=== PATIENT | male | born 1935 | race Caucasian/White ===

== ENCOUNTER 2017-05-28 15:01 | Emergency (ER) | payer MEDICARE, OTHER, SELFPAY | END 2017-05-28 18:15 | disposition home or self-care (01) | PROVIDERS: Emergency Provider Emergency Medicine; Family Provider Family Medicine; PCP Family Medicine; Visit Provider Emergency Medicine | DX: I48.0 Paroxysmal atrial fibrillation (principal) | CPT/HCPCS: 84484; 85025; 85610; 85730; 93005; 93010; 96361; 96374; 99058; 99284 ==

== ENCOUNTER → 2017-07-06 13:40 | Outpatient (CLI) | payer MEDICARE, OTHER, SELFPAY ==
[2017-07-06 14:04] LABS: INR 2.4 (0.9-1.3); Prothrombin Time 25.9 SECONDS (10.1-12.7)
== END ==
PROVIDERS: PCP Family Medicine; Visit Provider Family Medicine
DX: I48.91 Unspecified atrial fibrillation (principal)
CPT/HCPCS: 36415; 85610

== ENCOUNTER → 2017-07-15 15:39 | Outpatient (CLI) | payer MEDICARE, OTHER, SELFPAY ==
--- NOTE | 2017-07-15 | DI.RAD.S_ITS ---
PROCEDURE: XR CERVICAL SPINE 4V OR 5V INDICATIONS: LEFT SIDED NECK PAIN TECHNIQUE: 5 views of the cervical spine were acquired. COMPARISON: [facility], , CERVICAL SPINE 2 OR 3 VIEWS, 10/25/2014, 13:49. FINDINGS: Bones: No fractures or dislocations to the C7 level. No suspicious bony lesions. There is limited range of motion between flexion and extension. On neutral imaging, there is grade one anterolisthesis at C3-4 and C4-5. On flexion, there is increased slippage at both levels as well as at C2-3. On extension, there is correction of the anterolisthesis at C2-3, unchanged at C3-4 and improved at C4-5. Degenerative disc disease at multiple levels, most marked at C5-6 and C6-7 again noted. Soft tissues: Prevertebral soft tissues are normal in thickness. IMPRESSION: Anterolisthesis deformities at C2-3, C3-4 and C4-5, probably related to degenerative facet disease and ligamentous laxity. Multilevel degenerative disc disease again noted. Dictated by: Tank Cr M.D. on 07/15/2017 at 16:13 Approved by: Tank Cr M.D. on 07/15/2017 at 16:18
== END ==
PROVIDERS: Family Provider Internal Medicine Cardiovascular Disease; PCP Family Medicine; Visit Provider Family Medicine
DX: M43.12 Spondylolisthesis, cervical region (principal); M47.812 Spondylosis without myelopathy or radiculopathy, cervical region; M50.30 Other cervical disc degeneration, unspecified cervical region
CPT/HCPCS: 72050; 99214

== ENCOUNTER → 2017-08-03 17:05 | Outpatient (CLI) | payer MEDICARE, OTHER, SELFPAY ==
[2017-08-03 17:39] LABS: INR 4.4 (0.9-1.3); Prothrombin Time 46.9 SECONDS (10.1-12.7)
== END ==
PROVIDERS: Family Provider Internal Medicine Cardiovascular Disease; PCP Family Medicine; Visit Provider Family Medicine
DX: I48.91 Unspecified atrial fibrillation (principal)
CPT/HCPCS: 36415; 85610

== ENCOUNTER → 2017-08-31 12:26 | Outpatient (CLI) | payer MEDICARE, OTHER, SELFPAY ==
[2017-08-31 13:20] LABS: INR 2.9 (0.9-1.3); Prothrombin Time 31.6 SECONDS (10.1-12.7)
== END ==
PROVIDERS: Family Provider Internal Medicine Cardiovascular Disease; PCP Family Medicine; Visit Provider Family Medicine
DX: I48.91 Unspecified atrial fibrillation (principal)
CPT/HCPCS: 36415; 85610

== ENCOUNTER → 2017-09-29 15:38 | Outpatient (CLI) | payer MEDICARE, OTHER, SELFPAY ==
[2017-09-29 16:26] LABS: INR 2.5 (0.9-1.3); Prothrombin Time 27.4 SECONDS (10.1-12.7)
== END ==
PROVIDERS: Family Provider Internal Medicine Cardiovascular Disease; PCP Family Medicine; Visit Provider Family Medicine
DX: I48.91 Unspecified atrial fibrillation (principal)
CPT/HCPCS: 36415; 85610

== ENCOUNTER → 2017-10-01 17:22 | Outpatient (CLI) | payer MEDICARE, OTHER, SELFPAY ==
[2017-10-01 18:06] LABS: Hemoglobin A1C% w Est Avg Glu 7.5 % (4.0-6.0)
== END ==
PROVIDERS: Family Provider Internal Medicine Cardiovascular Disease; PCP Family Medicine; Visit Provider Family Medicine
DX: E11.9 Type 2 diabetes mellitus without complications (principal)
CPT/HCPCS: 36415; 83036

== ENCOUNTER → 2017-10-03 11:40 | Outpatient (CLI) | payer MEDICARE, OTHER, SELFPAY ==
[2017-10-03 12:22] LABS: Add Manual Diff / Slide Review NO; Basophils Percent Auto 0.8 % (0-2); Eosinophils Percent Auto 2.8 % (2-4); Hematocrit 39.8 % (41-53); Hemoglobin 13.7 g/dL (13.5-17.5); Lymphocytes Percent Auto 10.3 % (25-40); Mean Corpuscular HGB Conc 34.4 % (30-36); Monocytes Percent Auto 7.5 % (3-14); Neutrophils Absolute Auto 5100 /uL (3000-5900); Neutrophils Percent Auto 78.6 % (50-75); Platelet Count 164 X10^3/uL (150-400); Red Blood Cell Count 4.15 X10^6/uL (4.5-5.9); Red Cell Distribution Width 13.5 % (11.6-14.8); White Blood Cell Count 6.5 X10^3/uL (4.5-11.0)
[2017-10-03 12:57] LABS: Alanine Aminotransferase 20 IU/L (21-72); Albumin 3.9 g/dL (3.5-5.0); Albumin Globulin Ratio 1.4 (1.0-2.8); Alkaline Phosphatase 79 U/L (38-126); Aspartate Aminotransferase 19 IU/L (17-59); BUN Creatinine Ratio 13.8 (6-22); Bilirubin Total 0.5 mg/dL (0.2-1.3); Blood Urea Nitrogen 22 mg/dL (9-20); Calcium 8.9 mg/dL (8.4-10.2); Carbon Dioxide 23 mmol/L (22-32); Chloride 104 mmol/L (98-107); Estimated Glomerular Filt Rate 41.6 mL/min (>60); Globulin 2.7 g/dL (1.7-4.1); Glucose 141 mg/dL (80-110); HEMOLYSIS < 15 (0-50); Potassium 4.4 mmol/L (3.4-5.1); Sodium 139 mmol/L (137-145); Total Protein 6.6 g/dL (6.3-8.2)
== END ==
PROVIDERS: Family Provider Internal Medicine Cardiovascular Disease; PCP Family Medicine; Referring Provider Urology; Visit Provider Family Medicine
DX: E11.9 Type 2 diabetes mellitus without complications (principal); R06.00 Dyspnea, unspecified; I48.91 Unspecified atrial fibrillation; I50.32 Chronic diastolic (congestive) heart failure
CPT/HCPCS: 36415; 80053; 83880; 85025

== ENCOUNTER 2017-10-15 16:00 | Outpatient (RCR) | payer MEDICARE, OTHER, SELFPAY ==
--- NOTE | 2017-09-03 16:45 | PT.OIE ---
Current Diagnoses Cervicalgia (09/03/17) Low back pain (09/03/17) Muscle weakness (generalized) (09/03/17) Other abnormalities of gait and mobility (09/03/17) Provider Visit Care Team Role Provider Type Vanessa Gonzalez MD Family Provider Physician Specialty: Cardiology Address: [address] [place] [address], [id number] Email: Rufino Pierre MD Attending Provider Physician Primary Care Provider Specialty: Family Practice Address: [address] [place] [address], [id number] Email: [email or web address] Physical Therapy Initial Evaluation PT-OP-A Visit Information Start: 09/03/17 17:50 Freq: Status: Active Protocol: Document 09/03/17 16:45 RCC (Rec: 09/03/17 17:55 RCC [email or web address]) Out-Patient Physical Therapy Visit Information Visit Information Visit Type Initial Evaluation Visit Start Time 16:00 Visit Stop Time 16:55 Total Visit Minutes 55 Visit Number 1 G-codes @ 10 Number of EMERGENCY TELECOMMUNICATIONS DISPATCHER Visits 0 Evaluation Information Evaluation Date 09/03/17 PT-OP-B Current Condition Start: 09/03/17 17:50 Freq: Status: Active Protocol: Document 09/03/17 16:45 RCC (Rec: 09/06/17 14:49 RCC [email or web address]) Current Condition History of Current Condition Onset Date 3 yrs ago Current Complaints neck, back pain, fatigue History of Current Condition Pt is an 82 y/o male presenting to physical therapy with a c/o neck and back pain and general fatigue with standing and gait. Pt notes that about 3 yrs ago, he suffered a fall after getting up from a commode, in which his RLE became weak and gave out on him. Since then neck pain has been a problem for him. Pt has a h/o 3 back surgeries: 2009, 2010, and 2012. He notes that it hurts his neck the most when he looks to the L (pain on the L side of neck to L shoulder blade). He states he can only tolerate 15 min @ most of standing normal daily activities until fatigue hits and then is followed by increased neck and back pain. Prior Treatments and Tests cervical spine radiograph on : anteriolisthesis deformities at C2-3, C3-4, and C4-5, probably related to degenerative facet disease and ligamentous laxity. Multilevel degenerative disc disease again noted. Treatment Goals Patient/Caregiver Goals improve ROM and decrease fatigue and neck pain Prior Functional Status Baseline Function- ADL's Modified Independent Baseline Function- Mobility Modified Independent Baseline Function- Gait community gait with SPC Baseline Function- Recreation/Hobbies walking 5 days per week Current Functional Impairments (Reported) Functional Limitations- ADL's mod I Functional Limitations- Mobility/Gait mod I short distances with SPC Functional Limitations- Recreation/ unable to participate in a Hobbies walking program PT-OP-C Subjective Start: 09/03/17 17:50 Freq: Status: Active Protocol: Document 09/03/17 16:45 RCC (Rec: 09/06/17 14:49 RCC [email or web address]) OP-PT Subjective Patient Comments Patient Comments Pt notes that he just doesn't have the endurance, and now when he gets fatigued his neck pain is worse. Patient Reported Progress Worse Patient Questionnaires Neck Disability Index NDI Score 52% Neck Disability Index Impairment 40 to 59% Impaired (Score 20- 29) OP-PT Pain Assessment Location Left Neck Intensity 7 Scale Used Numeric (1 - 10) Description Aching Sharp PT-OP-E Functional Tests Start: 09/03/17 17:50 Freq: Status: Active Protocol: Document 09/03/17 16:45 RCC (Rec: 09/06/17 14:49 RCC [email or web address]) Functional Tests 6 Minute Walk Test Distance 927 ft Device Used SPC Comments increased back/neck pain @ 3 min and SOB @ 4 min; O2 96% and MN 90 bpm /p PT-OP-F Manual Assessment Start: 09/03/17 17:50 Freq: Status: Active Protocol: Document 09/03/17 16:45 RCC (Rec: 09/06/17 14:49 RCC [email or web address]) Manual Assessments Soft Tissue Assessment Soft Tissue Mobility Assessment TTP: general cervical spine musculature including L levator and UT, B scalenes and suboccipitals PT-OP-G Mobility & Gait Start: 09/03/17 17:50 Freq: Status: Active Protocol: Document 09/03/17 16:45 RCC (Rec: 09/06/17 14:49 RCC [email or web address]) OP Gait Assessment Gait Deviations General Gait Pattern Decreased Stride Length Decreased Feet Clearance Flexed Trunk Factors Limiting Gait Function Factors Limiting Gait Function Decreased Activity Tolerance Pain Comments Gait Comments Increased L lateral shift with gait and exacerbated with fatigue. PT-OP-J Posture/Palpation/Skin Start: 09/03/17 17:50 Freq: Status: Active Protocol: Document 09/03/17 16:45 RCC (Rec: 09/06/17 14:49 RCC [email or web address]) Posture Evaluation Position Sitting Evaluation View Anterior Head/C-Spine Posture Side Bent Left Forward Head PT-OP-K Range of Motion Start: 09/03/17 17:50 Freq: Status: Active Protocol: Document 09/03/17 16:45 RCC (Rec: 09/06/17 14:49 RCC [email or web address]) Cervical Spine Range of Motion Cervical Spine Active Degrees Testing Position Sitting Flexion 25 Extension 31 Rotation Left 42 Rotation Right 65 Lateral Flexion Left 20 Lateral Flexion Right 32 Comments pain highest in extension, L SB, and L rotation; stretch with R SB PT-OP-L Special Tests Start: 09/03/17 17:50 Freq: Status: Active Protocol: Document 09/03/17 16:45 RCC (Rec: 09/06/17 14:49 RCC [email or web address]) Special Tests Cervical Spine Special Tests Spurling's Test Test Results positive- Left PT-OP-M Strength Start: 09/03/17 17:50 Freq: Status: Active Protocol: Document 09/03/17 16:45 RCC (Rec: 09/06/17 14:49 RCC [email or web address]) Shoulder Strength Shoulder Manual Muscle Testing Right Flexion 4 Good Abduction (C5) 4 Good External Rotation 4 Good Internal Rotation 4+ Good+ Left Flexion 4 Good Abduction (C5) 4 Good External Rotation 4 Good Internal Rotation 4+ Good+ Elbow/Forearm Strength Elbow and Forearm Manual Muscle Testing Right Flexion (C6) 4+ Good+ Extension (C7) 4 Good Left Flexion (C6) 4+ Good+ Extension (C7) 4 Good Hip Strength Hip Manual Muscle Testing Right Flexion (L2) 4 Good Adduction 4+ Good+ External Rotation 4 Good Internal Rotation 4 Good Left Flexion (L2) 4- Good- Adduction 4+ Good+ External Rotation 4- Good- Internal Rotation 4- Good- Knee Strength Knee Manual Muscle Testing Right Flexion (S2) 4+ Good+ Extension (L3) 5 Normal Left Flexion (S2) 4- Good- Extension (L3) 5 Normal Ankle/Foot Strength Ankle and Foot Manual Muscle Testing Right Dorsiflexion (L4) 4+ Good+ Left Dorsiflexion (L4) 4+ Good+ PT-OP-Q Treatments Start: 09/03/17 17:50 Freq: Status: Active Protocol: Document 09/03/17 16:45 RCC (Rec: 09/06/17 14:49 RCC [email or web address]) Manual Therapy Treatment Soft Tissue Mobilization 3 Body Location L upper trapezius Mobilization Type Strumming Intensity/Depth Superficial Body Position Sitting 2 Body Location L scalenes Mobilization Type Strumming Intensity/Depth Superficial Body Position Sitting 1 Body Location L levator Mobilization Type Strumming Intensity/Depth Superficial Body Position Sitting PT-OP-R Modalities Start: 09/03/17 17:50 Freq: Status: Active Protocol: Document 09/03/17 16:45 RCC (Rec: 09/06/17 14:49 RCC [email or web address]) Hot Pack/Cold Pack Treatment Hot Pack Location neck Patient Position Sitting Treatment Duration (minutes) 10 Patient Tolerance Good PT-OP-T Assessment and Plan Start: 09/03/17 17:50 Freq: Status: Active Protocol: Document 09/03/17 16:45 RCC (Rec: 09/06/17 14:49 RCC [email or web address]) Physical Therapy Assessment Rehab Potential Rehabilitation Potential Good Evaluation Complexity Number of Personal Factors/Comorbidities 3 or More Number of Body Systems Impaired 4 or More Clinical Presentation at Evaluation Unstable Impairments Impairments Activity Tolerance Functional Activities Gait Pain Posture ROM Soft Tissue Mobility Strength Goals Five Impairment LE weakness Chief Librarian Work With Blind Goal (LTG) L hip flexion, IR and ER 4/5 and L knee flexion 4+/5 with manual muscle testing to increase functional activity tolerance (standing, gait). LTG Duration 12 weeks Four Impairment cervical spine ROM Chief Librarian Work With Blind Goal (LTG) flexion: 35 deg extension: 40 deg side-bend: 35 deg bilaterally rotation: 65 deg. bilaterally LTG Duration 12 weeks Three Impairment impaired gait tolerance Short Term Goal (STG) pt will participate in a walking program at home 3 days per week for 15 minutes. STG Duration 6 weeks Intermediate Goal (LTG) pt will participate in a walking program at home 5 days per week for 20+ minutes. LTG Duration 12 weeks Two Impairment 6 Minute Walk Test Short Term Goal (STG) 1000 ft with SPC. STG Duration 6 weeks Intermediate Goal (LTG) 1200 ft with SPC. LTG Duration 12 weeks One Impairment Pain in neck rated 7/10 Chief Librarian Work With Blind Goal (LTG) 4/10 neck pain LTG Duration 12 weeks Assessment Summary Assessment Pt presents with impaired cervical spine ROM due to soft tissue restriction, pain, and impaired joint mobility, impaired posture, strength, and generalized weakness and fatigue. Pt with increased back and neck pain with ambulation, and increased L lateral shift of the trunk with gait. Pt would greatly benefit from skilled physical therapy to improve his ROM, strength, activity tolerance, and to progress toward a home exercise program for improved ambulation. Pt's pain in the neck appears to be related to degeneration of the cervical spine. Physical Therapy Plan Frequency and Duration Frequency of Treatment 2x/Week Duration of Treatment 12 weeks Plan of Care Start Date 09/03/17 Plan of Care End Date 11/26/17 Therapeutic Interventions Therapeutic Interventions Aquatic Therapy Balance Training Gait Training Home Exercise Program Joint Mobilizations Manual Therapy Neuromuscular Re-education Patient/Caregiver Education Self-Care/Home Management Soft Tissue Mobilization Therapeutic Activities Therapeutic Exercises Modalities Cold Pack/Ice Massage Electric Stimulation Hot Packs Traction- Mechanical Ultrasound Next Visit Focus/Plan Next Note Type Treatment Note Next Visit Plan STR to cervical spine, manual traction, levator and UT stretch, wall posture training . MHP at end of session ( cervical and low back)
--- NOTE | 2017-09-03 16:45 | PT.OPPOC ---
Current Diagnoses Cervicalgia (09/03/17) Low back pain (09/03/17) Muscle weakness (generalized) (09/03/17) Other abnormalities of gait and mobility (09/03/17) Provider Visit Care Team Role Provider Type Vanessa Gonzalez MD Family Provider Physician Specialty: Cardiology Address: [address] [place] [address], [id number] Email: Rufino Pierre MD Attending Provider Physician Primary Care Provider Specialty: Family Practice Address: [address] [place] [address], [id number] Email: [email or web address] Plan Of Care PT-OP-T Assessment and Plan Start: 09/03/17 17:50 Freq: Status: Active Protocol: Document 09/03/17 16:45 RCC (Rec: 09/06/17 14:49 RCC [email or web address]) Physical Therapy Assessment Rehab Potential Rehabilitation Potential Good Evaluation Complexity Number of Personal Factors/Comorbidities 3 or More Number of Body Systems Impaired 4 or More Clinical Presentation at Evaluation Unstable Impairments Impairments Activity Tolerance Functional Activities Gait Pain Posture ROM Soft Tissue Mobility Strength Goals Five Impairment LE weakness Slip Dumper Goal (LTG) L hip flexion, IR and ER 4/5 and L knee flexion 4+/5 with manual muscle testing to increase functional activity tolerance (standing, gait). LTG Duration 12 weeks Four Impairment cervical spine ROM Usp Goal (LTG) flexion: 35 deg extension: 40 deg side-bend: 35 deg bilaterally rotation: 65 deg. bilaterally LTG Duration 12 weeks Three Impairment impaired gait tolerance Short Term Goal (STG) pt will participate in a walking program at home 3 days per week for 15 minutes. STG Duration 6 weeks Usp Goal (LTG) pt will participate in a walking program at home 5 days per week for 20+ minutes. LTG Duration 12 weeks Two Impairment 6 Minute Walk Test Short Term Goal (STG) 1000 ft with SPC. STG Duration 6 weeks Usp Goal (LTG) 1200 ft with SPC. LTG Duration 12 weeks One Impairment Pain in neck rated 7/10 Usp Goal (LTG) 4/10 neck pain LTG Duration 12 weeks Assessment Summary Assessment Pt presents with impaired cervical spine ROM due to soft tissue restriction, pain, and impaired joint mobility, impaired posture, strength, and generalized weakness and fatigue. Pt with increased back and neck pain with ambulation, and increased L lateral shift of the trunk with gait. Pt would greatly benefit from skilled physical therapy to improve his ROM, strength, activity tolerance, and to progress toward a home exercise program for improved ambulation. Pt's pain in the neck appears to be related to degeneration of the cervical spine. Physical Therapy Plan Frequency and Duration Frequency of Treatment 2x/Week Duration of Treatment 12 weeks Plan of Care Start Date 09/03/17 Plan of Care End Date 11/26/17 Therapeutic Interventions Therapeutic Interventions Aquatic Therapy Balance Training Gait Training Home Exercise Program Joint Mobilizations Manual Therapy Neuromuscular Re-education Patient/Caregiver Education Self-Care/Home Management Soft Tissue Mobilization Therapeutic Activities Therapeutic Exercises Modalities Cold Pack/Ice Massage Electric Stimulation Hot Packs Traction- Mechanical Ultrasound Next Visit Focus/Plan Next Note Type Treatment Note Next Visit Plan STR to cervical spine, manual traction, levator and UT stretch, wall posture training . MHP at end of session ( cervical and low back) Plan of Care Dates Plan of Care Start Date 09/03/17 Plan of Care End Date 11/26/17 Please Sign and Return: I have reviewed this Plan of Care and certify that the skilled therapy services above are required to meet the patient?s needs. Physician Signature Date Printed Name and Credentials Clinical Instructor Signature Printed Name and Credentials
--- NOTE | 2017-09-10 16:45 | PT.OTN ---
Current Diagnoses Cervicalgia (09/10/17) Low back pain (09/10/17) Physical Therapy Treatment Note PT-OP-A Visit Information Start: 09/03/17 17:50 Freq: Status: Active Protocol: Document 09/10/17 16:45 RCC (Rec: 09/10/17 17:38 RCC [email or web address]) Out-Patient Physical Therapy Visit Information Visit Information Visit Type Treatment Note Visit Start Time 16:00 Visit Stop Time 16:50 Total Visit Minutes 50 Visit Number 2 G-codes @ 10 Number of INVESTMENT ASSOCIATE Visits 0 Evaluation Information Evaluation Date 09/03/17 PT-OP-B Current Condition Start: 09/03/17 17:50 Freq: Status: Active Protocol: Document 09/03/17 16:45 RCC (Rec: 09/06/17 14:49 RCC [email or web address]) Current Condition History of Current Condition Onset Date 3 yrs ago Current Complaints neck, back pain, fatigue History of Current Condition Pt is an 82 y/o male presenting to physical therapy with a c/o neck and back pain and general fatigue with standing and gait. Pt notes that about 3 yrs ago, he suffered a fall after getting up from a commode, in which his RLE became weak and gave out on him. Since then neck pain has been a problem for him. Pt has a h/o 3 back surgeries: 2009, 2010, and 2012. He notes that it hurts his neck the most when he looks to the L (pain on the L side of neck to L shoulder blade). He states he can only tolerate 15 min @ most of standing normal daily activities until fatigue hits and then is followed by increased neck and back pain. Prior Treatments and Tests cervical spine radiograph on : anteriolisthesis deformities at C2-3, C3-4, and C4-5, probably related to degenerative facet disease and ligamentous laxity. Multilevel degenerative disc disease again noted. Treatment Goals Patient/Caregiver Goals improve ROM and decrease fatigue and neck pain Prior Functional Status Baseline Function- ADL's Modified Independent Baseline Function- Mobility Modified Independent Baseline Function- Gait community gait with SPC Baseline Function- Recreation/Hobbies walking 5 days per week Current Functional Impairments (Reported) Functional Limitations- ADL's mod I Functional Limitations- Mobility/Gait mod I short distances with SPC Functional Limitations- Recreation/ unable to participate in a Hobbies walking program PT-OP-C Subjective Start: 09/03/17 17:50 Freq: Status: Active Protocol: Document 09/10/17 16:45 RCC (Rec: 09/10/17 17:38 RCC [email or web address]) OP-PT Subjective Patient Comments Patient Comments Pt notes that he was sick earlier this week, and just feels run down. PT-OP-E Functional Tests Start: 09/03/17 17:50 Freq: Status: Active Protocol: Document 09/03/17 16:45 RCC (Rec: 09/06/17 14:49 RCC [email or web address]) Functional Tests 6 Minute Walk Test Distance 927 ft Device Used SPC Comments increased back/neck pain @ 3 min and SOB @ 4 min; O2 96% and [place] 90 bpm /p PT-OP-F Manual Assessment Start: 09/03/17 17:50 Freq: Status: Active Protocol: Document 09/03/17 16:45 RCC (Rec: 09/06/17 14:49 RCC [email or web address]) Manual Assessments Soft Tissue Assessment Soft Tissue Mobility Assessment TTP: general cervical spine musculature including L levator and UT, B scalenes and suboccipitals PT-OP-G Mobility & Gait Start: 09/03/17 17:50 Freq: Status: Active Protocol: Document 09/03/17 16:45 RCC (Rec: 09/06/17 14:49 RCC [email or web address]) OP Gait Assessment Gait Deviations General Gait Pattern Decreased Stride Length Decreased Feet Clearance Flexed Trunk Factors Limiting Gait Function Factors Limiting Gait Function Decreased Activity Tolerance Pain Comments Gait Comments Increased L lateral shift with gait and exacerbated with fatigue. PT-OP-J Posture/Palpation/Skin Start: 09/03/17 17:50 Freq: Status: Active Protocol: Document 09/03/17 16:45 RCC (Rec: 09/06/17 14:49 RCC [email or web address]) Posture Evaluation Position Sitting Evaluation View Anterior Head/C-Spine Posture Side Bent Left Forward Head PT-OP-K Range of Motion Start: 09/03/17 17:50 Freq: Status: Active Protocol: Document 09/03/17 16:45 RCC (Rec: 09/06/17 14:49 RCC [email or web address]) Cervical Spine Range of Motion Cervical Spine Active Degrees Testing Position Sitting Flexion 25 Extension 31 Rotation Left 42 Rotation Right 65 Lateral Flexion Left 20 Lateral Flexion Right 32 Comments pain highest in extension, L SB, and L rotation; stretch with R SB PT-OP-L Special Tests Start: 09/03/17 17:50 Freq: Status: Active Protocol: Document 09/03/17 16:45 RCC (Rec: 09/06/17 14:49 RCC [email or web address]) Special Tests Cervical Spine Special Tests Spurling's Test Test Results positive- Left PT-OP-M Strength Start: 09/03/17 17:50 Freq: Status: Active Protocol: Document 09/03/17 16:45 RCC (Rec: 09/06/17 14:49 RCC [email or web address]) Shoulder Strength Shoulder Manual Muscle Testing Right Flexion 4 Good Abduction (C5) 4 Good External Rotation 4 Good Internal Rotation 4+ Good+ Left Flexion 4 Good Abduction (C5) 4 Good External Rotation 4 Good Internal Rotation 4+ Good+ Elbow/Forearm Strength Elbow and Forearm Manual Muscle Testing Right Flexion (C6) 4+ Good+ Extension (C7) 4 Good Left Flexion (C6) 4+ Good+ Extension (C7) 4 Good Hip Strength Hip Manual Muscle Testing Right Flexion (L2) 4 Good Adduction 4+ Good+ External Rotation 4 Good Internal Rotation 4 Good Left Flexion (L2) 4- Good- Adduction 4+ Good+ External Rotation 4- Good- Internal Rotation 4- Good- Knee Strength Knee Manual Muscle Testing Right Flexion (S2) 4+ Good+ Extension (L3) 5 Normal Left Flexion (S2) 4- Good- Extension (L3) 5 Normal Ankle/Foot Strength Ankle and Foot Manual Muscle Testing Right Dorsiflexion (L4) 4+ Good+ Left Dorsiflexion (L4) 4+ Good+ PT-OP-Q Treatments Start: 09/03/17 17:50 Freq: Status: Active Protocol: Document 09/10/17 16:45 RCC (Rec: 09/10/17 17:38 RCC [email or web address]) Therapeutic Exercises Supine Exercises 1 Supine Exercise Name chin tuck Comments supine- gentle Sitting Exercises 2 Sitting Exercise Name upper trapezius stretch Side bilateral 1 Sitting Exercise Name levator stretch Side bilateral Manual Therapy Treatment Soft Tissue Mobilization 3 Body Location B upper trapezius Mobilization Type Strumming Intensity/Depth Superficial Body Position Sitting 2 Body Location B scalenes Mobilization Type Strumming Intensity/Depth Superficial Body Position Sitting 1 Body Location B levator Mobilization Type Strumming Intensity/Depth Superficial Body Position Sitting Manual Traction Cervical Body Position Hooklying Reps/Duration 10 min Manual Techniques 1 Type side glides to the R Body Location C3-6 Body Position Hooklying Reps/Duration 5 min PT-OP-R Modalities Start: 09/03/17 17:50 Freq: Status: Active Protocol: Document 09/10/17 16:45 RCC (Rec: 09/10/17 17:38 RCC [email or web address]) Hot Pack/Cold Pack Treatment Hot Pack Location neck Patient Position Hooklying Treatment Duration (minutes) 10 Patient Tolerance Good Comments bolster PT-OP-T Assessment and Plan Start: 09/03/17 17:50 Freq: Status: Active Protocol: Document 09/10/17 16:45 RCC (Rec: 09/10/17 17:38 [facility] [email or web address]) Physical Therapy Assessment Assessment Summary Assessment Pt with stiffness of the L cervical spine at C3 to C6 with sidegliding to the L. Pt initially with difficulty performing levator stretch due to joint hypomobility, but improved tolerance at end of session of manual therapy. Chin tucks required verbal cuing and were performed very gently due to pain. Physical Therapy Plan Frequency and Duration Frequency of Treatment 2x/Week Duration of Treatment 12 weeks Plan of Care Start Date 09/03/17 Plan of Care End Date 11/26/17 Next Visit Focus/Plan Next Note Type Treatment Note Next Visit Plan STR to cervical spine, manual traction, levator and UT stretch, wall posture training . MHP at end of session ( cervical and low back)
--- NOTE | 2017-09-17 17:11 | PT.OTN ---
Current Diagnoses Cervicalgia (09/17/17) Low back pain (09/17/17) Physical Therapy Treatment Note PT-OP-A Visit Information Start: 09/03/17 17:50 Freq: Status: Active Protocol: Document 09/17/17 17:01 [facility] (Rec: 09/17/17 17:11 AMH [email or web address]) Out-Patient Physical Therapy Visit Information Visit Information Visit Type Treatment Note Visit Start Time 16:00 Visit Stop Time 16:55 Total Visit Minutes 50 Visit Number 3 do G-codes at 10 Number of VP BUSINESS DEVELOPMENT Visits 0 PT-OP-B Current Condition Start: 09/03/17 17:50 Freq: Status: Active Protocol: Document 09/03/17 16:45 RCC (Rec: 09/06/17 14:49 RCC [email or web address]) Current Condition History of Current Condition Onset Date 3 yrs ago Current Complaints neck, back pain, fatigue History of Current Condition Pt is an 82 y/o male presenting to physical therapy with a c/o neck and back pain and general fatigue with standing and gait. Pt notes that about 3 yrs ago, he suffered a fall after getting up from a commode, in which his RLE became weak and gave out on him. Since then neck pain has been a problem for him. Pt has a h/o 3 back surgeries: 2009, 2010, and 2012. He notes that it hurts his neck the most when he looks to the L (pain on the L side of neck to L shoulder blade). He states he can only tolerate 15 min @ most of standing normal daily activities until fatigue hits and then is followed by increased neck and back pain. Prior Treatments and Tests cervical spine radiograph on : anteriolisthesis deformities at C2-3, C3-4, and C4-5, probably related to degenerative facet disease and ligamentous laxity. Multilevel degenerative disc disease again noted. Treatment Goals Patient/Caregiver Goals improve ROM and decrease fatigue and neck pain Prior Functional Status Baseline Function- ADL's Modified Independent Baseline Function- Mobility Modified Independent Baseline Function- Gait community gait with SPC Baseline Function- Recreation/Hobbies walking 5 days per week Current Functional Impairments (Reported) Functional Limitations- ADL's mod I Functional Limitations- Mobility/Gait mod I short distances with SPC Functional Limitations- Recreation/ unable to participate in a Hobbies walking program PT-OP-C Subjective Start: 09/03/17 17:50 Freq: Status: Active Protocol: Document 09/17/17 17:01 AM[facility] (Rec: 09/17/17 17:11 AMH [email or web address]) OP-PT Subjective Patient Comments Patient Comments The patient reports he is still feeling tired but his goal is to progress to the silver sneaker program PT-OP-E Functional Tests Start: 09/03/17 17:50 Freq: Status: Active Protocol: Document 09/03/17 16:45 RCC (Rec: 09/06/17 14:49 RCC [email or web address]) Functional Tests 6 Minute Walk Test Distance 927 ft Device Used SPC Comments increased back/neck pain @ 3 min and SOB @ 4 min; O2 96% and TX 90 bpm /p PT-OP-F Manual Assessment Start: 09/03/17 17:50 Freq: Status: Active Protocol: Document 09/03/17 16:45 RCC (Rec: 09/06/17 14:49 RCC [email or web address]) Manual Assessments Soft Tissue Assessment Soft Tissue Mobility Assessment TTP: general cervical spine musculature including L levator and UT, B scalenes and suboccipitals PT-OP-G Mobility & Gait Start: 09/03/17 17:50 Freq: Status: Active Protocol: Document 09/03/17 16:45 RCC (Rec: 09/06/17 14:49 RCC [email or web address]) OP Gait Assessment Gait Deviations General Gait Pattern Decreased Stride Length Decreased Feet Clearance Flexed Trunk Factors Limiting Gait Function Factors Limiting Gait Function Decreased Activity Tolerance Pain Comments Gait Comments Increased L lateral shift with gait and exacerbated with fatigue. PT-OP-J Posture/Palpation/Skin Start: 09/03/17 17:50 Freq: Status: Active Protocol: Document 09/03/17 16:45 RCC (Rec: 09/06/17 14:49 RCC [email or web address]) Posture Evaluation Position Sitting Evaluation View Anterior Head/C-Spine Posture Side Bent Left Forward Head PT-OP-K Range of Motion Start: 09/03/17 17:50 Freq: Status: Active Protocol: Document 09/03/17 16:45 RCC (Rec: 09/06/17 14:49 RCC [email or web address]) Cervical Spine Range of Motion Cervical Spine Active Degrees Testing Position Sitting Flexion 25 Extension 31 Rotation Left 42 Rotation Right 65 Lateral Flexion Left 20 Lateral Flexion Right 32 Comments pain highest in extension, L SB, and L rotation; stretch with R SB PT-OP-L Special Tests Start: 09/03/17 17:50 Freq: Status: Active Protocol: Document 09/03/17 16:45 RCC (Rec: 09/06/17 14:49 RCC [email or web address]) Special Tests Cervical Spine Special Tests Spurling's Test Test Results positive- Left PT-OP-M Strength Start: 09/03/17 17:50 Freq: Status: Active Protocol: Document 09/03/17 16:45 RCC (Rec: 09/06/17 14:49 RCC [email or web address]) Shoulder Strength Shoulder Manual Muscle Testing Right Flexion 4 Good Abduction (C5) 4 Good External Rotation 4 Good Internal Rotation 4+ Good+ Left Flexion 4 Good Abduction (C5) 4 Good External Rotation 4 Good Internal Rotation 4+ Good+ Elbow/Forearm Strength Elbow and Forearm Manual Muscle Testing Right Flexion (C6) 4+ Good+ Extension (C7) 4 Good Left Flexion (C6) 4+ Good+ Extension (C7) 4 Good Hip Strength Hip Manual Muscle Testing Right Flexion (L2) 4 Good Adduction 4+ Good+ External Rotation 4 Good Internal Rotation 4 Good Left Flexion (L2) 4- Good- Adduction 4+ Good+ External Rotation 4- Good- Internal Rotation 4- Good- Knee Strength Knee Manual Muscle Testing Right Flexion (S2) 4+ Good+ Extension (L3) 5 Normal Left Flexion (S2) 4- Good- Extension (L3) 5 Normal Ankle/Foot Strength Ankle and Foot Manual Muscle Testing Right Dorsiflexion (L4) 4+ Good+ Left Dorsiflexion (L4) 4+ Good+ PT-OP-Q Treatments Start: 09/03/17 17:50 Freq: Status: Active Protocol: Document 09/17/17 17:01 AMH (Rec: 09/17/17 17:11 AMH [email or web address]) Cardio Equipment Recumbent Elliptical (Biodex) Duration (Minutes) 5 Therapeutic Exercises Supine Exercises 1 Supine Exercise Name chin tuck Comments supine- gentle Sitting Exercises 4 Sitting Exercise Name seated shoulder lily Reps/Minutes 4-5 minutes 3 Sitting Exercise Name seated rows Equipment Used level 1 theraband 2 Sitting Exercise Name upper trapezius stretch Side bilateral 1 Sitting Exercise Name levator stretch Side bilateral Manual Therapy Treatment Soft Tissue Mobilization 3 Body Location B upper trapezius Mobilization Type Strumming Intensity/Depth Superficial Body Position Sitting 2 Body Location B scalenes Mobilization Type Strumming Intensity/Depth Superficial Body Position Sitting 1 Body Location B levator Mobilization Type Strumming Intensity/Depth Superficial Body Position Sitting PT-OP-R Modalities Start: 09/03/17 17:50 Freq: Status: Active Protocol: Document 09/17/17 17:01 [facility] (Rec: 09/17/17 17:11 AMH [email or web address]) Hot Pack/Cold Pack Treatment Hot Pack Location neck Patient Position Hooklying Treatment Duration (minutes) 10 Patient Tolerance Good Comments awaisster PT-OP-T Assessment and Plan Start: 09/03/17 17:50 Freq: Status: Active Protocol: Document 09/17/17 17:01 [facility] (Rec: 09/17/17 17:11 [facility] [email or web address]) Physical Therapy Assessment Assessment Summary Assessment worked on chin tucks and postural modifications and began the [employer] today which Alan tolerated well. Physical Therapy Plan Frequency and Duration Frequency of Treatment 2x/Week Duration of Treatment 12 weeks Plan of Care Start Date 09/03/17 Plan of Care End Date 11/26/17 Therapeutic Interventions Therapeutic Interventions Aquatic Therapy Balance Training Gait Training Home Exercise Program Joint Mobilizations Manual Therapy Neuromuscular Re-education Patient/Caregiver Education Self-Care/Home Management Soft Tissue Mobilization Therapeutic Activities Therapeutic Exercises Modalities Cold Pack/Ice Massage Electric Stimulation Hot Packs Traction- Mechanical Ultrasound Next Visit Focus/Plan Next Note Type Treatment Note Next Visit Plan STR to cervical spine, manual traction, levator and UT stretch, wall posture training . MHP at end of session ( cervical and low back)
--- NOTE | 2017-09-22 17:52 | PT.OTN ---
Current Diagnoses Cervicalgia (09/22/17) Low back pain (09/22/17) Physical Therapy Treatment Note PT-OP-A Visit Information Start: 09/03/17 17:50 Freq: Status: Active Protocol: Document 09/22/17 17:40 GGD (Rec: 09/22/17 17:52 GGD [email or web address]) Out-Patient Physical Therapy Visit Information Visit Information Visit Type Treatment Note Visit Start Time 16:00 Visit Stop Time 16:50 Total Visit Minutes 50 Visit Number 4 do G-codes at 10 Number of SEARCH ENGINE [employer]IMIZER Visits 1 Evaluation Information Evaluation Date 09/03/17 PT-OP-B Current Condition Start: 09/03/17 17:50 Freq: Status: Active Protocol: Document 09/03/17 16:45 RCC (Rec: 09/06/17 14:49 RCC [email or web address]) Current Condition History of Current Condition Onset Date 3 yrs ago Current Complaints neck, back pain, fatigue History of Current Condition Pt is an 82 y/o male presenting to physical therapy with a c/o neck and back pain and general fatigue with standing and gait. Pt notes that about 3 yrs ago, he suffered a fall after getting up from a commode, in which his RLE became weak and gave out on him. Since then neck pain has been a problem for him. Pt has a h/o 3 back surgeries: 2009, 2010, and 2012. He notes that it hurts his neck the most when he looks to the L (pain on the L side of neck to L shoulder blade). He states he can only tolerate 15 min @ most of standing normal daily activities until fatigue hits and then is followed by increased neck and back pain. Prior Treatments and Tests cervical spine radiograph on : anteriolisthesis deformities at C2-3, C3-4, and C4-5, probably related to degenerative facet disease and ligamentous laxity. Multilevel degenerative disc disease again noted. Treatment Goals Patient/Caregiver Goals improve ROM and decrease fatigue and neck pain Prior Functional Status Baseline Function- ADL's Modified Independent Baseline Function- Mobility Modified Independent Baseline Function- Gait community gait with SPC Baseline Function- Recreation/Hobbies walking 5 days per week Current Functional Impairments (Reported) Functional Limitations- ADL's mod I Functional Limitations- Mobility/Gait mod I short distances with SPC Functional Limitations- Recreation/ unable to participate in a Hobbies walking program PT-OP-C Subjective Start: 09/03/17 17:50 Freq: Status: Active Protocol: Document 09/22/17 17:40 GGD (Rec: 09/22/17 17:52 GGD [email or web address]) OP-PT Subjective Patient Comments Patient Comments Pt state that he can fatigued after walk about a block to and from post office. PT-OP-E Functional Tests Start: 09/03/17 17:50 Freq: Status: Active Protocol: Document 09/03/17 16:45 RCC (Rec: 09/06/17 14:49 RCC [email or web address]) Functional Tests 6 Minute Walk Test Distance 927 ft Device Used SPC Comments increased back/neck pain @ 3 min and SOB @ 4 min; O2 96% and LA 90 bpm /p PT-OP-F Manual Assessment Start: 09/03/17 17:50 Freq: Status: Active Protocol: Document 09/03/17 16:45 RCC (Rec: 09/06/17 14:49 RCC [email or web address]) Manual Assessments Soft Tissue Assessment Soft Tissue Mobility Assessment TTP: general cervical spine musculature including L levator and UT, B scalenes and suboccipitals PT-OP-G Mobility & Gait Start: 09/03/17 17:50 Freq: Status: Active Protocol: Document 09/03/17 16:45 RCC (Rec: 09/06/17 14:49 RCC [email or web address]) OP Gait Assessment Gait Deviations General Gait Pattern Decreased Stride Length Decreased Feet Clearance Flexed Trunk Factors Limiting Gait Function Factors Limiting Gait Function Decreased Activity Tolerance Pain Comments Gait Comments Increased L lateral shift with gait and exacerbated with fatigue. PT-OP-J Posture/Palpation/Skin Start: 09/03/17 17:50 Freq: Status: Active Protocol: Document 09/03/17 16:45 RCC (Rec: 09/06/17 14:49 RCC [email or web address]) Posture Evaluation Position Sitting Evaluation View Anterior Head/C-Spine Posture Side Bent Left Forward Head PT-OP-K Range of Motion Start: 09/03/17 17:50 Freq: Status: Active Protocol: Document 09/03/17 16:45 RCC (Rec: 09/06/17 14:49 RCC [email or web address]) Cervical Spine Range of Motion Cervical Spine Active Degrees Testing Position Sitting Flexion 25 Extension 31 Rotation Left 42 Rotation Right 65 Lateral Flexion Left 20 Lateral Flexion Right 32 Comments pain highest in extension, L SB, and L rotation; stretch with R SB PT-OP-L Special Tests Start: 09/03/17 17:50 Freq: Status: Active Protocol: Document 09/03/17 16:45 RCC (Rec: 09/06/17 14:49 RCC [email or web address]) Special Tests Cervical Spine Special Tests Spurling's Test Test Results positive- Left PT-OP-M Strength Start: 09/03/17 17:50 Freq: Status: Active Protocol: Document 09/03/17 16:45 RCC (Rec: 09/06/17 14:49 RCC [email or web address]) Shoulder Strength Shoulder Manual Muscle Testing Right Flexion 4 Good Abduction (C5) 4 Good External Rotation 4 Good Internal Rotation 4+ Good+ Left Flexion 4 Good Abduction (C5) 4 Good External Rotation 4 Good Internal Rotation 4+ Good+ Elbow/Forearm Strength Elbow and Forearm Manual Muscle Testing Right Flexion (C6) 4+ Good+ Extension (C7) 4 Good Left Flexion (C6) 4+ Good+ Extension (C7) 4 Good Hip Strength Hip Manual Muscle Testing Right Flexion (L2) 4 Good Adduction 4+ Good+ External Rotation 4 Good Internal Rotation 4 Good Left Flexion (L2) 4- Good- Adduction 4+ Good+ External Rotation 4- Good- Internal Rotation 4- Good- Knee Strength Knee Manual Muscle Testing Right Flexion (S2) 4+ Good+ Extension (L3) 5 Normal Left Flexion (S2) 4- Good- Extension (L3) 5 Normal Ankle/Foot Strength Ankle and Foot Manual Muscle Testing Right Dorsiflexion (L4) 4+ Good+ Left Dorsiflexion (L4) 4+ Good+ PT-OP-Q Treatments Start: 09/03/17 17:50 Freq: Status: Active Protocol: Document 09/22/17 17:40 GGD (Rec: 09/22/17 17:52 GGD [email or web address]) Cardio Equipment Recumbent Elliptical (Biodex) Duration (Minutes) 7 Resistance 4 Therapeutic Exercises Supine Exercises 1 Supine Exercise Name chin tuck Comments supine- gentle Sitting Exercises 4 Sitting Exercise Name seated shoulder lily Reps/Minutes 4-5 minutes 3 Sitting Exercise Name seated rows Equipment Used level 1 theraband 2 Sitting Exercise Name upper trapezius stretch Side bilateral 1 Sitting Exercise Name levator stretch Side bilateral Manual Therapy Treatment Soft Tissue Mobilization 3 Body Location B upper trapezius Mobilization Type Strumming Intensity/Depth Superficial Body Position Sitting 2 Body Location B scalenes Mobilization Type Strumming Intensity/Depth Superficial Body Position Sitting 1 Body Location B levator Mobilization Type Strumming Intensity/Depth Superficial Body Position Sitting PT-OP-R Modalities Start: 09/03/17 17:50 Freq: Status: Active Protocol: Document 09/22/17 17:40 GGD (Rec: 09/22/17 17:52 GGD [email or web address]) Hot Pack/Cold Pack Treatment Hot Pack Location neck Patient Position Hooklying Treatment Duration (minutes) 10 Patient Tolerance Good Comments carlota PT-OP-T Assessment and Plan Start: 09/03/17 17:50 Freq: Status: Active Protocol: Document 09/22/17 17:40 GGD (Rec: 09/22/17 17:52 GGD [email or web address]) Physical Therapy Assessment Rehab Potential Rehabilitation Potential Good Evaluation Complexity Number of Personal Factors/Comorbidities 3 or More Number of Body Systems Impaired 4 or More Clinical Presentation at Evaluation Unstable Impairments Impairments Activity Tolerance Functional Activities Gait Pain Posture ROM Soft Tissue Mobility Strength Goals Five Impairment LE weakness House Admin Goal (LTG) L hip flexion, IR and ER 4/5 and L knee flexion 4+/5 with manual muscle testing to increase functional activity tolerance (standing, gait). LTG Duration 12 weeks Four Impairment cervical spine ROM Half-Way Goal (LTG) flexion: 35 deg extension: 40 deg side-bend: 35 deg bilaterally rotation: 65 deg. bilaterally LTG Duration 12 weeks Three Impairment impaired gait tolerance Short Term Goal (STG) pt will participate in a walking program at home 3 days per week for 15 minutes. STG Duration 6 weeks Half-Way Goal (LTG) pt will participate in a walking program at home 5 days per week for 20+ minutes. LTG Duration 12 weeks Two Impairment 6 Minute Walk Test Short Term Goal (STG) 1000 ft with SPC. STG Duration 6 weeks House Admin Goal (LTG) 1200 ft with SPC. LTG Duration 12 weeks One Impairment Pain in neck rated 7/10 Half-Way Goal (LTG) 4/10 neck pain LTG Duration 12 weeks Assessment Summary Assessment Pt need cues for posture and exercise techinque. He fatigued with biodex. Physical Therapy Plan Frequency and Duration Frequency of Treatment 2x/Week Duration of Treatment 12 weeks Plan of Care Start Date 09/03/17 Plan of Care End Date 11/26/17 Therapeutic Interventions Therapeutic Interventions Aquatic Therapy Balance Training Gait Training Home Exercise Program Joint Mobilizations Manual Therapy Neuromuscular Re-education Patient/Caregiver Education Self-Care/Home Management Soft Tissue Mobilization Therapeutic Activities Therapeutic Exercises Modalities Cold Pack/Ice Massage Electric Stimulation Hot Packs Traction- Mechanical Ultrasound Next Visit Focus/Plan Next Note Type Treatment Note Next Visit Plan progress posture and review exercises.
--- NOTE | 2017-09-29 16:55 | PT.OTN ---
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 Pt notes that about 3 yrs ago, he suffered a fall after getting up from a commode, in which his RLE became weak and gave out on him. Since then neck pain has been a problem for him. Pt has a h/o 3 back surgeries: 2009, 2010, and 2012. He notes that it hurts his neck the most when he looks to the L (pain on the L side of neck to L shoulder blade). He states he can only tolerate 15 min @ most of standing normal daily activities until fatigue hits and then is followed by increased neck and back pain. Prior Treatments and Tests cervical spine radiograph on : anteriolisthesis deformities at C2-3, C3-4, and C4-5, probably related to degenerative facet disease and ligamentous laxity. Multilevel degenerative disc disease again noted. Treatment Goals Patient/Caregiver Goals improve ROM and decrease fatigue and neck pain Prior Functional Status Baseline Function- ADL's Modified Independent Baseline Function- Mobility Modified Independent Baseline Function- Gait community gait with SPC Baseline Function- Recreation/Hobbies walking 5 days per week Current Functional Impairments (Reported) Functional Limitations- ADL's mod I Functional Limitations- Mobility/Gait mod I short distances with SPC Functional Limitations- Recreation/ unable to participate in a Hobbies walking program PT-OP-C Subjective Start: 09/03/17 17:50 Freq: Status: Active Protocol: Document 09/29/17 16:49 GGD (Rec: 09/29/17 16:55 GGD [email or web address]) OP-PT Subjective Patient Comments Patient Comments Pt states he was sore after falling a sleep in the chair. PT-OP-E Functional Tests Start: 09/03/17 17:50 Freq: Status: Active Protocol: Document 09/03/17 16:45 RCC (Rec: 09/06/17 14:49 RCC [email or web address]) Functional Tests 6 Minute Walk Test Distance 927 ft Device Used SPC Comments increased back/neck pain @ 3 min and SOB @ 4 min; O2 96% and NV 90 bpm /p PT-OP-F Manual Assessment Start: 09/03/17 17:50 Freq: Status: Active Protocol: Document 09/03/17 16:45 RCC (Rec: 09/06/17 14:49 RCC [email or web address]) Manual Assessments Soft Tissue Assessment Soft Tissue Mobility Assessment TTP: general cervical spine musculature including L levator and UT, B scalenes and suboccipitals PT-OP-G Mobility & Gait Start: 09/03/17 17:50 Freq: Status: Active Protocol: Document 09/03/17 16:45 RCC (Rec: 09/06/17 14:49 RCC [email or web address]) OP Gait Assessment Gait Deviations General Gait Pattern Decreased Stride Length Decreased Feet Clearance Flexed Trunk Factors Limiting Gait Function Factors Limiting Gait Function Decreased Activity Tolerance Pain Comments Gait Comments Increased L lateral shift with gait and exacerbated with fatigue. PT-OP-J Posture/Palpation/Skin Start: 09/03/17 17:50 Freq: Status: Active Protocol: Document 09/03/17 16:45 RCC (Rec: 09/06/17 14:49 RCC [email or web address]) Posture Evaluation Position Sitting Evaluation View Anterior Head/C-Spine Posture Side Bent Left Forward Head PT-OP-K Range of Motion Start: 09/03/17 17:50 Freq: Status: Active Protocol: Document 09/03/17 16:45 RCC (Rec: 09/06/17 14:49 RCC [email or web address]) Cervical Spine Range of Motion Cervical Spine Active Degrees Testing Position Sitting Flexion 25 Extension 31 Rotation Left 42 Rotation Right 65 Lateral Flexion Left 20 Lateral Flexion Right 32 Comments pain highest in extension, L SB, and L rotation; stretch with R SB PT-OP-L Special Tests Start: 09/03/17 17:50 Freq: Status: Active Protocol: Document 09/03/17 16:45 RCC (Rec: 09/06/17 14:49 RCC [email or web address]) Special Tests Cervical Spine Special Tests Spurling's Test Test Results positive- Left PT-OP-M Strength Start: 09/03/17 17:50 Freq: Status: Active Protocol: Document 09/03/17 16:45 RCC (Rec: 09/06/17 14:49 RCC [email or web address]) Shoulder Strength Shoulder Manual Muscle Testing Right Flexion 4 Good Abduction (C5) 4 Good External Rotation 4 Good Internal Rotation 4+ Good+ Left Flexion 4 Good Abduction (C5) 4 Good External Rotation 4 Good Internal Rotation 4+ Good+ Elbow/Forearm Strength Elbow and Forearm Manual Muscle Testing Right Flexion (C6) 4+ Good+ Extension (C7) 4 Good Left Flexion (C6) 4+ Good+ Extension (C7) 4 Good Hip Strength Hip Manual Muscle Testing Right Flexion (L2) 4 Good Adduction 4+ Good+ External Rotation 4 Good Internal Rotation 4 Good Left Flexion (L2) 4- Good- Adduction 4+ Good+ External Rotation 4- Good- Internal Rotation 4- Good- Knee Strength Knee Manual Muscle Testing Right Flexion (S2) 4+ Good+ Extension (L3) 5 Normal Left Flexion (S2) 4- Good- Extension (L3) 5 Normal Ankle/Foot Strength Ankle and Foot Manual Muscle Testing Right Dorsiflexion (L4) 4+ Good+ Left Dorsiflexion (L4) 4+ Good+ PT-OP-Q Treatments Start: 09/03/17 17:50 Freq: Status: Active Protocol: Document 09/29/17 16:49 GGD (Rec: 09/29/17 16:55 GGD [email or web address]) Cardio Equipment Recumbent Elliptical (Biodex) Duration (Minutes) 8 Resistance 4 Therapeutic Exercises Supine Exercises 1 Supine Exercise Name chin tuck Comments supine- gentle Sitting Exercises 4 Sitting Exercise Name seated shoulder lily Reps/Minutes 4-5 minutes 3 Sitting Exercise Name seated rows Equipment Used level 1 theraband 2 Sitting Exercise Name upper trapezius stretch Side bilateral 1 Sitting Exercise Name levator stretch Side bilateral Standing Exercises 1 Standing Exercise Name shoulder extension Side bilateral Resistance level 1 Reps/Minutes 2 Manual Therapy Treatment Soft Tissue Mobilization 3 Body Location B upper trapezius Mobilization Type Strumming Intensity/Depth Superficial Body Position Sitting 2 Body Location B scalenes Mobilization Type Strumming Intensity/Depth Superficial Body Position Sitting 1 Body Location B levator Mobilization Type Strumming Intensity/Depth Superficial Body Position Sitting Manual Traction Cervical Body Position Hooklying Reps/Duration 5 min PT-OP-R Modalities Start: 09/03/17 17:50 Freq: Status: Active Protocol: Document 09/29/17 16:49 GGD (Rec: 09/29/17 16:55 GGD [email or web address]) Hot Pack/Cold Pack Treatment Hot Pack Location neck Patient Position Hooklying Treatment Duration (minutes) 10 Patient Tolerance Good Comments awaisster PT-OP-T Assessment and Plan Start: 09/03/17 17:50 Freq: Status: Active Protocol: Document 09/29/17 16:49 GGD (Rec: 09/29/17 16:55 GGD [email or web address]) Physical Therapy Assessment Assessment Summary Assessment Pt need less cuing for exercise. HE improved tolerance to biodex. Physical Therapy Plan Frequency and Duration Frequency of Treatment 2x/Week Duration of Treatment 12 weeks Plan of Care Start Date 09/03/17 Plan of Care End Date 11/26/17 Therapeutic Interventions Therapeutic Interventions Aquatic Therapy Balance Training Gait Training Home Exercise Program Joint Mobilizations Manual Therapy Neuromuscular Re-education Patient/Caregiver Education Self-Care/Home Management Soft Tissue Mobilization Therapeutic Activities Therapeutic Exercises Modalities Cold Pack/Ice Massage Electric Stimulation Hot Packs Traction- Mechanical Ultrasound Next Visit Focus/Plan Next Note Type Treatment Note Next Visit Plan progress posture and review exercises.
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
--- NOTE | 2017-10-06 16:47 | PT.OTN ---
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 Pt notes that about 3 yrs ago, he suffered a fall after getting up from a commode, in which his RLE became weak and gave out on him. Since then neck pain has been a problem for him. Pt has a h/o 3 back surgeries: 2009, 2010, and 2012. He notes that it hurts his neck the most when he looks to the L (pain on the L side of neck to L shoulder blade). He states he can only tolerate 15 min @ most of standing normal daily activities until fatigue hits and then is followed by increased neck and back pain. Prior Treatments and Tests cervical spine radiograph on : anteriolisthesis deformities at C2-3, C3-4, and C4-5, probably related to degenerative facet disease and ligamentous laxity. Multilevel degenerative disc disease again noted. Treatment Goals Patient/Caregiver Goals improve ROM and decrease fatigue and neck pain Prior Functional Status Baseline Function- ADL's Modified Independent Baseline Function- Mobility Modified Independent Baseline Function- Gait community gait with SPC Baseline Function- Recreation/Hobbies walking 5 days per week Current Functional Impairments (Reported) Functional Limitations- ADL's mod I Functional Limitations- Mobility/Gait mod I short distances with SPC Functional Limitations- Recreation/ unable to participate in a Hobbies walking program PT-OP-C Subjective Start: 09/03/17 17:50 Freq: Status: Active Protocol: Document 10/06/17 16:41 GGD (Rec: 10/06/17 16:47 GGD [email or web address]) OP-PT Subjective Patient Comments Patient Comments Pt states he still having increase in neck soreness. PT-OP-E Functional Tests Start: 09/03/17 17:50 Freq: Status: Active Protocol: Document 09/03/17 16:45 RCC (Rec: 09/06/17 14:49 RCC [email or web address]) Functional Tests 6 Minute Walk Test Distance 927 ft Device Used SPC Comments increased back/neck pain @ 3 min and SOB @ 4 min; O2 96% and MA 90 bpm /p PT-OP-F Manual Assessment Start: 09/03/17 17:50 Freq: Status: Active Protocol: Document 09/03/17 16:45 RCC (Rec: 09/06/17 14:49 RCC [email or web address]) Manual Assessments Soft Tissue Assessment Soft Tissue Mobility Assessment TTP: general cervical spine musculature including L levator and UT, B scalenes and suboccipitals PT-OP-G Mobility & Gait Start: 09/03/17 17:50 Freq: Status: Active Protocol: Document 09/03/17 16:45 RCC (Rec: 09/06/17 14:49 RCC [email or web address]) OP Gait Assessment Gait Deviations General Gait Pattern Decreased Stride Length Decreased Feet Clearance Flexed Trunk Factors Limiting Gait Function Factors Limiting Gait Function Decreased Activity Tolerance Pain Comments Gait Comments Increased L lateral shift with gait and exacerbated with fatigue. PT-OP-J Posture/Palpation/Skin Start: 09/03/17 17:50 Freq: Status: Active Protocol: Document 09/03/17 16:45 RCC (Rec: 09/06/17 14:49 RCC [email or web address]) Posture Evaluation Position Sitting Evaluation View Anterior Head/C-Spine Posture Side Bent Left Forward Head PT-OP-K Range of Motion Start: 09/03/17 17:50 Freq: Status: Active Protocol: Document 09/03/17 16:45 RCC (Rec: 09/06/17 14:49 RCC [email or web address]) Cervical Spine Range of Motion Cervical Spine Active Degrees Testing Position Sitting Flexion 25 Extension 31 Rotation Left 42 Rotation Right 65 Lateral Flexion Left 20 Lateral Flexion Right 32 Comments pain highest in extension, L SB, and L rotation; stretch with R SB PT-OP-L Special Tests Start: 09/03/17 17:50 Freq: Status: Active Protocol: Document 09/03/17 16:45 RCC (Rec: 09/06/17 14:49 RCC [email or web address]) Special Tests Cervical Spine Special Tests Spurling's Test Test Results positive- Left PT-OP-M Strength Start: 09/03/17 17:50 Freq: Status: Active Protocol: Document 09/03/17 16:45 RCC (Rec: 09/06/17 14:49 RCC [email or web address]) Shoulder Strength Shoulder Manual Muscle Testing Right Flexion 4 Good Abduction (C5) 4 Good External Rotation 4 Good Internal Rotation 4+ Good+ Left Flexion 4 Good Abduction (C5) 4 Good External Rotation 4 Good Internal Rotation 4+ Good+ Elbow/Forearm Strength Elbow and Forearm Manual Muscle Testing Right Flexion (C6) 4+ Good+ Extension (C7) 4 Good Left Flexion (C6) 4+ Good+ Extension (C7) 4 Good Hip Strength Hip Manual Muscle Testing Right Flexion (L2) 4 Good Adduction 4+ Good+ External Rotation 4 Good Internal Rotation 4 Good Left Flexion (L2) 4- Good- Adduction 4+ Good+ External Rotation 4- Good- Internal Rotation 4- Good- Knee Strength Knee Manual Muscle Testing Right Flexion (S2) 4+ Good+ Extension (L3) 5 Normal Left Flexion (S2) 4- Good- Extension (L3) 5 Normal Ankle/Foot Strength Ankle and Foot Manual Muscle Testing Right Dorsiflexion (L4) 4+ Good+ Left Dorsiflexion (L4) 4+ Good+ PT-OP-Q Treatments Start: 09/03/17 17:50 Freq: Status: Active Protocol: Document 10/06/17 16:41 GGD (Rec: 10/06/17 16:47 GGD [email or web address]) Cardio Equipment Recumbent Elliptical (Biodex) Duration (Minutes) 8 Resistance 4 Therapeutic Exercises Standing Exercises 2 Standing Exercise Name rows Side bilateral Resistance Level 1 Reps/Minutes 20 1 Standing Exercise Name shoulder extension Side bilateral Resistance level 1 Reps/Minutes 1x20 Manual Therapy Treatment Soft Tissue Mobilization 4 Body Location B rhomboid Mobilization Type Strumming Intensity/Depth Moderate Body Position Sitting 3 Body Location B upper trapezius Mobilization Type Strumming Intensity/Depth Superficial Body Position Sitting 2 Body Location B scalenes Mobilization Type Strumming Intensity/Depth Superficial Body Position Sitting 1 Body Location B levator Mobilization Type Strumming Intensity/Depth Superficial Body Position Sitting PT-OP-R Modalities Start: 09/03/17 17:50 Freq: Status: Active Protocol: Document 10/06/17 16:41 GGD (Rec: 10/06/17 16:47 GGD [email or web address]) Hot Pack/Cold Pack Treatment Hot Pack Location neck Patient Position Hooklying Treatment Duration (minutes) 15 Patient Tolerance Good Comments awaisster PT-OP-T Assessment and Plan Start: 09/03/17 17:50 Freq: Status: Active Protocol: Document 10/06/17 16:41 GGD (Rec: 10/06/17 16:47 GGD [email or web address]) Physical Therapy Assessment Assessment Summary Assessment Pt needed cues for standing posture execise. He had decrease in mucle tension. Physical Therapy Plan Frequency and Duration Frequency of Treatment 2x/Week Duration of Treatment 12 weeks Plan of Care Start Date 09/03/17 Plan of Care End Date 11/26/17 Next Visit Focus/Plan Next Note Type Treatment Note Next Visit Plan posture training, progress HEP .
--- NOTE | 2017-10-08 16:45 | PT.OTN ---
Current Diagnoses Cervicalgia (10/08/17) Low back pain (10/08/17) Physical Therapy Treatment Note PT-OP-A Visit Information Start: 09/03/17 17:50 Freq: Status: Active Protocol: Document 10/08/17 16:45 RCC (Rec: 10/08/17 17:51 RCC [email or web address]) Out-Patient Physical Therapy Visit Information Visit Information Visit Type Treatment Note Visit Start Time 16:00 Visit Stop Time 16:55 Total Visit Minutes 55 Visit Number 7/10 g-codes Number of [place]TAIN Visits 0 Evaluation Information Evaluation Date 09/03/17 PT-OP-B Current Condition Start: 09/03/17 17:50 Freq: Status: Active Protocol: Document 09/03/17 16:45 RCC (Rec: 09/06/17 14:49 RCC [email or web address]) Current Condition History of Current Condition Onset Date 3 yrs ago Current Complaints neck, back pain, fatigue History of Current Condition Pt is an 82 y/o male presenting to physical therapy with a c/o neck and back pain and general fatigue with standing and gait. Pt notes that about 3 yrs ago, he suffered a fall after getting up from a commode, in which his RLE became weak and gave out on him. Since then neck pain has been a problem for him. Pt has a h/o 3 back surgeries: 2009, 2010, and 2012. He notes that it hurts his neck the most when he looks to the L (pain on the L side of neck to L shoulder blade). He states he can only tolerate 15 min @ most of standing normal daily activities until fatigue hits and then is followed by increased neck and back pain. Prior Treatments and Tests cervical spine radiograph on : anteriolisthesis deformities at C2-3, C3-4, and C4-5, probably related to degenerative facet disease and ligamentous laxity. Multilevel degenerative disc disease again noted. Treatment Goals Patient/Caregiver Goals improve ROM and decrease fatigue and neck pain Prior Functional Status Baseline Function- ADL's Modified Independent Baseline Function- Mobility Modified Independent Baseline Function- Gait community gait with SPC Baseline Function- Recreation/Hobbies walking 5 days per week Current Functional Impairments (Reported) Functional Limitations- ADL's mod I Functional Limitations- Mobility/Gait mod I short distances with SPC Functional Limitations- Recreation/ unable to participate in a Hobbies walking program PT-OP-C Subjective Start: 09/03/17 17:50 Freq: Status: Active Protocol: Document 10/08/17 16:45 RCC (Rec: 10/08/17 17:51 RCC [email or web address]) OP-PT Subjective Patient Comments Patient Comments Pt is having an MRI soon of his neck. He continues to have pain, L>R, and difficulty with prolonged positioning. PT-OP-E Functional Tests Start: 09/03/17 17:50 Freq: Status: Active Protocol: Document 09/03/17 16:45 RCC (Rec: 09/06/17 14:49 RCC [email or web address]) Functional Tests 6 Minute Walk Test Distance 927 ft Device Used SPC Comments increased back/neck pain @ 3 min and SOB @ 4 min; O2 96% and DC 90 bpm /p PT-OP-F Manual Assessment Start: 09/03/17 17:50 Freq: Status: Active Protocol: Document 09/03/17 16:45 RCC (Rec: 09/06/17 14:49 RCC [email or web address]) Manual Assessments Soft Tissue Assessment Soft Tissue Mobility Assessment TTP: general cervical spine musculature including L levator and UT, B scalenes and suboccipitals PT-OP-G Mobility & Gait Start: 09/03/17 17:50 Freq: Status: Active Protocol: Document 09/03/17 16:45 RCC (Rec: 09/06/17 14:49 RCC [email or web address]) OP Gait Assessment Gait Deviations General Gait Pattern Decreased Stride Length Decreased Feet Clearance Flexed Trunk Factors Limiting Gait Function Factors Limiting Gait Function Decreased Activity Tolerance Pain Comments Gait Comments Increased L lateral shift with gait and exacerbated with fatigue. PT-OP-J Posture/Palpation/Skin Start: 09/03/17 17:50 Freq: Status: Active Protocol: Document 09/03/17 16:45 RCC (Rec: 09/06/17 14:49 RCC [email or web address]) Posture Evaluation Position Sitting Evaluation View Anterior Head/C-Spine Posture Side Bent Left Forward Head PT-OP-K Range of Motion Start: 09/03/17 17:50 Freq: Status: Active Protocol: Document 09/03/17 16:45 RCC (Rec: 09/06/17 14:49 RCC [email or web address]) Cervical Spine Range of Motion Cervical Spine Active Degrees Testing Position Sitting Flexion 25 Extension 31 Rotation Left 42 Rotation Right 65 Lateral Flexion Left 20 Lateral Flexion Right 32 Comments pain highest in extension, L SB, and L rotation; stretch with R SB PT-OP-L Special Tests Start: 09/03/17 17:50 Freq: Status: Active Protocol: Document 09/03/17 16:45 RCC (Rec: 09/06/17 14:49 [facility] [email or web address]) Special Tests Cervical Spine Special Tests Spurling's Test Test Results positive- Left PT-OP-M Strength Start: 09/03/17 17:50 Freq: Status: Active Protocol: Document 09/03/17 16:45 RCC (Rec: 09/06/17 14:49 [facility] [email or web address]) Shoulder Strength Shoulder Manual Muscle Testing Right Flexion 4 Good Abduction (C5) 4 Good External Rotation 4 Good Internal Rotation 4+ Good+ Left Flexion 4 Good Abduction (C5) 4 Good External Rotation 4 Good Internal Rotation 4+ Good+ Elbow/Forearm Strength Elbow and Forearm Manual Muscle Testing Right Flexion (C6) 4+ Good+ Extension (C7) 4 Good Left Flexion (C6) 4+ Good+ Extension (C7) 4 Good Hip Strength Hip Manual Muscle Testing Right Flexion (L2) 4 Good Adduction 4+ Good+ External Rotation 4 Good Internal Rotation 4 Good Left Flexion (L2) 4- Good- Adduction 4+ Good+ External Rotation 4- Good- Internal Rotation 4- Good- Knee Strength Knee Manual Muscle Testing Right Flexion (S2) 4+ Good+ Extension (L3) 5 Normal Left Flexion (S2) 4- Good- Extension (L3) 5 Normal Ankle/Foot Strength Ankle and Foot Manual Muscle Testing Right Dorsiflexion (L4) 4+ Good+ Left Dorsiflexion (L4) 4+ Good+ PT-OP-Q Treatments Start: 09/03/17 17:50 Freq: Status: Active Protocol: Document 10/08/17 16:45 RCC (Rec: 10/08/17 17:51 [facility] [email or web address]) Therapeutic Exercises Sitting Exercises 5 Sitting Exercise Name chin tuck Side bilateral 2 Sitting Exercise Name upper trapezius stretch Side bilateral 1 Sitting Exercise Name levator stretch Side bilateral Standing Exercises 2 Standing Exercise Name rows Side bilateral Resistance Level 2 Reps/Minutes 20 1 Standing Exercise Name shoulder extension Side bilateral Resistance level 2 Reps/Minutes 1x20 Manual Therapy Treatment Soft Tissue Mobilization 3 Body Location L upper trapezius Mobilization Type Strumming Intensity/Depth Superficial Body Position Sitting 2 Body Location B scalenes Mobilization Type Strumming Intensity/Depth Superficial Body Position Sitting 1 Body Location B levator Mobilization Type Strumming Intensity/Depth Superficial Body Position Sitting Manual Traction Cervical Body Position Hooklying Reps/Duration 6 min PT-OP-R Modalities Start: 09/03/17 17:50 Freq: Status: Active Protocol: Document 10/08/17 16:45 RCC (Rec: 10/08/17 17:51 RCC [email or web address]) Hot Pack/Cold Pack Treatment Hot Pack Location neck, lumbar Patient Position Hooklying Treatment Duration (minutes) 15 Patient Tolerance Good Comments bolster; 3 extra layers on lumbar PT-OP-T Assessment and Plan Start: 09/03/17 17:50 Freq: Status: Active Protocol: Document 10/08/17 16:45 RCC (Rec: 10/08/17 17:51 RCC [email or web address]) Physical Therapy Assessment Assessment Summary Assessment Pt with excessive UT activation with shoulder exercises. He demonstrated improved tolerance to chin tuck activity in sitting vs. supine. Extra layers were added to lumbar spine due to c /o being too hot, skin warm to touch in lumbar spine but pt wanted to continue heat with added layers. Physical Therapy Plan Frequency and Duration Frequency of Treatment 2x/Week Duration of Treatment 12 weeks Plan of Care Start Date 09/03/17 Plan of Care End Date 11/26/17 Next Visit Focus/Plan Next Note Type Treatment Note Next Visit Plan postural activities, soft tissue mobility improvements.
--- NOTE | 2017-10-15 16:55 | PT.OTN ---
Current Diagnoses Cervicalgia (10/15/17) Low back pain (10/15/17) Physical Therapy Treatment Note PT-OP-A Visit Information Start: 09/03/17 17:50 Freq: Status: Active Protocol: Document 10/15/17 16:55 RCC (Rec: 10/16/17 09:47 RCC [email or web address]) Out-Patient Physical Therapy Visit Information Visit Information Visit Type Treatment Note Visit Start Time 16:10 Visit Stop Time 16:55 Total Visit Minutes 45 Visit Number 10/26 g-codes Number of SHOCK ABSORPTION FLOOR LAYER Visits 0 Evaluation Information Evaluation Date 09/03/17 PT-OP-B Current Condition Start: 09/03/17 17:50 Freq: Status: Active Protocol: Document 09/03/17 16:45 RCC (Rec: 09/06/17 14:49 RCC [email or web address]) Current Condition History of Current Condition Onset Date 3 yrs ago Current Complaints neck, back pain, fatigue History of Current Condition Pt is an 82 y/o male presenting to physical therapy with a c/o neck and back pain and general fatigue with standing and gait. Pt notes that about 3 yrs ago, he suffered a fall after getting up from a commode, in which his RLE became weak and gave out on him. Since then neck pain has been a problem for him. Pt has a h/o 3 back surgeries: 2009, 2010, and 2012. He notes that it hurts his neck the most when he looks to the L (pain on the L side of neck to L shoulder blade). He states he can only tolerate 15 min @ most of standing normal daily activities until fatigue hits and then is followed by increased neck and back pain. Prior Treatments and Tests cervical spine radiograph on : anteriolisthesis deformities at C2-3, C3-4, and C4-5, probably related to degenerative facet disease and ligamentous laxity. Multilevel degenerative disc disease again noted. Treatment Goals Patient/Caregiver Goals improve ROM and decrease fatigue and neck pain Prior Functional Status Baseline Function- ADL's Modified Independent Baseline Function- Mobility Modified Independent Baseline Function- Gait community gait with SPC Baseline Function- Recreation/Hobbies walking 5 days per week Current Functional Impairments (Reported) Functional Limitations- ADL's mod I Functional Limitations- Mobility/Gait mod I short distances with SPC Functional Limitations- Recreation/ unable to participate in a Hobbies walking program PT-OP-C Subjective Start: 09/03/17 17:50 Freq: Status: Active Protocol: Document 10/15/17 16:55 RCC (Rec: 10/16/17 09:47 RCC [email or web address]) OP-PT Subjective Patient Comments Patient Comments Pt states his neck is about the same, he does feel like his anterior neck is a little less painful. PT-OP-E Functional Tests Start: 09/03/17 17:50 Freq: Status: Active Protocol: Document 09/03/17 16:45 RCC (Rec: 09/06/17 14:49 RCC [email or web address]) Functional Tests 6 Minute Walk Test Distance 927 ft Device Used SPC Comments increased back/neck pain @ 3 min and SOB @ 4 min; O2 96% and LA 90 bpm /p PT-OP-F Manual Assessment Start: 09/03/17 17:50 Freq: Status: Active Protocol: Document 09/03/17 16:45 RCC (Rec: 09/06/17 14:49 RCC [email or web address]) Manual Assessments Soft Tissue Assessment Soft Tissue Mobility Assessment TTP: general cervical spine musculature including L levator and UT, B scalenes and suboccipitals PT-OP-G Mobility & Gait Start: 09/03/17 17:50 Freq: Status: Active Protocol: Document 09/03/17 16:45 RCC (Rec: 09/06/17 14:49 RCC [email or web address]) OP Gait Assessment Gait Deviations General Gait Pattern Decreased Stride Length Decreased Feet Clearance Flexed Trunk Factors Limiting Gait Function Factors Limiting Gait Function Decreased Activity Tolerance Pain Comments Gait Comments Increased L lateral shift with gait and exacerbated with fatigue. PT-OP-J Posture/Palpation/Skin Start: 09/03/17 17:50 Freq: Status: Active Protocol: Document 09/03/17 16:45 RCC (Rec: 09/06/17 14:49 RCC [email or web address]) Posture Evaluation Position Sitting Evaluation View Anterior Head/C-Spine Posture Side Bent Left Forward Head PT-OP-K Range of Motion Start: 09/03/17 17:50 Freq: Status: Active Protocol: Document 09/03/17 16:45 RCC (Rec: 09/06/17 14:49 RCC [email or web address]) Cervical Spine Range of Motion Cervical Spine Active Degrees Testing Position Sitting Flexion 25 Extension 31 Rotation Left 42 Rotation Right 65 Lateral Flexion Left 20 Lateral Flexion Right 32 Comments pain highest in extension, L SB, and L rotation; stretch with R SB PT-OP-L Special Tests Start: 09/03/17 17:50 Freq: Status: Active Protocol: Document 09/03/17 16:45 RCC (Rec: 09/06/17 14:49 RCC [email or web address]) Special Tests Cervical Spine Special Tests Spurling's Test Test Results positive- Left PT-OP-M Strength Start: 09/03/17 17:50 Freq: Status: Active Protocol: Document 09/03/17 16:45 RCC (Rec: 09/06/17 14:49 RCC [email or web address]) Shoulder Strength Shoulder Manual Muscle Testing Right Flexion 4 Good Abduction (C5) 4 Good External Rotation 4 Good Internal Rotation 4+ Good+ Left Flexion 4 Good Abduction (C5) 4 Good External Rotation 4 Good Internal Rotation 4+ Good+ Elbow/Forearm Strength Elbow and Forearm Manual Muscle Testing Right Flexion (C6) 4+ Good+ Extension (C7) 4 Good Left Flexion (C6) 4+ Good+ Extension (C7) 4 Good Hip Strength Hip Manual Muscle Testing Right Flexion (L2) 4 Good Adduction 4+ Good+ External Rotation 4 Good Internal Rotation 4 Good Left Flexion (L2) 4- Good- Adduction 4+ Good+ External Rotation 4- Good- Internal Rotation 4- Good- Knee Strength Knee Manual Muscle Testing Right Flexion (S2) 4+ Good+ Extension (L3) 5 Normal Left Flexion (S2) 4- Good- Extension (L3) 5 Normal Ankle/Foot Strength Ankle and Foot Manual Muscle Testing Right Dorsiflexion (L4) 4+ Good+ Left Dorsiflexion (L4) 4+ Good+ PT-OP-Q Treatments Start: 09/03/17 17:50 Freq: Status: Active Protocol: Document 10/15/17 16:55 RCC (Rec: 10/16/17 09:47 RCC [email or web address]) Cardio Equipment Recumbent Elliptical (INXPO) Duration (Minutes) 8 Resistance 4 Therapeutic Exercises Supine Exercises 3 Supine Exercise Name horiz. abd/adduction Side bilateral Reps/Minutes 15 2 Supine Exercise Name Pectoral stretch Side bilateral 1 Supine Exercise Name chin tuck Comments supine- gentle Manual Therapy Treatment Soft Tissue Mobilization 5 Body Location L SCM Mobilization Type Strumming Intensity/Depth Moderate Body Position Supine 3 Body Location L upper trapezius Mobilization Type Strumming Intensity/Depth Superficial Body Position Supine 2 Body Location B scalenes Mobilization Type Strumming Intensity/Depth Superficial Body Position Supine 1 Body Location B levator Mobilization Type Strumming Intensity/Depth Superficial Body Position Supine Manual Traction Cervical Body Position Hooklying Reps/Duration 8 min PT-OP-R Modalities Start: 09/03/17 17:50 Freq: Status: Active Protocol: Document 10/08/17 16:45 RCC (Rec: 10/08/17 17:51 RCC [email or web address]) Hot Pack/Cold Pack Treatment Hot Pack Location neck, lumbar Patient Position Hooklying Treatment Duration (minutes) 15 Patient Tolerance Good Comments bolster; 3 extra layers on lumbar PT-OP-T Assessment and Plan Start: 09/03/17 17:50 Freq: Status: Active Protocol: Document 10/15/17 16:55 RCC (Rec: 10/16/17 09:47 RCC [email or web address]) Physical Therapy Assessment Assessment Summary Assessment Pt with tension in bilateral pectorals, as well as limited mobility of L SCM with head movement. Physical Therapy Plan Frequency and Duration Frequency of Treatment 2x/Week Duration of Treatment 12 weeks Plan of Care Start Date 09/03/17 Plan of Care End Date 11/26/17 Next Visit Focus/Plan Next Note Type Treatment Note Next Visit Plan wall posture, STR, neck ROM
--- NOTE | 2017-10-27 16:01 | PT.OTN ---
Current Diagnoses Cervicalgia (10/15/17) Low back pain (10/15/17) Physical Therapy Treatment Note PT-OP-A Visit Information Start: 09/03/17 17:50 Freq: Status: Active Protocol: Document 10/27/17 15:20 DCW (Rec: 10/27/17 16:01 DCW [id number]) Out-Patient Physical Therapy Visit Information Visit Information Visit Type Progress Note Visit Start Time 15:20 Visit Stop Time 16:10 Total Visit Minutes 50 Visit Number 0/10 G-codes Number of TRAFFIC CONTROL TECHNICIAN Visits 0 Evaluation Information Evaluation Date 09/03/17 PT-OP-B Current Condition Start: 09/03/17 17:50 Freq: Status: Active Protocol: Document 09/03/17 16:45 RCC (Rec: 09/06/17 14:49 RCC [email or web address]) Current Condition History of Current Condition Onset Date 3 yrs ago Current Complaints neck, back pain, fatigue History of Current Condition Pt is an 82 y/o male presenting to physical therapy with a c/o neck and back pain and general fatigue with standing and gait. Pt notes that about 3 yrs ago, he suffered a fall after getting up from a commode, in which his RLE became weak and gave out on him. Since then neck pain has been a problem for him. Pt has a h/o 3 back surgeries: 2009, 2010, and 2012. He notes that it hurts his neck the most when he looks to the L (pain on the L side of neck to L shoulder blade). He states he can only tolerate 15 min @ most of standing normal daily activities until fatigue hits and then is followed by increased neck and back pain. Prior Treatments and Tests cervical spine radiograph on : anteriolisthesis deformities at C2-3, C3-4, and C4-5, probably related to degenerative facet disease and ligamentous laxity. Multilevel degenerative disc disease again noted. Treatment Goals Patient/Caregiver Goals improve ROM and decrease fatigue and neck pain Prior Functional Status Baseline Function- ADL's Modified Independent Baseline Function- Mobility Modified Independent Baseline Function- Gait community gait with SPC Baseline Function- Recreation/Hobbies walking 5 days per week Current Functional Impairments (Reported) Functional Limitations- ADL's mod I Functional Limitations- Mobility/Gait mod I short distances with SPC Functional Limitations- Recreation/ unable to participate in a Hobbies walking program PT-OP-C Subjective Start: 09/03/17 17:50 Freq: Status: Active Protocol: Document 10/27/17 15:20 DCW (Rec: 10/27/17 16:01 DCW [id number]) OP-PT Subjective Patient Comments Patient Comments Pt reports he is better today than yesterday after spending the day up in [place] for a cervical MRI. PT-OP-E Functional Tests Start: 09/03/17 17:50 Freq: Status: Active Protocol: Document 09/03/17 16:45 RCC (Rec: 09/06/17 14:49 RCC [email or web address]) Functional Tests 6 Minute Walk Test Distance 927 ft Device Used SPC Comments increased back/neck pain @ 3 min and SOB @ 4 min; O2 96% and RI 90 bpm /p PT-OP-F Manual Assessment Start: 09/03/17 17:50 Freq: Status: Active Protocol: Document 09/03/17 16:45 RCC (Rec: 09/06/17 14:49 RCC [email or web address]) Manual Assessments Soft Tissue Assessment Soft Tissue Mobility Assessment TTP: general cervical spine musculature including L levator and UT, B scalenes and suboccipitals PT-OP-G Mobility & Gait Start: 09/03/17 17:50 Freq: Status: Active Protocol: Document 09/03/17 16:45 RCC (Rec: 09/06/17 14:49 RCC [email or web address]) OP Gait Assessment Gait Deviations General Gait Pattern Decreased Stride Length Decreased Feet Clearance Flexed Trunk Factors Limiting Gait Function Factors Limiting Gait Function Decreased Activity Tolerance Pain Comments Gait Comments Increased L lateral shift with gait and exacerbated with fatigue. PT-OP-J Posture/Palpation/Skin Start: 09/03/17 17:50 Freq: Status: Active Protocol: Document 09/03/17 16:45 RCC (Rec: 09/06/17 14:49 RCC [email or web address]) Posture Evaluation Position Sitting Evaluation View Anterior Head/C-Spine Posture Side Bent Left Forward Head PT-OP-K Range of Motion Start: 09/03/17 17:50 Freq: Status: Active Protocol: Document 09/03/17 16:45 RCC (Rec: 09/06/17 14:49 RCC [email or web address]) Cervical Spine Range of Motion Cervical Spine Active Degrees Testing Position Sitting Flexion 25 Extension 31 Rotation Left 42 Rotation Right 65 Lateral Flexion Left 20 Lateral Flexion Right 32 Comments pain highest in extension, L SB, and L rotation; stretch with R SB PT-OP-L Special Tests Start: 09/03/17 17:50 Freq: Status: Active Protocol: Document 09/03/17 16:45 RCC (Rec: 09/06/17 14:49 RCC [email or web address]) Special Tests Cervical Spine Special Tests Spurling's Test Test Results positive- Left PT-OP-M Strength Start: 09/03/17 17:50 Freq: Status: Active Protocol: Document 09/03/17 16:45 RCC (Rec: 09/06/17 14:49 RCC [email or web address]) Shoulder Strength Shoulder Manual Muscle Testing Right Flexion 4 Good Abduction (C5) 4 Good External Rotation 4 Good Internal Rotation 4+ Good+ Left Flexion 4 Good Abduction (C5) 4 Good External Rotation 4 Good Internal Rotation 4+ Good+ Elbow/Forearm Strength Elbow and Forearm Manual Muscle Testing Right Flexion (C6) 4+ Good+ Extension (C7) 4 Good Left Flexion (C6) 4+ Good+ Extension (C7) 4 Good Hip Strength Hip Manual Muscle Testing Right Flexion (L2) 4 Good Adduction 4+ Good+ External Rotation 4 Good Internal Rotation 4 Good Left Flexion (L2) 4- Good- Adduction 4+ Good+ External Rotation 4- Good- Internal Rotation 4- Good- Knee Strength Knee Manual Muscle Testing Right Flexion (S2) 4+ Good+ Extension (L3) 5 Normal Left Flexion (S2) 4- Good- Extension (L3) 5 Normal Ankle/Foot Strength Ankle and Foot Manual Muscle Testing Right Dorsiflexion (L4) 4+ Good+ Left Dorsiflexion (L4) 4+ Good+ PT-OP-Q Treatments Start: 09/03/17 17:50 Freq: Status: Active Protocol: Document 10/27/17 15:20 DCW (Rec: 10/27/17 16:01 DCW [id number]) Cardio Equipment Recumbent Bicycle Duration (Minutes) 6 Resistance 3 Seat Position 6 Therapeutic Exercises Supine Exercises 4 Supine Exercise Name Serratus punch Side bilateral 3 Supine Exercise Name horiz. abd/adduction Side bilateral Reps/Minutes 15 2 Supine Exercise Name Pectoral stretch Side bilateral 1 Supine Exercise Name chin tuck Comments supine- gentle Manual Therapy Treatment Soft Tissue Mobilization 5 Body Location L SCM Mobilization Type Strumming Intensity/Depth Moderate Body Position Supine 3 Body Location L upper trapezius Mobilization Type Strumming Intensity/Depth Superficial Body Position Supine 2 Body Location B scalenes Mobilization Type Strumming Intensity/Depth Superficial Body Position Supine 1 Body Location B levator Mobilization Type Strumming Intensity/Depth Superficial Body Position Supine Manual Traction Cervical Body Position Hooklying Reps/Duration 8 min PT-OP-R Modalities Start: 09/03/17 17:50 Freq: Status: Active Protocol: Document 10/27/17 15:20 DCW (Rec: 10/27/17 16:01 DCW [id number]) Hot Pack/Cold Pack Treatment Hot Pack Location neck, lumbar Patient Position Hooklying Treatment Duration (minutes) 10 Patient Tolerance Good Comments bolster; 3 extra layers on lumbar PT-OP-T Assessment and Plan Start: 09/03/17 17:50 Freq: Status: Active Protocol: Document 10/27/17 15:20 DCW (Rec: 10/27/17 16:01 DCW [id number]) Physical Therapy Assessment Goals Five Impairment LE weakness Assisted Goal (LTG) L hip flexion, IR and ER 4/5 and L knee flexion 4+/5 with manual muscle testing to increase functional activity tolerance (standing, gait). LTG Duration 12 weeks Four Impairment cervical spine ROM Appeals Assistant Goal (LTG) flexion: 35 deg extension: 40 deg side-bend: 35 deg bilaterally rotation: 65 deg. bilaterally LTG Duration 12 weeks Three Impairment impaired gait tolerance Short Term Goal (STG) pt will participate in a walking program at home 3 days per week for 15 minutes. STG Duration 6 weeks Appeals Assistant Goal (LTG) pt will participate in a walking program at home 5 days per week for 20+ minutes. LTG Duration 12 weeks Two Impairment 6 Minute Walk Test Short Term Goal (STG) 1000 ft with SPC. STG Duration 6 weeks Assisted Goal (LTG) 1200 ft with SPC. LTG Duration 12 weeks One Impairment Pain in neck rated 7/10 Assisted Goal (LTG) 4/10 neck pain LTG Duration 12 weeks Assessment Summary Assessment Pt tolerated manual treatment well today, reportred feeling quite a bit better afterward. Physical Therapy Plan Frequency and Duration Frequency of Treatment 2x/Week Duration of Treatment 12 weeks Plan of Care Start Date 09/03/17 Plan of Care End Date 11/26/17 Next Visit Focus/Plan Next Note Type Treatment Note Next Visit Plan wall posture, STR, neck ROM
--- NOTE | 2018-01-27 11:02 | PT.OPDS ---
Current Diagnoses Cervicalgia (10/15/17) Low back pain (10/15/17) Provider Visit Care Team Role Provider Type Vanessa Gonzalez MD Family Provider Physician Specialty: Cardiology Address: [address] [place] [address], [place], [address] Email: Rufino Pierre MD Attending Provider Physician Primary Care Provider Specialty: Family Practice Address: [facility] [place], [address] Email: [email or web address] Visit Number Visit Number 10 Discharge Summary PT-OP-B Current Condition Start: 09/03/17 17:50 Freq: Status: Active Protocol: Document 09/03/17 16:45 RCC (Rec: 09/06/17 14:49 RCC [email or web address]) Current Condition History of Current Condition Onset Date 3 yrs ago Current Complaints neck, back pain, fatigue History of Current Condition Pt is an 82 y/o male presenting to physical therapy with a c/o neck and back pain and general fatigue with standing and gait. Pt notes that about 3 yrs ago, he suffered a fall after getting up from a commode, in which his RLE became weak and gave out on him. Since then neck pain has been a problem for him. Pt has a h/o 3 back surgeries: 2009, 2010, and 2012. He notes that it hurts his neck the most when he looks to the L (pain on the L side of neck to L shoulder blade). He states he can only tolerate 15 min @ most of standing normal daily activities until fatigue hits and then is followed by increased neck and back pain. Prior Treatments and Tests cervical spine radiograph on : anteriolisthesis deformities at C2-3, C3-4, and C4-5, probably related to degenerative facet disease and ligamentous laxity. Multilevel degenerative disc disease again noted. Treatment Goals Patient/Caregiver Goals improve ROM and decrease fatigue and neck pain Prior Functional Status Baseline Function- ADL's Modified Independent Baseline Function- Mobility Modified Independent Baseline Function- Gait community gait with SPC Baseline Function- Recreation/Hobbies walking 5 days per week Current Functional Impairments (Reported) Functional Limitations- ADL's mod I Functional Limitations- Mobility/Gait mod I short distances with SPC Functional Limitations- Recreation/ unable to participate in a Hobbies walking program PT-OP-C Subjective Start: 09/03/17 17:50 Freq: Status: Active Protocol: Document 10/27/17 15:20 DCW (Rec: 10/27/17 16:01 DCW [id number]) OP-PT Subjective Patient Comments Patient Comments Pt reports he is better today than yesterday after spending the day up in [place] for a cervical MRI. PT-OP-E Functional Tests Start: 09/03/17 17:50 Freq: Status: Active Protocol: Document 09/03/17 16:45 RCC (Rec: 09/06/17 14:49 RCC [email or web address]) Functional Tests 6 Minute Walk Test Distance 927 ft Device Used SPC Comments increased back/neck pain @ 3 min and SOB @ 4 min; O2 96% and MA 90 bpm /p PT-OP-F Manual Assessment Start: 09/03/17 17:50 Freq: Status: Active Protocol: Document 09/03/17 16:45 RCC (Rec: 09/06/17 14:49 RCC [email or web address]) Manual Assessments Soft Tissue Assessment Soft Tissue Mobility Assessment TTP: general cervical spine musculature including L levator and UT, B scalenes and suboccipitals PT-OP-G Mobility & Gait Start: 09/03/17 17:50 Freq: Status: Active Protocol: Document 09/03/17 16:45 RCC (Rec: 09/06/17 14:49 RCC [email or web address]) OP Gait Assessment Gait Deviations General Gait Pattern Decreased Stride Length Decreased Feet Clearance Flexed Trunk Factors Limiting Gait Function Factors Limiting Gait Function Decreased Activity Tolerance Pain Comments Gait Comments Increased L lateral shift with gait and exacerbated with fatigue. PT-OP-J Posture/Palpation/Skin Start: 09/03/17 17:50 Freq: Status: Active Protocol: Document 09/03/17 16:45 RCC (Rec: 09/06/17 14:49 RCC [email or web address]) Posture Evaluation Position Sitting Evaluation View Anterior Head/C-Spine Posture Side Bent Left Forward Head PT-OP-K Range of Motion Start: 09/03/17 17:50 Freq: Status: Active Protocol: Document 09/03/17 16:45 RCC (Rec: 09/06/17 14:49 RCC [email or web address]) Cervical Spine Range of Motion Cervical Spine Active Degrees Testing Position Sitting Flexion 25 Extension 31 Rotation Left 42 Rotation Right 65 Lateral Flexion Left 20 Lateral Flexion Right 32 Comments pain highest in extension, L SB, and L rotation; stretch with R SB PT-OP-L Special Tests Start: 09/03/17 17:50 Freq: Status: Active Protocol: Document 09/03/17 16:45 RCC (Rec: 09/06/17 14:49 RCC [email or web address]) Special Tests Cervical Spine Special Tests Spurling's Test Test Results positive- Left PT-OP-M Strength Start: 09/03/17 17:50 Freq: Status: Active Protocol: Document 09/03/17 16:45 RCC (Rec: 09/06/17 14:49 RCC [email or web address]) Shoulder Strength Shoulder Manual Muscle Testing Right Flexion 4 Good Abduction (C5) 4 Good External Rotation 4 Good Internal Rotation 4+ Good+ Left Flexion 4 Good Abduction (C5) 4 Good External Rotation 4 Good Internal Rotation 4+ Good+ Elbow/Forearm Strength Elbow and Forearm Manual Muscle Testing Right Flexion (C6) 4+ Good+ Extension (C7) 4 Good Left Flexion (C6) 4+ Good+ Extension (C7) 4 Good Hip Strength Hip Manual Muscle Testing Right Flexion (L2) 4 Good Adduction 4+ Good+ External Rotation 4 Good Internal Rotation 4 Good Left Flexion (L2) 4- Good- Adduction 4+ Good+ External Rotation 4- Good- Internal Rotation 4- Good- Knee Strength Knee Manual Muscle Testing Right Flexion (S2) 4+ Good+ Extension (L3) 5 Normal Left Flexion (S2) 4- Good- Extension (L3) 5 Normal Ankle/Foot Strength Ankle and Foot Manual Muscle Testing Right Dorsiflexion (L4) 4+ Good+ Left Dorsiflexion (L4) 4+ Good+ PT-OP-T Assessment and Plan Start: 09/03/17 17:50 Freq: Status: Active Protocol: Document 01/27/18 10:57 RCC (Rec: 01/27/18 11:02 RCC [email or web address]) Physical Therapy Assessment Progress Towards Goals Progress Comments unable to determine due to pt not attending further PT appointments beyond 10/27/17 Assessment Summary Assessment Pt has not attended physical therapy since 10/27/17, and did not schedule further PT since that session. The most recent plan of care is now , and since it has been since October 2017 that the pt has attended physical therapy, it is recommended that if pain worsens or continues, and his PCP determines it is medically necessary for physical therapy, then he will require a new referral. Physical Therapy Plan Discharge Physical Therapy Discharge Comments failure to complete the most recent plan of care.
== END 2018-02-01 08:51 ==
LOC: PHYS 16:00
PROVIDERS: Family Provider Internal Medicine Cardiovascular Disease; PCP Family Medicine; Visit Provider Family Medicine
DX: M54.2 Cervicalgia (principal); M54.5 Low back pain
CPT/HCPCS: 97010; 97110; 97140; 97163

== ENCOUNTER → 2017-11-10 17:07 | Outpatient (CLI) | payer MEDICARE, OTHER, SELFPAY ==
[2017-11-10 17:44] LABS: INR 2.6 (0.9-1.3); Prothrombin Time 29.1 SECONDS (10.1-12.7)
== END ==
PROVIDERS: Family Provider Internal Medicine Cardiovascular Disease; PCP Family Medicine; Visit Provider Family Medicine
DX: I48.91 Unspecified atrial fibrillation (principal)
CPT/HCPCS: 36415; 85610

== ENCOUNTER → 2017-12-24 13:54 | Outpatient (CLI) | payer MEDICARE, OTHER, SELFPAY ==
--- NOTE | 2017-12-24 | DI.RAD.S_ITS ---
PROCEDURE: XR CHEST 2V INDICATIONS: COUGH TECHNIQUE: 2 views of the chest were acquired. COMPARISON: [facility], CHEST 2 VIEW, 03/15/2016, 18:43. [facility], CHEST 1 VIEW, 05/12/2017, 18:33. FINDINGS: Surgical changes and devices: None. Lungs and pleura: Radiodensity in the medial aspect of the left lower lobe may be infiltrate or atelectasis. There is right diaphragmatic eventration. Pulmonary vascularity is increased. No pleural effusions or pneumothorax. Mediastinum: Mediastinal contours are normal. Heart size is mildly increased. Bones and chest wall: No suspicious bony abnormalities. Soft tissues appear unremarkable. IMPRESSION: 1. Mild cardiomegaly and mildly increased pulmonary artery suggesting mild CHF. Recommend clinical correlation. 2. Left lower lobe infiltrate or atelectasis. Dictated by: Franny Santos M.D. on 12/24/2017 at 15:57 Approved by: Franny Santos M.D. on 12/24/2017 at 16:01
[2017-12-24 14:36] LABS: Add Manual Diff / Slide Review NO; Basophils Percent Auto 1.3 % (0-2); Hematocrit 41.1 % (41-53); Lymphocytes Percent Auto 10.7 % (25-40); Mean Corpuscular Volume 97.1 fL (80-100); Neutrophils Absolute Auto 5400 /uL (3000-5900); Platelet Count 164 X10^3/uL (150-400); Red Blood Cell Count 4.23 X10^6/uL (4.5-5.9); Red Cell Distribution Width 13.5 % (11.6-14.8)
[2017-12-24 14:58] LABS: Hemoglobin A1C% w Est Avg Glu 7.2 % (4.0-6.0)
[2017-12-24 15:04] LABS: INR 2.1 (0.9-1.3); Prothrombin Time 23.4 SECONDS (10.1-12.7)
[2017-12-24 15:27] LABS: Creatinine Urine Random 80.3 mg/dL
[2017-12-24 15:46] LABS: Microalbumi Creatinin Ratio Ur 7.4 ug/mg CR (<30); Microalbumin Urine Random < 0.6 mg/dL (0-1.6)
== END ==
PROVIDERS: Family Provider Internal Medicine Cardiovascular Disease; PCP Family Medicine; Visit Provider Family Medicine
DX: E11.9 Type 2 diabetes mellitus without complications (principal); R05 Cough; I48.91 Unspecified atrial fibrillation
CPT/HCPCS: 36415; 71046; 82043; 82570; 83036; 85025; 85610

== ENCOUNTER → 2018-02-24 16:45 | Outpatient (CLI) | payer MEDICARE, OTHER, SELFPAY ==
[2018-02-24 17:23] LABS: INR 3.1 (0.9-1.3); Prothrombin Time 36.5 SECONDS (10.1-12.7)
== END ==
PROVIDERS: Family Provider Internal Medicine Cardiovascular Disease; PCP Family Medicine; Visit Provider Family Medicine
DX: I48.91 Unspecified atrial fibrillation (principal)
CPT/HCPCS: 36415; 85610

== ENCOUNTER → 2018-03-05 17:11 | Outpatient (CLI) | payer MEDICARE, OTHER, SELFPAY ==
[2018-03-05 18:29] LABS: INR 2.6 (0.9-1.3); Prothrombin Time 30.2 SECONDS (10.1-12.7)
[2018-03-05 19:12] LABS: BUN Creatinine Ratio 14.4 (6-22); Blood Urea Nitrogen 23 mg/dL (9-20); Calcium 9.2 mg/dL (8.4-10.2); Carbon Dioxide 23 mmol/L (22-32); Chloride 105 mmol/L (98-107); Estimated Glomerular Filt Rate 41.6 mL/min (>60); Glucose 98 mg/dL (80-110); HEMOLYSIS < 15 (0-50); Potassium 4.9 mmol/L (3.4-5.1); Sodium 139 mmol/L (137-145)
== END ==
PROVIDERS: Family Provider Urology; PCP Family Medicine; Visit Provider Internal Medicine Cardiovascular Disease
DX: I48.0 Paroxysmal atrial fibrillation (principal)
CPT/HCPCS: 36415; 80048; 85610

== ENCOUNTER → 2018-03-05 17:20 | Outpatient (CLI) | payer MEDICARE, OTHER, SELFPAY | PROVIDERS: Family Provider Urology; PCP Family Medicine; Referring Provider Internal Medicine Cardiovascular Disease; Visit Provider Family Medicine ==

== ENCOUNTER → 2018-03-10 14:48 | Outpatient (CLI) | payer MEDICARE, OTHER, SELFPAY ==
--- NOTE | 2018-03-10 | DI.ECHO.S_ITS ---
[facility]---------+ [facility] +---------+ : : [address] : : : : [id number] : : : : Phone: [phone]+ Echocardiogram Report + + :Name: ANGEL NESS Study Date: 03/10/2018 Height: 71 in : :[facility] Weight: 222 lb : : Gender: Male BSA: 2.2 m2 : :: 1935 Age: 82 yrs BP: 104/70 mmHg: :Reason For Study: THORACIC AORTIC ECTASIA : :Ordering Physician: Vanessa : :[place] Performed By: Bessy Rao : + + Interpretation Summary The study quality was technically difficult. The left ventricular cavity is small. The ejection fraction is estimated to be 60-65%. There has been no significant change in LVEF since the previous study. The right ventricle is grossly normal size. The right ventricular systolic function is normal. No significant valvular pathology seen. The ascending aorta is mild-moderately enlarged. 4.0 cm in diameter unchanged from the previous study. Procedure: A two-dimensional transthoracic echocardiogram with color flow and Doppler was performed. The study quality was technically difficult. Comparison is made with the echocardiogram of 06/29/2015. The heart rate ranged between 79-94 bpm during the study. The patient was in atrial flutter during the exam. Left Ventricle: Left ventricular wall thickness is moderately increased. The left ventricular cavity is small. There is no thrombus. The ejection fraction is estimated to be 60-65%. There has been no significant change since the previous study. There are no obvious focal wall motion abnormalities noted but poor endocardial definition reduces the sensitivity for the detection of such. MV E/A: 1.9 Med Peak E' Tre: 6.8 cm/sec E/E' med: 18.1. Right Ventricle: The right ventricle is grossly normal size. The right ventricular systolic function is normal. Atria: The left atrium is not well visualized. Right atrium not well visualized. There is no Doppler evidence for an interatrial shunt. Mitral Valve: There is mild to moderate mitral annular calcification. The mitral valve leaflets appear mildly thickened, but open well. There is trace mitral regurgitation. Aortic Valve: The aortic valve is trileaflet. The aortic valve opens well. The aortic valve is mildly calcified. There is no aortic valve stenosis. There is trace aortic regurgitation. Compared to the prior echo study, there has been a decrease in the severity of aortic regurgitation. Tricuspid Valve: The tricuspid valve is not well visualized, but is grossly normal. Pulmonary artery pressures cannot be estimated because of the lack of a measurable TR jet velocity. Pulmonic Valve: The pulmonic valve is not well visualized. Great Vessels: The aortic root is mildly dilated. The ascending aorta is mild-moderately enlarged. The aortic arch is mild-moderately enlarged. The IVC is of normal diameter and collapses greater than 50% with a sniff. This suggests a low right atrial pressure of 3 mm Hg. Pericardium/ Pleura There is no pericardial effusion. MMode/2D Measurements & Calculations LVIDd: 3.5 cm LVOT diam: 2.3 cm LVIDs: 2.4 cm Ao root diam: 4.1 cm FS: 30.9 % Aortic Jxn: 3.3 cm EPSS: 0.74 cm asc Aorta Diam: 4.0 cm IVSd: 1.5 cm Ao Arch Diam (Prox Trans): 3.8 cm LVPWd: 1.5 cm LV doe. diameter/BSA (cm/m^2): 1.6 LV sys. diameter/BSA (cm/m^2): 1.1 LA A4 area: 24.5 cm2 IVC diam: 2.2 cm LA length (vol): 6.2 cm RVD1 (basal): 3.3 cm Doppler Measurements & Calculations Ao V2 max: 130.9 cm/sec LVOT Max Tre: 70.8 cm/sec Ao V2 mean: 90.9 cm/sec LV V1 max P.0 mmHg Ao max P.9 mmHg LV V1 VTI: 14.5 cm Ao mean P.7 mmHg TISH(I,D): 2.5 cm2 Ao V2 VTI: 24.1 cm TISH(V,D): 2.2 cm2 sev ratio: 0.60 TISH indexed to BSA (cm^2/m^2): 1.1 MV E max tre: 123.5 cm/sec PA V2 max: 61.1 cm/sec MV A max tre: 65.6 cm/sec PA V2 mean: 48.0 cm/sec MV E/A: 1.9 PA mean P.99 mmHg Med Peak E' Tre: 6.8 cm/sec PA Accel Time: 0.06 sec E/E' med: 18.1 Lat Peak E' Tre: 6.5 cm/sec E/E' lat: 18.9 E/e' average: 18.5 MV dec time: 0.17 sec MV P1/2t: 48.6 msec MVA(VTI): 2.4 cm2 MV V2 mean: 65.1 cm/sec MV P1/2t max tre: 123.7 cm/sec MV mean P.3 mmHg MVA(P1/2t): 4.5 cm2 MV V2 VTI: 24.6 cm SV(LVOT): 59.8 ml Reading Physician:PM
== END ==
PROVIDERS: Family Provider Urology; PCP Family Medicine; Visit Provider Internal Medicine Cardiovascular Disease
DX: I77.810 Thoracic aortic ectasia (principal)
CPT/HCPCS: 93306

== ENCOUNTER → 2018-04-01 15:06 | Outpatient (CLI) | payer MEDICARE, OTHER, SELFPAY ==
[2018-04-01 17:15] LABS: INR 3.1 (0.9-1.3)
[2018-04-01 17:29] LABS: Creatinine Urine Random 71.1 mg/dL
[2018-04-01 17:30] LABS: Hemoglobin A1C% w Est Avg Glu 7.7 % (4.0-6.0)
[2018-04-01 17:40] LABS: Microalbumi Creatinin Ratio Ur 8.4 ug/mg CR (<30); Microalbumin Urine Random < 0.6 mg/dL (0-1.6)
[2018-04-01 18:27] LABS: Prostate Specific Antigen Scrn 1.45 ng/mL (0.1-4.0)
== END ==
PROVIDERS: Family Provider Urology; PCP Family Medicine; Visit Provider Family Medicine
DX: E11.9 Type 2 diabetes mellitus without complications (principal); N40.1 Benign prostatic hyperplasia with lower urinary tract symptoms; I48.91 Unspecified atrial fibrillation; I63.9 Cerebral infarction, unspecified; Z12.5 Encounter for screening for malignant neoplasm of prostate
CPT/HCPCS: 36415; 82043; 82570; 83036; 85610; G0103

== ENCOUNTER → 2018-04-28 15:48 | Outpatient (CLI) | payer MEDICARE, OTHER, SELFPAY ==
[2018-04-28 16:30] LABS: INR 1.3 (0.9-1.3); Prothrombin Time 15.4 SECONDS (10.1-12.7)
== END ==
PROVIDERS: PCP Family Medicine; Visit Provider Family Medicine
DX: I48.91 Unspecified atrial fibrillation (principal)
CPT/HCPCS: 36415; 85610

== ENCOUNTER → 2018-05-06 12:35 | Outpatient (CLI) | payer MEDICARE, BC, SELFPAY ==
[2018-05-06 14:03] LABS: Alanine Aminotransferase 24 IU/L (21-72); Albumin 4.1 g/dL (3.5-5.0); Albumin Globulin Ratio 1.8 (1.0-2.8); Alkaline Phosphatase 80 U/L (38-126); Aspartate Aminotransferase 19 IU/L (17-59); Bilirubin Total 0.6 mg/dL (0.2-1.3); Bilirubin Unconjugated 0.3 mg/dL (0.0-1.1); Cholesterol 173 mg/dL (140-199); Globulin 2.3 g/dL (1.7-4.1); HDL Cholesterol 55 mg/dL (40-60); HEMOLYSIS 28 (0-50); LDL Cholesterol Calculated 89 mg/dL (<100); Total Protein 6.4 g/dL (6.3-8.2); Triglycerides 143 mg/dL (35-150)
== END ==
PROVIDERS: PCP Family Medicine; Visit Provider Family Medicine
DX: E78.5 Hyperlipidemia, unspecified (principal)
CPT/HCPCS: 36415; 80061; 80076

== ENCOUNTER → 2018-05-26 17:24 | Outpatient (CLI) | payer MEDICARE, BC, SELFPAY ==
[2018-05-26 18:53] LABS: INR 1.7 (0.9-1.3)
== END ==
PROVIDERS: PCP Family Medicine; Visit Provider Family Medicine
DX: I48.1 Persistent atrial fibrillation (principal); E11.9 Type 2 diabetes mellitus without complications
CPT/HCPCS: 36415; 85610

== ENCOUNTER → 2018-05-28 13:38 | Outpatient (CLI) | payer MEDICARE, BC, SELFPAY ==
--- NOTE | 2018-05-28 | DI.RAD.S_ITS ---
PROCEDURE: XR CHEST 2V INDICATIONS: DYSPNEA TECHNIQUE: 2 views of the chest were acquired. COMPARISON: [facility], CR, XR CHEST 2V, 12/24/2017, 14:41. FINDINGS: Surgical changes and devices: None. Lungs and pleura: No acute consolidation. Scattered subsegmental atelectasis and/or scarring. No pleural effusions or pneumothorax. Mediastinum: Mediastinal contours are normal. Heart size is normal. Bones and chest wall: No suspicious bony abnormalities. Soft tissues appear unremarkable. IMPRESSION: No acute consolidation. Scattered subsegmental atelectasis and/or scarring Dictated by: Miller Gibson M.D. on 05/28/2018 at 16:02 Approved by: Miller Gibson M.D. on 05/28/2018 at 16:03
[2018-05-28 14:56] LABS: Add Manual Diff / Slide Review NO; Basophils Absolute Auto 0 /uL (0-100); Basophils Percent Auto 0.7 % (0-2); Eosinophils Absolute Auto 300 /uL (0-450); Eosinophils Percent Auto 4.1 % (2-4); Hematocrit 41.8 % (41-53); Hemoglobin 14.2 g/dL (13.5-17.5); Lymphocytes Absolute Auto 900 /uL (1100-4500); Lymphocytes Percent Auto 13.2 % (25-40); Mean Corpuscular HGB Conc 34.1 % (30-36); Mean Corpuscular Hemoglobin 32.6 PG (26-34); Mean Corpuscular Volume 95.7 fL (80-100); Monocytes Absolute Auto 500 /uL (0-900); Monocytes Percent Auto 6.8 % (3-14); Neutrophils Absolute Auto 5100 /uL (1500-7000); Neutrophils Percent Auto 75.2 % (50-75); Platelet Count 160 X10^3/uL (150-400); Red Blood Cell Count 4.37 X10^6/uL (4.5-5.9); Red Cell Distribution Width 13.8 % (11.6-14.8); White Blood Cell Count 6.7 X10^3/uL (4.5-11.0)
[2018-05-28 15:10] LABS: BUN Creatinine Ratio 16.2 (6-22); Blood Urea Nitrogen 21 mg/dL (9-20); Calcium 9.6 mg/dL (8.4-10.2); Carbon Dioxide 22 mmol/L (22-32); Chloride 103 mmol/L (98-107); Estimated Glomerular Filt Rate 52.7 mL/min (>60); Glucose 141 mg/dL (80-110); HEMOLYSIS < 15 (0-50); Potassium 4.8 mmol/L (3.4-5.1); Sodium 136 mmol/L (137-145)
[2018-05-28 15:21] LABS: B Type Natriuretic Peptide < 100 (<100)
== END ==
PROVIDERS: PCP Family Medicine; Visit Provider Family Medicine
DX: R06.00 Dyspnea, unspecified (principal); I48.91 Unspecified atrial fibrillation
CPT/HCPCS: 36415; 71046; 80048; 83880; 85025

== ENCOUNTER → 2018-06-17 15:08 | Outpatient (CLI) | payer MEDICARE, BC, SELFPAY ==
[2018-06-17 15:37] LABS: INR 1.7 (0.9-1.3); Prothrombin Time 19.7 SECONDS (10.1-12.7)
== END ==
PROVIDERS: PCP Family Medicine; Visit Provider Family Medicine
DX: I48.91 Unspecified atrial fibrillation (principal)
CPT/HCPCS: 36415; 85610

== ENCOUNTER → 2018-07-13 13:43 | Outpatient (CLI) | payer MEDICARE, BC, SELFPAY ==
[2018-07-13 14:22] LABS: INR 1.7 (0.9-1.3); Prothrombin Time 19.2 SECONDS (10.1-12.7)
== END ==
PROVIDERS: PCP Family Medicine; Visit Provider Family Medicine
DX: I48.91 Unspecified atrial fibrillation (principal); R51 Headache; I63.9 Cerebral infarction, unspecified
CPT/HCPCS: 36415; 85610

== ENCOUNTER → 2018-07-26 16:22 | Outpatient (CLI) | payer MEDICARE, BC, SELFPAY ==
[2018-07-26 17:22] LABS: INR 2.3 (0.9-1.3)
[2018-07-26 17:48] LABS: Hemoglobin A1C% w Est Avg Glu 6.9 % (4.0-6.0)
== END ==
PROVIDERS: Family Provider Internal Medicine Cardiovascular Disease; PCP Family Medicine; Referring Provider Urology; Visit Provider Family Medicine
DX: E11.9 Type 2 diabetes mellitus without complications (principal); I48.91 Unspecified atrial fibrillation
CPT/HCPCS: 36415; 83036; 85610

== ENCOUNTER → 2018-08-09 14:09 | Outpatient (CLI) | payer MEDICARE, BC, SELFPAY ==
[2018-08-09 14:36] LABS: INR 2.3 (0.9-1.3)
== END ==
PROVIDERS: PCP Family Medicine; Visit Provider Family Medicine
DX: I48.91 Unspecified atrial fibrillation (principal)
CPT/HCPCS: 36415; 85610

== ENCOUNTER → 2018-08-16 14:11 | Outpatient (CLI) | payer MEDICARE, BC, SELFPAY ==
[2018-08-16 14:52] LABS: INR 2.2 (0.9-1.3); Prothrombin Time 26.1 SECONDS (10.1-12.7)
== END ==
PROVIDERS: PCP Family Medicine; Visit Provider Family Medicine
DX: I48.91 Unspecified atrial fibrillation (principal)
CPT/HCPCS: 36415; 85610

== ENCOUNTER → 2018-08-23 15:15 | Outpatient (CLI) | payer MEDICARE, BC, SELFPAY ==
[2018-08-23 15:43] LABS: INR 2.5 (0.9-1.3)
== END ==
PROVIDERS: Family Provider Urology; PCP Family Medicine; Visit Provider Family Medicine
DX: I48.91 Unspecified atrial fibrillation (principal)
CPT/HCPCS: 36415; 85610

== ENCOUNTER → 2018-08-31 14:25 | Outpatient (CLI) | payer MEDICARE, BC, SELFPAY ==
[2018-08-31 14:53] LABS: INR 2.1 (0.9-1.3); Prothrombin Time 23.9 SECONDS (10.1-12.7)
== END ==
PROVIDERS: PCP Family Medicine; Visit Provider Family Medicine
DX: I48.91 Unspecified atrial fibrillation (principal)
CPT/HCPCS: 36415; 85610

== ENCOUNTER → 2018-09-14 15:21 | Outpatient (CLI) | payer MEDICARE, BC, SELFPAY ==
[2018-09-14 16:11] LABS: Prothrombin Time 35.8 SECONDS (10.1-12.7)
== END ==
PROVIDERS: PCP Family Medicine; Visit Provider Family Medicine
DX: I48.91 Unspecified atrial fibrillation (principal); R79.1 Abnormal coagulation profile
CPT/HCPCS: 36415; 85610

== ENCOUNTER → 2018-09-24 16:40 | Outpatient (CLI) | payer MEDICARE, BC, SELFPAY ==
[2018-09-24 17:29] LABS: INR 2.2 (0.9-1.3); Prothrombin Time 25.1 SECONDS (10.1-12.7)
== END ==
PROVIDERS: Family Provider Urology; PCP Family Medicine; Visit Provider Family Medicine
DX: I48.91 Unspecified atrial fibrillation (principal)
CPT/HCPCS: 36415; 85610

== ENCOUNTER → 2018-11-09 17:06 | Outpatient (CLI) | payer MEDICARE, BC, SELFPAY ==
[2018-11-09 18:00] LABS: INR 2.3 (0.9-1.3); Prothrombin Time 27.5 SECONDS (10.1-12.7)
[2018-11-09 18:10] LABS: Hemoglobin A1C% w Est Avg Glu 6.9 % (4.0-6.0)
== END ==
PROVIDERS: Family Provider Urology; PCP Family Medicine; Visit Provider Family Medicine
DX: E11.9 Type 2 diabetes mellitus without complications (principal); I48.91 Unspecified atrial fibrillation
CPT/HCPCS: 36415; 83036; 85610

== ENCOUNTER → 2018-12-08 15:03 | Outpatient (CLI) | payer MEDICARE, BC, SELFPAY ==
[2018-12-08 16:00] LABS: INR 2.5 (0.9-1.3); Prothrombin Time 28.9 SECONDS (10.1-12.7)
== END ==
PROVIDERS: PCP Family Medicine; Visit Provider Family Medicine
DX: I48.91 Unspecified atrial fibrillation (principal)
CPT/HCPCS: 36415; 85610

== ENCOUNTER 2019-01-26 05:03 | Emergency (ER) | payer MEDICARE, BC, SELFPAY ==
--- NOTE | 2019-01-26 05:06 | DI.RAD.S_ITS ---
PROCEDURE: XR CHEST 1V INDICATIONS: eval for pneumonia TECHNIQUE: One view of the chest was acquired. COMPARISON: [facility], CR, XR CHEST 2V, 05/28/2018, 13:52. FINDINGS: Surgical changes and devices: None. Lungs and pleura: Lungs are clear. No pleural effusions or pneumothorax. Mediastinum: Mediastinal contours appear normal. Heart size is normal. Bones and chest wall: No suspicious bony lesions. Overlying soft tissues appear unremarkable. IMPRESSION: No acute cardiopulmonary disease process. Dictated by: Rula Dick MD, PhD on 01/26/2019 at 9:23 Approved by: Rula Dick MD, PhD on 01/26/2019 at 9:23
[2019-01-26 05:10] VITALS: PULSE 87; RESP 24; TEMP 37.9; O2SAT 96; BMI 29.9
[2019-01-26 05:19] VITALS: BP 112/86; PULSE 87; RESP 24; TEMP 37.9; O2SAT 96
--- NOTE | 2019-01-26 05:46 | ED.GENADULT ---
HPI - General Adult General Chief complaint: Shortness of Breath/Dyspnea Stated complaint: thinks he has pneumonia Time Seen by Provider: 01/26/19 05:05 Source: patient and family Mode of arrival: Wheelchair Limitations: no limitations History of Present Illness HPI narrative: 83-year-old gentleman here for evaluation of a couple days of a productive cough and fevers. He states he feels like that he has pneumonia. He does state that he is coughing so much that he becomes short of breath. He also is having problems controlling his urine because of the coughing. His urinary issues are not new it just made worse by the coughing. States he does take daily Benadryl. He states he has done this for years. Unsure exactly why he takes it on a daily basis. Related Data Home Medications Medication Instructions Recorded Confirmed mirtazapine [Remeron] 15 mg PO HS #0 09/13/10 01/21/18 dutasteride [Avodart] 0.5 mg PO QDAY #0 12/21/15 01/21/18 cimetidine 800 mg PO TIDAC #0 03/15/16 01/21/18 hydrocodone-acetaminophen 1 - 2 tab PO PRN PRN #0 05/12/17 01/21/18 solifenacin [Vesicare] 5 mg PO HS #0 05/12/17 01/21/18 sulfamethoxazole-trimethoprim 1 tab PO QDAY #0 05/12/17 01/21/18 [CINDY-SELTZER HEARTBU] PRN PRN #0 05/28/17 01/21/18 ferrous gluconate 225 mg PO QDAY #0 05/28/17 01/21/18 methocarbamol 750 mg PO Q6HP PRN #0 05/28/17 01/21/18 nystatin 1 hayes TOPICAL QID #0 05/28/17 01/21/18 nystatin [Nystop] 100,000 unit TOPICAL BID #0 05/28/17 01/21/18 promethazine 25 mg PO PRN PRN #0 05/28/17 01/21/18 sucralfate 1 gm PO ACHS #0 05/28/17 01/21/18 triamcinolone acetonide 1 hayes TOPICAL #0 05/28/17 01/21/18 warfarin [Coumadin] PO QDAY #0 05/28/17 01/21/18 Previous Rx's Medication Instructions Recorded atorvastatin [Lipitor] 20 mg PO HS #30 tab 05/15/17 metoprolol tartrate 50 mg PO BID #60 tab 05/15/17 benzonatate [Tessalon Perles] 100 mg PO TID PRN #12 cap 01/26/19 guaifenesin 200 mg PO Q4H PRN #118 ml 01/26/19 Allergies Allergy/AdvReac Type Severity Reaction Status Date / Time Penicillins [PENICILLINS] Allergy Severe ANAPHYLAXIS Verified 01/21/18 15:37 shellfish derived Allergy Severe TONGUE Verified 01/21/18 15:37 [SHELLFISH DERIVED] SWELLS, THROAT CLOSES. Review of Systems Constitutional Constitutional: Reports fever(s) (Subjective) Cardiovascular Cardiovascular: Denies chest pain Respiratory Respiratory: Reports chest congestion and Reports cough Gastrointestinal Gastrointestinal: Denies abdominal pain, Denies nausea and Denies vomiting Genitourinary Comments: Incontinence with coughing Musculoskeletal Musculoskeletal: Denies myalgias and Denies arthralgias Integumentary/Breasts Skin/Breast: Denies rash Neurologic Neurologic: Denies behavioral changes Psychiatric Psychiatric: Denies behavioral changes Hematologic/Lymphatic Hematologic/Lymphatic: Denies easy bleeding and Denies easy bruising Patient History Medical History Atrial fibrillation (Inactive) DM type 2 (diabetes mellitus, type 2) (Inactive) Urological system complication of procedure (Inactive) UTI (urinary tract infection) (Inactive) Social History Smoking Status: Never smoker Smoking Status: Never smoker alcohol intake frequency: 0-2 drinks per day Substance Use Type: does not use Exam Initial Vital Signs Initial Vital Signs: Vital Signs Temperature 100.2 F H 01/26/19 05:10 Pulse Rate 87 01/26/19 05:10 Respiratory Rate 24 01/26/19 05:10 Pulse Oximetry 96 01/26/19 05:10 Const General: cooperative and comfortable Orientation: alert and awake HENMT Head: normal to inspection and normocephalic Resp Effort & Inspection: normal respiratory effort Auscultation: clear to auscultation bilaterally Cardio Rate: regular rate Rhythm: regular rhythm Skin Lesions: no lesions Rashes: no rashes Neuro General: alert and awake Cognition: normal cognition Speech: speech normal Extrem General: normal to inspection and capillary refill normal Psych Appearance: grossly normal and well kempt Course Orders Ordered: ED Orders 01/26/19 05:06 XR chest 1V Stat 01/26/19 06:27 Sputum Culture Stat Vital Signs Vital signs: Vital Signs - 8 hr 01/26/19 05:10 01/26/19 05:19 Temperature 100.2 F H 100.2 F H Pulse Rate 87 87 Respiratory Rate 24 24 Blood Pressure [Left Arm] 112/86 Pulse Oximetry 96 96 Medical Decision Making Imaging Data Chest x-ray: Radiologist's impression: Normal chest x-ray MDM Narrative Medical decision making narrative: Patient is nontoxic appearing. He is not hypoxic. Does have somewhat of a productive cough however also is describing sinus congestion. Is afebrile. Chest x-ray read shows no focal pneumonia. I do suspect that this is postnasal drip causing his symptoms and his cough. He has been on a daily Benadryl for many years now. Patient is unsure as exactly why he is taking this medication. Informed him that it is best for him to not take this medication if he does not needed. We did discuss the use of other antihistamine such as Claritin or Nita Zyrtec. We'll also attempt to try to help his symptoms with other medications to include Tessalon Perles and also guaifenesin. We discussed that he could by ago fitness and [id number]. I feel given his clear lung exam and a negative chest x-ray that we should hold on antibiotics for now. He was given return precautions and follow-up instructions. He expressed understanding and agreement with plan. Discharge Plan Departure Patient Disposition: Home Clinical Impression: Upper respiratory infection Qualifiers: URI type: unspecified URI Qualified Code(s): J06.9 - Acute upper respiratory infection, unspecified Instructions: Cough Activity Restrictions/Additional Instructions: I do recommend that you stop taking the Benadryl. You can start taking another antihistamine such as Claritin or Nita or Zyrtec. You can buy these [id number]. Start taking the prescriptions that you were given today as directed. Contact your primary provider for follow-up. Please return to the emergency department for any new or worsening symptoms. You can take Tylenol and/or ibuprofen for any fevers. Prescriptions: New benzonatate [Tessalon Perles] 100 mg capsule 100 mg PO TID PRN (Reason: cough) Qty: 12 RF: 0 guaifenesin 200 mg/5 mL liquid 200 mg PO Q4H PRN (Reason: congestion) Qty: 118 RF: 0 No Action mirtazapine [Remeron] 15 MG tablet 15 mg PO HS Qty: 0 RF: 0 dutasteride [Avodart] 0.5 MG capsule 0.5 mg PO QDAY Qty: 0 RF: 0 cimetidine 800 MG tablet 800 mg PO TIDAC Qty: 0 RF: 0 hydrocodone-acetaminophen 5 MG/325 MG tablet 1 - 2 tab PO PRN PRNQty: 0 RF: 0 sulfamethoxazole-trimethoprim 800 MG/160 MG tablet 1 tab PO QDAY Qty: 0 RF: 0 solifenacin [Vesicare] 5 MG tablet 5 mg PO HS Qty: 0 RF: 0 atorvastatin [Lipitor] 20 MG tablet 20 mg PO HS Qty: 30 RF: 0 metoprolol tartrate 50 MG tablet 50 mg PO BID Qty: 60 RF: 1 warfarin [Coumadin] 2 MG tablet PO QDAY Qty: 0 RF: 0 sucralfate 1 GM tablet 1 gm PO ACHS Qty: 0 RF: 0 methocarbamol 750 MG tablet 750 mg PO Q6HP PRNQty: 0 RF: 0 promethazine 25 MG tablet 25 mg PO PRN PRNQty: 0 RF: 0 nystatin 15 GM cream 1 hayes Topical QID Qty: 0 RF: 0 triamcinolone acetonide 0.025 % cream 1 hayes Topical Qty: 0 RF: 0 nystatin [Nystop] 60 GM powder 100,000 unit Topical BID Qty: 0 RF: 0 [CINDY-SELTZER HEARTBU] PRN PRNQty: 0 RF: 0 ferrous gluconate 236 mg (27 mg iron) Tablet 225 mg PO QDAY Qty: 0 RF: 0 Referrals: Rufino Pierre MD [Primary Care Provider] -
[2019-01-26 06:45] VITALS: BP 125/56; PULSE 72; RESP 18; O2SAT 96
== END 2019-01-26 06:45 | disposition home or self-care (01) ==
PROVIDERS: Emergency Provider Emergency Medicine; PCP Family Medicine
DX: J06.9 Acute upper respiratory infection, unspecified (principal); Z79.01 Long term (current) use of anticoagulants
CPT/HCPCS: 71045; 87070; 87077; 87205; 99283

== ENCOUNTER → 2019-02-07 16:00 | Outpatient (CLI) | payer MEDICARE, BC, SELFPAY ==
[2019-02-07 16:27] LABS: INR 2.3 (0.9-1.3); Prothrombin Time 26.3 SECONDS (10.1-12.7)
[2019-02-07 16:32] LABS: Hemoglobin A1C% w Est Avg Glu 6.9 % (4.0-6.0)
== END ==
PROVIDERS: PCP Family Medicine; Visit Provider Family Medicine
DX: I48.91 Unspecified atrial fibrillation (principal); E11.9 Type 2 diabetes mellitus without complications
CPT/HCPCS: 36415; 83036; 85610

== ENCOUNTER → 2019-03-14 14:10 | Outpatient (CLI) | payer MEDICARE, BC, SELFPAY ==
[2019-03-14 14:35] LABS: INR 2.1 (0.9-1.3); Prothrombin Time 25.1 SECONDS (10.1-12.7)
== END ==
PROVIDERS: PCP Family Medicine; Visit Provider Family Medicine
DX: I48.91 Unspecified atrial fibrillation (principal)
CPT/HCPCS: 36415; 85610

== ENCOUNTER → 2019-06-09 15:00 | Outpatient (CLI) | payer MEDICARE, BC, SELFPAY ==
[2019-06-09 16:58] LABS: Add Manual Diff / Slide Review NO; Basophils Absolute Auto 0 /uL (0-100); Basophils Percent Auto 0.5 % (0-2); Eosinophils Absolute Auto 400 /uL (0-450); Eosinophils Percent Auto 7.3 % (2-4); Hemoglobin 14.3 g/dL (13.5-17.5); Lymphocytes Absolute Auto 700 /uL (1100-4500); Lymphocytes Percent Auto 11.3 % (25-40); Mean Corpuscular Hemoglobin 32.5 PG (26-34); Mean Corpuscular Volume 95.5 fL (80-100); Monocytes Absolute Auto 500 /uL (0-900); Monocytes Percent Auto 7.5 % (3-14); Neutrophils Absolute Auto 4500 /uL (1500-7000); Neutrophils Percent Auto 73.4 % (50-75); Platelet Count 158 X10^3/uL (150-400); Red Cell Distribution Width 13.6 % (11.6-14.8); White Blood Cell Count 6.1 X10^3/uL (4.5-11.0)
[2019-06-09 17:13] LABS: Hemoglobin A1C% w Est Avg Glu 7.4 % (4.0-6.0)
[2019-06-09 17:17] LABS: Alanine Aminotransferase 13 IU/L (<50); Albumin Globulin Ratio 1.4 (1.0-2.8); Alkaline Phosphatase 91 U/L (38-126); Aspartate Aminotransferase 21 IU/L (17-59); BUN Creatinine Ratio 11.6 (6-22); Bilirubin Total 0.6 mg/dL (0.2-1.3); Blood Urea Nitrogen 16 mg/dL (9-20); Calcium 9.3 mg/dL (8.4-10.2); Carbon Dioxide 25 mmol/L (22-32); Chloride 102 mmol/L (98-107); Cholesterol 173 mg/dL (140-199); Estimated Glomerular Filt Rate 49.1 mL/min (>60); Globulin 2.9 g/dL (1.7-4.1); Glucose 137 mg/dL (80-110); HDL Cholesterol 41 mg/dL (40-60); HEMOLYSIS < 15 (0-50); LDL Cholesterol Calculated 102 mg/dL (<100); Potassium 4.4 mmol/L (3.4-5.1); Sodium 138 mmol/L (137-145); Total Protein 6.9 g/dL (6.3-8.2); Triglycerides 151 mg/dL (35-150)
[2019-06-09 17:28] LABS: INR 2.4 (0.9-1.3); Prothrombin Time 27.4 SECONDS (10.1-12.7)
[2019-06-09 18:16] LABS: Thyroid Stimulating Hormone 1.45 uIU/mL (0.47-4.68)
== END ==
PROVIDERS: PCP Family Medicine; Referring Provider Family Medicine; Visit Provider Family Medicine
DX: I48.91 Unspecified atrial fibrillation (principal); E11.9 Type 2 diabetes mellitus without complications
CPT/HCPCS: 36415; 80053; 80061; 83036; 84443; 85025; 85610

== ENCOUNTER → 2019-06-30 15:24 | Outpatient (CLI) | payer MEDICARE, BC, SELFPAY ==
--- NOTE | 2019-06-30 | DI.CT.S_ITS ---
PROCEDURE: CT KIDNEY URETER BLADDER (KUB) INDICATIONS: crossing vessel and stricture of ureter TECHNIQUE: Noncontrast 5 mm thick sections acquired from the diaphragms to the symphysis. 5 mm thick coronal and sagittal reformats were then performed. For radiation dose reduction, the following was used: automated exposure control, adjustment of mA and/or kV according to patient size. COMPARISON: [facility], CT, KIDNEY/ URETER/BLADDER, 04/15/2014, 14:13. FINDINGS: Image quality: Excellent. Lung bases: Lung bases are clear. Heart size is normal. Urinary system: Right renal atrophy may be slightly progressed compared to 2014. Small nonobstructing kidney stones bilaterally, increased. No solid appearing renal mass on this noncontrast examination. Mid left kidney simple cyst measuring 1.7 cm. No hydronephrosis or perinephric fat stranding. Minimal scarring surrounding the mid left ureter. No hydroureter. Bladder wall thickness is normal; no calcified bladder stones. Other solid organs: Liver is normal in size. Probable hepatic steatosis. Gallbladder is unremarkable. Pancreas is normal in contours. Spleen is normal in size. No adrenal nodules. Peritoneum and bowel: Unenhanced bowel loops demonstrate normal wall thickness and caliber. Diverticulosis. No free fluid or air. Nodes and vessels: No retroperitoneal or mesenteric adenopathy by size criteria. Aorta and inferior vena cava are normal in caliber. Moderate calcified atherosclerotic plaque. Abdominal wall: No ventral hernias. Clips in the left lower quadrant anteriorly. Pelvis: No free pelvic fluid. No inguinal hernias or adenopathy. Bones: No suspicious bony lesions. No vertebral body compression fractures. L3-S1 fixation hardware with intervertebral body spacers. No hardware fracture. Extensive degenerative change. IMPRESSION: 1. No hydroureteronephrosis. Mild scarring surrounding the mid left ureter. 2. Small nonobstructing kidney stones bilaterally. Dictated by: Miguel Morel M.D. on 06/30/2019 at 16:26 Approved by: Miguel Morel M.D. on 06/30/2019 at 16:37
== END ==
PROVIDERS: PCP Family Medicine; Referring Provider Urology; Visit Provider Urology
DX: N13.5 Crossing vessel and stricture of ureter without hydronephrosis (principal); K57.90 Diverticulosis of intestine, part unspecified, without perforation or abscess without bleeding; N20.0 Calculus of kidney
CPT/HCPCS: 74176

== ENCOUNTER → 2019-08-25 15:23 | Outpatient (CLI) | payer MEDICARE, BC, SELFPAY ==
[2019-08-25 16:30] LABS: INR 3.5 (0.9-1.3); Prothrombin Time 40.1 SECONDS (10.1-12.7)
[2019-08-25 16:31] LABS: Hemoglobin A1C% w Est Avg Glu 7.2 % (4.0-6.0)
[2019-08-25 17:01] LABS: BUN Creatinine Ratio 8.7 (6-22); Blood Urea Nitrogen 18 mg/dL (9-20); Calcium 9.5 mg/dL (8.4-10.2); Carbon Dioxide 24 mmol/L (22-32); Chloride 102 mmol/L (98-107); Estimated Glomerular Filt Rate 30.7 mL/min (>60); Glucose 121 mg/dL (80-110); HEMOLYSIS < 15 (0-50); Potassium 4.7 mmol/L (3.4-5.1); Sodium 136 mmol/L (137-145)
[2019-08-25 17:32] LABS: Prostate Specific Antigen 1.95 ng/mL (0.10-4.00)
== END ==
PROVIDERS: PCP Family Medicine; Referring Provider Urology; Visit Provider Urology
DX: N40.1 Benign prostatic hyperplasia with lower urinary tract symptoms (principal); N13.5 Crossing vessel and stricture of ureter without hydronephrosis; Z87.442 Personal history of urinary calculi; N26.1 Atrophy of kidney (terminal); I48.91 Unspecified atrial fibrillation; E11.9 Type 2 diabetes mellitus without complications
CPT/HCPCS: 36415; 80048; 83036; 84153; 85610

== ENCOUNTER → 2019-09-01 15:14 | Outpatient (CLI) | payer MEDICARE, BC, SELFPAY ==
[2019-09-01 16:46] LABS: Prothrombin Time 51.7 SECONDS (10.1-12.7)
[2019-09-01 16:59] LABS: INR 4.6 (0.9-1.3)
== END ==
PROVIDERS: Family Provider Family Medicine; PCP Family Medicine; Referring Provider Family Medicine; Visit Provider Family Medicine
DX: I48.91 Unspecified atrial fibrillation (principal)
CPT/HCPCS: 36415; 85610

== ENCOUNTER → 2019-09-05 13:25 | Outpatient (CLI) | payer MEDICARE, BC, SELFPAY ==
[2019-09-05 14:00] LABS: INR 1.4 (0.9-1.3); Prothrombin Time 15.9 SECONDS (10.1-12.7)
== END ==
PROVIDERS: Family Provider Family Medicine; PCP Family Medicine; Referring Provider Family Medicine; Visit Provider Family Medicine
DX: I48.91 Unspecified atrial fibrillation (principal)
CPT/HCPCS: 36415; 85610

== ENCOUNTER → 2019-09-12 13:24 | Outpatient (CLI) | payer MEDICARE, BC, SELFPAY | PROVIDERS: Family Provider Family Medicine; PCP Family Medicine; Referring Provider Family Medicine; Visit Provider Family Medicine | DX: S31.819A Unspecified open wound of right buttock, initial encounter (principal); S31.829A Unspecified open wound of left buttock, initial encounter; M62.84 Sarcopenia; L08.0 Pyoderma; E11.622 Type 2 diabetes mellitus with other skin ulcer | CPT/HCPCS: 87070; 87075; 87077; 87186; 87205; 97597; 99203; 99212 ==

== ENCOUNTER → 2019-09-22 15:02 | Outpatient (CLI) | payer MEDICARE, BC, SELFPAY | PROVIDERS: Family Provider Family Medicine; PCP Family Medicine; Referring Provider Family Medicine; Visit Provider Family Medicine | DX: S31.819A Unspecified open wound of right buttock, initial encounter (principal); S31.829A Unspecified open wound of left buttock, initial encounter; M62.84 Sarcopenia; L08.0 Pyoderma; E11.622 Type 2 diabetes mellitus with other skin ulcer | CPT/HCPCS: 11042 ==

== ENCOUNTER → 2019-09-22 15:28 | Outpatient (CLI) | payer MEDICARE, BC, SELFPAY ==
[2019-09-22 17:24] LABS: INR 2.2 (0.9-1.3); Prothrombin Time 25.3 SECONDS (10.1-12.7)
== END ==
PROVIDERS: Family Provider Family Medicine; PCP Family Medicine; Referring Provider Family Medicine; Visit Provider Family Medicine
DX: I48.91 Unspecified atrial fibrillation (principal)
CPT/HCPCS: 36415; 85610

== ENCOUNTER → 2019-10-13 15:43 | Outpatient (CLI) | payer MEDICARE, BC, SELFPAY | PROVIDERS: Family Provider Family Medicine; PCP Family Medicine; Referring Provider Family Medicine; Visit Provider Family Medicine | DX: Z48.01 Encounter for change or removal of surgical wound dressing (principal) | CPT/HCPCS: 99212 ==

== ENCOUNTER → 2019-10-18 13:18 | Outpatient (CLI) | payer MEDICARE, BC, SELFPAY ==
[2019-10-18 14:10] LABS: INR 3.2 (0.9-1.3); Prothrombin Time 36.3 SECONDS (10.1-12.7)
== END ==
PROVIDERS: Family Provider Family Medicine; PCP Family Medicine; Referring Provider Family Medicine; Visit Provider Family Medicine
DX: I48.91 Unspecified atrial fibrillation (principal)
CPT/HCPCS: 36415; 85610

== ENCOUNTER → 2019-10-28 13:41 | Outpatient (CLI) | payer MEDICARE, BC, SELFPAY ==
[2019-10-28 15:19] LABS: INR 4.4 (0.9-1.3); Prothrombin Time 49.7 SECONDS (10.1-12.7)
== END ==
PROVIDERS: Family Provider Family Medicine; PCP Family Medicine; Referring Provider Family Medicine; Visit Provider Family Medicine
DX: I48.91 Unspecified atrial fibrillation (principal)
CPT/HCPCS: 36415; 85610

== ENCOUNTER → 2019-12-13 14:27 | Outpatient (CLI) | payer MEDICARE, BC, SELFPAY ==
[2019-12-13 17:51] LABS: Hemoglobin A1C% w Est Avg Glu 7.3 % (4.0-6.0)
[2019-12-13 17:56] LABS: INR 4.1 (0.9-1.3); Prothrombin Time 46.9 SECONDS (10.1-12.7)
== END ==
PROVIDERS: Family Provider Family Medicine; PCP Family Medicine; Referring Provider Family Medicine; Visit Provider Family Medicine
DX: I48.91 Unspecified atrial fibrillation (principal); E11.9 Type 2 diabetes mellitus without complications
CPT/HCPCS: 36415; 83036; 85610

== ENCOUNTER → 2020-01-10 14:56 | Outpatient (CLI) | payer MEDICARE, BC, SELFPAY ==
[2020-01-10 16:02] LABS: Prothrombin Time 23.3 SECONDS (10.1-12.7)
== END ==
PROVIDERS: Family Provider Family Medicine; PCP Family Medicine; Referring Provider Family Medicine; Visit Provider Family Medicine
DX: I48.91 Unspecified atrial fibrillation (principal)
CPT/HCPCS: 36415; 85610

== ENCOUNTER 2020-01-12 15:45 | Emergency (ER) | payer MEDICARE, BC, SELFPAY ==
[2020-01-12 15:53] VITALS: BP 144/77; PULSE 80; RESP 16; TEMP 36.7; O2SAT 99; BMI 30.4
[2020-01-12 16:00] VITALS: BP 142/86; PULSE 77; O2SAT 100
--- NOTE | 2020-01-12 16:19 | ED.GENADULT ---
HPI - General Adult General Chief complaint: Extremity Problem,Nontraumatic Stated complaint: severe leg pain, right side, numbness Time Seen by Provider: 01/12/20 15:47 Source: patient and family Mode of arrival: Wheelchair Limitations: no limitations History of Present Illness HPI narrative: Patient is a 84-year-old male here for evaluation of right knee/right anterior thigh pain. Patient states that his symptoms have been going on for the past month. He initially stated that he has not seen anybody for these symptoms but then he mentioned that he talk with his primary doctor. He also states that he saw orthopedics. His and him told me that both those individuals thought that he needed physical therapy and more stretching and exercise. He is currently on hydrocodone at home as needed for pain and also methocarbamol. He states that the pain is now in his lower back. He stated that he saw his primary doctor and the orthopedic doctor for the pain that brought him in the emergency department today. No fevers. He is having prostate issues and causes him to get up at night several times urinate. No bowel changes. Related Data Home Medications Medication Instructions Recorded Confirmed mirtazapine [Remeron] 15 mg PO HS #0 09/13/10 01/21/18 dutasteride [Avodart] 0.5 mg PO QDAY #0 12/21/15 01/21/18 cimetidine 800 mg PO TIDAC #0 03/15/16 01/21/18 hydrocodone-acetaminophen 1 - 2 tab PO PRN PRN #0 05/12/17 01/21/18 solifenacin [Vesicare] 5 mg PO HS #0 05/12/17 01/21/18 sulfamethoxazole-trimethoprim 1 tab PO QDAY #0 05/12/17 01/21/18 [CINDY-SELTZER HEARTBU] PRN PRN #0 05/28/17 01/21/18 ferrous gluconate 225 mg PO QDAY #0 05/28/17 01/21/18 methocarbamol 750 mg PO Q6HP PRN #0 05/28/17 01/21/18 nystatin 1 hayes TOPICAL QID #0 05/28/17 01/21/18 nystatin [Nystop] 100,000 unit TOPICAL BID #0 05/28/17 01/21/18 promethazine 25 mg PO PRN PRN #0 05/28/17 01/21/18 sucralfate 1 gm PO ACHS #0 05/28/17 01/21/18 triamcinolone acetonide 1 hayes TOPICAL #0 05/28/17 01/21/18 warfarin [Coumadin] PO QDAY #0 05/28/17 01/21/18 Previous Rx's Medication Instructions Recorded atorvastatin [Lipitor] 20 mg PO HS #30 tab 05/15/17 metoprolol tartrate 50 mg PO BID #60 tab 05/15/17 benzonatate [Tessalon Perles] 100 mg PO TID PRN #12 cap 01/26/19 guaifenesin 200 mg PO Q4H PRN #118 ml 01/26/19 diclofenac sodium [Voltaren 2 g TOPICAL QID #100 g 01/12/20 Arthritis Pain] prednisone 20 mg PO DAILY 2 Days #2 tab 01/12/20 Allergies Allergy/AdvReac Type Severity Reaction Status Date / Time Penicillins [PENICILLINS] Allergy Severe ANAPHYLAXIS Verified 01/12/20 15:53 shellfish derived Allergy Severe TONGUE Verified 01/12/20 15:53 [SHELLFISH DERIVED] SWELLS, THROAT CLOSES. Review of Systems Constitutional Constitutional: Denies fever(s) and Denies headache(s) ENT Ears, Nose, Mouth, and Throat: Denies headache(s) Cardiovascular Cardiovascular: Denies chest pain, Denies lightheadedness and Denies dyspnea Respiratory Respiratory: Denies dyspnea Gastrointestinal Gastrointestinal: Denies abdominal pain, Denies nausea and Denies vomiting Musculoskeletal Comments: Right leg pain Integumentary/Breasts Skin/Breast: Denies lesions and Denies rash Neurologic Neurologic: Denies headache(s) Comments: Burning in the right leg Hematologic/Lymphatic Hematologic/Lymphatic: Denies easy bleeding and Denies easy bruising Allergic/Immunologic Allergic/Immunologic: Denies urticaria Patient History Medical History (Updated 01/12/20 @ 17:58 by Tre Vazquez DO) Atrial fibrillation DM type 2 (diabetes mellitus, type 2) Urological system complication of procedure UTI (urinary tract infection) Social History Smoking Status: Never smoker Smoking Status: Never smoker alcohol intake frequency: 0-2 drinks per day Substance Use Type: does not use Exam Initial Vital Signs Initial Vital Signs: Vital Signs Temperature 98.1 F 01/12/20 15:53 Pulse Rate 80 01/12/20 15:53 Respiratory Rate 16 01/12/20 15:53 Blood Pressure 144/77 H 01/12/20 15:53 Pulse Oximetry 99 01/12/20 15:53 Const General: cooperative and comfortable Limitations: mental status not altered HENMT Head: normal to inspection and normocephalic Resp Effort & Inspection: normal respiratory effort Cardio Rate: regular rate Pulses: dorsalis pedis present on the right Skin Lesions: no lesions Rashes: no rashes Neuro General: patient alert and patient awake Extrem Other: Patient has tenderness to palpation with just gentle touch along the anterior lateral aspect of the right thigh. Also along the lateral aspect of the right knee. He can flex his knee because am quite a bit of discomfort. He could only flex to 10-20 degrees without having to stop because of the pain. He can also flex at his hip but again only very small amount because of the pain. Course Orders Ordered: Discontinued Medications Hydromorphone HCl (Hydromorphone 1 Mg Inj) 1 mg IM NOW ONE Stop: 01/12/20 16:20 Last Admin: 01/12/20 16:31 Dose: 1 mg Documented by: RAFITA Prednisone (Prednisone 20 Mg Tablet) 20 mg PO NOW ONE Stop: 01/12/20 17:48 Last Admin: 01/12/20 17:51 Dose: 20 mg Documented by: Vital Signs Vital signs: Vital Signs - 8 hr 01/12/20 15:53 01/12/20 16:00 01/12/20 16:30 Temperature 98.1 F Pulse Rate 80 77 66 Respiratory Rate 16 Blood Pressure 144/77 H 142/86 H Pulse Oximetry 99 100 96 01/12/20 16:31 01/12/20 17:00 01/12/20 17:30 Temperature Pulse Rate 67 67 65 Respiratory Rate Blood Pressure 138/71 122/61 135/60 Pulse Oximetry 97 96 93 Medical Decision Making Lab Data Labs: Point of Care Testing Glucose POC 135 Point of care testing: Point of Care Testing Glucose POC 135 MDM Narrative Medical decision making narrative: Patient has been evaluated by both his primary doctor and Orthopedics regarding the symptoms and brought him to the emergency department today. They both recommended physical therapy. Somewhat difficult to obtain a physical exam secondary to the patient's discomfort. I have low suspicion for cauda equina. I do suspect this is more musculoskeletal or potentially neurologic. Will put on a short course of steroids. They were instructed to watch his blood sugars at home. Also given prescription for Voltaren cream. They were instructed to contact his primary doctor to discuss further evaluation treatment. They expressed understanding and agreement. Discharge Plan Departure Patient Disposition: Home Clinical Impression: Pain in right leg Instructions: How to Prevent Falls Activity Restrictions/Additional Instructions: Continue all of your medications as directed. Be sure to check your blood sugars on a regular basis for the next couple days as the prednisone that we put her on could increase your blood sugar. Contact your primary doctor tomorrow and if the office is closed because of the be sure to contact them on Thursday morning for follow-up. Return to the emergency department for any new symptoms. Prescriptions: New prednisone 20 mg tablet 20 mg PO DAILY 2 Days Qty: 2 RF: 0 diclofenac sodium [Voltaren Arthritis Pain] 1 % gel 2 g topical QID Qty: 100 RF: 0 No Action mirtazapine [Remeron] 15 MG tablet 15 mg PO HS Qty: 0 RF: 0 dutasteride [Avodart] 0.5 MG capsule 0.5 mg PO QDAY Qty: 0 RF: 0 cimetidine 800 MG tablet 800 mg PO TIDAC Qty: 0 RF: 0 hydrocodone-acetaminophen 5 MG/325 MG tablet 1 - 2 tab PO PRN PRNQty: 0 RF: 0 sulfamethoxazole-trimethoprim 800 MG/160 MG tablet 1 tab PO QDAY Qty: 0 RF: 0 solifenacin [Vesicare] 5 MG tablet 5 mg PO HS Qty: 0 RF: 0 atorvastatin [Lipitor] 20 MG tablet 20 mg PO HS Qty: 30 RF: 0 metoprolol tartrate 50 MG tablet 50 mg PO BID Qty: 60 RF: 1 warfarin [Coumadin] 2 MG tablet PO QDAY Qty: 0 RF: 0 sucralfate 1 GM tablet 1 gm PO ACHS Qty: 0 RF: 0 methocarbamol 750 MG tablet 750 mg PO Q6HP PRNQty: 0 RF: 0 promethazine 25 MG tablet 25 mg PO PRN PRNQty: 0 RF: 0 nystatin 15 GM cream 1 hayes Topical QID Qty: 0 RF: 0 triamcinolone acetonide 0.025 % cream 1 hayes Topical Qty: 0 RF: 0 nystatin [Nystop] 60 GM powder 100,000 unit Topical BID Qty: 0 RF: 0 [CINDY-SELTZER HEARTBU] PRN PRNQty: 0 RF: 0 ferrous gluconate 236 mg (27 mg iron) Tablet 225 mg PO QDAY Qty: 0 RF: 0 benzonatate [Tessalon Perles] 100 mg capsule 100 mg PO TID PRN (Reason: cough) Qty: 12 RF: 0 guaifenesin 200 mg/5 mL liquid 200 mg PO Q4H PRN (Reason: congestion) Qty: 118 RF: 0 Referrals: Rufino Pierre MD [Primary Care Provider] -
[2020-01-12 16:30] VITALS: PULSE 66; O2SAT 96
[2020-01-12 16:31] VITALS: BP 138/71; PULSE 67; O2SAT 97
[2020-01-12] MEDS: HYDROMORPHONE 1 MG INJ IM (16:31)
[2020-01-12 17:00] VITALS: BP 122/61; PULSE 67; O2SAT 96
[2020-01-12 17:30] VITALS: BP 135/60; PULSE 65; O2SAT 93
[2020-01-12] MEDS: predniSONE 20 MG TABLET PO (17:51)
== END 2020-01-12 18:15 | disposition home or self-care (01) ==
PROVIDERS: Emergency Provider Emergency Medicine; Family Provider Family Medicine; PCP Family Medicine; Referring Provider Internal Medicine Cardiovascular Disease
DX: M79.604 Pain in right leg (principal)
CPT/HCPCS: 82962; 96372; 99282; 99283; STOP; J1170

== ENCOUNTER → 2020-01-25 14:58 | Outpatient (CLI) | payer MEDICARE, BC, SELFPAY ==
[2020-01-25 16:35] LABS: INR 1.2 (0.9-1.3)
== END ==
PROVIDERS: Family Provider Family Medicine; PCP Family Medicine; Referring Provider Family Medicine; Visit Provider Family Medicine
DX: I48.91 Unspecified atrial fibrillation (principal)
CPT/HCPCS: 36415; 85610

== ENCOUNTER → 2020-02-09 12:02 | Outpatient (CLI) | payer MEDICARE, BC, SELFPAY ==
--- NOTE | 2020-02-09 | DI.CT.S_ITS ---
PROCEDURE: CT LE RT WO CON INDICATIONS: RIGHT LEG PAIN TECHNIQUE: Noncontrast 3 mm axial sections acquired of the lower pelvis and targeted to the right leg, with coronal and sagittal reformats. COMPARISON: None. FINDINGS: Image quality: Excellent. 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 A definite source of right leg pain from lower pelvis to the knee level is not seen. No muscular inflammation or soft tissue infection is suspected. Soft tissues: Normal. IMPRESSION: Degenerative changes as discussed without evidence of trauma infection or neoplasm. Dictated by: Lauro Lenz M.D. on 02/09/2020 at 13:26 Approved by: Lauro Lenz M.D. on 02/09/2020 at 13:32
--- NOTE | 2020-02-09 | DI.CT.S_ITS ---
PROCEDURE: CT ABDOMEN PELVIS WO CON INDICATIONS: Unspecified abdominal pain TECHNIQUE: After the administration of oral contrast, 5 mm thick sections acquired from the diaphragms to the symphysis. 5 mm coronal and sagittal reformats were performed. For radiation dose reduction, the following was used: automated exposure control, adjustment of mA and/or kV according to patient size. COMPARISON: [facility], CT, CT KIDNEY URETER BLADDER ([facility]), 06/30/2019, 15:26. FINDINGS: Image quality: Excellent. ABDOMEN: Lung bases: There is mild atelectasis at the lung bases. The lung bases are otherwise clear. Heart size is normal. Atheromatous calcifications are present within the coronary arteries. There is moderate mitral annulus calcification. Solid organs: Liver is normal in size. Gallbladder is unremarkable. Pancreas is normal in size. Spleen is normal in size. No adrenal nodules. There is atrophy of the superior right kidney. The left kidney is normal size. Nonobstructing calculi are present within the lower poles bilaterally. A 1.1 cm calculus is present in the right renal pelvis (series 2/image 49). A low-density cystic lesion is present within the midpole of the left kidney. The right kidney is markedly atrophic. Peritoneum and bowel: Bowel loops demonstrate normal wall thickness and caliber. The appendix is not visualized; however there is no discrete right lower quadrant fluid or fat stranding to suggest acute appendicitis. There are scattered sigmoid diverticula. No evidence for diverticulitis. No free fluid or air. Nodes and vessels: No retroperitoneal or mesenteric adenopathy by size criteria. Aorta and inferior vena cava are normal in size. There are scattered atheromatous calcifications throughout the aorta and iliac arteries bilaterally. Miscellaneous: No ventral hernias. PELVIS: Genitourinary: Bladder wall thickness is normal. Miscellaneous: No inguinal hernias or adenopathy. Bones: No suspicious bony lesions. No vertebral body compression fractures. Lumbosacral posterior fixation appears grossly intact. IMPRESSION: 1. No acute intra-abdominal findings. The appendix is not visualized; however there are no ancillary findings to suggest acute appendicitis. 2. Diverticulosis. No acute diverticulitis. 3. Bilateral nonobstructive nephrolithiasis and atrophy of the superior pole of the right kidney. 1.1 cm nonobstructing calculus also present within the right renal pelvis. 4. Aortic and coronary artery atherosclerosis. Dictated by: Sima Yang M.D. on 02/09/2020 at 13:08 Approved by: Sima Yang M.D. on 02/09/2020 at 13:29
[2020-02-09 13:49] LABS: Prothrombin Time 11.2 SECONDS (10.1-12.7)
== END ==
PROVIDERS: Family Provider Family Medicine; PCP Family Medicine; Referring Provider Specialist; Visit Provider Specialist
DX: I48.91 Unspecified atrial fibrillation (principal); R10.9 Unspecified abdominal pain; M79.604 Pain in right leg; M16.11 Unilateral primary osteoarthritis, right hip; M17.11 Unilateral primary osteoarthritis, right knee; N20.0 Calculus of kidney; K57.30 Diverticulosis of large intestine without perforation or abscess without bleeding; I25.10 Atherosclerotic heart disease of native coronary artery without angina pectoris; I70.0 Atherosclerosis of aorta
CPT/HCPCS: 36415; 73700; 74176; 85610

== ENCOUNTER → 2020-02-27 16:36 | Outpatient (CLI) | payer MEDICARE, BC, SELFPAY ==
[2020-02-27 17:43] LABS: INR 1.3 (0.9-1.3); Prothrombin Time 14.4 SECONDS (10.1-12.7)
== END ==
PROVIDERS: Family Provider Family Medicine; PCP Family Medicine; Referring Provider Family Medicine; Visit Provider Family Medicine
DX: I48.91 Unspecified atrial fibrillation (principal)
CPT/HCPCS: 36415; 85610

== ENCOUNTER → 2020-03-13 16:03 | Outpatient (CLI) | payer MEDICARE, BC, SELFPAY ==
[2020-03-13 18:07] LABS: BUN Creatinine Ratio 12.2 (6-22); Blood Urea Nitrogen 18 mg/dL (9-20); Calcium 9.3 mg/dL (8.4-10.2); Carbon Dioxide 26 mmol/L (22-32); Chloride 107 mmol/L (98-107); Estimated Glomerular Filt Rate 45.3 mL/min (>60); Glucose 130 mg/dL (80-110); HEMOLYSIS < 15 (0-50); Potassium 4.2 mmol/L (3.4-5.1); Sodium 138 mmol/L (137-145)
== END ==
PROVIDERS: Family Provider Family Medicine; PCP Family Medicine; Referring Provider Internal Medicine Nephrology; Visit Provider Internal Medicine Nephrology
DX: N18.30 Chronic kidney disease, stage 3 unspecified (principal); I48.91 Unspecified atrial fibrillation
CPT/HCPCS: 36415; 80048; 85610

== ENCOUNTER → 2020-04-10 15:14 | Outpatient (CLI) | payer MEDICARE, BC, SELFPAY ==
[2020-04-10 15:24] LABS: Bacteria Urine None Seen; RBC Urine None Seen (0-5/HPF)
[2020-04-10 15:42] LABS: Appearance Urine UA CLEAR; Bilirubin Urine UA NEGATIVE (NEGATIVE); Color Urine UA YELLOW; Glucose Urine UA NEGATIVE (Negative); Ketones Urine UA NEGATIVE (NEGATIVE); Leukocyte Esterase Urine UA NEGATIVE (NEGATIVE); Nitrite Urine UA NEGATIVE (Negative); Occult Blood Urine UA NEGATIVE (Negative); Protein Urine UA NEGATIVE (Negative); Specific Gravity Urine UA 1.015 (1.000-1.035); Urobilinogen Urine UA 0.2 E.U./dL (0.2)
[2020-04-10 15:58] LABS: Squamous Epithelial Cell Urine 0-1 /HPF (0-5/HPF); WBC Urine 0-1/HPF (0-5/HPF)
[2020-04-10 15:59] LABS: Culture Indicated Urine Cult Not Indicated
[2020-04-10 16:24] LABS: Creatinine Urine Random 115.2 mg/dL
[2020-04-10 16:27] LABS: Microalbumi Creatinin Ratio Ur 6.9 ug/mg CR (<30); Microalbumin Urine Random 0.8 mg/dL (0-1.6)
== END ==
PROVIDERS: Family Provider Family Medicine; PCP Family Medicine; Referring Provider Internal Medicine Nephrology; Visit Provider Internal Medicine Nephrology
DX: N18.30 Chronic kidney disease, stage 3 unspecified (principal)
CPT/HCPCS: 81001; 82043; 82570

== ENCOUNTER → 2020-04-19 14:38 | Outpatient (CLI) | payer MEDICARE, BC, SELFPAY ==
[2020-04-19 15:10] LABS: Hemoglobin A1C% w Est Avg Glu 6.6 % (4.0-6.0)
[2020-04-19 15:18] LABS: INR 1.2 (0.9-1.3); Prothrombin Time 13.6 SECONDS (10.1-12.7)
== END ==
PROVIDERS: Family Provider Family Medicine; PCP Family Medicine; Referring Provider Family Medicine; Visit Provider Family Medicine
DX: Z79.01 Long term (current) use of anticoagulants (principal); E11.9 Type 2 diabetes mellitus without complications
CPT/HCPCS: 36415; 83036; 85610

== ENCOUNTER → 2020-05-14 18:33 | Outpatient (CLI) | payer MEDICARE, BC, SELFPAY ==
--- NOTE | 2020-05-14 18:36 | DI.MRI.S_ITS ---
PROCEDURE: MR LUMBAR SPINE WO CON INDICATIONS: PAIN IN RIGHT LEG TECHNIQUE: Noncontrast sagittal T1 spin echo and T2 fast echo, sagittal STIR, axial T1 and T2 fast spin echo through the lumbar spine. In cases with scoliosis, additional coronal T2 fast spin echo may be performed. COMPARISON: None. FINDINGS: Image quality: Excellent. Alignment and Curvature: There is mild L2-L3 retrolisthesis. There is trace L4-L5 and L5-S1 anterolisthesis. There is approximately 12? of convex left thoracolumbar spine scoliosis. Bones: Postsurgical changes compatible with L3-S1 PLIF. Reactive endplate changes noted adjacent to the L2-L3 disc. No acute vertebral body compression fractures. Spinal Cord: Conus medullaris terminates at the L1 level. Visualized cord demonstrates normal signal and size. Paraspinous Soft Tissues: No paravertebral masses. T12-L1: Loss of disc signal. No central stenosis. No neural foraminal narrowing. No neural compression. L1-L2: Loss of disc signal. Mild loss of disc height. Mild, diffuse disc bulge. Mild bilateral facet hypertrophy. Mild to moderate narrowing of the central canal. Mild to moderate bilateral neural foraminal narrowing. No neural compression. L2-L3: Loss of disc signal and height. Moderate, diffuse disc bulge. Large right central disc extrusion. Extruded disc material extends inferiorly along the posterior margin of the L3 vertebral body to a infrapedicular location. Moderate facet hypertrophy. Severe narrowing of the central canal with slight compression of the nerve roots of the cauda equina. Moderate bilateral neural foraminal narrowing. L3-L4: Status post fusion. [id number] bilateral facet hypertrophy. Mild narrowing of the central canal. Mild to moderate bilateral neural foraminal narrowing. No neural compression. L4-L5: Status post fusion. Moderate bilateral facet hypertrophy. Mild to moderate narrowing of the central canal. Mild to moderate bilateral neural foraminal narrowing. No neural compression. L5-S1: Status post fusion. Moderate bilateral facet hypertrophy. No central stenosis. Mild bilateral neural foraminal narrowing. No neural compression. IMPRESSION: 1. Status post L3-S1 TLIF. 2. Multilevel degenerative disc disease. 3. Multilevel facet arthropathy. 4. Large right central L2-L3 disc extrusion. 5. Severe L2-L3 central canal narrowing with compression of the traversing nerve roots of the cauda equina. 6. No severe neural foraminal narrowing. Dictated by: Rula Dick MD, PhD on 05/15/2020 at 17:01 Approved by: Rula Dick MD, PhD on 05/15/2020 at 17:08
== END ==
PROVIDERS: Family Provider Family Medicine; PCP Family Medicine; Referring Provider Family Medicine; Visit Provider Family Medicine
DX: M79.604 Pain in right leg (principal); M51.36 Other intervertebral disc degeneration, lumbar region; M47.816 Spondylosis without myelopathy or radiculopathy, lumbar region; M51.26 Other intervertebral disc displacement, lumbar region; M48.061 Spinal stenosis, lumbar region without neurogenic claudication; Z98.1 Arthrodesis status
CPT/HCPCS: 72148

== ENCOUNTER 2020-05-15 14:15 | Outpatient (RCR) | payer MEDICARE, BC, SELFPAY ==
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
--- NOTE | 2020-03-16 15:40 | PT-OP ANOTE ---
Pt cancelled due to sick
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
--- NOTE | 2020-03-22 17:39 | PT.OPPOC ---
Physical, Occupational & Speech Therapy At [facility] Current Diagnoses Dorsalgia, unspecified (03/22/20) Visit Care Team Role Provider Type Rufino Pirere MD Attending Provider Physician Family Provider Primary Care Provider Referring Provider Specialty: Family Practice Address: [address] [place] [address], [id number] Email: [email or web address] Plan Of Care PT-OP-T Assessment and Plan Start: 01/17/20 10:05 Freq: Status: Active Protocol: Document 03/22/20 13:27 [facility] (Rec: 03/22/20 17:02 [facility] [id number]) Physical Therapy Assessment Goals wheel chair for mobility Impairment wheel chair for mobility Short Term Goal (STG) Alan is trainined on the fww for gait in the clinic. He is able to ambulate 50 feet with CGA STG Duration achieved Sales Hunter Goal (LTG) Alan is able to ambulate 150 with CGA and fww 2/4-137ft w/FWW LTG Duration 8 weeks Decreased right hip ROM Impairment pain with R hip ROM Sales Hunter Goal (LTG) Alan is able to tolerate riding the bike and AAROM of the right hip without pain 2/4-bike was painful so stopped in therapy LTG Duration 8 weeks weakness Impairment limited LE strength, max assist from transfers into bed Short Term Goal (STG) Alan is able to demonstrate transferring to his right side to then have assist with log roll into bed 2/4-does not log roll STG Duration 4 week Care Home Goal (LTG) Alan is able to transfer into bed independently LTG Duration achieved pain rated 8/10 Impairment right hip lateral and anterior pain rated 8/10 Short Term Goal (STG) Alan is able to flex his right knee to 90 degrees on his own in supine without pain STG Duration 4 weeks Sales Hunter Goal (LTG) Alan reports a reduction in right sided leg pain from 8/10 to 3-4/10 LTG Duration 8 weeks Five Impairment LE weakness Care Home Goal (LTG) L hip flexion, IR and ER 4/5 and L knee flexion 4+/5 with manual muscle testing to increase functional activity tolerance (standing, gait). LTG Duration 12 weeks Three Impairment impaired gait tolerance Short Term Goal (STG) pt will participate in a walking program at home 3 days per week for 15 minutes. 2/4-pt reprots doing walking but notes pt does not STG Duration 6 weeks Care Home Goal (LTG) pt will participate in a walking program at home 5 days per week for 20+ minutes. LTG Duration 12 weeks Assessment Summary Assessment Pt is making slow progress towards goals, but is making progress. He still has significant pain into RLE along with LB with tingling in RLE, indicating he may have a back pathology causing this. He may benefit from further imaging of his lumbar spine for further diagonis/ information. He may also benefit from seeing a pain management nurse to help with pain as PT appears to inc pain for a few days and he has less pain when not attending PT. He is showing functional imrpovement w/ therapy though and would benefit from imprvoing his functional mobility w/therapy. Physical Therapy Plan Frequency and Duration Frequency of Treatment 2x/Week Duration of Treatment 2 months Plan of Care Start Date 03/22/20 Plan of Care End Date 05/20/20 Therapeutic Interventions Therapeutic Interventions Aquatic Therapy,Balance Training,Gait Training,Home Exercise Program,Joint Mobilizations,Manual Therapy, Neuromuscular Re-education, Patient/Caregiver Education, Self-Care/Home Management,Soft Tissue Mobilization,Taping, Therapeutic Activities, Therapeutic Exercises, Wheelchair Management Modalities Cold Pack/Ice Massage,Electric Stimulation,Hot Packs, Ultrasound Next Visit Focus/Plan Next Note Type Treatment Note Next Visit Plan Assess response to gait, stairs, Ther ex HEP review. COntinue per PT POC: Continue to progress transfers, LE ROM , strength, and decreased pain Plan of Care Dates Plan of Care Start Date 03/22/20 Plan of Care End Date 05/20/20 Electronically Signed by: Donna Zapata, PT 03/22/20 1601 Please Sign and Return: I have reviewed this Plan of Care and certify that the skilled therapy services above are required to meet the patient?s needs. Physician Signature Date Printed Name and Credentials Clinical Instructor Signature Printed Name and Credentials
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
== END 2020-05-24 10:00 | disposition home or self-care (01) ==
LOC: PHYS 14:15
PROVIDERS: Family Provider Family Medicine; PCP Family Medicine; Referring Provider Family Medicine; Visit Provider Family Medicine
DX: M54.9 Dorsalgia, unspecified (principal)
CPT/HCPCS: 97010; 97110; 97116; 97140; 97161; 97530; 97535

== ENCOUNTER → 2020-05-30 15:27 | Outpatient (ROUT) | payer MEDICARE, BC, SELFPAY ==
[2020-05-30 15:48] LABS: INR 1.5 (0.9-1.3); Prothrombin Time 16.8 SECONDS (10.1-12.7)
== END ==
PROVIDERS: Family Provider Family Medicine; PCP Family Medicine; Visit Provider Family Medicine
DX: I48.91 Unspecified atrial fibrillation (principal); Z79.01 Long term (current) use of anticoagulants
CPT/HCPCS: 85610

== ENCOUNTER → 2020-06-20 16:17 | Outpatient (ROUT) | payer MEDICARE, BC, SELFPAY ==
[2020-06-20 16:52] LABS: INR 4.1 (0.9-1.3); Prothrombin Time 48.2 SECONDS (10.1-12.7)
== END ==
PROVIDERS: Family Provider Family Medicine; PCP Family Medicine; Visit Provider Family Medicine
DX: Z79.01 Long term (current) use of anticoagulants (principal)
CPT/HCPCS: 85610

== ENCOUNTER → 2020-06-21 15:39 | Outpatient (CLI) | payer MEDICARE, BC, SELFPAY ==
--- NOTE | 2020-06-21 | DI.US.S_ITS ---
PROCEDURE: US RENAL COMPLETE INDICATIONS: CHRONIC KIDNEY DISEASE STAGE G3B/A1 TECHNIQUE: Real-time scanning was performed of the kidneys and bladder, with image documentation. COMPARISON: [facility], , RENAL COMPLETE, 10/04/2014, 11:55. FINDINGS: Kidneys: Kidneys are normal in size. Right kidney measures 8.6 cm long; left kidney measures 11.8 cm long. Right renal cortical thickness is 1.0 cm; left renal cortical thickness is 1.9 cm. Right renal echotexture is slightly increased consistent with medical renal disease. There are bilateral echogenic shadowing calculi, largest in the lower pole the right kidney measures 0.8 x 1.0 cm. Several right renal cysts are also present measuring up to 8 mm. On the left, shadowing 1.2 cm calculi present, and there is a 1.8 cm simple cyst present. No hydronephrosis Bladder: Pre-void bladder volume is 180 mL. Post-void residual is 135 mL. Pre-void images demonstrate no intraluminal masses or stones. On pre-void images, no ureteral jets are noted with color Doppler interrogation. (Of note, ureteral jets may not be detectable in up to 25% of cases due to insufficient differences in specific gravity between ureteral and bladder urine). Bladder wall unremarkable. Miscellaneous: No free pelvic fluid. IMPRESSION: 1. Stable right renal atrophy and medical renal disease. No hydronephrosis 2. Bilateral small renal cysts and probable shadowing calculi measuring up to 1 cm. No hydronephrosis. 3. Significant postvoid residual may be related to bladder outlet obstruction. Dictated by: Casey Chang M.D. on 06/21/2020 at 17:12 Approved by: Casey Chang M.D. on 06/21/2020 at 17:21
[2020-06-21 17:51] LABS: Add Manual Diff / Slide Review NO; Basophils Absolute Auto 0 /uL (0-100); Basophils Percent Auto 0.5 % (0-2); Eosinophils Absolute Auto 200 /uL (0-450); Eosinophils Percent Auto 2.6 % (2-4); Hematocrit 40.4 % (41-53); Hemoglobin 13.4 g/dL (13.5-17.5); Lymphocytes Absolute Auto 900 /uL (1100-4500); Lymphocytes Percent Auto 11.3 % (25-40); Mean Corpuscular HGB Conc 33.2 % (30-36); Mean Corpuscular Hemoglobin 32.1 PG (26-34); Mean Corpuscular Volume 96.5 fL (80-100); Monocytes Absolute Auto 900 /uL (0-900); Monocytes Percent Auto 11.7 % (3-14); Neutrophils Absolute Auto 5800 /uL (1500-7000); Neutrophils Percent Auto 73.9 % (50-75); Platelet Count 129 X10^3/uL (150-400); Red Blood Cell Count 4.18 X10^6/uL (4.5-5.9); Red Cell Distribution Width 14.1 % (11.6-14.8); White Blood Cell Count 7.8 X10^3/uL (4.5-11.0)
[2020-06-21 18:08] LABS: Albumin 3.3 g/dL (3.5-5.0); BUN Creatinine Ratio 13.8 (6-22); Blood Urea Nitrogen 22 mg/dL (9-20); Carbon Dioxide 27 mmol/L (22-32); Chloride 104 mmol/L (98-107); Estimated Glomerular Filt Rate 41.6 mL/min (>60); Glucose 124 mg/dL (80-110); HEMOLYSIS < 15 (0-50); Phosphorous 2.9 mg/dL (2.3-3.7); Potassium 4.5 mmol/L (3.4-5.1); Sodium 136 mmol/L (137-145)
[2020-06-23 06:36] LABS: Parathyroid Hormone Int 39 pg/mL (15-65)
== END ==
PROVIDERS: Family Provider Family Medicine; PCP Family Medicine; Referring Provider Internal Medicine Cardiovascular Disease; Visit Provider Internal Medicine Nephrology
DX: N18.32 Chronic kidney disease, stage 3b (principal); N28.1 Cyst of kidney, acquired
CPT/HCPCS: 36415; 76770; 80069; 83970; 85025

== ENCOUNTER → 2020-07-11 14:36 | Outpatient (CLI) | payer MEDICARE, BC, SELFPAY ==
[2020-07-11 15:19] LABS: Add Manual Diff / Slide Review NO; Basophils Absolute Auto 100 /uL (0-100); Eosinophils Absolute Auto 200 /uL (0-450); Eosinophils Percent Auto 4.1 % (2-4); Hematocrit 40.4 % (41-53); Hemoglobin 13.6 g/dL (13.5-17.5); Lymphocytes Absolute Auto 800 /uL (1100-4500); Mean Corpuscular HGB Conc 33.5 % (30-36); Mean Corpuscular Hemoglobin 32.1 PG (26-34); Mean Corpuscular Volume 95.6 fL (80-100); Monocytes Absolute Auto 500 /uL (0-900); Monocytes Percent Auto 8.6 % (3-14); Neutrophils Absolute Auto 4300 /uL (1500-7000); Neutrophils Percent Auto 72.3 % (50-75); Platelet Count 199 X10^3/uL (150-400); Red Blood Cell Count 4.23 X10^6/uL (4.5-5.9); Red Cell Distribution Width 14.2 % (11.6-14.8)
[2020-07-11 15:38] LABS: Cholesterol 155 mg/dL (140-199); HDL Cholesterol 58 mg/dL (40-60); LDL Cholesterol Calculated 76 mg/dL (<100); Triglycerides 106 mg/dL (35-150)
[2020-07-11 20:02] LABS: Hemoglobin A1C% w Est Avg Glu 6.9 % (4.0-6.0)
== END ==
PROVIDERS: Family Provider Family Medicine; PCP Family Medicine; Referring Provider Family Medicine; Visit Provider Family Medicine
DX: D64.9 Anemia, unspecified (principal); E11.319 Type 2 diabetes mellitus with unspecified diabetic retinopathy without macular edema; E78.5 Hyperlipidemia, unspecified
CPT/HCPCS: 36415; 80061; 83036; 85025

== ENCOUNTER → 2020-07-13 14:52 | Outpatient (CLI) | payer MEDICARE, BC, SELFPAY ==
[2020-07-13 16:53] LABS: INR 1.3 (0.9-1.3); Prothrombin Time 15.3 SECONDS (10.1-12.7)
== END ==
PROVIDERS: Family Provider Family Medicine; PCP Family Medicine; Referring Provider Family Medicine; Visit Provider Family Medicine
DX: I48.91 Unspecified atrial fibrillation (principal)
CPT/HCPCS: 36415; 85610

== ENCOUNTER → 2020-07-24 16:22 | Outpatient (ROUT) | payer MEDICARE, BC, SELFPAY ==
[2020-07-24 16:39] LABS: INR 1.5 (0.9-1.3); Prothrombin Time 16.7 SECONDS (10.1-12.7)
== END ==
PROVIDERS: Family Provider Family Medicine; PCP Family Medicine; Visit Provider Family Medicine
DX: I48.91 Unspecified atrial fibrillation (principal)
CPT/HCPCS: 85610

== ENCOUNTER → 2020-08-09 12:41 | Outpatient (CLI) | payer MEDICARE, BC, SELFPAY ==
[2020-08-09 17:47] LABS: INR 2.9 (0.9-1.3); Prothrombin Time 33.8 SECONDS (10.1-12.7)
== END ==
PROVIDERS: Family Provider Family Medicine; PCP Family Medicine; Referring Provider Family Medicine; Visit Provider Family Medicine
DX: I48.91 Unspecified atrial fibrillation (principal); Z79.01 Long term (current) use of anticoagulants
CPT/HCPCS: 36415; 85610

== ENCOUNTER → 2020-08-24 13:16 | Outpatient (CLI) | payer MEDICARE, BC, SELFPAY ==
[2020-08-24 14:48] LABS: INR 2.4 (0.9-1.3); Prothrombin Time 27.6 SECONDS (10.1-12.7)
== END ==
PROVIDERS: Family Provider Family Medicine; PCP Family Medicine; Referring Provider Family Medicine; Visit Provider Family Medicine
DX: Z79.01 Long term (current) use of anticoagulants (principal); I48.91 Unspecified atrial fibrillation
CPT/HCPCS: 36415; 85610

== ENCOUNTER → 2020-08-30 15:30 | Outpatient (CLI) | payer MEDICARE, BC, SELFPAY ==
--- NOTE | 2020-08-30 15:33 | DI.MRI.S_ITS ---
PROCEDURE: MR STROKE Pre- and post-contrast brain MRI, non-contrast brain MR angiogram, pre- and postcontrast neck MR angiogram INDICATIONS: Weakness TECHNIQUE: Brain: Noncontrast axial T1 spin echo, axial T2 fast spin echo, sagittal and axial FLAIR, coronal T2 fast spin echo, axial gradient echo, axial diffusion and ADC through the brain. After the administration of contrast, axial 3D VIBE of the cranial vasculature and brain. Brain MRA: Non-contrast 3-D time of flight MR angiogram, with multiple sxenxeg-ftyuknkjz-mnzrwekhrc (MIP) reformats performed. Neck MRA: Axial and sagittal TruFISP through the neck. Coronal dynamic MR angiogram during administration of contrast in the arterial and venous phases, with 3-dimenstional hnvnuld-thsfvfgjq-rrzmfqdtza (MIP) reformats constructed from subtraction images. COMPARISON: None. FINDINGS: Image quality: Excellent. BRAIN: The ventricular system and cortical sulci demonstrate atrophy, consistent for the patient's stated age. There are areas of increased T2/FLAIR signal intensity within the periventricular and subcortical white matter. There is no acute intra-or extra axial fluid collection. No acute hemorrhage, mass lesion or midline shift. Brainstem is unremarkable. There are no areas of restricted diffusion. Globes are symmetrical. Sinuses are aerated. Osseous structures are intact. BRAIN MR ANGIOGRAM: Anterior circulation: Intracranial internal carotid arteries are normal in size and enhancement. The flow within the paired anterior cerebral arteries is normal and symmetric. The flow within the middle cerebral arteries is normal and symmetric. The anterior communicating artery is seen. No stenoses, occlusions, or aneurysms. Posterior circulation: The visualized portions of the vertebral arteries demonstrate normal caliber, and join to form a normal appearing basilar artery. The flow within the posterior cerebral arteries is normal and symmetric. No stenoses, occlusions, or aneurysms. There is a right vertebral artery dominance. NECK MR ANGIOGRAM: Carotids: Great vessels demonstrate a conventional anatomy as they arise from the aortic arch. The origins of the common carotid arteries appear patent. The calibers and courses of both common carotid arteries are normal. The bifurcation regions appear normal bilaterally. The internal carotid arteries demonstrate normal course and caliber. Posterior circulation: The origins of the vertebral arteries appear patent. More superior portions of both vertebral arteries demonstrate normal course and caliber, and join to form a normal appearing basilar artery. Miscellaneous: Subclavian arteries appear patent. Pre-contrast images through the neck show no soft tissue abnormalities. IMPRESSION: 1. No acute intracranial process. 2. Moderate atrophy and chronic microvascular ischemic changes. 3. No areas of hemodynamically significant stenosis, vascular occlusion or aneurysmal dilation within the anterior or posterior circulation. 4. No areas of hemodynamically significant stenosis, vascular occlusion or aneurysmal dilation within the neck vasculature. Dictated by: Adeola Silva M.D. on 08/31/2020 at 11:58 Approved by: Adeola Silva M.D. on 08/31/2020 at 13:10
== END ==
PROVIDERS: Family Provider Family Medicine; PCP Family Medicine; Referring Provider Family Medicine; Visit Provider Family Medicine
DX: R53.1 Weakness (principal)
CPT/HCPCS: 70548; 70553; A9579

== ENCOUNTER → 2020-09-26 15:36 | Outpatient (ROUT) | payer MEDICARE, BC, SELFPAY ==
[2020-09-26 15:43] LABS: Prothrombin Time 22.8 SECONDS (10.1-12.7)
== END ==
PROVIDERS: Family Provider Family Medicine; PCP Family Medicine; Visit Provider Family Medicine
DX: Z79.01 Long term (current) use of anticoagulants (principal)
CPT/HCPCS: 85610

== ENCOUNTER → 2020-10-25 15:47 | Outpatient (ROUT) | payer MEDICARE, BC, SELFPAY ==
[2020-10-25 16:27] LABS: INR 2.1 (0.9-1.3); Prothrombin Time 23.8 SECONDS (10.1-12.7)
== END ==
PROVIDERS: Family Provider Family Medicine; PCP Family Medicine; Visit Provider Family Medicine
DX: Z79.01 Long term (current) use of anticoagulants (principal)
CPT/HCPCS: 85610

== ENCOUNTER → 2020-12-05 15:42 | Outpatient (ROUT) | payer MEDICARE, BC, SELFPAY ==
[2020-12-05 15:53] LABS: INR 3.1 (0.9-1.3); Prothrombin Time 36.3 SECONDS (10.1-12.7)
== END ==
PROVIDERS: Family Provider Family Medicine; PCP Family Medicine; Visit Provider Family Medicine
DX: Z79.01 Long term (current) use of anticoagulants (principal)
CPT/HCPCS: 85610

== ENCOUNTER → 2020-12-05 17:08 | Outpatient (CLI) | payer MEDICARE, BC, SELFPAY ==
[2020-12-05 18:00] LABS: Add Manual Diff / Slide Review NO; Basophils Absolute Auto 0 /uL (0-100); Basophils Percent Auto 0.7 % (0-2); Eosinophils Absolute Auto 400 /uL (0-450); Eosinophils Percent Auto 5.6 % (2-4); Hemoglobin 12.6 g/dL (13.5-17.5); Lymphocytes Absolute Auto 800 /uL (1100-4500); Lymphocytes Percent Auto 11.8 % (25-40); Mean Corpuscular HGB Conc 32.4 % (30-36); Mean Corpuscular Hemoglobin 32.1 PG (26-34); Monocytes Absolute Auto 500 /uL (0-900); Monocytes Percent Auto 7.7 % (3-14); Neutrophils Absolute Auto 5000 /uL (1500-7000); Neutrophils Percent Auto 74.2 % (50-75); Platelet Count 153 X10^3/uL (150-400); Red Blood Cell Count 3.94 X10^6/uL (4.5-5.9); Red Cell Distribution Width 15.7 % (11.6-14.8); White Blood Cell Count 6.7 X10^3/uL (4.5-11.0)
[2020-12-05 18:14] LABS: Albumin 3.8 g/dL (3.5-5.0); BUN Creatinine Ratio 8.5 (6-22); Blood Urea Nitrogen 17 mg/dL (9-20); Calcium 9.5 mg/dL (8.4-10.2); Carbon Dioxide 22 mmol/L (22-32); Chloride 104 mmol/L (98-107); Estimated Glomerular Filt Rate 31.7 mL/min (>60); Glucose 109 mg/dL (80-110); HEMOLYSIS < 15 (0-50); Potassium 4.8 mmol/L (3.4-5.1); Sodium 136 mmol/L (137-145)
[2020-12-06 06:40] LABS: Parathyroid Hormone Int 42 pg/mL (15-65)
== END ==
PROVIDERS: Family Provider Family Medicine; PCP Family Medicine; Referring Provider Internal Medicine Nephrology; Visit Provider Internal Medicine Nephrology
DX: N18.32 Chronic kidney disease, stage 3b (principal); Z79.01 Long term (current) use of anticoagulants
CPT/HCPCS: 36415; 80069; 83970; 85025; 85610

== ENCOUNTER → 2020-12-13 12:41 | Outpatient (CLI) | payer MEDICARE, BC, SELFPAY ==
--- NOTE | 2020-12-13 12:44 | DI.NM.S_ITS ---
PROCEDURE: [place] TETE PERF SPECT SINGLE STUDY Resting myocardial perfusion SPECT, with gated imaging and ejection fraction RADIOPHARMACEUTICAL: 26.4 mCi 99m-Tc sestamibi intravenously. INDICATIONS: Paroxysmal atrial fibrillation TECHNIQUE: Radiopharmaceutical was injected at rest. SPECT images were obtained. SPECT myocardial perfusion images were displayed in short axis, horizontal long axis, and vertical long axis views. Gated images were reviewed using Issuu software. COMPARISON: None. FINDINGS: Raw data: There is good tracer uptake by the myocardium. No significant motion artifacts. Left ventricle function: Gated images demonstrate left ventricle wall thickening. No segmental wall motion abnormalities. No transient ischemic dilation. Left ventricle resting end-diastolic volume is 96 mL. Left ventricle resting ejection fraction is > 75%; normal values are above 45%. Myocardial perfusion: There is a small size, mild intensity basal inferior wall defect with preserved wall motion on gated imaging. IMPRESSION: 1. There is a small size, mild intensity basal inferior wall perfusion defect on resting images with preserved wall motion. No stress images for comparison. 2. Hyperdynamic left ventricle. Dictated by: Trupti Hurtado D.O. on 12/24/2020 at 16:20 Approved by: Trupti Hurtado M.D. on 12/24/2020 at 16:23
== END ==
PROVIDERS: Family Provider Family Medicine; PCP Family Medicine; Referring Provider Internal Medicine Cardiovascular Disease; Visit Provider Internal Medicine Cardiovascular Disease
DX: I48.0 Paroxysmal atrial fibrillation (principal)
CPT/HCPCS: 78451; A9502

== ENCOUNTER → 2021-01-04 12:00 | Outpatient (CLI) | payer MEDICARE, BC, SELFPAY ==
[2021-01-04 14:42] LABS: INR 1.1 (0.9-1.3); Prothrombin Time 12.7 SECONDS (10.1-12.7)
== END ==
PROVIDERS: Family Provider Family Medicine; PCP Family Medicine; Referring Provider Family Medicine; Visit Provider Family Medicine
DX: I48.91 Unspecified atrial fibrillation (principal); Z79.01 Long term (current) use of anticoagulants
CPT/HCPCS: 36415; 85610

== ENCOUNTER 2021-01-04 14:49 | Emergency (ER) | payer MEDICARE, BC, SELFPAY ==
[2021-01-04] VITALS (19 sets, daily range): BP systolic 123–190; BP diastolic 63–88; PULSE 58–145; RESP 16–24; TEMP 36.3; O2SAT 95–99; BMI 24.0
--- NOTE | 2021-01-04 15:07 | DI.RAD.S_ITS ---
PROCEDURE: XR CHEST 1V INDICATIONS: general unwell TECHNIQUE: One view of the chest was acquired. COMPARISON: [facility], CR, XR CHEST 1V, 01/26/2019, 5:10. FINDINGS: Surgical changes and devices: None. Lungs and pleura: Lungs are clear. No pleural effusions or pneumothorax. Mediastinum: Mediastinal contours appear normal. Heart size is enlarged. Bones and chest wall: No suspicious bony lesions. Overlying soft tissues appear unremarkable. IMPRESSION: No acute pulmonary process. Dictated by: Adeola Silva M.D. on 01/04/2021 at 15:50 Approved by: Adeola Silva M.D. on 01/04/2021 at 15:51
[2021-01-04] MEDS: dilTIAZem 5 MG/ML SDV 10 MG IV ×2 (15:38→18:24)
[2021-01-04] MEDS: SODIUM CHLORIDE 0.9% 1,000 ML 500 ML IV (15:39)
--- NOTE | 2021-01-04 15:45 | ED_ITS ---
HPI - Abdominal Pain <Rufino Long MD - Last Filed: 01/04/21 20:29> General Chief Complaint: Abdominal Pain Stated Complaint: Feeling Really Bad Time Seen by Provider: 01/04/21 15:34 Source: patient and family Mode of arrival: Wheelchair Limitations: no limitations History of Present Illness HPI narrative: The patient arrives with the vague complaint of not feeling well. He complains of weakness. He denies headache, sore throat, fever or cough. He denies chest pain. He has no dyspnea. He denies orthopnea or edema. His appetite is normal. His no bowel discomfort, with normal bowel movements. He has no urinary symptoms. He has a prior history of initially paroxysmal atrial fib, he failed ablation about 2 years ago. He is now anticoagulated for chronic atrial fib. He is a poor historian. His helps. He has been noncompliant with medications. He blames insomnia, stress, other issues. Related Data Home Medications Medication Instructions Recorded Confirmed mirtazapine 15 mg tablet (Remeron) 15 mg PO HS #0 09/13/10 01/25/20 dutasteride 0.5 mg capsule 0.5 mg PO QDAY #0 12/21/15 01/25/20 (Avodart) cimetidine 800 mg tablet 800 mg PO TIDAC #0 03/15/16 01/25/20 hydrocodone 5 mg-acetaminophen 325 1 - 2 tab PO PRN PRN #0 05/12/17 01/25/20 mg tablet solifenacin 5 mg tablet (Vesicare) 5 mg PO HS #0 05/12/17 01/25/20 sulfamethoxazole 800 1 tab PO QDAY #0 05/12/17 01/25/20 mg-trimethoprim 160 mg tablet [[facility]] PRN PRN #0 05/28/17 01/25/20 ferrous gluconate 236 mg (27 mg 225 mg PO QDAY #0 05/28/17 01/25/20 iron) tablet methocarbamol 750 mg tablet 750 mg PO Q6HP PRN #0 05/28/17 01/25/20 nystatin 100,000 unit/gram topical 1 hayes TOPICAL QID #0 05/28/17 01/25/20 cream nystatin 100,000 unit/gram topical 100,000 unit TOPICAL BID #0 05/28/17 01/25/20 powder (Nystop) promethazine 25 mg tablet 25 mg PO PRN PRN #0 05/28/17 01/25/20 sucralfate 1 gram tablet 1 gm PO ACHS #0 05/28/17 01/25/20 triamcinolone acetonide 0.025 % 1 hayes TOPICAL #0 05/28/17 01/25/20 topical cream warfarin 2 mg tablet (Coumadin) PO QDAY #0 05/28/17 01/25/20 Previous Rx's Medication Instructions Recorded atorvastatin 20 mg tablet (Lipitor) 20 mg PO HS #30 tab 05/15/17 metoprolol tartrate 50 mg tablet 50 mg PO BID #60 tab 05/15/17 benzonatate 100 mg capsule 100 mg PO TID PRN #12 cap 01/26/19 (Tessalon Perles) guaifenesin 200 mg/5 mL oral liquid 200 mg (5 mL) PO Q4H PRN #118 ml 01/26/19 diclofenac sodium 1 % topical gel 2 g TOPICAL QID #100 g 01/12/20 (Voltaren Arthritis Pain) Allergies Allergy/AdvReac Type Severity Reaction Status Date / Time Penicillins [PENICILLINS] Allergy Severe ANAPHYLAXIS Verified 01/25/20 14:32 shellfish derived Allergy Severe TONGUE Verified 01/25/20 14:32 [SHELLFISH DERIVED] SWELLS, THROAT CLOSES. Review of Systems <Rufino Long MD - Last Filed: 01/04/21 20:29> Review of Systems Narrative: Poor historian. He says he has does not feel well, and he is aware of partners past medical history. He can give no other details to symptoms, other than noted in HPI. Patient History <Rufino Long MD - Last Filed: 01/04/21 20:29> Medical History Atrial fibrillation DM type 2 (diabetes mellitus, type 2) Urological system complication of procedure UTI (urinary tract infection) Surgical History Previous back surgery Social History marital status: occupational status: previously employed Smoking Status: Never smoker alcohol intake: never substance use type: does not use Smoking Status: Never smoker alcohol intake frequency: 0-2 drinks per day Substance Use Type: does not use Exam <Rufino Long MD - Last Filed: 01/04/21 20:29> Initial Vital Signs Initial Vital Signs: Vital Signs Temperature 97.3 F L 01/04/21 14:55 Pulse Rate 120 H 01/04/21 14:55 Respiratory Rate 18 01/04/21 14:55 Blood Pressure 133/74 01/04/21 14:55 Pulse Oximetry 96 01/04/21 14:55 Const General: cooperative, No in distress and frail appearing [facility] Head: normal to inspection, normocephalic and atraumatic Mouth: oral mucosae normal Eyes Conjunctivae: conjunctivae normal Sclera: sclerae normal Pupils: PERRL EOM: EOM intact bilaterally Neck Neck: No JVD Chest Chest: normal inspection of the chest Resp Auscultation: clear to auscultation bilaterally Cardio Rate: tachycardic Rhythm: abnormal rhythm irregularly irregular Heart Sounds: S1 normal, S2 normal and no murmurs GI Palpation: soft, No guarding, No mass and No tender Auscultation: normal bowel sounds Back/Spine/Pelvis Back: No CVA tenderness Skin General: no rashes or lesions noted Neuro General: patient alert, patient awake, patient oriented x3 and no focal motor deficits Extrem General: normal to inspection, full ROM, no pedal edema and no calf tenderness Psych Mental Status: other (Slower responses. Pleasant. Cooperative.) Mood: other (Slower responses. Pleasant. Cooperative.) Course <Rufino Long MD - Last Filed: 01/04/21 20:29> Course Course Narrative: The patient came in with AFib with RVR. He has been noncompliant with medication. He cardioverted with Cardizem. He was given metoprolol, his regular medication. He resumed AFib, Cardizem was repeated. He is now exhibiting rate control. He is in an out of AFib. He was IV hydrated. He has no fever, URI symptoms, GI symptoms or urinary symptoms. Initial lactic acid was 4.5. With the hydration the lactic acid level improved to 1.2. It is noted he has an elevated D-dimer. He has no abnormal lung sounds, no hypoxia, no peripheral edema. I suspect tachycardia induced the symptoms. With rate control he is feeling much better. Is suggested he work on being compliant with his medications. Orders Ordered: Discontinued Medications Diltiazem HCl (Diltiazem 5 Mg/Ml Sdv) 10 mg IV NOW ONE Stop: 01/04/21 15:33 Last Admin: 01/04/21 15:38 Dose: 10 mg Documented by: TIRSO Diltiazem HCl (Diltiazem 5 Mg/Ml Sdv) 10 mg IV NOW ONE Stop: 01/04/21 17:22 Last Admin: 01/04/21 18:24 Dose: 10 mg Documented by: ELLYN Diltiazem HCl (Diltiazem 5 Mg/Ml Sdv) 10 mg IV NOW ONE Stop: 01/04/21 19:10 Last Admin: 01/04/21 20:31 Dose: Not Given Documented by: GINA Sodium Chloride (Normal Saline 0.9%) 1,000 mls @ 500 mls/hr IV BOLUS ONE Stop: 01/04/21 17:32 Last Infusion: 01/04/21 18:30 Dose: 0 mls/hr Documented by: Admin: 01/04/21 15:39 Dose: 500 mls/hr Documented by: TIRSO Sodium Chloride (Normal Saline 0.9%) 1,000 mls @ 1,000 mls/hr IV BOLUS ONE Stop: 01/04/21 20:30 Last Infusion: 01/04/21 20:30 Dose: 0 mls/hr Documented by: Admin: 01/04/21 19:40 Dose: 1,000 mls/hr Documented by: GINA Metoprolol Tartrate (Metoprolol Ir 25 Mg Tablet) 25 mg PO NOW ONE Stop: 01/04/21 17:22 Last Admin: 01/04/21 18:25 Dose: 25 mg Documented by: ELLYN Vital Signs Vital signs: Vital Signs - 8 hr 01/04/21 14:55 01/04/21 15:38 01/04/21 17:19 Temperature 97.3 F L Pulse Rate 120 H 145 H Respiratory Rate 18 24 Blood Pressure 133/74 Pulse Oximetry 96 98 01/04/21 17:22 01/04/21 17:30 01/04/21 17:45 Temperature Pulse Rate 106 H 106 H 68 Respiratory Rate 20 16 19 Blood Pressure 170/77 H 157/68 H 158/73 H Pulse Oximetry 99 97 97 01/04/21 18:00 01/04/21 18:16 01/04/21 18:24 Temperature Pulse Rate 70 104 H Respiratory Rate 19 19 Blood Pressure 150/68 H 190/82 H 190/82 H Pulse Oximetry 95 97 01/04/21 18:30 01/04/21 18:45 01/04/21 19:00 Temperature Pulse Rate 89 81 95 H Respiratory Rate 18 20 18 Blood Pressure 124/63 146/70 H 141/80 H Pulse Oximetry 96 97 97 01/04/21 19:15 01/04/21 19:29 01/04/21 19:30 Temperature Pulse Rate 132 H 131 H Respiratory Rate 23 22 Blood Pressure 125/73 123/66 Pulse Oximetry 96 96 MDM - Abdominal Pain <Rufino Long MD - Last Filed: 01/04/21 20:29> Lab Data Result diagrams: 01/04/21 15:20 01/04/21 15:20 Labs: Lab Results 01/04/21 01/04/21 01/04/21 Range/Units 15:20 15:20 15:20 WBC 8.3 (4.5-11.0) X10^3/uL RBC 4.12 L (4.5-5.9) X10^6/uL Hgb 13.9 (13.5-17.5) g/dL Hct 40.9 L (41-53) % MCV 99.3 (80-100) fL MCH 33.8 (26-34) PG MCHC 34.0 (30-36) % RDW 15.8 H (11.6-14.8) % Plt Count 188 (150-400) X10^3/uL Neut % (Auto) 72.3 (50-75) % Lymph % (Auto) 10.6 L (25-40) % [place] % (Auto) 9.0 (3-14) % Eos % (Auto) 7.7 H (2-4) % Baso % (Auto) 0.4 (0-2) % Neut # (Auto) 6000 (4078-7333) /uL Lymph # (Auto) 900 L (9143-1957) /uL [place] # (Auto) 800 (0-900) /uL Eos # (Auto) 600 H (0-450) /uL Baso # (Auto) 0 (0-100) /uL PT 13.1 H (10.1-12.7) SECONDS INR 1.2 (0.9-1.3) APTT 28 (26.4-36.2) SECONDS Sodium 141 (137-145) mmol/L Potassium 3.6 (3.4-5.1) mmol/L Chloride 109 H (98-107) mmol/L Carbon Dioxide 21 L (22-32) mmol/L BUN 26 H (9-20) mg/dL Creatinine 1.49 H (0.66-1.25) mg/dL Estimated GFR 44.8 L (>60) mL/min BUN/Creatinine Ratio 17.4 (6-22) Glucose 179 H (80-110) mg/dL Lactate (0.7-2.1) mmol/L Calcium 9.9 (8.4-10.2) mg/dL Magnesium (1.6-2.3) mg/dL Total Bilirubin 0.7 (0.2-1.3) mg/dL AST 24 (17-59) IU/L ALT 14 (<50) IU/L Alkaline Phosphatase 86 (38-126) U/L Total Creatine Kinase (55-170) U/L CK-MB (CK-2) CK-MB (CK-2) Rel Index Troponin I (0.01-0.034) ng/mL NT-Pro-B Natriuret Pep (<450) pg/mL Total Protein 6.4 (6.3-8.2) g/dL Albumin 3.8 (3.5-5.0) g/dL Globulin 2.6 (1.7-4.1) g/dL Albumin/Globulin Ratio 1.5 (1.0-2.8) TSH (0.47-4.68) uIU/mL Ur Bilirubin Confirm (Negative) Urine RBC (0-5/HPF) Urine WBC (0-5/HPF) Ur Squamous Epith Cells (0-5/HPF) Urine Bacteria (None) Hyaline Casts (None) Ur Culture Indicated? 01/04/21 01/04/21 01/04/21 Range/Units 15:20 15:20 15:20 WBC (4.5-11.0) X10^3/uL RBC (4.5-5.9) X10^6/uL Hgb (13.5-17.5) g/dL Hct (41-53) % MCV (80-100) fL MCH (26-34) PG MCHC (30-36) % RDW (11.6-14.8) % Plt Count (150-400) X10^3/uL Neut % (Auto) (50-75) % Lymph % (Auto) (25-40) % [place] % (Auto) (3-14) % Eos % (Auto) (2-4) % Baso % (Auto) (0-2) % Neut # (Auto) (2919-0202) /uL Lymph # (Auto) (0563-0819) /uL [place] # (Auto) (0-900) /uL Eos # (Auto) (0-450) /uL Baso # (Auto) (0-100) /uL PT (10.1-12.7) SECONDS INR (0.9-1.3) APTT (26.4-36.2) SECONDS Sodium (137-145) mmol/L Potassium (3.4-5.1) mmol/L Chloride (98-107) mmol/L Carbon Dioxide (22-32) mmol/L BUN (9-20) mg/dL Creatinine (0.66-1.25) mg/dL Estimated GFR (>60) mL/min BUN/Creatinine Ratio (6-22) Glucose (80-110) mg/dL Lactate 3.4 H (0.7-2.1) mmol/L Calcium (8.4-10.2) mg/dL Magnesium 1.6 (1.6-2.3) mg/dL Total Bilirubin (0.2-1.3) mg/dL AST (17-59) IU/L ALT (<50) IU/L Alkaline Phosphatase (38-126) U/L Total Creatine Kinase 60 (55-170) U/L CK-MB (CK-2) TNP CK-MB (CK-2) Rel Index TNP Troponin I 0.030 (0.01-0.034) ng/mL NT-Pro-B Natriuret Pep 1420 H (<450) pg/mL Total Protein (6.3-8.2) g/dL Albumin (3.5-5.0) g/dL Globulin (1.7-4.1) g/dL Albumin/Globulin Ratio (1.0-2.8) TSH 0.92 (0.47-4.68) uIU/mL Ur Bilirubin Confirm (Negative) Urine RBC (0-5/HPF) Urine WBC (0-5/HPF) Ur Squamous Epith Cells (0-5/HPF) Urine Bacteria (None) Hyaline Casts (None) Ur Culture Indicated? 01/04/21 01/04/21 Range/Units 17:41 20:00 WBC (4.5-11.0) X10^3/uL RBC (4.5-5.9) X10^6/uL Hgb (13.5-17.5) g/dL Hct (41-53) % MCV (80-100) fL MCH (26-34) PG MCHC (30-36) % RDW (11.6-14.8) % Plt Count (150-400) X10^3/uL Neut % (Auto) (50-75) % Lymph % (Auto) (25-40) % [place] % (Auto) (3-14) % Eos % (Auto) (2-4) % Baso % (Auto) (0-2) % Neut # (Auto) (9404-7451) /uL Lymph # (Auto) (8142-5229) /uL [place] # (Auto) (0-900) /uL Eos # (Auto) (0-450) /uL Baso # (Auto) (0-100) /uL PT (10.1-12.7) SECONDS INR (0.9-1.3) APTT (26.4-36.2) SECONDS Sodium (137-145) mmol/L Potassium (3.4-5.1) mmol/L Chloride (98-107) mmol/L Carbon Dioxide (22-32) mmol/L BUN (9-20) mg/dL Creatinine (0.66-1.25) mg/dL Estimated GFR (>60) mL/min BUN/Creatinine Ratio (6-22) Glucose (80-110) mg/dL Lactate 1.2 (0.7-2.1) mmol/L Calcium (8.4-10.2) mg/dL Magnesium (1.6-2.3) mg/dL Total Bilirubin (0.2-1.3) mg/dL AST (17-59) IU/L ALT (<50) IU/L Alkaline Phosphatase (38-126) U/L Total Creatine Kinase (55-170) U/L CK-MB (CK-2) CK-MB (CK-2) Rel Index Troponin I (0.01-0.034) ng/mL NT-Pro-B Natriuret Pep (<450) pg/mL Total Protein (6.3-8.2) g/dL Albumin (3.5-5.0) g/dL Globulin (1.7-4.1) g/dL Albumin/Globulin Ratio (1.0-2.8) TSH (0.47-4.68) uIU/mL Ur Bilirubin Confirm Negative (Negative) Urine RBC 1-5/hpf (0-5/HPF) Urine WBC 1-5/hpf (0-5/HPF) Ur Squamous Epith Cells 1-5 /hpf (0-5/HPF) Urine Bacteria Occasional (0-1) (None) Hyaline Casts 1-5/lpf (None) Ur Culture Indicated? Cult not indicated Point of care testing: Urine Dip Bedside Urine Glucose Negative Bedside Urine Bilirubin + 1 Bedside Urine Ketone - Negative Urine Specific [place] 1.025 Bedside Urine Occult Blood - Negative Bedside Urine pH 5.5 Bedside Urine Protein + 30 Bedside Urine Urobilinogen - Negative Bedside Urine Nitrite - Negative Bedside Urine Leukocytes - Negative Esterase Imaging Data Chest x-ray: Radiologist's Impression: [address] [address] XRay Report Signed Patient: Alan Mccracken MR#: [id number] : 1935 Acct:[id number] Age/Sex: 85 / M Date of Service: 01/04/21 Loc: ED Accession Number: [id number] ?? Procedure: XR chest 1V Ordering Provider: Rufino Long MD PROCEDURE:? XR CHEST 1V ? INDICATIONS:? general unwell ? TECHNIQUE:? One view of the chest was acquired.? ? [facility] ? FINDINGS:? ? Surgical changes and devices:? None.? ? Lungs and pleura:? Lungs are clear.? No pleural effusions or pneumothorax.? ? Mediastinum:? Mediastinal contours appear normal.? Heart size is enlarged.? ? Bones and chest wall:? No suspicious bony lesions.? Overlying soft tissues appear unremarkable.? ? IMPRESSION:? No acute pulmonary process. ? ? Dictated by: Adeola Silva M.D. on 01/04/2021 at 15:50 ? ? Approved by: Adeola Silva M.D. on 01/04/2021 at 15:51 ? ECG Data Attestation: I personally reviewed and interpreted this ECG as follows: (AFib with RVR, rate 104 beats per minute. RBBB. Inferior Q-waves. No acute ST elevation. Patient converted to normal sinus rhythm, only returned AFib. Prior to discharge he once again return to normal sinus rhythm.) Discharge Plan Departure Patient Disposition: Home Clinical Impression: Elevated brain natriuretic peptide (BNP) level, AF (paroxysmal atrial fibrillation) Instructions: Atrial Fibrillation Activity Restrictions/Additional Instructions: I recommend you take your medications daily as prescribed. Contact her doctor Thursday for follow-up. Return here as needed. Prescriptions: No Action mirtazapine [Remeron] 15 MG tablet 15 mg PO HS Qty: 0 0RF dutasteride [Avodart] 0.5 MG capsule 0.5 mg PO QDAY Qty: 0 0RF cimetidine 800 MG tablet 800 mg PO TIDAC Qty: 0 0RF hydrocodone-acetaminophen 5 MG/325 MG tablet 1 - 2 tab PO PRN PRNQty: 0 0RF sulfamethoxazole-trimethoprim 800 MG/160 MG tablet 1 tab PO QDAY Qty: 0 0RF solifenacin [Vesicare] 5 MG tablet 5 mg PO HS Qty: 0 0RF atorvastatin [Lipitor] 20 MG tablet 20 mg PO HS Qty: 30 0RF metoprolol tartrate 50 MG tablet 50 mg PO BID Qty: 60 1RF warfarin [Coumadin] 2 MG tablet PO QDAY Qty: 0 0RF sucralfate 1 GM tablet 1 gm PO ACHS Qty: 0 0RF methocarbamol 750 MG tablet 750 mg PO Q6HP PRNQty: 0 0RF promethazine 25 MG tablet 25 mg PO PRN PRNQty: 0 0RF nystatin 15 GM cream 1 hayes Topical QID Qty: 0 0RF triamcinolone acetonide 0.025 % cream 1 hayes Topical Qty: 0 0RF nystatin [Nystop] 60 GM powder 100,000 unit Topical BID Qty: 0 0RF [CINDY-SELTZER HEARTBU] PRN PRNQty: 0 0RF ferrous gluconate 236 mg (27 mg iron) Tablet 225 mg PO QDAY Qty: 0 0RF benzonatate [Tessalon Perles] 100 mg capsule 100 mg PO TID PRN (Reason: cough) Qty: 12 0RF guaifenesin 200 mg/5 mL liquid 200 mg PO Q4H PRN (Reason: congestion) Qty: 118 0RF diclofenac sodium [Voltaren Arthritis Pain] 1 % gel 2 g topical QID Qty: 100 0RF Rx Instructions: apply to single elbow, wrist or hand; for hand includes palm/fingers/back of hand Referrals: Rufino Pierre MD [Primary Care Provider] -
[2021-01-04 15:46] LABS: Add Manual Diff / Slide Review NO; Basophils Absolute Auto 0 /uL (0-100); Basophils Percent Auto 0.4 % (0-2); Eosinophils Absolute Auto 600 /uL (0-450); Eosinophils Percent Auto 7.7 % (2-4); Hematocrit 40.9 % (41-53); Hemoglobin 13.9 g/dL (13.5-17.5); Lymphocytes Absolute Auto 900 /uL (1100-4500); Lymphocytes Percent Auto 10.6 % (25-40); Mean Corpuscular Hemoglobin 33.8 PG (26-34); Mean Corpuscular Volume 99.3 fL (80-100); Monocytes Absolute Auto 800 /uL (0-900); Neutrophils Absolute Auto 6000 /uL (1500-7000); Neutrophils Percent Auto 72.3 % (50-75); Platelet Count 188 X10^3/uL (150-400); Red Blood Cell Count 4.12 X10^6/uL (4.5-5.9); Red Cell Distribution Width 15.8 % (11.6-14.8); White Blood Cell Count 8.3 X10^3/uL (4.5-11.0)
[2021-01-04 15:52] LABS: INR 1.2 (0.9-1.3); Prothrombin Time 13.1 SECONDS (10.1-12.7)
[2021-01-04 15:55] LABS: PTT Partial Thromboplastin Tim 28 SECONDS (26.4-36.2)
[2021-01-04 15:56] LABS: Creatine Kinase 60 U/L (55-170); Lactate (Lactic Acid) 3.4 mmol/L (0.7-2.1); Magnesium 1.6 mg/dL (1.6-2.3)
[2021-01-04 15:58] LABS: Alanine Aminotransferase 14 IU/L (<50); Albumin 3.8 g/dL (3.5-5.0); Albumin Globulin Ratio 1.5 (1.0-2.8); Alkaline Phosphatase 86 U/L (38-126); Aspartate Aminotransferase 24 IU/L (17-59); BUN Creatinine Ratio 17.4 (6-22); Bilirubin Total 0.7 mg/dL (0.2-1.3); Blood Urea Nitrogen 26 mg/dL (9-20); Calcium 9.9 mg/dL (8.4-10.2); Carbon Dioxide 21 mmol/L (22-32); Chloride 109 mmol/L (98-107); Estimated Glomerular Filt Rate 44.8 mL/min (>60); Globulin 2.6 g/dL (1.7-4.1); Glucose 179 mg/dL (80-110); HEMOLYSIS 26 (0-50); Potassium 3.6 mmol/L (3.4-5.1); Sodium 141 mmol/L (137-145); Total Protein 6.4 g/dL (6.3-8.2)
[2021-01-04 16:09] LABS: NT-proBNP (BNP-Adult 18+) 1420 pg/mL (<450)
[2021-01-04 16:29] LABS: TSH w/ Reflex to FT4 0.92 uIU/mL (0.47-4.68)
--- NOTE | 2021-01-04 17:31 | PC.NURSE ---
When pt was transferred from [facility] to [facility], there was a monitor data issue. pt VS data was lost. pt heart rate had come down to 75bpm and regular. pt bp was around 130's /70's.
[2021-01-04 17:41] LABS: Reflexed Lactate in 2 Hours Y
[2021-01-04] MEDS: METOPROLOL IR 25 MG TABLET PO (18:25)
[2021-01-04 18:36] LABS: Lactate 2HR (Lactic Acid Rflx) 1.2 mmol/L (0.7-2.1)
--- NOTE | 2021-01-04 19:27 | PC.NURSE ---
ST on monitor,Dr Long notified,cardizem not given.
[2021-01-04] MEDS: SODIUM CHLORIDE 0.9% 1,000 ML 1000 ML IV (19:40)
[2021-01-04 21:29] LABS: Bacteria Urine Occasional (0-1); Culture Indicated Urine Cult Not Indicated; Hyaline Casts Urine 1-5/LPF; Ictotest Urine Negative (Negative); RBC Urine 1-5/HPF (0-5/HPF); Squamous Epithelial Cell Urine 1-5 /HPF (0-5/HPF); WBC Urine 1-5/HPF (0-5/HPF)
== END 2021-01-04 20:40 | disposition home or self-care (01) ==
PROVIDERS: Emergency Provider Emergency Medicine; Family Provider Family Medicine; PCP Family Medicine
DX: I48.0 Paroxysmal atrial fibrillation (principal); R79.89 Other specified abnormal findings of blood chemistry; Z91.14 Patient's other noncompliance with medication regimen; Z79.01 Long term (current) use of anticoagulants
CPT/HCPCS: 36415; 71045; 80053; 81003; 81015; 82550; 83605; 83735; 83880; 84443; 84484; 85025; 85610; 85730; 93005; 96361; 96374; 96376; 99284

== ENCOUNTER → 2021-01-15 14:06 | Outpatient (ROUT) | payer MEDICARE, BC, SELFPAY ==
[2021-01-15 14:25] LABS: Prothrombin Time 10.8 SECONDS (10.1-12.7)
== END ==
PROVIDERS: Family Provider Family Medicine; PCP Family Medicine; Visit Provider Family Medicine
DX: Z79.01 Long term (current) use of anticoagulants (principal)
CPT/HCPCS: 85610

== ENCOUNTER → 2021-01-23 14:39 | Outpatient (ROUT) | payer MEDICARE, BC, SELFPAY ==
[2021-01-23 14:46] LABS: INR 1.1 (0.9-1.3); Prothrombin Time 12.1 SECONDS (10.1-12.7)
== END ==
PROVIDERS: Family Provider Family Medicine; PCP Family Medicine; Visit Provider Internal Medicine
DX: Z79.01 Long term (current) use of anticoagulants (principal)
CPT/HCPCS: 85610

== ENCOUNTER → 2021-01-31 14:27 | Outpatient (ROUT) | payer MEDICARE, BC, SELFPAY ==
[2021-01-31 14:38] LABS: INR 1.8 (0.9-1.3); Prothrombin Time 20.2 SECONDS (10.1-12.7)
== END ==
PROVIDERS: Family Provider Family Medicine; PCP Family Medicine; Visit Provider Family Medicine
DX: Z79.01 Long term (current) use of anticoagulants (principal)
CPT/HCPCS: 85610

== ENCOUNTER → 2021-02-20 11:15 | Outpatient (ROUT) | payer MEDICARE, BC, SELFPAY ==
[2021-02-20 12:20] LABS: INR 1.8 (0.9-1.3)
== END ==
PROVIDERS: Family Provider Family Medicine; PCP Family Medicine; Visit Provider Family Medicine
DX: Z79.01 Long term (current) use of anticoagulants (principal)
CPT/HCPCS: 85610

== ENCOUNTER → 2021-02-20 11:43 | Outpatient (CLI) | payer MEDICARE, BC, SELFPAY ==
--- NOTE | 2021-02-20 11:46 | DI.RAD.S_ITS ---
PROCEDURE: XR HUMERUS LT 2V INDICATIONS: LT UPPER ARM PAIN TECHNIQUE: 2 views of the humerus were acquired. COMPARISON: None. FINDINGS: Bones: No fractures or dislocations. No suspicious bony lesions. Soft tissues: No suspicious soft tissue calcifications. IMPRESSION: No fracture. No acute osseous lesion. If symptoms and/or clinical suspicion for pathology persists, further assessment with repeat radiographs (7-10 days) or advanced imaging (e.g. CT, MRI or bone scan) should be considered. Dictated by: Rula Dick MD, PhD on 02/20/2021 at 13:02 Approved by: Rula Dick MD, PhD on 02/20/2021 at 13:03
--- NOTE | 2021-02-20 11:46 | DI.RAD.S_ITS ---
PROCEDURE: XR SHOULDER LT MIN 2V INDICATIONS: LT UPPER ARM PAIN TECHNIQUE: 3 views of the shoulder were acquired. COMPARISON: None. FINDINGS: Bones: No fractures or dislocations. Focal cortical lucency and irregularity noted along the medial aspect of the proximal left humerus which may represent chronic reactive changes at the latissimus dorsi attachment, however more aggressive etiologies cannot be excluded by plain film radiograph. There is a 1.9 centimeter ossification at the inferior margin of the glenoid which may represent large osteophyte, ossified intra-articular loose body or osteochondroma. 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 Visualized ribs appear intact. Soft tissues: No suspicious soft tissue calcifications. IMPRESSION: 1. Focal cortical lucency and irregularity involving the medial aspect of the proximal left humerus. Recommend MRI of the left shoulder to a differentiating chronic reactive change at the latissimus dorsi attachment from more aggressive etiologies including infection and neoplasm. 2. 1.9 centimeter ossification at the inferior margin of glenoid. Finding could represent large osteophyte, ossified intra-articular loose body or less likely a osteochondroma. Recommend evaluation at time of left shoulder MRI. 3. 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 Dictated by: Rula Dick MD, PhD on 02/20/2021 at 13:10 Approved by: Rula Dick MD, PhD on 02/20/2021 at 13:14
== END ==
PROVIDERS: Family Provider Family Medicine; PCP Family Medicine; Referring Provider Family Medicine; Visit Provider Family Medicine
DX: M19.012 Primary osteoarthritis, left shoulder (principal); M79.622 Pain in left upper arm; Z79.01 Long term (current) use of anticoagulants
CPT/HCPCS: 73030; 73060; 85610

== ENCOUNTER → 2021-02-28 16:20 | Outpatient (CLI) | payer MEDICARE, BC, SELFPAY ==
[2021-02-28 16:53] LABS: Add Manual Diff / Slide Review NO; Basophils Absolute Auto 100 /uL (0-100); Basophils Percent Auto 1.4 % (0-2); Eosinophils Absolute Auto 400 /uL (0-450); Hematocrit 35.8 % (41-53); Hemoglobin 11.9 g/dL (13.5-17.5); Lymphocytes Absolute Auto 1100 /uL (1100-4500); Lymphocytes Percent Auto 20.9 % (25-40); Mean Corpuscular HGB Conc 33.3 % (30-36); Mean Corpuscular Hemoglobin 33.5 PG (26-34); Mean Corpuscular Volume 100.7 fL (80-100); Monocytes Absolute Auto 500 /uL (0-900); Monocytes Percent Auto 8.8 % (3-14); Neutrophils Absolute Auto 3300 /uL (1500-7000); Neutrophils Percent Auto 61.9 % (50-75); Platelet Count 129 X10^3/uL (150-400); Red Blood Cell Count 3.55 X10^6/uL (4.5-5.9); White Blood Cell Count 5.3 X10^3/uL (4.5-11.0)
[2021-02-28 17:35] LABS: Albumin 3.3 g/dL (3.5-5.0); BUN Creatinine Ratio 9.6 (6-22); Blood Urea Nitrogen 15 mg/dL (9-20); Calcium 8.9 mg/dL (8.4-10.2); Carbon Dioxide 25 mmol/L (22-32); Chloride 107 mmol/L (98-107); Estimated Glomerular Filt Rate 42.2 mL/min (>60); Glucose 107 mg/dL (80-110); HEMOLYSIS < 15 (0-50); Phosphorous 2.8 mg/dL (2.3-3.7); Potassium 3.9 mmol/L (3.4-5.1); Sodium 138 mmol/L (137-145)
[2021-03-01 10:26] LABS: Parathyroid Hormone Int 47 pg/mL (15-65)
== END ==
PROVIDERS: Family Provider Family Medicine; PCP Family Medicine; Referring Provider Internal Medicine Nephrology; Visit Provider Internal Medicine Nephrology
DX: N18.32 Chronic kidney disease, stage 3b (principal)
CPT/HCPCS: 36415; 80069; 83970; 85025

== ENCOUNTER → 2021-03-04 14:34 | Outpatient (ROUT) | payer MEDICARE, BC, SELFPAY ==
[2021-03-04 14:49] LABS: INR 1.5 (0.9-1.3); Prothrombin Time 16.8 SECONDS (10.1-12.7)
== END ==
PROVIDERS: Family Provider Family Medicine; PCP Family Medicine; Visit Provider Family Medicine
DX: Z79.01 Long term (current) use of anticoagulants (principal)
CPT/HCPCS: 85610

== ENCOUNTER → 2021-03-08 15:20 | Outpatient (CLI) | payer MEDICARE, BC, SELFPAY ==
--- NOTE | 2021-03-08 | DI.MRI.S_ITS ---
PROCEDURE: MR SHOULDER LT WO CON INDICATIONS: Pain in left upper arm TECHNIQUE: Noncontrast oblique coronal T2 fast spin echo with fat saturation, oblique sagittal T1 spin echo and T2 fast spin echo with fat saturation, axial T1 spin echo and T2 fast spin echo with fat saturation through the shoulder. COMPARISON: None. FINDINGS: Image quality: Images are mildly degraded by motion artifact. Rotator cuff: Mild supraspinatus tendinopathy with small partial articular surface and interstitial tears. Mild to moderate infraspinatus tendinopathy with interstitial tear. Moderate subscapularis tendinopathy with interstitial tear. Sagittal images demonstrate at least grade 2 supraspinatus muscle atrophy. Fatty atrophy of the teres minor muscle. Bones and bursae: No bone marrow contusions or fractures. Subchondral edema in the inferior aspect of the posterior glenoid. Signal heterogeneity and thinning of the hyaline cartilage. Mild to moderate acromioclavicular joint degeneration. No os acromiale. Small subacromial-subdeltoid bursal fluid is present. Capsule and soft tissues: The posterior labrum demonstrates degenerative change without substantial tear. The long head of the biceps tendon demonstrates normal location and morphology. The coracohumeral ligament is normal in thickness. IMPRESSION: 1. Mild supraspinatus tendinopathy with small partial articular surface and interstitial tears. 2. Mild to moderate supraspinatus and infraspinatus tendinopathy with interstitial tears. 3. Mild subacromial/subdeltoid bursitis. 4. Degenerative change of the posterior labrum with small focus of subchondral edema. Dictated by: Johnson Mendez M.D. on 03/08/2021 at 18:44 Approved by: Johnson Mendez M.D. on 03/08/2021 at 18:51
== END ==
PROVIDERS: Family Provider Family Medicine; PCP Family Medicine; Referring Provider Family Medicine; Visit Provider Family Medicine
DX: M75.112 Incomplete rotator cuff tear or rupture of left shoulder, not specified as traumatic (principal); M75.52 Bursitis of left shoulder; M79.622 Pain in left upper arm
CPT/HCPCS: 73221

== ENCOUNTER → 2021-04-08 15:26 | Outpatient (CLI) | payer MEDICARE, BC, SELFPAY ==
[2021-04-08 16:33] LABS: INR 2.7 (0.9-1.3); Prothrombin Time 30.6 SECONDS (10.1-12.7)
[2021-04-08 16:35] LABS: Add Manual Diff / Slide Review NO; Basophils Absolute Auto 100 /uL (0-100); Eosinophils Absolute Auto 200 /uL (0-450); Eosinophils Percent Auto 3.4 % (2-4); Hemoglobin 13.7 g/dL (13.5-17.5); Lymphocytes Absolute Auto 700 /uL (1100-4500); Lymphocytes Percent Auto 12.1 % (25-40); Mean Corpuscular HGB Conc 32.7 % (30-36); Mean Corpuscular Hemoglobin 32.9 PG (26-34); Mean Corpuscular Volume 100.8 fL (80-100); Monocytes Absolute Auto 600 /uL (0-900); Monocytes Percent Auto 10.2 % (3-14); Neutrophils Absolute Auto 4100 /uL (1500-7000); Neutrophils Percent Auto 73.3 % (50-75); Platelet Count 155 X10^3/uL (150-400); Red Blood Cell Count 4.17 X10^6/uL (4.5-5.9); Red Cell Distribution Width 15.2 % (11.6-14.8); White Blood Cell Count 5.6 X10^3/uL (4.5-11.0)
[2021-04-08 16:41] LABS: BUN Creatinine Ratio 13.3 (6-22); Blood Urea Nitrogen 22 mg/dL (9-20); Calcium 9.5 mg/dL (8.4-10.2); Carbon Dioxide 26 mmol/L (22-32); Chloride 109 mmol/L (98-107); Estimated Glomerular Filt Rate 39.8 mL/min (>60); Glucose 118 mg/dL (80-110); HEMOLYSIS < 15 (0-50); Phosphorous 2.5 mg/dL (2.3-3.7); Potassium 4.1 mmol/L (3.4-5.1); Sodium 139 mmol/L (137-145)
== END ==
PROVIDERS: Family Provider Family Medicine; PCP Family Medicine; Referring Provider Internal Medicine Nephrology; Visit Provider Internal Medicine Nephrology
DX: I48.91 Unspecified atrial fibrillation (principal); N18.32 Chronic kidney disease, stage 3b; Z79.01 Long term (current) use of anticoagulants
CPT/HCPCS: 36415; 80069; 85025; 85610

== ENCOUNTER → 2021-05-29 15:39 | Outpatient (ROUT) | payer MEDICARE, BC, SELFPAY ==
[2021-05-29 17:36] LABS: Add Manual Diff / Slide Review NO; Basophils Absolute Auto 100 /uL (0-100); Basophils Percent Auto 0.9 % (0-2); Eosinophils Absolute Auto 200 /uL (0-450); Eosinophils Percent Auto 2.6 % (2-4); Hematocrit 38.4 % (41-53); Hemoglobin 12.7 g/dL (13.5-17.5); Lymphocytes Absolute Auto 600 /uL (1100-4500); Lymphocytes Percent Auto 7.8 % (25-40); Mean Corpuscular HGB Conc 33.1 % (30-36); Mean Corpuscular Hemoglobin 32.8 PG (26-34); Mean Corpuscular Volume 99.1 fL (80-100); Monocytes Absolute Auto 400 /uL (0-900); Monocytes Percent Auto 5.7 % (3-14); Neutrophils Absolute Auto 6500 /uL (1500-7000); Platelet Count 149 X10^3/uL (150-400); Red Blood Cell Count 3.88 X10^6/uL (4.5-5.9); Red Cell Distribution Width 15.5 % (11.6-14.8); White Blood Cell Count 7.8 X10^3/uL (4.5-11.0)
[2021-05-29 17:56] LABS: Albumin 3.8 g/dL (3.5-5.0); BUN Creatinine Ratio 12.7 (6-22); Blood Urea Nitrogen 21 mg/dL (9-20); Calcium 8.9 mg/dL (8.4-10.2); Carbon Dioxide 23 mmol/L (22-32); Chloride 109 mmol/L (98-107); Estimated Glomerular Filt Rate 40 mL/min (>60); Glucose 143 mg/dL (80-110); HEMOLYSIS < 15 (0-50); Phosphorous 2.9 mg/dL (2.3-3.7); Potassium 3.9 mmol/L (3.4-5.1); Sodium 142 mmol/L (137-145)
[2021-05-29 19:39] LABS: INR 1.2 (0.9-1.3); Prothrombin Time 12.9 SECONDS (10.1-12.7)
== END ==
PROVIDERS: Internal Medicine Nephrology; Family Provider Family Medicine; PCP Family Medicine; Visit Provider Family Medicine
DX: Z79.01 Long term (current) use of anticoagulants (principal)
CPT/HCPCS: 36415; 80069; 85025; 85610

== ENCOUNTER → 2021-05-31 14:21 | Outpatient (CLI) | payer MEDICARE, BC, SELFPAY ==
[2021-05-31 15:35] LABS: Hemoglobin A1C% w Est Avg Glu 6.1 % (4.0-6.0)
[2021-05-31 16:50] LABS: Alanine Aminotransferase 11 IU/L (<50); Albumin 4.2 g/dL (3.5-5.0); Albumin Globulin Ratio 1.6 (1.0-2.8); Alkaline Phosphatase 82 U/L (38-126); Aspartate Aminotransferase 20 IU/L (17-59); BUN Creatinine Ratio 12.1 (6-22); Bilirubin Total 0.8 mg/dL (0.2-1.3); Blood Urea Nitrogen 24 mg/dL (9-20); Calcium 9.2 mg/dL (8.4-10.2); Carbon Dioxide 23 mmol/L (22-32); Chloride 106 mmol/L (98-107); Estimated Glomerular Filt Rate 32 mL/min (>60); Globulin 2.7 g/dL (1.7-4.1); Glucose 116 mg/dL (80-110); HEMOLYSIS < 15 (0-50); Potassium 4.4 mmol/L (3.4-5.1); Sodium 140 mmol/L (137-145); Total Protein 6.9 g/dL (6.3-8.2)
[2021-05-31 16:52] LABS: Creatinine Urine Random 51.5 mg/dL
[2021-05-31 16:55] LABS: Microalbumi Creatinin Ratio Ur 11.6 ug/mg CR (<30); Microalbumin Urine Random 0.6 mg/dL (0-1.6)
[2021-05-31 17:51] LABS: TSH w/ Reflex to FT4 0.98 uIU/mL (0.47-4.68)
== END ==
PROVIDERS: Family Provider Family Medicine; PCP Family Medicine; Referring Provider Internal Medicine Nephrology; Visit Provider Internal Medicine Nephrology
DX: D64.9 Anemia, unspecified (principal); I95.9 Hypotension, unspecified; M48.062 Spinal stenosis, lumbar region with neurogenic claudication; I50.32 Chronic diastolic (congestive) heart failure; I10 Essential (primary) hypertension; E11.9 Type 2 diabetes mellitus without complications; N18.32 Chronic kidney disease, stage 3b
CPT/HCPCS: 36415; 80053; 82043; 82570; 83036; 84443

== ENCOUNTER → 2021-06-24 13:25 | Outpatient (ROUT) | payer MEDICARE, BC, SELFPAY ==
[2021-06-24 14:03] LABS: INR 3.3 (0.9-1.3); Prothrombin Time 38.1 SECONDS (10.1-12.7)
== END ==
PROVIDERS: Family Provider Family Medicine; PCP Family Medicine; Visit Provider Family Medicine
DX: I48.91 Unspecified atrial fibrillation (principal)
CPT/HCPCS: 85610

== ENCOUNTER → 2021-07-01 13:51 | Outpatient (ROUT) | payer MEDICARE, BC, SELFPAY ==
[2021-07-01 14:36] LABS: INR 1.8 (0.9-1.3); Prothrombin Time 20.2 SECONDS (10.1-12.7)
== END ==
PROVIDERS: Family Provider Family Medicine; PCP Family Medicine; Visit Provider Family Medicine
DX: Z79.01 Long term (current) use of anticoagulants (principal)
CPT/HCPCS: 85610

== ENCOUNTER → 2021-07-09 13:18 | Outpatient (CLI) | payer MEDICARE, BC, SELFPAY ==
[2021-07-09 15:28] LABS: INR 2.5 (0.9-1.3); Prothrombin Time 28.5 SECONDS (10.1-12.7)
== END ==
PROVIDERS: Family Provider Family Medicine; PCP Family Medicine; Referring Provider Family Medicine; Visit Provider Family Medicine
DX: I48.91 Unspecified atrial fibrillation (principal)
CPT/HCPCS: 36415; 85610

== ENCOUNTER → 2021-07-18 14:44 | Outpatient (ROUT) | payer MEDICARE, BC, SELFPAY ==
[2021-07-18 14:54] LABS: INR 3.1 (0.9-1.3); Prothrombin Time 35.7 SECONDS (10.1-12.7)
== END ==
PROVIDERS: Family Provider Family Medicine; PCP Family Medicine; Visit Provider Family Medicine
DX: Z79.01 Long term (current) use of anticoagulants (principal)
CPT/HCPCS: 85610

== ENCOUNTER → 2021-08-26 12:35 | Outpatient (CLI) | payer MEDICARE, BC, SELFPAY ==
[2021-08-26 13:16] LABS: INR 1.6 (0.9-1.3); Prothrombin Time 17.8 SECONDS (10.1-12.7)
[2021-08-26 13:26] LABS: Alanine Aminotransferase 10 IU/L (<50); Albumin 3.6 g/dL (3.5-5.0); Albumin Globulin Ratio 1.5 (1.0-2.8); Alkaline Phosphatase 79 U/L (38-126); Aspartate Aminotransferase 19 IU/L (17-59); BUN Creatinine Ratio 10.8 (6-22); Bilirubin Total 0.6 mg/dL (0.2-1.3); Blood Urea Nitrogen 18 mg/dL (9-20); Calcium 8.6 mg/dL (8.4-10.2); Carbon Dioxide 21 mmol/L (22-32); Chloride 108 mmol/L (98-107); Cholesterol 152 mg/dL (140-199); Estimated Glomerular Filt Rate 40 mL/min (>60); Globulin 2.4 g/dL (1.7-4.1); Glucose 136 mg/dL (80-110); HDL Cholesterol 52 mg/dL (40-60); HEMOLYSIS < 15 (0-50); LDL Cholesterol Calculated 72 mg/dL (<100); Potassium 3.8 mmol/L (3.4-5.1); Sodium 137 mmol/L (137-145); Triglycerides 142 mg/dL (35-150)
== END ==
PROVIDERS: Family Provider Family Medicine; PCP Family Medicine; Referring Provider Internal Medicine Cardiovascular Disease; Visit Provider Internal Medicine Cardiovascular Disease
DX: I48.91 Unspecified atrial fibrillation (principal); E78.5 Hyperlipidemia, unspecified
CPT/HCPCS: 36415; 80053; 80061; 85610

== ENCOUNTER → 2021-08-30 14:43 | Outpatient (CLI) | payer MEDICARE, BC, SELFPAY ==
--- NOTE | 2021-08-30 14:45 | DI.US.S_ITS ---
PROCEDURE: US SCROTUM INDICATIONS: SCROTAL MASS TECHNIQUE: Real-time scanning was performed of the scrotum and testicles, with image documentation. Color and pulse Doppler interrogation was performed of both testicles. COMPARISON: None. FINDINGS: Left: Testicle is normal in size at 3.3 x 2.9 x 2.2 cm, and homogenous in echotexture. Epididymis is normal in overall size and morphology. Epididymal head cyst noted measuring 1.0 cm in size. No varicoceles. Small hydrocele. Overlying scrotal skin is normal in thickness. Area of interest localized to small cluster of cysts lateral to the spermatic cord measuring up to 0.8 cm in size. Right: Testicle is normal in size at 3.7 x 3.1 x 2.1 cm, and homogeneous in echotexture. Epididymis is normal in overall size and morphology. No hydrocele or varicoceles. Overlying scrotal skin is normal in thickness. Doppler: Color and pulse Doppler demonstrate normal and symmetric arterial flow in both testicles. IMPRESSION: Bilateral testes without acute sonographic abnormalities. Area of interest of the lateral left scrotum/testicle correlates with a cluster of cysts. Small left hydrocele. No suspicious solid mass lesions. Dictated by: Sumit Navarro M.D. on 08/30/2021 at 15:51 Approved by: Smuit Navarro M.D. on 08/30/2021 at 15:58
== END ==
PROVIDERS: Family Provider Family Medicine; PCP Family Medicine; Referring Provider Specialist; Visit Provider Specialist
DX: N50.89 Other specified disorders of the male genital organs (principal); N43.3 Hydrocele, unspecified
CPT/HCPCS: 76870

== ENCOUNTER → 2021-09-10 12:39 | Outpatient (CLI) | payer MEDICARE, BC, SELFPAY ==
[2021-09-10 13:53] LABS: Hemoglobin A1C% w Est Avg Glu 6.3 % (4.0-6.0)
[2021-09-10 13:54] LABS: Cholesterol 156 mg/dL (140-199); HDL Cholesterol 65 mg/dL (40-60); LDL Cholesterol Calculated 65 mg/dL (<100); Triglycerides 132 mg/dL (35-150)
== END ==
PROVIDERS: Family Provider Family Medicine; PCP Family Medicine; Referring Provider Family Medicine; Visit Provider Family Medicine
DX: E11.319 Type 2 diabetes mellitus with unspecified diabetic retinopathy without macular edema (principal); E78.5 Hyperlipidemia, unspecified; I10 Essential (primary) hypertension; I50.32 Chronic diastolic (congestive) heart failure; I67.9 Cerebrovascular disease, unspecified
CPT/HCPCS: 36415; 80061; 83036

== ENCOUNTER → 2021-09-18 14:40 | Outpatient (CLI) | payer MEDICARE, BC, SELFPAY ==
--- NOTE | 2021-09-18 14:42 | DI.US.S_ITS ---
PROCEDURE: US RENAL COMPLETE INDICATIONS: Hx Renal Re construction TECHNIQUE: Real-time scanning was performed of the kidneys and bladder, with image documentation. COMPARISON: CT, CT ABDOMEN PELVIS WO CON, 02/09/2020, 12:54. [facility], , RENAL COMPLETE, 06/21/2020, 16:13. FINDINGS: Kidneys: Right kidney measures 8.5 cm long; left kidney measures 11.1 cm long. Right renal cortical thickness is 0.7 cm; left renal cortical thickness is 2.2 cm. Renal cortical echotexture is normal. No hydronephrosis. Simple left renal cyst measuring 2.4 cm. 7 mm left inferior pole calcification. Bladder: Pre-void bladder volume is 85 mL. Post-void residual is 9 mL. Pre-void images demonstrate no intraluminal masses or stones. On pre-void images, neither ureteral jets are noted with color Doppler interrogation. (Of note, ureteral jets may not be detectable in up to 25% of cases due to insufficient differences in specific gravity between ureteral and bladder urine). Miscellaneous: No free pelvic fluid. IMPRESSION: 1. Atrophy of the right kidney with right renal cortical thinning which appears similar prior examination. 2. Left renal cortical cyst measuring up to 2.4 cm. 3. Nonobstructing 7 mm inferior pole left renal calculus. Dictated by: Bebo MÉNDEZ Interpreted: Mati Palmer MD on 09/19/2021 at 10:50 Transcribed by: KATHLEEN on 09/19/2021 at 11:45 Approved by: Mati Palmer M.D. on 09/19/2021 at 12:15
== END ==
PROVIDERS: Family Provider Family Medicine; PCP Family Medicine; Referring Provider Specialist; Visit Provider Specialist
DX: N26.1 Atrophy of kidney (terminal) (principal); N28.1 Cyst of kidney, acquired; N20.0 Calculus of kidney; Z98.890 Other specified postprocedural states
CPT/HCPCS: 76770

== ENCOUNTER → 2021-10-01 13:46 | Outpatient (CLI) | payer MEDICARE, BC, SELFPAY ==
[2021-10-01 14:58] LABS: Prothrombin Time 93.4 SECONDS (10.1-12.7)
[2021-10-01 16:00] LABS: Prostate Specific Antigen 3.58 ng/mL (0.10-4.00)
== END ==
PROVIDERS: Family Provider Family Medicine; PCP Family Medicine; Referring Provider Specialist; Visit Provider Specialist
DX: R97.20 Elevated prostate specific antigen [PSA] (principal); I48.91 Unspecified atrial fibrillation
CPT/HCPCS: 36415; 84153; 85610

== ENCOUNTER → 2021-10-04 13:52 | Outpatient (CLI) | payer MEDICARE, BC, SELFPAY ==
[2021-10-04 15:06] LABS: INR 3.6 (0.9-1.3); Prothrombin Time 41.7 SECONDS (10.1-12.7)
== END ==
PROVIDERS: Family Provider Family Medicine; PCP Family Medicine; Referring Provider Family Medicine; Visit Provider Family Medicine
DX: I48.91 Unspecified atrial fibrillation (principal)
CPT/HCPCS: 36415; 85610

== ENCOUNTER → 2021-10-08 12:21 | Outpatient (CLI) | payer MEDICARE, BC, SELFPAY ==
[2021-10-08 15:34] LABS: INR 1.1 (0.9-1.3); Prothrombin Time 13.1 SECONDS (10.1-12.7)
== END ==
PROVIDERS: Family Provider Family Medicine; PCP Family Medicine; Referring Provider Family Medicine; Visit Provider Family Medicine
DX: I48.91 Unspecified atrial fibrillation (principal)
CPT/HCPCS: 36415; 85610

== ENCOUNTER → 2021-10-29 11:36 | Outpatient (CLI) | payer MEDICARE, BC, SELFPAY ==
[2021-10-29 15:39] LABS: INR 1.3 (0.9-1.3); Prothrombin Time 15.2 SECONDS (10.1-12.7)
== END ==
PROVIDERS: Family Provider Family Medicine; PCP Family Medicine; Referring Provider Family Medicine; Visit Provider Family Medicine
DX: I48.91 Unspecified atrial fibrillation (principal)
CPT/HCPCS: 36415; 85610

== ENCOUNTER → 2021-11-12 14:34 | Outpatient (CLI) | payer MEDICARE, BC, SELFPAY ==
[2021-11-12 16:38] LABS: INR 1.1 (0.9-1.3); Prothrombin Time 12.3 SECONDS (10.1-12.7)
== END ==
PROVIDERS: Family Provider Family Medicine; PCP Family Medicine; Referring Provider Family Medicine; Visit Provider Family Medicine
DX: I48.91 Unspecified atrial fibrillation (principal)
CPT/HCPCS: 36415; 85610

== ENCOUNTER → 2021-11-14 17:33 | Outpatient (CLI) | payer MEDICARE, BC, SELFPAY ==
--- NOTE | 2021-11-14 | DI.RAD.S_ITS ---
PROCEDURE: XR ELBOW LT MIN 3V INDICATIONS: FALL TECHNIQUE: 3 views of the elbow were acquired. COMPARISON: None. FINDINGS: Bones: No fractures or dislocations. No suspicious bony lesions. Soft tissues: No elbow joint effusion. No suspicious soft tissue calcifications. Study is limited by positioning IMPRESSION: Unremarkable left elbow radiographs Approved by: Casey Chang M.D. on 11/14/2021 at 17:56
--- NOTE | 2021-11-14 | DI.RAD.S_ITS ---
PROCEDURE: XR HIP W PEL IF DONE LT 2V INDICATIONS: FALL TECHNIQUE: 2 views of the hip were acquired. COMPARISON: [facility], , HIP 2V RIGHT, 09/04/2008, 14:15. FINDINGS: Bones: No fractures or dislocations. No suspicious bony lesions. The visualized pelvic ring appears intact. Moderate bilateral acetabular joint space narrowing. No evidence is fracture. Lower lumbar spine fusion and instrumentation. Pelvic ring intact. Soft tissues: No suspicious soft tissue calcifications or masses. IMPRESSION: No radiographic evidence of hip fracture. Moderate bilateral hip joint space narrowing. Lower lumbar spine fusion and instrumentation. Approved by: Casey Chang M.D. on 11/14/2021 at 17:46
--- NOTE | 2021-11-14 | DI.RAD.S_ITS ---
PROCEDURE: XR ANKLE LT MIN 3V INDICATIONS: FALL TECHNIQUE: 3 views of the ankle were acquired. COMPARISON: [facility], , ANKLE 3 VIEWS RIGHT, 11/24/2013, 9:16. 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 No evidence of acute fracture soft tissue swelling. Ankle mortise is maintained. Soft tissues: No tibiotalar joint effusion. Achilles tendon appears normal. 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 No evidence of acute fracture or soft tissue swelling. Ankle mortise is maintained. Approved by: Casey Chang M.D. on 11/14/2021 at 17:54
--- NOTE | 2021-11-14 | DI.RAD.S_ITS ---
PROCEDURE: XR SHOULDER LT MIN 2V INDICATIONS: FALL TECHNIQUE: 3 views of the shoulder were acquired. COMPARISON: [facility], CR, XR SHOULDER LT MIN 2V, 02/20/2021, 11:43. FINDINGS: Bones: No fractures or dislocations. No suspicious bony lesions. Visualized ribs appear intact. Moderate glenohumeral and joint space narrowing. No evidence of fracture or dislocation. Soft tissues: Atherosclerotic vascular calcification noted in the aortic arch. IMPRESSION: Degenerative changes without fracture or dislocation. Approved by: Casey Chang M.D. on 11/14/2021 at 17:50
== END ==
PROVIDERS: Family Provider Family Medicine; PCP Family Medicine; Referring Provider Family Medicine; Visit Provider Family Medicine
DX: M25.512 Pain in left shoulder (principal); M25.552 Pain in left hip; M25.522 Pain in left elbow; M25.572 Pain in left ankle and joints of left foot; Z98.1 Arthrodesis status
CPT/HCPCS: 73030; 73080; 73502; 73610

== ENCOUNTER 2021-11-14 18:15 | Emergency (ER) | payer MEDICARE, BC, SELFPAY ==
[2021-11-14 18:25] VITALS: BP 114/66; PULSE 80; RESP 20; TEMP 36.1; O2SAT 98; BMI 25.1
--- NOTE | 2021-11-14 19:54 | ED.FALL ---
HPI - Fall General Chief Complaint: Fall Stated Complaint: Pain on left side from fall Time Seen by Provider: 11/14/21 19:53 Source: patient Mode of arrival: Wheelchair History of Present Illness HPI Narrative: 86-year-old male nonsmoker with history of BPH, cervical stenosis, chronic abdominal pain, hyperlipidemia, presents with caregiver and a chief complaint of multiple injuries as a consequence of a ground level fall that was suffered earlier today. He states that he had no prodromal symptoms such as dizziness, weakness or lightheadedness and was attempting to navigate in the bathroom and get to the toilet when his left leg got caught up caused him to fall onto his left side. He denies any head neck or back pain and states the brunt of the force hit his left shoulder. He complains of pain in his left shoulder, left side ribs, left hip, and ankle pain. His symptoms are all worse with motion and improves with rest. He is not dizzy nor weak or lightheaded. He denies any shortness of breath, cough, hemoptysis. He is had no nausea, vomiting or diarrhea. His primary care provider ordered multiple plain film images as an outpatient but given the amount of discomfort the patient was having he was directed to the emergency department after obtaining these images. Related Data Home Medications Medication Instructions Recorded Confirmed mirtazapine 15 mg tablet (Remeron) 15 mg PO HS ##0 09/13/10 10/02/21 dutasteride 0.5 mg capsule 0.5 mg PO QDAY ##0 12/21/15 10/02/21 (Avodart) cimetidine 800 mg tablet 800 mg PO TIDAC ##0 03/15/16 10/02/21 hydrocodone 5 mg-acetaminophen 325 1 - 2 tab PO PRN PRN ##0 05/12/17 10/02/21 mg tablet sulfamethoxazole 800 1 tab PO QDAY ##0 05/12/17 10/02/21 mg-trimethoprim 160 mg tablet [CINDY-SELTZER HEARTBU] PRN PRN ##0 05/28/17 10/02/21 ferrous gluconate 236 mg (27 mg 225 mg PO QDAY ##0 05/28/17 10/02/21 iron) tablet methocarbamol 750 mg tablet 750 mg PO Q6HP PRN ##0 05/28/17 10/02/21 nystatin 100,000 unit/gram topical 1 hayes topical QID ##0 05/28/17 10/02/21 cream nystatin 100,000 unit/gram topical 100,000 unit topical BID ##0 05/28/17 10/02/21 powder (Nystop) promethazine 25 mg tablet 25 mg PO PRN PRN ##0 05/28/17 10/02/21 sucralfate 1 gram tablet 1 gm PO ACHS ##0 05/28/17 10/02/21 triamcinolone acetonide 0.025 % 1 hayes topical ##0 05/28/17 10/02/21 topical cream warfarin 2 mg tablet (Coumadin) PO QDAY ##0 05/28/17 10/02/21 dexamethasone 4 mg tablet 4 mg PO BID 09/16/21 09/16/21 (Decadron) diphenoxylate-atropine 2.5 1 tab PO Q6-8H PRN 09/16/21 09/16/21 mg-0.025 mg tablet furosemide 20 mg tablet 20 mg PO QAM 09/16/21 09/16/21 metformin 500 mg tablet 500 mg PO BID 09/16/21 09/16/21 omeprazole 40 mg capsule,delayed 40 mg PO BID 09/16/21 09/16/21 release tamsulosin 0.4 mg capsule 0.4 mg PO BID 09/16/21 09/16/21 tolterodine 4 mg capsule,extended 4 mg PO DAILY 09/16/21 09/16/21 release 24 hr Previous Rx's Medication Instructions Recorded atorvastatin 20 mg tablet (Lipitor) 20 mg PO HS #30 tabs 05/15/17 metoprolol tartrate 50 mg tablet 50 mg PO BID #60 tabs 05/15/17 benzonatate 100 mg capsule 100 mg PO TID PRN cough #12 caps 01/26/19 (Tessalon Perles) guaifenesin 200 mg/5 mL oral liquid 200 mg (5 mL) PO Q4H PRN 01/26/19 congestion #118 mL diclofenac sodium 1 % topical gel 2 g topical QID #100 grams 01/12/20 (Voltaren Arthritis Pain) Allergies Allergy/AdvReac Type Severity Reaction Status Date / Time Penicillins [PENICILLINS] Allergy Severe ANAPHYLAXIS Verified 10/02/21 13:34 shellfish derived Allergy Severe TONGUE Verified 10/02/21 13:34 [SHELLFISH DERIVED] SWELLS, THROAT CLOSES. Review of Systems Review of Systems Narrative: GENERAL: Denies chills, fatigue, malaise, fever, sweats. HEENT: Denies sinus pain, ear pain, sore throat, difficulty swallowing, dizziness. RESPIRATORY: Denies dyspnea, cough, wheezing, hemoptysis, sputum. CARDIOVASCULAR: Denies chest pain, palpitations, orthopnea, edema, GASTROINTESTINAL: Denies nausea, vomiting, abdominal pain, diarrhea, constipation, melena. : Denies dysuria, frequency, incontinence, hematuria, urinary retention. MUSCULOSKELETAL: See HPI SKIN: Denies rash, skin lesions, or other NEUROLOGIC: Denies weakness, headache, numbness, change in speech, confusion, seizures, incoordination. PSYCHIATRIC: No concerning psychosocial issues. 12 point review of systems is negative except for those stated above Patient History Medical History Atrial fibrillation BPH w urinary obs/LUTS DM type 2 (diabetes mellitus, type 2) Elevated PSA Family history of prostate cancer in father Spermatocele of epididymis, multiple Urological system complication of procedure UTI (urinary tract infection) Surgical History History of bladder surgery Previous back surgery Social History marital status: occupational status: previously employed Smoking Status: Never smoker alcohol intake: never substance use type: does not use Smoking Status: Never smoker alcohol intake frequency: 0-2 drinks per day Substance Use Type: does not use Exam Narrative Exam Narrative: GENERAL: [86] year old patient appears stated age. Well-developed patient, in mild distress. GCS 15 HEAD: Atraumatic. Normocephalic. No hematoma, abrasion or evidence of skull fracture EYES: Pupils equal round and reactive. No hyphema Extraocular motions intact. No scleral icterus. No injection or drainage. ENT: Nose without bleeding, purulent drainage. Throat without erythema, tonsillar hypertrophy or exudate. Airway patent. NECK: Trachea midline. Non tender, no pain with axial loading CARDIOVASCULAR: Regular rate and rhythm without murmurs, gallops, or rubs. Minor left lateral rib tenderness to palpation RESPIRATORY: Clear to auscultation. Breath sounds equal bilaterally. No wheezes, rales, or rhonchi. GASTROINTESTINAL: Abdomen soft, non-tender, nondistended. EXTREMITIES: Minimal pain on palpation of left shoulder but full range of motion, no obvious deformity. No elbow or wrist pain, no numbness, tingling or weakness. Left hip tender to palpate, no obvious deformity, no shortening or rotation. Left knee has evidence of old bruising and is minimally tender, there is no ligamentous laxity or instability, no effusion and no bony tenderness. Left ankle nontender. BACK: Nontender without deformity or crepitance. No flank tenderness. NEURO: AOx3. SKIN: No rash or erythema of visible areas Initial Vital Signs Initial Vital Signs: Vital Signs Temperature 97.0 F L 11/14/21 18:25 Pulse Rate 80 11/14/21 18:25 Respiratory Rate 20 11/14/21 18:25 Blood Pressure 114/66 11/14/21 18:25 Pulse Oximetry 98 11/14/21 18:25 Oxygen Delivery Method 11/14/21 18:25 Course Orders Ordered: ED Orders 11/14/21 20:56 CT pelvis wo con Stat Discontinued Medications Hydrocodone Bitart/Acetaminophen (Hydrocodone/Acet 5/325 Prepack) 1 bottle MISC SEEINSTR ONE Stop: 11/14/21 20:57 Last Admin: 11/14/21 21:05 Dose: 1 bottle Documented By: YOEL Vital Signs Vital signs: Vital Signs - 8 hr 11/14/21 18:25 11/14/21 22:18 Temperature 97.0 F L Pulse Rate 80 67 Respiratory Rate 20 16 Blood Pressure 114/66 143/80 H Pulse Oximetry 98 99 Oxygen Delivery Method Room Air Room Air MDM - Fall Imaging Data Extremity x-ray #1: Radiologist's Impression: Close Shoulder X-Ray (Signed) Bernardo,Casey - 11/14/21 Hip X-Ray (Signed) Bernardo,Casey - 11/14/21 Elbow X-Ray (Signed) Chang,Casey - 11/14/21 Ankle X-Ray (Signed) Bernardo,Casey - 11/14/21 Renal Ultrasound (Signed) Mati Palmer - 09/18/21 Scrotum Ultrasound (Signed) Sumit Navarro - 08/30/21 Shoulder MRI (Signed) VanessaJohnson fetlon - 03/08/21 Shoulder X-Ray (Signed) Rula Dick - 02/20/21 Humerus X-Ray (Signed) Rula Dick - 02/20/21 Chest X-Ray (Signed) Adeola Silva - 01/04/21 EKG Rpt. 01/04/21 EKG Rpt. 01/04/21 Myocardial Perfusion Scan Nuc Med (Signed) Trupti Hurtado - 12/13/20 Brain MRI (Signed) Adeola Silva - 08/30/20 Renal Ultrasound (Signed) Casey Chang - 06/21/20 Lumbar Spine MRI (Signed) Rula Dick - 05/14/20 Radiology Report (Cancelled) Lauro Lenz - 02/09/[address] (Signed) Lauro Lenz - 02/09/20 Abdomen/Pelvis CT (Signed) Sima Yang - 02/09/20 Abdomen/Pelvis CT (Signed) Miguel Morel - 06/30/19 Chest X-Ray (Signed) Rula Dick - 01/26/19 Chest X-Ray (Signed) Miller Gibson - 05/28/18 Echocardiogram Ultrasound (Signed) Vanessa Gonzalez - 03/10/18 Chest X-Ray (Signed) Monica Santos - 12/24/17 DI Result 10/26/17 Cervical Spine X-Ray (Signed) Tank Cr - 07/15/17 Launch?[address] [address] XRay Report Signed Patient: Aaln Mccracken MR#: [id number] : 1935 Acct:[id number] Age/Sex: 86 / M Date of Service: 11/14/21 Loc: DI Accession Number: [id number] ?? Procedure: XR shoulder LT min 2V Ordering Provider: Rufino Pierre MD PROCEDURE:? XR SHOULDER LT MIN 2V ? INDICATIONS:? FALL ? TECHNIQUE:? 3 views of the shoulder were acquired.? ? COMPARISON:? [facility], CR, XR SHOULDER LT MIN 2V, 02/20/2021, 11:43. ? FINDINGS:? ? Bones:? No fractures or dislocations.? No suspicious bony lesions.? Visualized ribs appear intact.? Moderate glenohumeral and joint space narrowing.? No evidence of fracture or dislocation. ? Soft tissues:? Atherosclerotic vascular calcification noted in the aortic arch. ? IMPRESSION:? ? Degenerative changes without fracture or dislocation. ? ? ? Approved by: Casey Chang M.D. on 11/14/2021 at 17:50? Hip Xray: Radiologist's Impression: ? Chart Viewer Diagnostics Subcategory All Activity ??:?? All Time ??:?? All Subcategories Filter Laboratory Imaging Microbiology Pathology Blood Bank Tests Cardiovascular Other Specialty DATE TYPE STATUS REF RANGE/AUTHOR Hx Today 00:00 Shoulder X-Ray Signed Chang,Casey Today 00:00 Hip X-Ray Signed Chang,Casey Today 00:00 Elbow X-Ray Signed Chang,Casey Today 00:00 Ankle X-Ray Signed Chang,Casey 09/18/21 14:42 Renal Ultrasound Signed Mati Palmer 08/30/21 14:45 Scrotum Ultrasound Signed Sumit Navarro 03/08/21 00:00 Shoulder MRI Signed Johnson Mendez 02/20/21 11:46 Shoulder X-Ray Signed Rula Dick 02/20/21 11:46 Humerus X-Ray Signed Rula Dick 01/04/21 15:07 Chest X-Ray Signed Adeola Silva 01/04/21 11:54 EKG Rpt. ? 01/04/21 11:44 EKG Rpt. ? 12/13/20 12:44 Myocardial Perfusion Scan Nuc Med Signed Trupti Hurtado 08/30/20 15:33 Brain MRI Signed Adeola Silva 06/21/20 00:00 Renal Ultrasound Signed Casey Chang 05/14/20 18:36 Lumbar Spine MRI Signed Rula Dick 02/09/20 00:00 Radiology Report Cancelled Lauro Lenz 02/09/20 00:[address] Signed Lauro Lenz 02/09/20 00:00 Abdomen/Pelvis CT Signed Sima Yang 06/30/19 00:00 Abdomen/Pelvis CT Signed Miguel Morel 01/26/19 05:06 Chest X-Ray Signed Rula Dick 05/28/18 00:00 Chest X-Ray Signed Miller Gibson 03/10/18 00:00 Echocardiogram Ultrasound Signed Vanessa Gonzalez 12/24/17 00:00 Chest X-Ray Signed DanielleMonica 10/26/17 08:00 DI Result MBI, MRI Cervical Spine 07/15/17 00:00 Cervical Spine X-Ray Signed Tank Cr John M ED 86, M?1935 MRN#? [id number] REG ER,?Main ED??R02?? 180.34cm 81.647kg BMI: 25.1kg/m? Fall Acc#? [id number] Resus Status Not Ordered No Hx Avail Special Indicators No Data to Display Home Meds Not Confirmed Prescription Monitoring Program Total 0 MME/Day Incomplete MEDICATIONS (INSTRUCTIONS) LAST TAKEN Active ??[CINDY-SELTZER HEARTBU] ??PRNPRN##0 ??atorvastatin [Lipitor] ??20 mgPOHS#30 tabs ??benzonatate [Tessalon Perles] ??100 mgPOTIDPRNcough#12 caps *Product no longer available ??cimetidine ??800 mgPOTIDAC##0 ??dexamethasone 4 mg tablet ??4 mgPOBID ??diclofenac sodium [Voltaren Arthritis Pain] ??2 gtopicalQID#100 grams ??diphenoxylate-atropine 2.5 mg-0.025 mg tablet ??1 tabPOQ6-8HPRN ??dutasteride [Avodart] ??0.5 mgPOQDAY##0 ??ferrous gluconate ??225 mgPOQDAY##0 ??furosemide 20 mg tablet ??20 mgPOQAM ??guaifenesin ??200 mg(5 mL)[id number]#118 mL ??hydrocodone-acetaminophen ??1 - 2 tabPOPRNPRN##0 0 MME/Day ??metformin 500 mg tablet ??500 mgPOBID ??methocarbamol ??750 azCSF2VIXJI##0 ??metoprolol tartrate ??50 mgPOBID#60 tabs ??mirtazapine [Remeron] ??15 mgPOHS##0 ??nystatin ??1 apptopicalQID##0 ??nystatin [Nystop] ??100,000 unittopicalBID##0 ??omeprazole 40 mg capsule,delayed release ??40 mgPOBID ??promethazine ??25 mgPOPRNPRN##0 ??sucralfate ??1 gmPOACHS##0 ??sulfamethoxazole-trimethoprim ??1 tabPOQDAY##0 ??tamsulosin 0.4 mg capsule ??0.4 mgPOBID ??tolterodine 4 mg capsule,extended release 24 hr ??4 mgPODAILY ??triamcinolone acetonide ??1 apptopical##0 ??warfarin [Coumadin] ??POQDAY##0 *Product no longer available ?Not Included in Conflicts Allergies Penicillins (PENICILLINS) ANAPHYLAXIS shellfish derived (SHELLFISH DERIVED) TONGUE SWELLS, THROAT CLOSES. Problems ? 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 Pulse 80? Resp 20? Temp 97.0 F?L O2 Sat 98? Delivery Room Air? Diagnostics Reports Alan Mccracken??86??M??1935 ? Allergy/Adv: Penicillins, shellfish derived (More??) Close Shoulder X-Ray (Signed) Casey Chang - 11/14/21 Hip X-Ray (Signed) Steve Changic - 11/14/21 Elbow X-Ray (Signed) Chang,Casey - 11/14/21 Ankle X-Ray (Signed) Chang,Casey - 11/14/21 Renal Ultrasound (Signed) Mati Palmer - 09/18/21 Scrotum Ultrasound (Signed) Sumit Navarro - 08/30/21 Shoulder MRI (Signed) Johnson Mendez - 03/08/21 Shoulder X-Ray (Signed) Rula Dick - 02/20/21 Humerus X-Ray (Signed) Rula Dick - 02/20/21 Chest X-Ray (Signed) Adeola Silva - 01/04/21 EKG Rpt. 01/04/21 EKG Rpt. 01/04/21 Myocardial Perfusion Scan Nuc Med (Signed) Trupti Hurtado - 12/13/20 Brain MRI (Signed) Adeola Silva - 08/30/20 Renal Ultrasound (Signed) Casey Chang - 06/21/20 Lumbar Spine MRI (Signed) Rula Dick - 05/14/20 Radiology Report (Cancelled) Lauro Lenz - 02/09/[address] (Signed) Lauro Lenz - 02/09/20 Abdomen/Pelvis CT (Signed) Sima Yang - 02/09/20 Abdomen/Pelvis CT (Signed) Miguel Morel - 06/30/19 Chest X-Ray (Signed) Rula Dick - 01/26/19 Chest X-Ray (Signed) Miller Gibson - 05/28/18 Echocardiogram Ultrasound (Signed) Vanessa Gonzalez - 03/10/18 Chest X-Ray (Signed) Monica Santos - 12/24/17 DI Result 10/26/17 Cervical Spine X-Ray (Signed) Tank Cr - 07/15/17 [place] [address] XRay Report Signed Patient: Alan Mccracken MR#: [id number] : 1935 Acct:[id number] Age/Sex: 86 / M Date of Service: 11/14/21 Loc: DI Accession Number: [id number] ?? Procedure: XR hip w pel if done LT 2V Ordering Provider: Rufino Pierre MD PROCEDURE:? XR HIP W PEL IF DONE LT 2V ? INDICATIONS:? FALL ? TECHNIQUE:? 2 views of the hip were acquired.? ? COMPARISON:? [facility], , HIP 2V RIGHT, 09/04/2008, 14:15. ? FINDINGS:? ? Bones:? No fractures or dislocations.? No suspicious bony lesions.? The visualized pelvic ring appears intact.? Moderate bilateral acetabular joint space narrowing.? No evidence is fracture.? Lower lumbar spine fusion and instrumentation.? Pelvic ring intact. ? Soft tissues:? No suspicious soft tissue calcifications or masses.? ? IMPRESSION:? ? No radiographic evidence of hip fracture. ? Moderate bilateral hip joint space narrowing.? Lower lumbar spine fusion and instrumentation. ? ? ? Approved by: Casey Chang M.D. on 11/14/2021 at 17:46? Extremity x-ray #3: Radiologist's Impression: [address] [address] XRay Report Signed Patient: Alan Mccracken MR#: [id number] : 1935 Acct:[id number] Age/Sex: 86 / M Date of Service: 11/14/21 Loc: DI Accession Number: [id number] ?? Procedure: XR elbow LT min 3V Ordering Provider: Rufino Pierre MD PROCEDURE:? XR ELBOW LT MIN 3V ? INDICATIONS:? FALL ? TECHNIQUE:? 3 views of the elbow were acquired.? ? COMPARISON:? None. ? FINDINGS:? ? Bones:? No fractures or dislocations.? No suspicious bony lesions.? ? Soft tissues:? No elbow joint effusion.? No suspicious soft tissue calcifications.? Study is limited by positioning ? ? IMPRESSION:? Unremarkable left elbow radiographs ? ? ? Approved by: Casey Chang M.D. on 11/14/2021 at 17:56? Alan Mccracken??86??M??1935 ? Allergy/Adv: Penicillins, shellfish derived (More??) Close Shoulder X-Ray (Signed) Casey Chang - 11/14/21 Hip X-Ray (Signed) Steve Changic - 11/14/21 Elbow X-Ray (Signed) Casey Chang - 11/14/21 Ankle X-Ray (Signed) Casey Chang - 11/14/21 Renal Ultrasound (Signed) Mati Palmer - 09/18/21 Scrotum Ultrasound (Signed) Sumit Navarro - 08/30/21 Shoulder MRI (Signed) Johnson Mendez - 03/08/21 Shoulder X-Ray (Signed) Rula Dick - 02/20/21 Humerus X-Ray (Signed) Rula Dick - 02/20/21 Chest X-Ray (Signed) Adeola Silva - 01/04/21 EKG Rpt. 01/04/21 EKG Rpt. 01/04/21 Myocardial Perfusion Scan Nuc Med (Signed) Jaime Hurtadoe - 12/13/20 Brain MRI (Signed) Adeola Silva - 08/30/20 Renal Ultrasound (Signed) Casey Chang - 06/21/20 Lumbar Spine MRI (Signed) Rula Dick - 05/14/20 Radiology Report (Cancelled) Lauro Lenz - 02/09/[address] (Signed) Lauro Lenz - 02/09/20 Abdomen/Pelvis CT (Signed) Sima Yang - 02/09/20 Abdomen/Pelvis CT (Signed) Jose Morelwn - 06/30/19 Chest X-Ray (Signed) Rula Dick - 01/26/19 Chest X-Ray (Signed) Miller Gibson - 05/28/18 Echocardiogram Ultrasound (Signed) Vanessa Gonzalez - 03/10/18 Chest X-Ray (Signed) Monica Santos - 12/24/17 DI Result 10/26/17 Cervical Spine X-Ray (Signed) Tank Cr - 07/15/17 [place] [address] XRay Report Signed Patient: Alan Mccracken MR#: [id number] : 1935 Acct:[id number] Age/Sex: 86 / M Date of Service: 11/14/21 Loc: [facility] Accession Number: [id number] ?? Procedure: XR ankle LT min 3V Ordering Provider: Rufino Pierre MD PROCEDURE:? XR ANKLE LT MIN 3V ? INDICATIONS:? FALL ? TECHNIQUE:? 3 views of the ankle were acquired.? ? COMPARISON:? [facility], , ANKLE 3 VIEWS RIGHT, 11/24/2013, 9:16. ? FINDINGS:? ? Bones:? 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 No evidence of acute fracture soft tissue swelling.? Ankle mortise is maintained. ? Soft tissues:? No tibiotalar joint effusion.? Achilles tendon appears normal.? ? ? IMPRESSION:? ? 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 No evidence of acute fracture or soft tissue swelling.? Ankle mortise is maintained. CT scan - abdomen/pelvis: Radiologist's Impression: [address] [address] [address] Scan Report Signed Patient: Alan Mccracken MR#: [id number] : 1935 Acct:[id number] Age/Sex: 86 / M Date of Service: 11/14/21 Loc: ED Accession Number: [id number] ?? Procedure: CT pelvis wo con Ordering Provider: Venkat Prieto D.O. PROCEDURE:? CT PEL WO CON ? INDICATIONS:? severe left hip pain after fall ? TECHNIQUE:? Noncontrast 3 mm axial sections acquired through the bony pelvis, with coronal and sagittal reformatting.? ? COMPARISON:? [facility], CT, CT ABDOMEN PELVIS WO CON, 02/09/2020, 12:54.? [facility], CR, XR HIP W PEL IF DONE LT 2V, 11/14/2021, 17:43. ? FINDINGS:? Image quality:? There is metallic streak artifact from patient's surgical hardware within the lower lumbar spine.? ? Bones:? No acute fracture or dislocation.? Specifically, no definite left hip fracture identified.? Postsurgical changes are partially visualized within the lower lumbar spine status post posterior fixation and fusion at L5 and S1.? There is transitional anatomy of S1 with a rudimentary disc at S1-S2.? ? Soft tissues:? There is a subcutaneous and intramuscular collection within the left gluteus collin muscle posterior to the left hip likely representing a hematoma.? Visualized pelvis demonstrates no intraperitoneal free fluid.? Colonic diverticulosis is present. ? ? IMPRESSION:? ? 1. No fracture or dislocation of the left hip or bony pelvis. ? 2. Transitional anatomy within the lower lumbar spine and postsurgical changes partially visualized. ? ? Dictated by: Kirk Hernandez M.D. on 11/14/2021 at 21:52 ? ? Approved by: Kirk Hernandez M.D. on 11/14/2021 at 21:57 ? Discharge Plan Departure Patient Disposition: Home Clinical Impression: Contusion of left shoulder, Contusion of hip Instructions: How to Prevent Falls Activity Restrictions/Additional Instructions: *You have been diagnosed with [minor injuries relating to fall. As we discussed your history and physical exam are reassuring and multiple sets of x-rays and even CT scan demonstrate no evidence of fracture or dislocation] *What to do: *Please continue to take your regular medications as directed. *Please follow up with your primary care provider in 2-3 days, call for an appointment. Let them know you were seen in the Emergency Department and that we ask that you be seen in follow up. We will electronically transmit a record of today's note if your PCP is in our system *If you do not have a primary care provider please contact the [facility] Resource line at [phone]. They will ask some questions about your medical history and help get you set up with a doctor in the community. *Return to Emergency Department if you should have any new, worsening or concerning symptoms, such as [fever greater than 101 F, shaking chills, worsening pain, persistent vomiting or other bothersome symptoms] Prescriptions: No Action mirtazapine [Remeron] 15 MG tablet 15 mg PO HS Qty: 0 dutasteride [Avodart] 0.5 MG capsule 0.5 mg PO QDAY Qty: 0 cimetidine 800 MG tablet 800 mg PO TIDAC Qty: 0 hydrocodone-acetaminophen 5 MG/325 MG tablet 1 - 2 tab PO PRN PRNQty: 0 sulfamethoxazole-trimethoprim 800 MG/160 MG tablet 1 tab PO QDAY Qty: 0 atorvastatin [Lipitor] 20 MG tablet 20 mg PO HS Qty: 30 0RF metoprolol tartrate 50 MG tablet 50 mg PO BID Qty: 60 1RF warfarin [Coumadin] 2 MG tablet PO QDAY Qty: 0 sucralfate 1 GM tablet 1 gm PO ACHS Qty: 0 methocarbamol 750 MG tablet 750 mg PO Q6HP PRNQty: 0 promethazine 25 MG tablet 25 mg PO PRN PRNQty: 0 nystatin 15 GM cream 1 hayes Topical QID Qty: 0 triamcinolone acetonide 0.025 % cream 1 hayes Topical Qty: 0 nystatin [Nystop] 60 GM powder 100,000 unit Topical BID Qty: 0 [CINDY-SELTZER HEARTBU] PRN PRNQty: 0 ferrous gluconate 236 mg (27 mg iron) Tablet 225 mg PO QDAY Qty: 0 benzonatate [Tessalon Perles] 100 mg capsule 100 mg PO TID PRN (Reason: cough) Qty: 12 0RF guaifenesin 200 mg/5 mL liquid 200 mg PO Q4H PRN (Reason: congestion) Qty: 118 0RF diclofenac sodium [Voltaren Arthritis Pain] 1 % gel 2 g topical QID Qty: 100 0RF Rx Instructions: apply to single elbow, wrist or hand; for hand includes palm/fingers/back of hand tamsulosin 0.4 mg capsule 0.4 mg PO BID dexamethasone [Decadron] 4 mg tablet 4 mg PO BID metformin 500 mg tablet 500 mg PO BID furosemide 20 mg tablet 20 mg PO QAM omeprazole 40 mg capsule,delayed release(DR/EC) 40 mg PO BID diphenoxylate-atropine 2.5-0.025 mg tablet 1 tab PO Q6-8H PRN tolterodine 4 mg capsule,extended release 24hr 4 mg PO DAILY Referrals: Rufino Pierre MD [Primary Care Provider] - Visit Report Forms: Patient Portal/API
--- NOTE | 2021-11-14 20:56 | DI.CT.S_ITS ---
PROCEDURE: CT PEL WO CON INDICATIONS: severe left hip pain after fall TECHNIQUE: Noncontrast 3 mm axial sections acquired through the bony pelvis, with coronal and sagittal reformatting. COMPARISON: [facility], CT, CT ABDOMEN PELVIS WO CON, 02/09/2020, 12:54. [facility], CR, XR HIP W PEL IF DONE LT 2V, 11/14/2021, 17:43. FINDINGS: Image quality: There is metallic streak artifact from patient's surgical hardware within the lower lumbar spine. Bones: No acute fracture or dislocation. Specifically, no definite left hip fracture identified. Postsurgical changes are partially visualized within the lower lumbar spine status post posterior fixation and fusion at L5 and S1. There is transitional anatomy of S1 with a rudimentary disc at S1-S2. Soft tissues: There is a subcutaneous and intramuscular collection within the left gluteus collin muscle posterior to the left hip likely representing a hematoma. Visualized pelvis demonstrates no intraperitoneal free fluid. Colonic diverticulosis is present. IMPRESSION: 1. No fracture or dislocation of the left hip or bony pelvis. 2. Transitional anatomy within the lower lumbar spine and postsurgical changes partially visualized. Dictated by: Kirk Hernandez M.D. on 11/14/2021 at 21:52 Approved by: Kirk Hernandez M.D. on 11/14/2021 at 21:57
[2021-11-14] MEDS: HYDROCODONE/ACET 5/325 PREPACK 1 BOTTLE MISC (21:05)
[2021-11-14 22:18] VITALS: BP 143/80; PULSE 67; RESP 16; O2SAT 99
== END 2021-11-14 22:24 | disposition home or self-care (01) ==
PROVIDERS: Emergency Provider Emergency Medicine; Family Provider Family Medicine; PCP Family Medicine
DX: S40.012A Contusion of left shoulder, initial encounter (principal); S70.02XA Contusion of left hip, initial encounter; M25.572 Pain in left ankle and joints of left foot; R42 Dizziness and giddiness; R07.81 Pleurodynia; W01.198A Fall on same level from slipping, tripping and stumbling with subsequent striking against other object, initial encounter; M25.512 Pain in left shoulder; M25.552 Pain in left hip; M25.522 Pain in left elbow; Z98.1 Arthrodesis status
CPT/HCPCS: 72192; 73030; 73080; 73502; 73610; 99283

== ENCOUNTER → 2021-11-21 17:45 | Outpatient (CLI) | payer MEDICARE, BC, SELFPAY ==
[2021-11-21 18:13] LABS: Add Manual Diff / Slide Review NO; Basophils Absolute Auto 100 /uL (0-100); Basophils Percent Auto 1.2 % (0-2); Eosinophils Absolute Auto 200 /uL (0-450); Eosinophils Percent Auto 3.8 % (2-4); Hematocrit 39.9 % (41-53); Hemoglobin 13.6 g/dL (13.5-17.5); Lymphocytes Absolute Auto 700 /uL (1100-4500); Mean Corpuscular HGB Conc 34.1 % (30-36); Mean Corpuscular Hemoglobin 32.7 PG (26-34); Monocytes Absolute Auto 500 /uL (0-900); Monocytes Percent Auto 9.7 % (3-14); Neutrophils Absolute Auto 4100 /uL (1500-7000); Neutrophils Percent Auto 72.3 % (50-75); Platelet Count 168 X10^3/uL (150-400); Red Blood Cell Count 4.15 X10^6/uL (4.5-5.9); Red Cell Distribution Width 13.8 % (11.6-14.8); White Blood Cell Count 5.6 X10^3/uL (4.5-11.0)
[2021-11-21 18:18] LABS: INR 1.3 (0.9-1.3); Prothrombin Time 15.4 SECONDS (10.1-12.7)
[2021-11-21 18:23] LABS: Albumin 3.7 g/dL (3.5-5.0); BUN Creatinine Ratio 13.2 (6-22); Blood Urea Nitrogen 27 mg/dL (9-20); Calcium 9.2 mg/dL (8.4-10.2); Carbon Dioxide 23 mmol/L (22-32); Chloride 105 mmol/L (98-107); Estimated Glomerular Filt Rate 31 mL/min (>60); Glucose 180 mg/dL (80-110); HEMOLYSIS < 15 (0-50); Phosphorous 3.3 mg/dL (2.3-3.7); Potassium 3.9 mmol/L (3.4-5.1); Sodium 142 mmol/L (137-145)
== END ==
PROVIDERS: Family Provider Family Medicine; PCP Family Medicine; Referring Provider Internal Medicine Nephrology; Visit Provider Internal Medicine Nephrology
DX: I48.91 Unspecified atrial fibrillation (principal); N18.32 Chronic kidney disease, stage 3b
CPT/HCPCS: 36415; 80069; 85025; 85610

== ENCOUNTER → 2021-12-12 14:34 | Outpatient (CLI) | payer MEDICARE, BC, SELFPAY ==
[2021-12-12 17:06] LABS: INR 1.2 (0.9-1.3); Prothrombin Time 13.5 SECONDS (10.1-12.7)
== END ==
PROVIDERS: Family Provider Family Medicine; PCP Family Medicine; Referring Provider Family Medicine; Visit Provider Family Medicine
DX: I48.91 Unspecified atrial fibrillation (principal)
CPT/HCPCS: 36415; 85610

== ENCOUNTER → 2021-12-12 17:05 | Outpatient (CLI) | payer MEDICARE, BC, SELFPAY ==
[2021-12-12 18:06] LABS: Add Manual Diff / Slide Review NO; Basophils Absolute Auto 0 /uL (0-100); Basophils Percent Auto 0.7 % (0-2); Eosinophils Absolute Auto 100 /uL (0-450); Eosinophils Percent Auto 1.1 % (2-4); Hematocrit 39.8 % (41-53); Hemoglobin 13.5 g/dL (13.5-17.5); Lymphocytes Absolute Auto 600 /uL (1100-4500); Mean Corpuscular HGB Conc 33.8 % (30-36); Mean Corpuscular Hemoglobin 32.3 PG (26-34); Mean Corpuscular Volume 95.7 fL (80-100); Monocytes Absolute Auto 500 /uL (0-900); Monocytes Percent Auto 7.9 % (3-14); Neutrophils Absolute Auto 5000 /uL (1500-7000); Neutrophils Percent Auto 81.3 % (50-75); Platelet Count 134 X10^3/uL (150-400); Red Blood Cell Count 4.16 X10^6/uL (4.5-5.9); Red Cell Distribution Width 14.4 % (11.6-14.8); White Blood Cell Count 6.2 X10^3/uL (4.5-11.0)
[2021-12-12 18:35] LABS: Hemoglobin A1C% w Est Avg Glu 6.1 % (4.0-6.0)
[2021-12-12 18:57] LABS: TSH w/ Reflex to FT4 1.35 uIU/mL (0.47-4.68)
[2021-12-12 19:20] LABS: Erythrocyte Sedimentation Rate 14 MM/HR (0-15)
[2021-12-12 19:31] LABS: Alanine Aminotransferase 13 IU/L (<50); Albumin 3.8 g/dL (3.5-5.0); Albumin Globulin Ratio 1.5 (1.0-2.8); Alkaline Phosphatase 84 U/L (38-126); Aspartate Aminotransferase 16 IU/L (17-59); BUN Creatinine Ratio 10.8 (6-22); Bilirubin Total 0.7 mg/dL (0.2-1.3); Blood Urea Nitrogen 22 mg/dL (9-20); C-Reactive Protein Quant < 0.5 mg/dL (<1.0); Carbon Dioxide 19 mmol/L (22-32); Chloride 107 mmol/L (98-107); Cholesterol 159 mg/dL (140-199); Estimated Glomerular Filt Rate 31 mL/min (>60); Globulin 2.6 g/dL (1.7-4.1); Glucose 153 mg/dL (80-110); HDL Cholesterol 43 mg/dL (40-60); HEMOLYSIS < 15 (0-50); LDL Cholesterol Calculated 78 mg/dL (<100); Potassium 3.8 mmol/L (3.4-5.1); Sodium 140 mmol/L (137-145); Total Protein 6.4 g/dL (6.3-8.2); Triglycerides 192 mg/dL (35-150); VLDL Cholesterol Calculated 38 mg/dL (2-30)
== END ==
PROVIDERS: Family Provider Family Medicine; PCP Family Medicine; Referring Provider Family Medicine; Visit Provider Family Medicine
DX: E11.319 Type 2 diabetes mellitus with unspecified diabetic retinopathy without macular edema (principal); I11.0 Hypertensive heart disease with heart failure; I48.91 Unspecified atrial fibrillation; I67.9 Cerebrovascular disease, unspecified; E78.5 Hyperlipidemia, unspecified; R63.4 Abnormal weight loss
CPT/HCPCS: 36415; 80053; 80061; 83036; 84443; 85025; 85610; 85651; 86140

== ENCOUNTER → 2021-12-25 14:07 | Outpatient (CLI) | payer MEDICARE, BC, SELFPAY ==
--- NOTE | 2021-12-25 14:10 | DI.CT.S_ITS ---
PROCEDURE: CT CHEST ABD PEL WO CON INDICATIONS: Abnormal weight loss TECHNIQUE: After the administration of oral contrast, 5 mm thick sections acquired from the lung apices to the symphysis pubis. 5 mm thick coronal and sagittal reformats acquired, with additional 7 mm coronal MIP reformats through the lungs. For radiation dose reduction, the following was used: automated exposure control, adjustment of mA and/or kV according to patient size. COMPARISON: [facility], CT, CT ABDOMEN PELVIS WO CON, 02/09/2020, 12:54. CT, PE STUDY (CTA CHEST), 09/13/2010, 17:12. FINDINGS: Image quality: Portions of the abdomen and pelvis are suboptimally evaluated secondary to metallic streak artifact from spinal fusion hardware. CHEST: Lungs and pleura: No acute pulmonary opacities. No pleural effusions or pneumothorax. Central and peripheral airways are patent are normal in caliber. Mediastinum: Heart size is normal. No pericardial effusion. No mediastinal adenopathy by CT size criteria. Thoracic aorta and central pulmonary arteries are normal in size. Esophagus is normal in caliber. No hiatal hernia. Chest wall: No axillary or supraclavicular adenopathy by size criteria. Thyroid gland is unremarkable . ABDOMEN: Solid organs: Liver is normal in size. Gallbladder demonstrates minimal dependent calcifications without wall thickening . Pancreas is normal in contours. Spleen is normal in size. No adrenal nodules. Both kidneys are markedly atrophic with nonobstructing renal calculi. Simple cyst is noted on the right. Peritoneum and bowel: Small and large bowel loops are nonobstructive. Colonic diverticula are present without inflammatory change. There is an overall appearance of thickening in the distal sigmoid colon extending to the rectum. It is incompletely distended within this region. No free fluid or air. Nodes and vessels: No retroperitoneal or mesenteric adenopathy by size criteria. Aorta and inferior vena cava are normal in size. Miscellaneous: No ventral hernias. PELVIS: Genitourinary: Bladder wall thickness is normal. Miscellaneous: No inguinal hernias or adenopathy. Bones: No suspicious bony lesions. No vertebral body compression fractures. IMPRESSION: Diverticulosis. Cholelithiasis without imaging evidence of cholecystitis. Thickened appearance of the distal sigmoid colon extending to the rectum. This could be secondary to incomplete distention. However, mass lesion within this region cannot be definitively excluded given lack of contrast. Further evaluation with colonoscopy is recommended. Dictated by: Adeola Silva, M.D. on 12/26/2021 at 17:03 Approved by: Adeola Silva M.D. on 12/26/2021 at 17:10
[2021-12-25 14:58] LABS: Estimated Glomerular Filt Rate 30 mL/min (>60)
== END ==
PROVIDERS: Radiology Diagnostic Radiology; Family Provider Family Medicine; PCP Family Medicine; Referring Provider Family Medicine; Visit Provider Family Medicine
DX: K57.90 Diverticulosis of intestine, part unspecified, without perforation or abscess without bleeding (principal); K80.20 Calculus of gallbladder without cholecystitis without obstruction; R63.4 Abnormal weight loss; N28.1 Cyst of kidney, acquired; N20.0 Calculus of kidney; Z98.1 Arthrodesis status
CPT/HCPCS: 36415; 71250; 74176; 82565

== ENCOUNTER → 2022-01-01 16:12 | Outpatient (ROUT) | payer MEDICARE, BC, SELFPAY ==
[2022-01-01 16:22] LABS: INR 1.2 (0.9-1.3); Prothrombin Time 13.4 SECONDS (10.1-12.7)
== END ==
PROVIDERS: Family Provider Family Medicine; PCP Family Medicine; Visit Provider Family Medicine
DX: Z79.01 Long term (current) use of anticoagulants (principal)
CPT/HCPCS: 85610

== ENCOUNTER → 2022-01-21 11:40 | Outpatient (CLI) | payer MEDICARE, BC, SELFPAY ==
[2022-01-21 13:11] LABS: Cholesterol 157 mg/dL (140-199); HDL Cholesterol 54 mg/dL (40-60); LDL Cholesterol Calculated 75 mg/dL (<100); Triglycerides 141 mg/dL (35-150)
== END ==
PROVIDERS: Family Provider Family Medicine; PCP Family Medicine; Referring Provider Nurse Practitioner; Visit Provider Nurse Practitioner
DX: E78.5 Hyperlipidemia, unspecified (principal)
CPT/HCPCS: 36415; 80061

== ENCOUNTER → 2022-01-30 15:58 | Outpatient (CLI) | payer MEDICARE, BC, SELFPAY ==
[2022-01-30 17:53] LABS: INR 1.3 (0.9-1.3); Prothrombin Time 14.5 SECONDS (10.1-12.7)
[2022-01-31 07:17] LABS: PSA Free % 7.8 % (.); PSA, Total 4.1 ng/mL (0.0-4.0)
== END ==
PROVIDERS: Family Provider Family Medicine; PCP Family Medicine; Referring Provider Specialist; Visit Provider Specialist
DX: I48.91 Unspecified atrial fibrillation (principal); R97.20 Elevated prostate specific antigen [PSA]
CPT/HCPCS: 36415; 84153; 84154; 85610

== ENCOUNTER → 2022-02-11 15:27 | Outpatient (CLI) | payer MEDICARE, BC, SELFPAY ==
[2022-02-11 18:41] LABS: INR 1.2 (0.9-1.3); Prothrombin Time 13.6 SECONDS (10.1-12.7)
== END ==
PROVIDERS: Family Provider Family Medicine; PCP Family Medicine; Referring Provider Family Medicine; Visit Provider Family Medicine
DX: I48.91 Unspecified atrial fibrillation (principal)
CPT/HCPCS: 36415; 85610

== ENCOUNTER → 2022-02-25 16:16 | Outpatient (CLI) | payer MEDICARE, BC, SELFPAY ==
[2022-02-25 17:12] LABS: INR 1.5 (0.9-1.3); Prothrombin Time 17.8 SECONDS (10.1-12.7)
== END ==
PROVIDERS: Family Provider Family Medicine; PCP Family Medicine; Referring Provider Family Medicine; Visit Provider Family Medicine
DX: E11.9 Type 2 diabetes mellitus without complications (principal); N40.1 Benign prostatic hyperplasia with lower urinary tract symptoms; N13.8 Other obstructive and reflux uropathy; R97.20 Elevated prostate specific antigen [PSA]; N43.42 Spermatocele of epididymis, multiple; Z80.42 Family history of malignant neoplasm of prostate
CPT/HCPCS: 36415; 51798; 81002; 83036; 85610; 99214

== ENCOUNTER → 2022-03-12 16:24 | Outpatient (ROUT) | payer MEDICARE, BC, SELFPAY ==
[2022-03-12 16:39] LABS: INR 1.7 (0.9-1.3); Prothrombin Time 19.6 SECONDS (10.1-12.7)
== END ==
PROVIDERS: Family Provider Family Medicine; PCP Family Medicine; Visit Provider Family Medicine
DX: Z79.01 Long term (current) use of anticoagulants (principal)
CPT/HCPCS: 85610

== ENCOUNTER → 2022-03-12 16:43 | Outpatient (CLI) | payer MEDICARE, BC, SELFPAY ==
--- NOTE | 2022-03-12 16:54 | DI.MRI.S_ITS ---
PROCEDURE: MR PELIS WO/W CON INDICATIONS: Prostate protocol TECHNIQUE: Coronal HASTE, axial T1 FSE with fat saturation, 3-plane nonbreath-hold T2 FSE. After the administration of contrast, dynamic axial, delayed axial and coronal VIBE or 2-D FLASH with fat saturation through the pelvis. Optional diffusion weighted imaging and ADC may be performed. COMPARISON: [facility], CT, CT PEL WO CON, 11/14/2021, 21:03. FINDINGS: Image quality: Diffusion weighted and dynamic contrast enhanced images are diagnostic. Prostate: Gland size is 2.6 x 4.1 x 2.4 cm; ellipsoid gland volume is 13.3 mL. Lesion size(s): Lesion 1: 0.8 x 0.6 cm in the axial plane measured on diffusion imaging. Lesion 2: 0.6 cm in the AP direction measured on diffusion-weighted imaging. Lesion location(s) (sector): Lesion 1: Right posterolateral peripheral zone at the mid gland level. Lesion 2: Left lateral peripheral zone at the gland apex. Lesion description: Lesion 1: Rounded lesion with indistinct margin. Lesion 2: Rounded lesion with indistinct margin T2 weighted imaging (T2WI) morphology score: Lesion 1: Two Lesion 2: Two Diffusion weighted imaging (DWI) morphology score: Lesion 1: Four Lesion 2: Four Dynamic contrast enhancement (DCE): Lesion 1: Present Lesion 2: Present Lesion PI-RADS score: Lesion 1: PI-RADS four Lesion 2: PI-RADS four Genitourinary system: Partially filled urinary bladder demonstrates uniformly thickened wall without suspicious enhancement. Bowel and peritoneum: No pathologic free pelvic fluid. Inferior colon and small bowel loops are normal in caliber. Nodes and vessels: No pelvic or inguinal adenopathy by size criteria. Iliac vessels are normal in caliber. Soft tissues: No inguinal hernias. Bones: 8 mm focus in the right pubic bone. No other bone lesions. IMPRESSION: 1. There are two subcentimeter PI-RADS four lesions in a diminutive prostate gland. 2. No adenopathy. 3. 8 mm nonspecific right pubic bone lesion. Correlation with bone scan is recommended. Dictated by: Garima Aaron M.D. on 03/13/2022 at 10:49 Approved by: Garima Aaron M.D. on 03/13/2022 at 11:31
== END ==
PROVIDERS: Family Provider Family Medicine; PCP Family Medicine; Referring Provider Specialist; Visit Provider Specialist
DX: N40.1 Benign prostatic hyperplasia with lower urinary tract symptoms (principal); N13.8 Other obstructive and reflux uropathy; R97.20 Elevated prostate specific antigen [PSA]; N42.9 Disorder of prostate, unspecified; M89.9 Disorder of bone, unspecified
CPT/HCPCS: 72197; A9579

== ENCOUNTER 2022-03-12 17:39 | Emergency (ER) | payer MEDICARE, BC, SELFPAY ==
[2022-03-12] VITALS (16 sets, daily range): BP systolic 122–178; BP diastolic 67–117; PULSE 53–92; RESP 13–24; TEMP 36.8; O2SAT 94–100
--- NOTE | 2022-03-12 17:59 | DI.CT.S_ITS ---
PROCEDURE: CT HEAD/BRAIN WO CON INDICATIONS: syncope TECHNIQUE: Noncontrast 4.5 mm thick angled axial sections acquired from the foramen magnum to the vertex, with coronal and sagittal reformats. For radiation dose reduction, the following was used: automated exposure control, adjustment of mA and/or kV according to patient size. COMPARISON: None. FINDINGS: Image quality: Excellent. CSF spaces: Basal cisterns are patent. No extra-axial fluid collections. The ventricles are symmetric in size and shape. Brain: No intracranial bleeds or masses. There is cerebral volume loss for age, with resultant ventricular and sulcal prominence. There are periventricular and deep white matter chronic small vessel ischemic changes. There is intracranial internal carotid artery atherosclerosis. Skull and face: Calvarium and visualized facial bones appear intact, without suspicious lesions. Sinuses: Visualized sinuses and mastoids are clear. IMPRESSION: Unremarkable noncontrast head CT for age. Dictated by: Mati Palmer M.D. on 03/12/2022 at 17:51 Approved by: Mati Palmer M.D. on 03/12/2022 at 17:53
--- NOTE | 2022-03-12 17:59 | DI.RAD.S_ITS ---
PROCEDURE: XR CHEST 1V INDICATIONS: syncope TECHNIQUE: One view of the chest was acquired. COMPARISON: [facility], CT, CT CHEST ABD PEL WO CON, 12/25/2021, 16:02. [facility], CR, XR CHEST 1V, 01/04/2021, 15:14. FINDINGS: Surgical changes and devices: None. Lungs and pleura: Lungs are clear. No pleural effusions or pneumothorax. Mediastinum: Mediastinal contours appear normal. Heart size is enlarged, stable. Bones and chest wall: No suspicious bony lesions. Overlying soft tissues appear unremarkable. IMPRESSION: No acute cardiopulmonary abnormality. Approved by: Isidoro Ogden M.D. on 03/12/2022 at 18:21
[2022-03-12 18:07] LABS: Add Manual Diff / Slide Review NO; Basophils Absolute Auto 100 /uL (0-100); Basophils Percent Auto 1.4 % (0-2); Eosinophils Absolute Auto 200 /uL (0-450); Eosinophils Percent Auto 4.1 % (2-4); Hematocrit 37.4 % (41-53); Hemoglobin 12.6 g/dL (13.5-17.5); Lymphocytes Absolute Auto 700 /uL (1100-4500); Lymphocytes Percent Auto 15.3 % (25-40); Mean Corpuscular HGB Conc 33.6 % (30-36); Mean Corpuscular Hemoglobin 33.3 PG (26-34); Mean Corpuscular Volume 98.9 fL (80-100); Monocytes Absolute Auto 400 /uL (0-900); Monocytes Percent Auto 9.8 % (3-14); Neutrophils Absolute Auto 3000 /uL (1500-7000); Neutrophils Percent Auto 69.4 % (50-75); Platelet Count 127 X10^3/uL (150-400); Red Blood Cell Count 3.78 X10^6/uL (4.5-5.9); Red Cell Distribution Width 16.6 % (11.6-14.8); White Blood Cell Count 4.3 X10^3/uL (4.5-11.0)
[2022-03-12 18:20] LABS: Alanine Aminotransferase 14 IU/L (<50); Albumin 3.3 g/dL (3.5-5.0); Albumin Globulin Ratio 1.3 (1.0-2.8); Alkaline Phosphatase 66 U/L (38-126); Aspartate Aminotransferase 21 IU/L (17-59); BUN Creatinine Ratio 15.8 (6-22); Bilirubin Total 0.6 mg/dL (0.2-1.3); Blood Urea Nitrogen 24 mg/dL (9-20); Calcium 8.1 mg/dL (8.4-10.2); Carbon Dioxide 20 mmol/L (22-32); Chloride 110 mmol/L (98-107); Creatine Kinase 42 U/L (55-170); Estimated Glomerular Filt Rate 44 mL/min (>60); Globulin 2.6 g/dL (1.7-4.1); Glucose 92 mg/dL (80-110); HEMOLYSIS 39 (0-50); Lipase 169 U/L (23-300); Potassium 3.9 mmol/L (3.4-5.1); Sodium 138 mmol/L (137-145); Total Protein 5.9 g/dL (6.3-8.2)
[2022-03-12 18:32] LABS: Troponin I < 0.012 ng/mL (0.01-0.034)
--- NOTE | 2022-03-12 18:35 | ED_ITS ---
HPI - Syncope General Chief Complaint: Syncope Stated Complaint: Syncope Time Seen by Provider: 03/12/22 17:59 Source: patient, family and other Mode of arrival: other Limitations: no limitations History of Present Illness HPI narrative: Patient is a 86-year-old male history of diabetes on metformin, paroxysmal atr ial fibrillation on warfarin, who is being worked up for an elevated PSA and was in MRI today for a pelvic MRI presented as a code blue to the emergency department. He apparently was found unresponsive after his MRI. It is unclear exactly how long he had been unresponsive for possibly 30 seconds or longer. No CPR was done. Never lost pulses. He says he is had terrible stressful week. He also has not been feeling well the last couple of days he has not eaten for at least 24 hours and sleeping a lot more. No fevers or chills. No chest pain or palpitations. No abdominal pain nausea or vomiting. No numbness tingling or weakness. It seems awake alert inappropriate now in normal sinus rhythm. Related Data Home Medications Medication Instructions Recorded Confirmed mirtazapine 15 mg tablet (Remeron) 15 mg PO HS ##0 09/13/10 02/25/22 dutasteride 0.5 mg capsule 0.5 mg PO QDAY ##0 12/21/15 02/25/22 (Avodart) cimetidine 800 mg tablet 800 mg PO TIDAC ##0 03/15/16 02/25/22 [CINDY-SELTZER HEARTBU] PRN PRN ##0 05/28/17 02/25/22 ferrous gluconate 236 mg (27 mg 225 mg PO QDAY ##0 05/28/17 02/25/22 iron) tablet methocarbamol 750 mg tablet 750 mg PO Q6HP PRN ##0 05/28/17 02/25/22 nystatin 100,000 unit/gram topical 100,000 unit topical BID ##0 05/28/17 02/25/22 powder (Nystop) promethazine 25 mg tablet 25 mg PO PRN PRN ##0 05/28/17 02/25/22 sucralfate 1 gram tablet 1 gm PO ACHS ##0 05/28/17 02/25/22 triamcinolone acetonide 0.025 % 1 hayes topical ##0 05/28/17 02/25/22 topical cream warfarin 2 mg tablet (Coumadin) PO QDAY ##0 05/28/17 02/25/22 dexamethasone 4 mg tablet 4 mg PO BID 09/16/21 02/25/22 (Decadron) diphenoxylate-atropine 2.5 1 tab PO Q6-8H PRN 09/16/21 02/25/22 mg-0.025 mg tablet metformin 500 mg tablet 500 mg PO BID 09/16/21 02/25/22 omeprazole 40 mg capsule,delayed 40 mg PO BID 09/16/21 02/25/22 release tamsulosin 0.4 mg capsule 0.4 mg PO BID 09/16/21 02/25/22 tolterodine 4 mg capsule,extended 4 mg PO DAILY 09/16/21 02/25/22 release 24 hr Previous Rx's Medication Instructions Recorded atorvastatin 20 mg tablet (Lipitor) 20 mg PO HS #30 tabs 05/15/17 metoprolol tartrate 50 mg tablet 50 mg PO BID #60 tabs 05/15/17 benzonatate 100 mg capsule 100 mg PO TID PRN cough #12 caps 01/26/19 (Tessalon Perles) guaifenesin 200 mg/5 mL oral liquid 200 mg (5 mL) PO Q4H PRN 01/26/19 congestion #118 mL diclofenac sodium 1 % topical gel 2 g topical QID #100 grams 01/12/20 (Voltaren Arthritis Pain) Allergies Allergy/AdvReac Type Severity Reaction Status Date / Time Penicillins [PENICILLINS] Allergy Severe ANAPHYLAXIS Verified 02/25/22 14:54 shellfish derived Allergy Severe TONGUE Verified 02/25/22 14:54 [SHELLFISH DERIVED] SWELLS, THROAT CLOSES. Review of Systems Review of Systems ROS Unobtainable: All systems reviewed & are unremarkable except as noted in HPI and below Patient History Medical History Atrial fibrillation BPH w urinary obs/LUTS DM type 2 (diabetes mellitus, type 2) Elevated PSA Family history of prostate cancer in father Spermatocele of epididymis, multiple Urological system complication of procedure UTI (urinary tract infection) Surgical History History of bladder surgery Previous back surgery Social History (Reviewed 03/12/22 @ 18:50 by CRISTY Barrios marital status: occupational status: previously employed Smoking Status: Never smoker alcohol intake: never substance use type: does not use Smoking Status: Never smoker alcohol intake frequency: 0-2 drinks per day Substance Use Type: does not use Exam Initial Vital Signs Initial Vital Signs: Vital Signs Pulse Rate 63 03/12/22 17:48 Blood Pressure 127/72 03/12/22 17:48 Pulse Oximetry 99 03/12/22 17:48 GENERAL: Alert 86-year-old male and in [no acute] distress. HEENT: Head atraumatic,EOMI, pupils reactive, face symmetric, [moist] mucous membranes CARDIOVASCULAR: Regular rate and rhythm without murmurs, rubs or gallops. RESPIRATORY: Breath sounds equal bilaterally, no wheezes rales or rhonchi. ABDOMEN: Soft, nontender. Normoactive bowel sounds all 4 quadrants. No guarding or rebound. EXTREMITIES: Normal range of motion, no clubbing or edema. Neurovascularly intact NEUROLOGICAL: Alert and oriented x4.Normal gait and speech. Cranial nerves II through XII grossly intact. [Good [id number], good [id number], strength equal bilaterally, no dysarthria or aphasia, sensation in tact to soft touch bilaterally, no visual changes, no facial droop] SKIN: Warm, dry, no laceration, no petechiae, no rashes or lesions. Course Orders Ordered: ED Orders 03/12/22 18:55 Covid-19 + FLU A/B + RSV - PCR Stat Discontinued Medications Sodium Chloride (Normal Saline 0.9%) 1,000 mls @ 1,000 mls/hr IV CONT RAE Last Infusion: 03/12/22 20:36 Dose: 0 mls/hr Documented By: Admin: 03/12/22 18:52 Dose: 1,000 mls/hr Documented By: RB Sodium Chloride (Normal Saline 0.9%) 1,000 mls @ 1,000 mls/hr IV BOLUS ONE Stop: 03/12/22 21:20 Last Infusion: 03/12/22 21:50 Dose: 0 mls/hr Documented By: Admin: 03/12/22 20:42 Dose: 1,000 mls/hr Documented By: OLIVIA Vital Signs Vital signs: Vital Signs - 8 hr 03/12/22 20:00 03/12/22 20:01 03/12/22 20:01 Pulse Rate 54 L 53 L Respiratory Rate 21 18 Blood Pressure 166/67 H Pulse Oximetry 99 98 03/12/22 20:30 03/12/22 20:33 03/12/22 20:33 Pulse Rate 61 60 Respiratory Rate 23 Blood Pressure 178/79 H Pulse Oximetry 99 99 03/12/22 21:00 03/12/22 21:01 03/12/22 21:01 Pulse Rate 56 L 56 L Respiratory Rate 21 24 Blood Pressure 171/99 H Pulse Oximetry 99 99 03/12/22 21:30 03/12/22 21:30 03/12/22 21:59 Pulse Rate 61 63 Respiratory Rate Blood Pressure 178/82 H Pulse Oximetry 100 94 03/12/22 21:59 Pulse Rate Respiratory Rate Blood Pressure 161/117 H Pulse Oximetry MDM - Syncope Lab Data 03/12/22 17:55 03/12/22 17:55 Labs: Lab Results 03/12/22 03/12/22 03/12/22 Range/Units 17:55 17:55 17:55 WBC 4.3 L (4.5-11.0) X10^3/uL RBC 3.78 L (4.5-5.9) X10^6/uL Hgb 12.6 L (13.5-17.5) g/dL Hct 37.4 L (41-53) % MCV 98.9 (80-100) fL MCH 33.3 (26-34) PG MCHC 33.6 (30-36) % RDW 16.6 H (11.6-14.8) % Plt Count 127 L (150-400) X10^3/uL Neut % (Auto) 69.4 (50-75) % Lymph % (Auto) 15.3 L (25-40) % [place] % (Auto) 9.8 (3-14) % Eos % (Auto) 4.1 H (2-4) % Baso % (Auto) 1.4 (0-2) % Neut # (Auto) 3000 (5929-9944) /uL Lymph # (Auto) 700 L (7154-4188) /uL [place]calfe # (Auto) 400 (0-900) /uL Eos # (Auto) 200 (0-450) /uL Baso # (Auto) 100 (0-100) /uL PT (10.1-12.7) SECONDS INR (0.9-1.3) Sodium 138 (137-145) mmol/L Potassium 3.9 (3.4-5.1) mmol/L Chloride 110 H (98-107) mmol/L Carbon Dioxide 20 L (22-32) mmol/L BUN 24 H (9-20) mg/dL Creatinine 1.52 H (0.66-1.25) mg/dL Estimated GFR 44 L (>60) mL/min BUN/Creatinine Ratio 15.8 (6-22) Glucose 92 (80-110) mg/dL Lactate 2.0 (0.7-2.1) mmol/L Calcium 8.1 L (8.4-10.2) mg/dL Total Bilirubin 0.6 (0.2-1.3) mg/dL AST 21 (17-59) IU/L ALT 14 (<50) IU/L Alkaline Phosphatase 66 (38-126) U/L Total Creatine Kinase 42 L (55-170) U/L CK-MB (CK-2) TNP CK-MB (CK-2) Rel Index TNP Troponin I < 0.012 (0.01-0.034) ng/mL Total Protein 5.9 L (6.3-8.2) g/dL Albumin 3.3 L (3.5-5.0) g/dL Globulin 2.6 (1.7-4.1) g/dL Albumin/Globulin Ratio 1.3 (1.0-2.8) Lipase 169 (23-300) U/L Procalcitonin 0.07 (<0.5) ng/mL SARS-CoV-2 (PCR) (Negative) Influenza A (RT-PCR) (NEGATIVE) Influenza B (RT-PCR) (NEGATIVE) RSV (PCR) (Negative) 03/12/22 03/12/22 Range/Units 17:55 18:55 WBC (4.5-11.0) X10^3/uL RBC (4.5-5.9) X10^6/uL Hgb (13.5-17.5) g/dL Hct (41-53) % MCV (80-100) fL MCH (26-34) PG MCHC (30-36) % RDW (11.6-14.8) % Plt Count (150-400) X10^3/uL Neut % (Auto) (50-75) % Lymph % (Auto) (25-40) % [place] % (Auto) (3-14) % Eos % (Auto) (2-4) % Baso % (Auto) (0-2) % Neut # (Auto) (3017-3695) /uL Lymph # (Auto) (3534-5743) /uL [place]calfe # (Auto) (0-900) /uL Eos # (Auto) (0-450) /uL Baso # (Auto) (0-100) /uL PT 20.3 H (10.1-12.7) SECONDS INR 1.8 H (0.9-1.3) Sodium (137-145) mmol/L Potassium (3.4-5.1) mmol/L Chloride (98-107) mmol/L Carbon Dioxide (22-32) mmol/L BUN (9-20) mg/dL Creatinine (0.66-1.25) mg/dL Estimated GFR (>60) mL/min BUN/Creatinine Ratio (6-22) Glucose (80-110) mg/dL Lactate (0.7-2.1) mmol/L Calcium (8.4-10.2) mg/dL Total Bilirubin (0.2-1.3) mg/dL AST (17-59) IU/L ALT (<50) IU/L Alkaline Phosphatase (38-126) U/L Total Creatine Kinase (55-170) U/L CK-MB (CK-2) CK-MB (CK-2) Rel Index Troponin I (0.01-0.034) ng/mL Total Protein (6.3-8.2) g/dL Albumin (3.5-5.0) g/dL Globulin (1.7-4.1) g/dL Albumin/Globulin Ratio (1.0-2.8) Lipase (23-300) U/L Procalcitonin (<0.5) ng/mL SARS-CoV-2 (PCR) Negative (Negative) Influenza A (RT-PCR) Flu a negative (NEGATIVE) Influenza B (RT-PCR) Flu b negative (NEGATIVE) RSV (PCR) Negative (Negative) Point of Care Testing Glucose POC 98 Urine Dip Bedside Urine Glucose Negative Bedside Urine Bilirubin - Negative Bedside Urine Ketone - Negative Urine Specific [place] 1.015 Bedside Urine Occult Blood - Negative Bedside Urine pH 6 Bedside Urine Protein - Negative Bedside Urine Urobilinogen - Negative Bedside Urine Nitrite - Negative Bedside Urine Leukocytes - Negative Esterase Imaging Data Chest x-ray: Radiologist's Impression: XRay Report Signed Patient: Alan Mccracken MR#: [id number] : 1935 Acct:[id number] Age/Sex: 86 / M Date of Service: 03/12/22 Loc: ED Accession Number: [id number] ?? Procedure: XR chest 1V Ordering Provider: Angelica Gomez D.O. PROCEDURE:? XR CHEST 1V ? INDICATIONS:? syncope ? TECHNIQUE:? One view of the chest was acquired.? ? COMPARISON:? [facility], CT, CT CHEST ABD PEL WO CON, 12/25/2021, 16:02.? [facility], CR, XR CHEST 1V, 01/04/2021, 15:14. ? FINDINGS:? ? Surgical changes and devices:? None.? ? Lungs and pleura:? Lungs are clear.? No pleural effusions or pneumothorax.? ? Mediastinum:? Mediastinal contours appear normal.? Heart size is enlarged, stable.? ? Bones and chest wall:? No suspicious bony lesions.? Overlying soft tissues appear unremarkable.? ? IMPRESSION:? No acute cardiopulmonary abnormality. ? ? ? Approved by: Isidoro Ogden M.D. on 03/12/2022 at 18:21? CT scan - head: Radiologist's Impression: CT Scan Report Signed Patient: Alan Mccracken MR#: [id number] : 1935 Acct:[id number] Age/Sex: 86 / M Date of Service: 03/12/22 Loc: ED Accession Number: [id number] ?? Procedure: CT head/brain wo con Ordering Provider: Angelica Gomez D.O. PROCEDURE:? CT HEAD/BRAIN WO CON ? INDICATIONS:? syncope ? TECHNIQUE:? Noncontrast 4.5 mm thick angled axial sections acquired from the foramen magnum to the vertex, with coronal and sagittal reformats.? For radiation dose reduction, the following was used:? automated exposure control, adjustment of mA and/or kV according to p atient size.? ? COMPARISON:? None. ? FINDINGS:? Image quality:? Excellent.? ? CSF spaces:? Basal cisterns are patent.? No extra-axial fluid collections.? The ventricles are symmetric in size and shape.? ? Brain:? No intracranial bleeds or masses.? There is cerebral volume loss for age, with resultant ventricular and sulcal prominence.? There are periventricular and deep white matter chronic small vessel ischemic changes.? There is intracranial internal carotid artery atherosclerosis.? ? Skull and face:? Calvarium and visualized facial bones appear intact, without suspicious lesions.? ? Sinuses:? Visualized sinuses and mastoids are clear.? ? ? IMPRESSION:? Unremarkable noncontrast head CT for age. ? ? Dictated by: Mati Palmer M.D. on 03/12/2022 at 17:51 ? ? Approved by: Mati Palmer M.D. on 03/12/2022 at 17:53 ? ECG Data Interpretation: Normal sinus rhythm rate 58 IA interval 236 QRS 122 QTC 520, right bundle-branch block similar to previous EKGs MDM Narrative Medical decision making narrative: Patient 86-year-old male presents with a syncopal episode after MRI for his prostate. CPR was not started. Patient now awake alert no focal deficits. Head CT is negative. He reports not feeling well over last couple of days there is no sign of infection. Urinalysis is negative leukocytosis of 4.3 no sign of anemia. Creatinine is 1.5 to however his previous creatinine in December 2021 is 2.0 so is actually improved. His chloride is 110 with a bicarb of 20 he initially had a lactate of 2.0. He is given 2 L of normal saline. He had difficulty urinating probably due to dehydration. reports that he has not had anything to eat or drink for least 24 hours or more. He is hungry now he is given water and food here in the ED. troponin is negative no EKG changes. He is ambulatory in the ED without any abnormality. I suspect that patient syncopized due to decreased intake. MDM * differential diagnosis includes but not limited to: Cardiac arrest, arrhythmia, intracranial hemorrhage, electrolyte abnormality, dehydration, vasovagal, redid stenosis * Prior records reviewed: Urology note from [facility] * My lab interpretation: As above improved creatinine * My imaging interpretation: Head CT negative * Clinical Decision Rules/Scores evaluated: None * Independent discussions with: None * Social Considerations: Elderly lives at home with elderly * Shared Decision Making: With *Disposition: see below, along with detailed discharge instructions that have been reviewed with patient as well as indications for ED re-evaluation and additional outpatient follow up Discharge Plan Departure Patient Disposition: Home Clinical Impression: Syncope Instructions: DI for Syncope in Adults (Fainting) Activity Restrictions/Additional Instructions: *You have been diagnosed with syncope *What to do: At this time you passed out it is unclear why. However please eat and drink this will help you. If you should pass out again you should call 911 and return immediately to the emergency department *Continue to take medications as directed *Follow up with your primary care provider in 2-3 days or call [phone] *Return to ER if you should have recurrent passing out chest pain dizziness vomiting or any new, worsening or concerning symptoms Prescriptions: No Action mirtazapine [Remeron] 15 MG tablet 15 mg PO HS Qty: 0 dutasteride [Avodart] 0.5 MG capsule 0.5 mg PO QDAY Qty: 0 cimetidine 800 MG tablet 800 mg PO TIDAC Qty: 0 atorvastatin [Lipitor] 20 MG tablet 20 mg PO HS Qty: 30 0RF metoprolol tartrate 50 MG tablet 50 mg PO BID Qty: 60 1RF warfarin [Coumadin] 2 MG tablet PO QDAY Qty: 0 sucralfate 1 GM tablet 1 gm PO ACHS Qty: 0 methocarbamol 750 MG tablet 750 mg PO Q6HP PRNQty: 0 promethazine 25 MG tablet 25 mg PO PRN PRNQty: 0 triamcinolone acetonide 0.025 % cream 1 hayes Topical Qty: 0 nystatin [Nystop] 60 GM powder 100,000 unit Topical BID Qty: 0 [CINDY-SELTZER HEARTBU] PRN PRNQty: 0 ferrous gluconate 236 mg (27 mg iron) Tablet 225 mg PO QDAY Qty: 0 benzonatate [Tessalon Perles] 100 mg capsule 100 mg PO TID PRN (Reason: cough) Qty: 12 0RF guaifenesin 200 mg/5 mL liquid 200 mg PO Q4H PRN (Reason: congestion) Qty: 118 0RF diclofenac sodium [Voltaren Arthritis Pain] 1 % gel 2 g topical QID Qty: 100 0RF Rx Instructions: apply to single elbow, wrist or hand; for hand includes palm/fingers/back of hand tamsulosin 0.4 mg capsule 0.4 mg PO BID dexamethasone [Decadron] 4 mg tablet 4 mg PO BID metformin 500 mg tablet 500 mg PO BID omeprazole 40 mg capsule,delayed release(DR/EC) 40 mg PO BID diphenoxylate-atropine 2.5-0.025 mg tablet 1 tab PO Q6-8H PRN tolterodine 4 mg capsule,extended release 24hr 4 mg PO DAILY Referrals: Rufino Pierre MD [Primary Care Provider] - Stand Alone Forms: Patient Portal/API
[2022-03-12 18:37] LABS: Procalcitonin 0.07 ng/mL (<0.5)
[2022-03-12] MEDS: SODIUM CHLORIDE 0.9% 1,000 ML 1000 ML IV ×2 (18:52→20:42)
[2022-03-12 18:54] LABS: INR 1.8 (0.9-1.3); Prothrombin Time 20.3 SECONDS (10.1-12.7)
[2022-03-12 20:04] LABS: Influenza A - CEPHEID Flu A NEGATIVE (NEGATIVE); Influenza B - CEPHEID Flu B NEGATIVE (NEGATIVE); Respiratory Syncytial Virus Negative (Negative)
[2022-03-12 20:05] LABS: COVID-19 CEPHEID 4-PLEX PCR Negative (Negative)
== END 2022-03-12 22:05 | disposition home or self-care (01) ==
PROVIDERS: Emergency Provider Emergency Medicine; Family Provider Family Medicine; PCP Family Medicine
DX: R55 Syncope and collapse (principal); I45.10 Unspecified right bundle-branch block; N40.1 Benign prostatic hyperplasia with lower urinary tract symptoms; N13.8 Other obstructive and reflux uropathy; R97.20 Elevated prostate specific antigen [PSA]; N42.9 Disorder of prostate, unspecified; M89.9 Disorder of bone, unspecified; Z79.01 Long term (current) use of anticoagulants
CPT/HCPCS: 0241U; 36415; 51798; 70450; 71045; 72197; 80053; 81003; 82550; 83605; 83690; 84145; 84484; 85025; 85610; 93005; 99284; A9579

== ENCOUNTER → 2022-03-27 13:19 | Outpatient (CLI) | payer MEDICARE, BC, SELFPAY ==
[2022-03-27 14:40] LABS: INR 2.6 (0.9-1.3)
== END ==
PROVIDERS: Family Provider Family Medicine; PCP Family Medicine; Referring Provider Family Medicine; Visit Provider Family Medicine
DX: I48.91 Unspecified atrial fibrillation (principal)
CPT/HCPCS: 36415; 85610

== ENCOUNTER → 2022-04-09 13:21 | Outpatient (CLI) | payer MEDICARE, BC, SELFPAY ==
[2022-04-09 14:19] LABS: INR 1.5 (0.9-1.3); Prothrombin Time 17.6 SECONDS (10.1-12.7)
== END ==
PROVIDERS: Family Provider Family Medicine; PCP Family Medicine; Referring Provider Family Medicine; Visit Provider Family Medicine
DX: I48.91 Unspecified atrial fibrillation (principal)
CPT/HCPCS: 36415; 85610

== ENCOUNTER → 2022-04-24 13:24 | Outpatient (CLI) | payer MEDICARE, BC, SELFPAY ==
[2022-04-24 14:46] LABS: INR 1.1 (0.9-1.3); Prothrombin Time 12.5 SECONDS (10.1-12.7)
== END ==
PROVIDERS: Family Provider Family Medicine; PCP Family Medicine; Referring Provider Family Medicine; Visit Provider Family Medicine
DX: I48.91 Unspecified atrial fibrillation (principal)
CPT/HCPCS: 36415; 85610

== ENCOUNTER → 2022-05-22 14:45 | Outpatient (CLI) | payer MEDICARE, BC, SELFPAY ==
[2022-05-22 15:29] LABS: INR 1.1 (0.9-1.3); Prothrombin Time 12.9 SECONDS (10.1-12.7)
== END ==
PROVIDERS: Family Provider Family Medicine; PCP Family Medicine; Referring Provider Family Medicine; Visit Provider Family Medicine
DX: I48.91 Unspecified atrial fibrillation (principal)
CPT/HCPCS: 36415; 85610

== ENCOUNTER → 2022-05-29 14:15 | Outpatient (CLI) | payer MEDICARE, BC, SELFPAY ==
[2022-05-29 15:25] LABS: Add Manual Diff / Slide Review NO; Basophils Absolute Auto 100 /uL (0-100); Basophils Percent Auto 1.2 % (0-2); Eosinophils Absolute Auto 300 /uL (0-450); Eosinophils Percent Auto 4.6 % (2-4); Hematocrit 36.8 % (41-53); Hemoglobin 12.2 g/dL (13.5-17.5); Lymphocytes Absolute Auto 1000 /uL (1100-4500); Lymphocytes Percent Auto 17.5 % (25-40); Mean Corpuscular HGB Conc 33.3 % (30-36); Mean Corpuscular Hemoglobin 32.7 PG (26-34); Mean Corpuscular Volume 98.2 fL (80-100); Monocytes Absolute Auto 600 /uL (0-900); Neutrophils Absolute Auto 3700 /uL (1500-7000); Neutrophils Percent Auto 65.7 % (50-75); Platelet Count 151 X10^3/uL (150-400); Red Blood Cell Count 3.75 X10^6/uL (4.5-5.9); Red Cell Distribution Width 14.2 % (11.6-14.8); White Blood Cell Count 5.7 X10^3/uL (4.5-11.0)
[2022-05-29 15:50] LABS: Albumin 3.6 g/dL (3.5-5.0); BUN Creatinine Ratio 17.5 (6-22); Blood Urea Nitrogen 34 mg/dL (9-20); Calcium 9.4 mg/dL (8.4-10.2); Carbon Dioxide 24 mmol/L (22-32); Chloride 106 mmol/L (98-107); Estimated Glomerular Filt Rate 33 mL/min (>60); Glucose 111 mg/dL (80-110); HEMOLYSIS < 15 (0-50); Phosphorous 2.9 mg/dL (2.3-3.7); Potassium 4.7 mmol/L (3.4-5.1); Sodium 139 mmol/L (137-145)
[2022-05-31 08:07] LABS: Parathyroid Hormone Int 27 pg/mL (15-65)
== END ==
PROVIDERS: Family Provider Family Medicine; PCP Family Medicine; Referring Provider Internal Medicine Nephrology; Visit Provider Internal Medicine Nephrology
DX: N18.32 Chronic kidney disease, stage 3b (principal)
CPT/HCPCS: 36415; 80069; 83970; 85025

== ENCOUNTER → 2022-06-12 13:56 | Outpatient (CLI) | payer MEDICARE, BC, SELFPAY ==
--- NOTE | 2022-06-12 | DI.ECHO.S_ITS ---
[place] [facility]---------+ [facility] +---------+ : : [address] : : : : [id number] : : : : Phone: [phone]+ Echocardiogram Report + + :Name: ANGEL NESS Study Date: 06/12/2022 Height: 71 in : :[facility] ReadingLocation: Weight: 182 lb : : Gender: Male BSA: 2.0 m2 : :: 1935 Age: 87 yrs BP: 122/72 mmHg: :Reason For Study: THORACIC AORTIC ECTASIA HR: 70 : :Ordering Physician: RADHA, : :AYE Performed By: FELICITY CAPELLAN : :Referring: AYE GARCIA : + + Interpretation Summary The study quality was technically difficult. The left ventricular cavity is small. Left ventricular wall thickness is moderately increased. The left ventricle is hyperdynamic. The ejection fraction is estimated to be 70-75%. No significant LV outflow tract obstruction. The right ventricle is grossly normal size. The right ventricular systolic function is normal. The aortic valve is mildly calcified. There appears to be mild to moderate restriction of aortic valve cusps mobility. Aortic valve velocity is not elevated. However angulation was not right. Overall no hemodynamically significant aortic stenosis. There is mild aortic regurgitation. The IVC is of normal diameter and collapses greater than 50% with a sniff. This suggests a low right atrial pressure of 3 mm Hg. The aortic root is mildly dilated. 4.3 cm in diameter. Previously 4.1 cm in diameter. The ascending aorta is moderately enlarged. 4.2 cm in diameter. Previously 4.0 cm in diameter. Procedure: A two-dimensional transthoracic echocardiogram with color flow and Doppler was performed in limited views only. The study quality was technically difficult. Comparison is made with the echocardiogram of 06/04/2018. The patient was in normal sinus rhythm during the exam. The patient had a bundle branch block rhythm during the exam. Left Ventricle: The left ventricular cavity is small. Left ventricular wall thickness is moderately increased. There is no thrombus. The ejection fraction is estimated to be 70-75%. The left ventricle is hyperdynamic. There are no focal wall motion abnormalities. MV E/A: 0.58 Med Peak E' Tre: 4.4 cm/sec E/E' med: 16.0. Right Ventricle: The right ventricle is grossly normal size. The right ventricular systolic function is normal. Atria: The left atrium is not well visualized. Right atrium not well visualized. There is no Doppler evidence for an interatrial shunt. Mitral Valve: There is moderate mitral annular calcification. The mitral valve leaflets appear mildly thickened, but open well. No significant mitral valve stenosis. There is trace mitral regurgitation. Aortic Valve: The aortic valve is mildly calcified. The aortic valve is not well visualized. There appears to be mild to moderate restriction of aortic valve cusps mobility. Aortic valve velocity is not elevated. However angulation was not right. Overall no hemodynamically significant aortic stenosis. There is mild aortic regurgitation. Tricuspid Valve: The tricuspid valve is not well visualized. No tricuspid regurgitation. Pulmonary artery pressures cannot be estimated because of the lack of a measurable TR jet velocity. Pulmonic Valve: The pulmonic valve is not well visualized. Great Vessels: The aortic root is mildly dilated. The ascending aorta is moderately enlarged. The IVC is of normal diameter and collapses greater than 50% with a sniff. This suggests a low right atrial pressure of 3 mm Hg. Pericardium/ Pleura There is no pericardial effusion. There is no pleural effusion. MMode/2D Measurements & Calculations LVOT diam: 2.0 cm LA A2 area: 14.5 cm2 Ao root diam: 4.3 cm LA A4 area: 11.8 cm2 asc Aorta Diam: 4.2 cm LA length (vol): 4.7 cm LA vol: 31.1 ml LA vol index: 15.3 ml/m2 Doppler Measurements & Calculations Ao V2 max: 114.0 cm/sec LVOT Max Tre: 99.9 cm/sec Ao V2 mean: 91.8 cm/sec LV V1 max P.0 mmHg Ao max P.2 mmHg LV V1 VTI: 21.3 cm Ao mean P.0 mmHg TISH(I,D): 2.6 cm2 Ao V2 VTI: 25.8 cm TISH(V,D): 2.8 cm2 sev ratio: 0.83 TISH indexed to BSA (cm^2/m^2): 1.3 MV E max tre: 69.4 cm/sec PA V2 max: 68.9 cm/sec MV A max tre: 120.0 cm/sec PA V2 mean: 55.6 cm/sec MV E/A: 0.58 PA mean P.0 mmHg Med Peak E' Tre: 4.4 cm/sec PA pr(Accel): 40.8 mmHg E/E' med: 16.0 Lat Peak E' Tre: 7.5 cm/sec E/E' lat: 9.3 E/e' average: 12.6 MV dec time: 0.54 sec SV(LVOT): 66.9 ml AV VR_phl: 0.88 TISH(VTI)/BSA_phl: 1.3 MV P1/2t-pr_phl: 157.0 msec Reading Physician:10:01 AM
== END ==
PROVIDERS: Family Provider Family Medicine; PCP Family Medicine; Referring Provider Internal Medicine Cardiovascular Disease; Visit Provider Internal Medicine Cardiovascular Disease
DX: I77.810 Thoracic aortic ectasia (principal); I08.0 Rheumatic disorders of both mitral and aortic valves; I77.89 Other specified disorders of arteries and arterioles
CPT/HCPCS: 93306

== ENCOUNTER → 2022-07-09 16:58 | Outpatient (CLI) | payer MEDICARE, BC, SELFPAY ==
[2022-07-09 18:11] LABS: INR 1.1 (0.9-1.3); Prothrombin Time 12.7 SECONDS (10.1-12.7)
== END ==
PROVIDERS: Family Provider Family Medicine; PCP Family Medicine; Referring Provider Family Medicine; Visit Provider Family Medicine
DX: I48.91 Unspecified atrial fibrillation (principal)
CPT/HCPCS: 36415; 85610

== ENCOUNTER → 2022-07-25 11:49 | Outpatient (CLI) | payer MEDICARE, BC, SELFPAY ==
[2022-07-25 12:52] LABS: INR 1.8 (0.9-1.3); Prothrombin Time 21.1 SECONDS (10.1-12.7)
== END ==
PROVIDERS: Family Provider Family Medicine; PCP Family Medicine; Referring Provider Family Medicine; Visit Provider Family Medicine
DX: I48.91 Unspecified atrial fibrillation (principal)
CPT/HCPCS: 36415; 85610

== ENCOUNTER → 2022-08-22 16:24 | Outpatient (ROUT) | payer MEDICARE, BC, SELFPAY ==
[2022-08-22 17:17] LABS: INR 3.6 (0.9-1.3); Prothrombin Time 42.1 SECONDS (10.1-12.7)
== END ==
PROVIDERS: Family Provider Family Medicine; PCP Family Medicine; Visit Provider Family Medicine
DX: I48.91 Unspecified atrial fibrillation (principal)
CPT/HCPCS: 85610

== ENCOUNTER 2022-09-04 14:53 | Emergency (ER) | payer MEDICARE, BC, SELFPAY ==
[2022-09-04 14:59] VITALS: BP 167/72; PULSE 92; RESP 20; TEMP 36.4; O2SAT 94; BMI 25.2
[2022-09-04 16:00] VITALS: BP 182/81; PULSE 83; RESP 16; O2SAT 97
[2022-09-04 16:30] VITALS: BP 142/109; PULSE 94; RESP 14; O2SAT 97
--- NOTE | 2022-09-04 16:30 | PC.NURSE ---
Sheriff De Jesus from [facility] visited the ER today at approx 1431 to talk to staff about getting an ETA on the patient leaving the hospital. He stated that the patient's is diseased in the home and they don't want the patient discharged home to the diseased . Charge nurse Connie Read was asked about the situation and she stated that the 's office can call [facility].
--- NOTE | 2022-09-04 19:01 | ED.RECABL ---
HPI - Recheck/Abnormal Lab/Rx General Chief Complaint: Recheck/Abnormal Lab/Rx Stated Complaint: Failure to Thrive Time Seen by Provider: 09/04/22 18:02 Source: patient and EMS Mode of arrival: EMS History of Present Illness HPI narrative: Patient is an 87-year-old male who is brought in by EMS. Unfortunately the patient had a family tragedy within the past couple days. He found his in their home. Patient states he does not drive. His was the one who did all of the driving. He states that his was one he did all the cooking as well. She is the one that gave him all of his medicines. He does not know what medication he takes. He called EMS because he did not know if he could take care of himself. He is no family in the area. He has kids that live in [place]. Related Data Home Medications Medication Instructions Recorded Confirmed mirtazapine 15 mg tablet (Remeron) 15 mg PO HS ##0 09/13/10 07/01/22 cimetidine 800 mg tablet 800 mg PO TIDAC ##0 03/15/16 07/01/22 [CINDY-SELTZER HEARTBU] PRN PRN ##0 05/28/17 07/01/22 ferrous gluconate 236 mg (27 mg 225 mg PO QDAY ##0 05/28/17 07/01/22 iron) tablet methocarbamol 750 mg tablet 750 mg PO Q6HP PRN ##0 05/28/17 07/01/22 nystatin 100,000 unit/gram topical 100,000 unit topical BID ##0 05/28/17 07/01/22 powder (Nystop) promethazine 25 mg tablet 25 mg PO PRN PRN ##0 05/28/17 07/01/22 sucralfate 1 gram tablet 1 gm PO ACHS ##0 05/28/17 07/01/22 triamcinolone acetonide 0.025 % 1 hayes topical ##0 05/28/17 07/01/22 topical cream warfarin 2 mg tablet (Coumadin) PO QDAY ##0 05/28/17 07/01/22 dexamethasone 4 mg tablet 4 mg PO BID 09/16/21 07/01/22 (Decadron) diphenoxylate-atropine 2.5 1 tab PO Q6-8H PRN 09/16/21 07/01/22 mg-0.025 mg tablet metformin 500 mg tablet 500 mg PO BID 09/16/21 07/01/22 omeprazole 40 mg capsule,delayed 40 mg PO BID 09/16/21 07/01/22 release tolterodine 4 mg capsule,extended 4 mg PO DAILY 09/16/21 07/01/22 release 24 hr metoprolol succinate 25 mg 25 mg PO DAILY 07/01/22 07/01/22 tablet,extended release 24 hr Previous Rx's Medication Instructions Recorded benzonatate 100 mg capsule 100 mg PO TID PRN cough #12 caps 01/26/19 (Tessalon Perles) guaifenesin 200 mg/5 mL oral liquid 200 mg (5 mL) PO Q4H PRN 01/26/19 congestion #118 mL diclofenac sodium 1 % topical gel 2 g topical QID #100 grams 01/12/20 (Voltaren Arthritis Pain) bicalutamide 50 mg tablet (Casodex) 50 mg PO DAILY #30 tabs 07/01/22 Allergies Allergy/AdvReac Type Severity Reaction Status Date / Time Penicillins [PENICILLINS] Allergy Severe ANAPHYLAXIS Verified 07/01/22 15:48 shellfish derived Allergy Severe TONGUE Verified 07/01/22 15:48 [SHELLFISH DERIVED] SWELLS, THROAT CLOSES. Review of Systems Cardiovascular Comments: Denies chest pain Respiratory Comments: Denies shortness of breath Gastrointestinal Comments: Denies abdominal pain Musculoskeletal Comments: Denies any musculoskeletal complaints Patient History Medical History Atrial fibrillation BPH w urinary obs/LUTS DM type 2 (diabetes mellitus, type 2) Elevated PSA Family history of prostate cancer in father Prostate cancer Spermatocele of epididymis, multiple Urological system complication of procedure UTI (urinary tract infection) Surgical History History of bladder surgery Previous back surgery Social History marital status: occupational status: previously employed Smoking Status: Never smoker alcohol intake: never substance use type: does not use Smoking Status: Never smoker alcohol intake frequency: 0-2 drinks per day Substance Use Type: does not use Exam Initial Vital Signs Initial Vital Signs: Vital Signs Temperature 97.6 F 09/04/22 14:59 Pulse Rate 92 H 09/04/22 14:59 Respiratory Rate 20 09/04/22 14:59 Blood Pressure 167/72 H 09/04/22 14:59 Pulse Oximetry 94 09/04/22 14:59 Oxygen Delivery Method Room Air 09/04/22 14:59 Const General: cooperative, comfortable and No ill appearing HENMT Head: normal to inspection and normocephalic Resp Effort & Inspection: normal respiratory effort Auscultation: clear to auscultation bilaterally Cardio Rate: regular rate Rhythm: regular rhythm GI Inspection: normal to inspection Neuro General: patient alert, patient awake and moves all extremities Speech: speech normal Extrem General: normal to inspection Course Orders Ordered: Discontinued Medications Lorazepam (Lorazepam 0.5 Mg Tablet) 0.5 mg PO NOW ONE Stop: 09/04/22 23:42 Last Admin: 09/05/22 00:00 Dose: 0.5 mg Documented By: OLIVIA Vital Signs Vital signs: Vital Signs - 8 hr 09/04/22 23:44 Pulse Rate 70 Respiratory Rate 15 Blood Pressure 132/64 Pulse Oximetry 98 Oxygen Delivery Method Room Air MDM - Recheck/Abnormal Lab/Rx Lab Data Labs: Lab Results 09/04/22 Range/Units 19:20 Urine RBC 5-10/hpf H (0-5/HPF) Urine WBC 5-10/hpf H (0-5/HPF) Ur Squamous Epith Cells None seen (0-5/HPF) Ur Renal Epithelial Cell 1-5/hpf H (0-1/HPF) Amorphous Sediment 2+ Urine Bacteria Few (2-10) H (None) Urine Mucus 1+ H (Negative) Ur Culture Indicated? Specimen cultured MDM Narrative Medical decision making narrative: Patient does not have any signs of trauma. He is alert and oriented. Is able to stand but is somewhat unsteady on his feet. He is unsure exactly what medications that he takes. He states he does not cook. He does not drive. did all this for him. Patient has been seen by social work. It is unsafe to discharge the patient home this evening as we have no idea what his living conditions like or whether not he even has any food in the house. Social work has started the process of finding potential caregivers although the patient will remain in the emergency department this evening. Care turned over to day provider to follow-up and disposition. Discharge Plan Departure Patient Disposition: Home Prescriptions: No Action mirtazapine [Remeron] 15 MG tablet 15 mg PO HS Qty: 0 cimetidine 800 MG tablet 800 mg PO TIDAC Qty: 0 warfarin [Coumadin] 2 MG tablet PO QDAY Qty: 0 sucralfate 1 GM tablet 1 gm PO ACHS Qty: 0 methocarbamol 750 MG tablet 750 mg PO Q6HP PRNQty: 0 promethazine 25 MG tablet 25 mg PO PRN PRNQty: 0 triamcinolone acetonide 0.025 % cream 1 hayes Topical Qty: 0 nystatin [Nystop] 60 GM powder 100,000 unit Topical BID Qty: 0 [CINDY-SELTZER HEARTBU] PRN PRNQty: 0 ferrous gluconate 236 mg (27 mg iron) Tablet 225 mg PO QDAY Qty: 0 benzonatate [Tessalon Perles] 100 mg capsule 100 mg PO TID PRN (Reason: cough) Qty: 12 0RF guaifenesin 200 mg/5 mL liquid 200 mg PO Q4H PRN (Reason: congestion) Qty: 118 0RF diclofenac sodium [Voltaren Arthritis Pain] 1 % gel 2 g topical QID Qty: 100 0RF Rx Instructions: apply to single elbow, wrist or hand; for hand includes palm/fingers/back of hand dexamethasone [Decadron] 4 mg tablet 4 mg PO BID metformin 500 mg tablet 500 mg PO BID omeprazole 40 mg capsule,delayed release(DR/EC) 40 mg PO BID diphenoxylate-atropine 2.5-0.025 mg tablet 1 tab PO Q6-8H PRN tolterodine 4 mg capsule,extended release 24hr 4 mg PO DAILY metoprolol succinate 25 mg tablet extended release 24 hr 25 mg PO DAILY bicalutamide [Casodex] 50 mg tablet 50 mg PO DAILY Qty: 30 0RF Referrals: Rufino Pierre MD [Primary Care Provider] - Stand Alone Forms: Patient Portal/API
--- NOTE | 2022-09-04 19:45 | CM.SWNOTE ---
ED REGIONAL SALES MANAGER Note Patient is 87 y/o male who presents to ED via EMS after patient's spouse is found at home. Paramedics had concern for patient's ability to care for self and manage medication, food preparation access to daily needs. Patient's spouse was patient's primary caregiver. Upon presentation to ED, REGIONAL SALES MANAGER speaks with community Surveillance Investigator Mirza Villarreal and requests referral for Mirza's services. EMS reports that they will be calling APS due to concern for patient's ability to manage his needs. Patient's PCP is Dr. Pierre, patient has BCBS [facility] of [facility] and Medicare insurance. Patient sees urologist Dr. Pollock and has upcoming appt next month. Patient has hx of Type 2 Diabetes, Afib, Prostate Cancer, UTI, elevated PSA and BPH with urninary obs/LUTS. REGIONAL SALES MANAGER receives VM from [facility] with crisis team regarding patient and expresses concern for the state of patient's home as it is cluttered with hoarded items. Paramedics show photos to REGIONAL SALES MANAGER upon patient's arrival. Kanwal suggests contacting [employer]. REGIONAL SALES MANAGER identifies that patient is not a . REGIONAL SALES MANAGER calls patient's son Rolly Rutledge (ph. # [phone]) and leaves VM. It is reported that patient's son resides in [place], [place]. REGIONAL SALES MANAGER enters room to meet with patient. Patient presents as A/O to self, person and time, patient asks where he is during conversation. Patient presents with circumstantial verbal communication and presents in dismay given the recent loss of his . Patient reports Angela did everything and explains that she drove him places as patient cannot drive given his medications. Patient states that his would manage his medications, prepare and cook food, and shop for patient. Patient endorses he can ambulate about 25-30 feet before taking a break and can manage toileting and showering. Patient endorses he has a cane at home. Patient endorses that there was significant clutter in the home due to his spouse buying and keeping anything. Patient denies any local friends, family or neighbors as supports. Patient states all of his friends and family are in [place]. Patient endorses that he and spouse have been living in [place] for the last 25 years and their two sons reside in [place]. REGIONAL SALES MANAGER receives VM from patient's son Rolly, REGIONAL SALES MANAGER calls patient's son back and allows patient to speak with his son as they have not been able to speak yet. At the end of conversation with Rolly, REGIONAL SALES MANAGER asks about Salazar plans to come to [employer], he states that he will look into that and have to arrange getting off work. Rolly endorses that he is going to look for his mother's will and identify her wishes. Patient states that his son recommends selling the house. REGIONAL SALES MANAGER identifies patient's other son Sascha's phone number (Ph. # [phone]), patient states that it is not a good time to call him given his work schedule. Patient endorses he will call Sascha tomorrow, it is reported that Sascha resides in [place], [place]. REGIONAL SALES MANAGER encourages patient to call friends in [place] for support to identify next steps and see how they can support him during this time. REGIONAL SALES MANAGER observes patient make a phone call to a friend. REGIONAL SALES MANAGER discusses caregivers with patient as patient is worried about managing his needs at home. Patient gives consent for REGIONAL SALES MANAGER to search for a caregiver for patient. REGIONAL SALES MANAGER calls several caregivers: [facility]- Left message, requested return call. Staff states they will call back tomorrow and seek out caregiver availability. [facility]- Attempted to call, no VM box, will call back during business hours [facility] - Left VM requesting return call [facility] - No Answer [facility] - Left VM, received return call and Hue (Ph. # [phone]) stated she will seek out available caregivers and call back tomorrow. [facility]- Left VM requesting return call [facility] - Left VM requesting return call [facility] - Unable to leave VM, will call during business hours [facility] - Spoke with staff provided patient information, REGIONAL SALES MANAGER will receive call back tomorrow regarding availability, rates of pay vary from $36/hour-$46/hour. REGIONAL SALES MANAGER to refer patient for Home Health services prior to d/c for (PT, OT, RN and REGIONAL SALES MANAGER). REGIONAL SALES MANAGER to discuss this further with patient. REGIONAL SALES MANAGER reviews patient with ED provider, it is identified that patient is not safe to d/c to home at this time until support services are in place given patient's dependence for caregiver needs at this time. Plan: REGIONAL SALES MANAGER awaiting return calls from Caregivers, REGIONAL SALES MANAGER to refer patient to Home Health, Community Surveillance Investigator referral in place, REGIONAL SALES MANAGER to f/u with family regarding their arrival to attend to patient's penitentiary care needs. Patient to board in ED until caregiver service is set up. Rita Palomares, HARPOON ENGAGEMENT PLANNING OPERATOR
[2022-09-04 20:14] LABS: Amorphous Sediment Urine 2+; Bacteria Urine Few (2-10); Culture Indicated Urine Specimen Cultured; Mucus Urine 1+ (Negative); RBC Urine 5-10/HPF (0-5/HPF); Renal Epithelial Cells Urine 1-5/HPF (0-1/HPF); Squamous Epithelial Cell Urine None Seen (0-5/HPF); WBC Urine 5-10/HPF (0-5/HPF)
[2022-09-04 23:44] VITALS: BP 132/64; PULSE 70; RESP 15; O2SAT 98
[2022-09-05] MEDS: LORazepam 0.5 MG TABLET PO
[2022-09-05 06:45] VITALS: BP 157/74; PULSE 60; RESP 14; O2SAT 100
--- NOTE | 2022-09-05 07:33 | PC.NURSE ---
Pt resting on stretcher eyes closed. allowed to sleep. recent vitals obtained. awaiting social work consult for home health.
[2022-09-05 08:21] LABS: Add Manual Diff / Slide Review NO; Basophils Absolute Auto 100 /uL (0-100); Eosinophils Absolute Auto 400 /uL (0-450); Eosinophils Percent Auto 6.8 % (2-4); Hematocrit 35.5 % (41-53); Hemoglobin 11.9 g/dL (13.5-17.5); INR 1.3 (0.9-1.3); Lymphocytes Absolute Auto 1200 /uL (1100-4500); Lymphocytes Percent Auto 20.7 % (25-40); Mean Corpuscular HGB Conc 33.6 % (30-36); Mean Corpuscular Hemoglobin 30.8 PG (26-34); Mean Corpuscular Volume 91.6 fL (80-100); Monocytes Absolute Auto 600 /uL (0-900); Monocytes Percent Auto 11.2 % (3-14); Neutrophils Absolute Auto 3400 /uL (1500-7000); Neutrophils Percent Auto 60.3 % (50-75); Platelet Count 159 X10^3/uL (150-400); Prothrombin Time 14.6 SECONDS (10.1-12.7); Red Blood Cell Count 3.88 X10^6/uL (4.5-5.9); Red Cell Distribution Width 14.6 % (11.6-14.8); White Blood Cell Count 5.7 X10^3/uL (4.5-11.0)
[2022-09-05 08:30] LABS: Alanine Aminotransferase 16 IU/L (<50); Albumin Globulin Ratio 1.5 (1.0-2.8); Alkaline Phosphatase 65 U/L (38-126); Aspartate Aminotransferase 28 IU/L (17-59); Bilirubin Total 0.7 mg/dL (0.2-1.3); Blood Urea Nitrogen 38 mg/dL (9-20); Calcium 9.3 mg/dL (8.4-10.2); Carbon Dioxide 23 mmol/L (22-32); Chloride 107 mmol/L (98-107); Estimated Glomerular Filt Rate 28 mL/min (>60); Globulin 2.7 g/dL (1.7-4.1); Glucose 100 mg/dL (80-110); HEMOLYSIS < 15 (0-50); Potassium 4.3 mmol/L (3.4-5.1); Sodium 139 mmol/L (137-145); Total Protein 6.7 g/dL (6.3-8.2)
[2022-09-05 09:37] VITALS: BP 157/73; PULSE 64; O2SAT 96
[2022-09-05] MEDS: FLECAINIDE 100 MG TABLET 50 MG PO ×2 (09:37→20:54)
[2022-09-05] MEDS: METFORMIN HCL 500 MG TABLET PO ×2 (09:37→20:54)
[2022-09-05] MEDS: FUROSEMIDE 20 MG TABLET PO (09:37)
--- NOTE | 2022-09-05 15:32 | CM.SWNOTE ---
Addendum entered by Rita Palomares 09/05/22 18:59: Per patient request, DIRECTOR OF SAFETY calls [facility] home and inquires about when patient can view his spouse. Patient endorses he would like to do so soon, DIRECTOR OF SAFETY encourages patient to call [facility] home tomorrow with caregiver to schedule at time where patient can transport him. Rita Palomares, [facility] Original Note: ED DIRECTOR OF SAFETY Note Patient endorses that after speaking with his son, he does not believe that his son Rolly or Sascha will be able to come to [place]. Patient states he has another son Jerrod but he does not have his number or know his whereabouts. DIRECTOR OF SAFETY receives return calls from some of the caregiver agencies but they are not able to start patient anytime soon. Hue at [facility] endorses she is able to meet with patient this afternoon at 1:30pm. Hue meets with patient at bedside and patient agrees to caregiver services. Patient endorses concern for needed PCP f/u appt for medication, concern for the condition of the home due to clutter and concern for where his spouse's body is. It is arranged that patient will start receiving caregiver services through [facility] tomorrow at 12 noon, and almost daily 12-6pm. Patient endorses some confusion as to where his check book is and that his spouse usually managed the finances. Hue endorses her caregiver team can transport patient to PCP and doctor appts and assist with cleaning the home. DIRECTOR OF SAFETY to schedule PCP appt and contact [facility] to find out where spouse is located. DIRECTOR OF SAFETY discusses and sets up HH with [facility] for patient as well. DIRECTOR OF SAFETY informs this [facility] and faxes [facility] H&P and clinicals. DIRECTOR OF SAFETY faxes signed F2F, order and clinicals for [facility] for referral and informs them of patient's new caregiver. DIRECTOR OF SAFETY submits referral for PT, OT, RN, DIRECTOR OF SAFETY and HH aide. DIRECTOR OF SAFETY calls Dr. Pierre's office and schedules patient for PCP appt for Thursday09/10/22 at 3:45pm DIRECTOR OF SAFETY calls Adan michael's office and speaks with a deputy that confirms that patient's spouse is at [facility] and patient's son has been notified of this and confirmed this plan. Officer reports that LE report is pending as is the certificate. Officer reports that if family wants to request records they can do so, and this was reported to patient's son and his . DIRECTOR OF SAFETY calls patient's son Rolly and leaves VM. DIRECTOR OF SAFETY calls Community Crochet Machine Operator Mirza Antonyana and leaves VM regarding patient's current status and new services in place. DIRECTOR OF SAFETY endorses that patient may need support managing next steps. DIRECTOR OF SAFETY reviews this with propellant charge zone assembler and ED provider. Plan: Patient to d/c to home with new caregiver through [facility] tomorrow at 12:00pm, [facility] to f/u with patient regarding new referral, patient to f/u with PCP Dr. Pierre on 09/10/22 and community machine sole leveler to f/u with patient as well. Rita Palomares, EMPLOYEE COMMUNICATIONS INTERN
[2022-09-05] MEDS: WARFARIN 1 MG TABLET 4 MG PO (18:43)
[2022-09-05 20:49] VITALS: BP 157/72; PULSE 69; RESP 18; O2SAT 98
[2022-09-05] MEDS: MIRTAZAPINE 15 MG TABLET PO (20:54)
[2022-09-06] MEDS: MELATONIN 3 MG TABLET PO (03:49)
[2022-09-06 05:38] LABS: INR 1.2 (0.9-1.3); Prothrombin Time 14.3 SECONDS (10.1-12.7)
[2022-09-06] MEDS: FLECAINIDE 100 MG TABLET 50 MG PO (09:53)
[2022-09-06] MEDS: METFORMIN HCL 500 MG TABLET PO (09:53)
[2022-09-06] MEDS: FUROSEMIDE 20 MG TABLET PO (09:53)
--- NOTE | 2022-09-06 10:29 | PC.NURSE ---
Addendum entered by Gabby Herman CNA 09/06/22 11:58: This DIGITIZER brought pt. lunch tray, pt. refused anything on the tray, offered pt. alternatives that ED carries in med room, pt. agreed to sugar free Jell-o. pt. ambulated to the bathroom in room. This DIGITIZER assisted pt. back into hospital bed. pt. is currently eating jell-o. Original Note: DIGITIZER NOTE: This nursing department chairperson Gently woke sleeping pt. and attempted to assist pt. with breakfast. pt. refused what was given and requested ice cream with eyes closed and pt. periodically fell asleep. assisted and encouraged pt. to eat more, offered alternatives and water, pt. refused and continued to fall asleep. Left breakfast at bedside an will monitor. notified AMAIRANI.
[2022-09-06 10:33] VITALS: BP 125/77; PULSE 62; TEMP 36.3; O2SAT 97
[2022-09-06 12:21] VITALS: BP 132/61; PULSE 65; RESP 20; TEMP 36.2; O2SAT 95
== END 2022-09-06 12:24 | disposition home or self-care (01) ==
PROVIDERS: Emergency Medicine; Emergency Provider Emergency Medicine; Family Provider Family Medicine; PCP Family Medicine
DX: R62.7 Adult failure to thrive (principal); Z79.899 Other long term (current) drug therapy; Z79.01 Long term (current) use of anticoagulants
CPT/HCPCS: 36415; 80053; 81015; 85025; 85610; 87086; 99283

== ENCOUNTER 2022-09-06 13:18 | Observation (INO) | payer MEDICARE, BC, SELFPAY ==
[2022-09-06 13:24] VITALS: BP 96/53; PULSE 57; RESP 17; TEMP 36.6; O2SAT 99
--- NOTE | 2022-09-06 13:38 | PC.NURSE ---
Pt was discharged from this ER within the last two hours. [facility] staff who brought him back to his home, immediately return to ED due to the house being unlivable (severe hoarding). Pt is able to transfer self from wheelchair to ER lounge chair. Pt is withdrawn but responds to RN when offered food options. Pt provided with applesauce and milk and is able to feed himself.
[2022-09-06 14:12] VITALS: BP 107/52; PULSE 61; O2SAT 95
[2022-09-06 15:00] LABS: Add Manual Diff / Slide Review NO; Basophils Absolute Auto 100 /uL (0-100); Basophils Percent Auto 1.3 % (0-2); Eosinophils Absolute Auto 500 /uL (0-450); Eosinophils Percent Auto 10.6 % (2-4); Hematocrit 37.9 % (41-53); Hemoglobin 12.7 g/dL (13.5-17.5); Lymphocytes Absolute Auto 800 /uL (1100-4500); Mean Corpuscular HGB Conc 33.5 % (30-36); Mean Corpuscular Hemoglobin 30.9 PG (26-34); Mean Corpuscular Volume 92.3 fL (80-100); Monocytes Absolute Auto 500 /uL (0-900); Monocytes Percent Auto 9.3 % (3-14); Neutrophils Absolute Auto 3200 /uL (1500-7000); Neutrophils Percent Auto 62.8 % (50-75); Platelet Count 157 X10^3/uL (150-400); Red Cell Distribution Width 14.9 % (11.6-14.8); White Blood Cell Count 5.2 X10^3/uL (4.5-11.0)
[2022-09-06 15:16] LABS: Alanine Aminotransferase 19 IU/L (<50); Albumin Globulin Ratio 1.4 (1.0-2.8); Alkaline Phosphatase 76 U/L (38-126); Aspartate Aminotransferase 29 IU/L (17-59); BUN Creatinine Ratio 21.1 (6-22); Bilirubin Total 0.5 mg/dL (0.2-1.3); Blood Urea Nitrogen 40 mg/dL (9-20); Carbon Dioxide 23 mmol/L (22-32); Chloride 104 mmol/L (98-107); Estimated Glomerular Filt Rate 34 mL/min (>60); Globulin 2.9 g/dL (1.7-4.1); Glucose 162 mg/dL (80-110); HEMOLYSIS < 15 (0-50); Sodium 139 mmol/L (137-145); Total Protein 6.9 g/dL (6.3-8.2)
--- NOTE | 2022-09-06 15:28 | ED.GENADULT ---
HPI - General Adult General Chief complaint: Altered Mental Status Stated complaint: social admit Time Seen by Provider: 09/06/22 13:27 Source: other Mode of arrival: Wheelchair History of Present Illness HPI narrative: Patient is a 87-year-old male history of atrial fibrillation on warfarin diabetes presenting after being released from the emergency department after a 48 hours day within 1 hour he returns. He was here starting on September 04 at 7:00 p.m. after he called EMS with inability care for himself. His was found in the home a few days prior by himself. was so supervisor files did driving, cooking as well as all of his medicines. He is unable to care for himself is unable to take medications appropriately. It has been reported that the was a hoarder. EMS reported this on the initial visit. It was arranged for caretakers to be in the home to help him. This was arranged by 80 social work. Caretakers came to pick him up at noon today apparently they walked into house and decided that the house was unlivable EMS agreed. Patient was quickly returned to the ER within an hour of discharge. He has really no complaints. Related Data Home Medications Medication Instructions Recorded Confirmed mirtazapine 15 mg tablet (Remeron) 15 mg PO HS ##0 09/13/10 07/01/22 cimetidine 800 mg tablet 800 mg PO TIDAC ##0 03/15/16 07/01/22 [C[facility]] PRN PRN ##0 05/28/17 07/01/22 ferrous gluconate 236 mg (27 mg 225 mg PO QDAY ##0 05/28/17 07/01/22 iron) tablet methocarbamol 750 mg tablet 750 mg PO Q6HP PRN ##0 05/28/17 07/01/22 nystatin 100,000 unit/gram topical 100,000 unit topical BID ##0 05/28/17 07/01/22 powder (Nystop) promethazine 25 mg tablet 25 mg PO PRN PRN ##0 05/28/17 07/01/22 sucralfate 1 gram tablet 1 gm PO ACHS ##0 05/28/17 07/01/22 triamcinolone acetonide 0.025 % 1 hayes topical ##0 05/28/17 07/01/22 topical cream warfarin 2 mg tablet (Coumadin) PO QDAY ##0 05/28/17 07/01/22 dexamethasone 4 mg tablet 4 mg PO BID 09/16/21 07/01/22 (Decadron) diphenoxylate-atropine 2.5 1 tab PO Q6-8H PRN 09/16/21 07/01/22 mg-0.025 mg tablet metformin 500 mg tablet 500 mg PO BID 09/16/21 07/01/22 omeprazole 40 mg capsule,delayed 40 mg PO BID 09/16/21 07/01/22 release tolterodine 4 mg capsule,extended 4 mg PO DAILY 09/16/21 07/01/22 release 24 hr metoprolol succinate 25 mg 25 mg PO DAILY 07/01/22 07/01/22 tablet,extended release 24 hr Previous Rx's Medication Instructions Recorded benzonatate 100 mg capsule 100 mg PO TID PRN cough #12 caps 01/26/19 (Tessalon Perles) guaifenesin 200 mg/5 mL oral liquid 200 mg (5 mL) PO Q4H PRN 01/26/19 congestion #118 mL diclofenac sodium 1 % topical gel 2 g topical QID #100 grams 01/12/20 (Voltaren Arthritis Pain) bicalutamide 50 mg tablet (Casodex) 50 mg PO DAILY #30 tabs 07/01/22 Allergies Allergy/AdvReac Type Severity Reaction Status Date / Time Penicillins [PENICILLINS] Allergy Severe ANAPHYLAXIS Verified 09/06/22 13:29 shellfish derived Allergy Severe TONGUE Verified 09/06/22 13:29 [SHELLFISH DERIVED] SWELLS, THROAT CLOSES. Review of Systems Review of Systems ROS Unobtainable: All systems reviewed & are unremarkable except as noted in HPI and below Patient History Medical History Atrial fibrillation BPH w urinary obs/LUTS DM type 2 (diabetes mellitus, type 2) Elevated PSA Family history of prostate cancer in father Prostate cancer Spermatocele of epididymis, multiple Urological system complication of procedure UTI (urinary tract infection) Surgical History History of bladder surgery Previous back surgery Social History marital status: household members: spouse occupational status: previously employed Smoking Status: Never smoker alcohol intake: never substance use type: does not use Smoking Status: Never smoker alcohol intake frequency: 0-2 drinks per day Substance Use Type: does not use Exam Initial Vital Signs Initial Vital Signs: Vital Signs Temperature 97.9 F 09/06/22 13:24 Pulse Rate 57 L 09/06/22 13:24 Respiratory Rate 17 09/06/22 13:24 Blood Pressure 96/53 L 09/06/22 13:24 Pulse Oximetry 99 09/06/22 13:24 Oxygen Delivery Method Room Air 09/06/22 13:24 GENERAL: Weak alert 87-year-old male no acute distress HEAD: Atraumatic. Normocephalic. EYES: Pupils equal round and reactive. Extraocular motions intact. No scleral icterus. No injection or drainage. CARDIOVASCULAR: Regular rate and rhythm without murmurs, gallops, or rubs. RESPIRATORY: Clear to auscultation. Breath sounds equal bilaterally. No wheezes, rales, or rhonchi. GASTROINTESTINAL: Abdomen soft, non-tender, nondistended. EXTREMITIES: No edema or joint tenderness. BACK: Nontender without deformity or crepitance. No flank tenderness. NEURO: AOx3. Moving all extremities SKIN: No rash or erythema of visible areas Course Orders Ordered: ED Orders 09/06/22 14:50 CBC Auto Diff [Complete Blood Count AUTO DIFF] Stat CMP [Comprehensive Metabolic Panel] Stat 09/06/22 16:00 UA Complete [Urinalysis and Microscopic] Stat Acetaminophen (Acetaminophen 325 Mg Tablet) 650 mg PO Q6H PRN PRN Reason: Fever/Mild Pain (1-3) Hydrocodone Bitart/Acetaminophen (Hydrocodone/Acet 5/325 Tablet) 1 tab PO Q4HR PRN PRN Reason: Pain, Moderate (4-6) Last Admin: 09/06/22 18:09 Dose: 1 tab Documented By: Benzonatate (Benzonatate 100 Mg Capsule) 100 mg PO TID PRN PRN Reason: cough Bicalutamide (Bicalutamide 50 Mg Tablet) 50 mg PO DAILY [facility] Diclofenac Sodium (Diclofenac 1% Gel 100 Gm) 1 applic TOP QID [facility] Last Admin: 09/06/22 17:39 Dose: Not Given Documented By: MS Enoxaparin Sodium (Enoxaparin 30 Mg/0.3 Ml Syringe) 30 mg SUBCUT DAILY [facility] Famotidine (Famotidine 20 Mg Tablet) 40 mg PO BID [facility] Metformin HCl (Metformin Hcl 500 Mg Tablet) 500 mg PO BID [facility] Methocarbamol (Methocarbamol 500 Mg Tablet) 750 mg PO Q6H PRN PRN Reason: muscle pain Metoprolol Succinate (Metoprolol Er 25 Mg Tablet) 25 mg PO DAILY [facility] Mirtazapine (Mirtazapine 15 Mg Tablet) 15 mg PO BEDTIME [facility] Naloxone HCl (Naloxone 0.4 Mg/Ml Vial) 0.2 mg IV Q2MIN PRN PRN Reason: Opiate Reversal Nf - Tolterodine 4 (Mg Er Capsule) 4 mg PO DAILY [facility] Nf - Triamcinolone Acetonide 0.025 % Cream 1 hayes TOP BID [facility] Nystatin (Nystatin Powder 15gm) 1 applic TOP BID [facility] Ondansetron HCl (Ondansetron 4 Mg Odt) 4 mg PO Q8HR PRN PRN Reason: Nausea And Vomiting Pantoprazole Sodium (Pantoprazole Dr 40 Mg Tablet) 40 mg PO BID [facility] Promethazine HCl (Promethazine 25 Mg Tablet) 25 mg PO PRN PRN PRN Reason: nausea Sucralfate (Sucralfate 1 Gm Tablet) 1 gm PO [facility] Last Admin: 09/06/22 17:39 Dose: Not Given Documented By: MS Warfarin Sodium (Warfarin 1 Mg Tablet) 4 mg PO DAILY@1700 [facility] Last Admin: 09/06/22 18:10 Dose: 4 mg Documented By: MS Discontinued Medications Dexamethasone (Dexamethasone 4 Mg Tablet) 4 mg PO BID [facility] Guaifenesin (Guaifenesin Solution 100 Mg/5 Ml Udc) 200 mg PO Q4H PRN PRN Reason: congestion Vital Signs Vital signs: Vital Signs - 8 hr 09/06/22 13:24 09/06/22 14:12 Temperature 97.9 F Pulse Rate 57 L 61 Respiratory Rate 17 Blood Pressure 96/53 L 107/52 L Pulse Oximetry 99 95 Oxygen Delivery Method Room Air Room Air Medical Decision Making Lab Data 09/06/22 14:50 09/06/22 14:50 Labs: Lab Results 09/06/22 09/06/22 Range/Units 14:50 14:50 WBC 5.2 (4.5-11.0) X10^3/uL RBC 4.10 L (4.5-5.9) X10^6/uL Hgb 12.7 L (13.5-17.5) g/dL Hct 37.9 L (41-53) % MCV 92.3 (80-100) fL MCH 30.9 (26-34) PG MCHC 33.5 (30-36) % RDW 14.9 H (11.6-14.8) % Plt Count 157 (150-400) X10^3/uL Neut % (Auto) 62.8 (50-75) % Lymph % (Auto) 16.0 L (25-40) % [place] % (Auto) 9.3 (3-14) % Eos % (Auto) 10.6 H (2-4) % Baso % (Auto) 1.3 (0-2) % Neut # (Auto) 3200 (2739-4778) /uL Lymph # (Auto) 800 L (6944-3824) /uL [place] # (Auto) 500 (0-900) /uL Eos # (Auto) 500 H (0-450) /uL Baso # (Auto) 100 (0-100) /uL Sodium 139 (137-145) mmol/L Potassium 4.0 (3.4-5.1) mmol/L Chloride 104 (98-107) mmol/L Carbon Dioxide 23 (22-32) mmol/L BUN 40 H (9-20) mg/dL Creatinine 1.90 H (0.66-1.25) mg/dL Estimated GFR 34 L (>60) mL/min BUN/Creatinine Ratio 21.1 (6-22) Glucose 162 H (80-110) mg/dL Calcium 9.0 (8.4-10.2) mg/dL Total Bilirubin 0.5 (0.2-1.3) mg/dL AST 29 (17-59) IU/L ALT 19 (<50) IU/L Alkaline Phosphatase 76 (38-126) U/L Total Protein 6.9 (6.3-8.2) g/dL Albumin 4.0 (3.5-5.0) g/dL Globulin 2.9 (1.7-4.1) g/dL Albumin/Globulin Ratio 1.4 (1.0-2.8) MDM Narrative Medical decision making narrative: Failed attempt at placement and disposition from the emergency department. Patient was returned within 1 hour for unsafe living conditions and failure to thrive. Family has been previously contacted they live in [place] apparently not making any effort to come to [place] any time soon. At this time significant attempt from emergency department to have a safe plan and discharged home but failed immediately. Dr. Herndon accepts Discharge Plan Departure Patient Disposition: Admitted As Inpatient Clinical Impression: Failure to thrive in adult, Family history of malignant neoplasm of prostate in father Admit Date/Time: 09/06/22 15:34 Admit Provider: Donna Herndon
[2022-09-06 16:00] VITALS: BP 110/61; BP 157/67; PULSE 56; PULSE 63; RESP 16; TEMP 36.2; O2SAT 95; O2SAT 98
--- NOTE | 2022-09-06 16:16 | PC.NURSE ---
1500: This RN assessed pt's posterior. Posterior skin is intact with redness not sacral area. Pt has skin tear on L hand that was cleaned and dressed by this RN.
--- NOTE | 2022-09-06 16:20 | PM.HP.1 ---
History of Present Illness History of Present Illness Date Patient Seen: 09/06/22 Chief complaint: social admit Narrative: Pt is an 87yo man with atrial fibrillation on chronic anticoagulation, DM type 2, and GERD who presented due to inability to care for himself at home. History was limited from the patient, who interacted minimally during the encounter. Majority of history obtained from the ER provider. The pt reportedly lived independently at home with his . They slept in different bedrooms, and interacted minimally. They are hoarders, and their home is completely full of things. He found that his had in his home on 09/02, after he hadn't heard from her in several days and went to check on her. He was unable to care for himself at home since her passing. She managed his medications and prepared his food for him. He contacted EMS due to not feeling he could care for himself, and was brought to the ED. The pt remained in the ED for more than 24hrs, trying to arrange for caregiver support at home. He was ultimately discharged with a caregiver, who would be with him for 5-6 hours daily. The caregivers brought him home, and determined immediately, with EMS corroboration, that his house was unlivable in its current state. He was then brought back to the ED. The pt currently reports that he is feeling okay. He reports mild low back discomfort and abdominal discomfort. He denies any cassie pain, change in his bowel habits, dysuria, nausea, vomiting, chest pain, SOB, cough. He states he has not urinated since last night. He states that he is not interested in IVF, and really wants to be bothered as little as possible. [facility] Medical History Atrial fibrillation BPH w urinary obs/LUTS DM type 2 (diabetes mellitus, type 2) Elevated PSA Family history of prostate cancer in father Prostate cancer Spermatocele of epididymis, multiple Urological system complication of procedure UTI (urinary tract infection) Surgical History History of bladder surgery Previous back surgery Social History marital status: household members: spouse occupational status: previously employed Smoking Status: Never smoker alcohol intake: never substance use type: does not use Meds Home Medications and Allergies Home Medications Medication Instructions Recorded Confirmed Type mirtazapine 15 mg tablet (Remeron) 15 mg PO HS ##0 09/13/10 07/01/22 History cimetidine 800 mg tablet 800 mg PO TIDAC ##0 03/15/16 07/01/22 History [CINDY-SELTZER HEARTBU] PRN PRN ##0 05/28/17 07/01/22 History ferrous gluconate 236 mg (27 mg 225 mg PO QDAY ##0 05/28/17 07/01/22 History iron) tablet methocarbamol 750 mg tablet 750 mg PO Q6HP PRN ##0 05/28/17 07/01/22 History nystatin 100,000 unit/gram topical 100,000 unit topical BID ##0 05/28/17 07/01/22 History powder (Nystop) promethazine 25 mg tablet 25 mg PO PRN PRN ##0 05/28/17 07/01/22 History sucralfate 1 gram tablet 1 gm PO ACHS ##0 05/28/17 07/01/22 History triamcinolone acetonide 0.025 % 1 hayes topical ##0 05/28/17 07/01/22 History topical cream warfarin 2 mg tablet (Coumadin) PO QDAY ##0 05/28/17 07/01/22 History benzonatate 100 mg capsule 100 mg PO TID PRN cough #12 caps 01/26/19 07/01/22 Rx (Tessalon Perles) guaifenesin 200 mg/5 mL oral liquid 200 mg (5 mL) PO Q4H PRN 01/26/19 07/01/22 Rx congestion #118 mL diclofenac sodium 1 % topical gel 2 g topical QID #100 grams 01/12/20 07/01/22 Rx (Voltaren Arthritis Pain) dexamethasone 4 mg tablet 4 mg PO BID 09/16/21 07/01/22 History (Decadron) diphenoxylate-atropine 2.5 1 tab PO Q6-8H PRN 09/16/21 07/01/22 History mg-0.025 mg tablet metformin 500 mg tablet 500 mg PO BID 09/16/21 07/01/22 History omeprazole 40 mg capsule,delayed 40 mg PO BID 09/16/21 07/01/22 History release tolterodine 4 mg capsule,extended 4 mg PO DAILY 09/16/21 07/01/22 History release 24 hr bicalutamide 50 mg tablet (Casodex) 50 mg PO DAILY #30 tabs 07/01/22 07/01/22 Rx metoprolol succinate 25 mg 25 mg PO DAILY 07/01/22 07/01/22 History tablet,extended release 24 hr Allergies Allergy/AdvReac Type Severity Reaction Status Date / Time Penicillins [PENICILLINS] Allergy Severe ANAPHYLAXIS Verified 09/06/22 13:29 shellfish derived Allergy Severe TONGUE Verified 09/06/22 13:29 [SHELLFISH DERIVED] SWELLS, THROAT CLOSES. Exam Vital Signs (past 8 hours): - 09/06/22 13:24 09/06/22 14:12 09/06/22 16:00 Temperature 97.9 F Pulse Rate 57 L 61 56 L Respiratory Rate 17 16 Blood Pressure 96/53 L 107/52 L 157/67 H Pulse Oximetry 99 95 95 Oxygen Delivery Method Room Air Room Air Room Air Oxygen Delivery Method Room Air Narrative Exam Narrative: Gen: NAD, laying comfortably in bed, flat affect, answering questions appropriately with as brief a response as possible HEENT: normocephalic, atraumatic, sclera clear CV: irregularly irregular rhythm, no murmurs, distant heart sounds Resp: clear to auscultation bilaterally Abd: soft, mild tenderness lower quadrants without rebound/guarding/rigidity, normoactive bowel sounds Ext: no edema Neuro: A&Ox3, slow responses to questions, no gross deficits Objective Labs 09/06/22 14:50 09/06/22 14:50 Labs: Laboratory Results - last 24 hr 09/06/22 09/06/22 14:50 14:50 WBC 5.2 RBC 4.10 L Hgb 12.7 L Hct 37.9 L MCV 92.3 MCH 30.9 MCHC 33.5 RDW 14.9 H Plt Count 157 Neut % (Auto) 62.8 Lymph % (Auto) 16.0 L [place] % (Auto) 9.3 Eos % (Auto) 10.6 H Baso % (Auto) 1.3 Neut # (Auto) 3200 Lymph # (Auto) 800 L [place] # (Auto) 500 Eos # (Auto) 500 H Baso # (Auto) 100 Sodium 139 Potassium 4.0 Chloride 104 Carbon Dioxide 23 BUN 40 H Creatinine 1.90 H Estimated GFR 34 L BUN/Creatinine Ratio 21.1 Glucose 162 H Calcium 9.0 Total Bilirubin 0.5 AST 29 ALT 19 Alkaline Phosphatase 76 Total Protein 6.9 Albumin 4.0 Globulin 2.9 Albumin/Globulin Ratio 1.4 Assessment & Plan Assessment & Plan narrative: Pt is an 87yo man with atrial fibrillation on chronic anticoagulation, DM type 2, and GERD who presented due to inability to care for himself at home. Pt has a very flat affect during our encounter, and is not really interested in communicating much. He is A&Ox3, however, and does not show any evidence of significant dementia, with appropriate answers to all questions. 1) Inability care for self at home/failure to thrive: Since the passing of his , who reportedly took care of his medications and food preparations. Caregivers and EMS did not feel the pt could live in his current home due to its state, with his being a hoarder. - Gently encourage PO intake 2) Atrial fibrillation: Stable. - Continue home Coumadin, Metoprolol 3) DM Type 2: BS good in the ED - Continue home Metformin - Hold sugar checks as the pt is not interested in excess intervention 4) GERD: Stable - Continue home Cimetidine, Sucralfate 5) Depression: - Continue home Mirtazapine FEN: Carb control diet DVT ppx: Lovenox Code: DNR Dispo: Pt cannot return home due to its current state. He is not interested in interventions, and is more requesting comfort care. He doesn't really have any qualifying diagnoses for hospice at this point. His family, contacted from the ED, at this point is not interested in coming to assist. Will discuss with them again tomorrow. He will require SNF placement, PT consulted, however uncertain what his finances are. Will discuss with care management tomorrow.
[2022-09-06 16:45] VITALS: BP 128/54; PULSE 96; RESP 18; TEMP 36.3; O2SAT 96
[2022-09-06 16:55] VITALS: BMI 25.9
--- NOTE | 2022-09-06 17:43 | PC.NURSE ---
Pt declining medications at this time. Dr Herndon at bedside and updated on pt declining. Pt arrived via gurney from ED, moved to bed via slide board, pt very tired at this time, states I just want to sleep. Oriented to room and call light system, bed low and locked, call light within reach, bed alarm on for safety, will continue to monitor.
[2022-09-06] MEDS: HYDROCODONE/ACET 5/325 TABLET 1 TAB PO (18:09)
[2022-09-06] MEDS: WARFARIN 1 MG TABLET 4 MG PO (18:10)
[2022-09-06 20:30] VITALS: BP 130/86; PULSE 84; RESP 18; TEMP 36.3; O2SAT 96
[2022-09-07] VITALS: BP 160/85; PULSE 79; RESP 18; TEMP 36.2; O2SAT 98
[2022-09-07] MEDS: HYDROCODONE/ACET 5/325 TABLET 1 TAB PO (02:42)
[2022-09-07] MEDS: methocarbamoL 500 MG TABLET 750 MG PO (02:42)
[2022-09-07] MEDS: ONDANSETRON 4 MG ODT PO (02:42)
[2022-09-07 02:45] LABS: Appearance Urine UA CLEAR; Bilirubin Urine UA NEGATIVE (NEGATIVE); Color Urine UA YELLOW; Glucose Urine UA NEGATIVE (Negative); Ketones Urine UA NEGATIVE (NEGATIVE); Leukocyte Esterase Urine UA NEGATIVE (NEGATIVE); Nitrite Urine UA NEGATIVE (Negative); Occult Blood Urine UA NEGATIVE (Negative); Protein Urine UA NEGATIVE (Negative); Specific Gravity Urine UA 1.015 (1.000-1.035); Urobilinogen Urine UA 0.2 E.U./dL (0.2)
[2022-09-07 02:59] LABS: Bacteria Urine None Seen; Culture Indicated Urine Cult Not Indicated; RBC Urine None Seen (0-5/HPF); Squamous Epithelial Cell Urine None Seen (0-5/HPF); Urine Comments Microscopic Normal; WBC Urine None Seen (0-5/HPF)
[2022-09-07 08:00] VITALS: BP 122/86; PULSE 69; RESP 17; TEMP 35.7; O2SAT 100
[2022-09-07 08:44] VITALS: BP 122/86; PULSE 69
[2022-09-07] MEDS: METOPROLOL ER 25 MG TABLET PO (08:44)
[2022-09-07] MEDS: SUCRALFATE 1 GM TABLET PO ×4 (08:44→21:18)
[2022-09-07] MEDS: METFORMIN HCL 500 MG TABLET PO ×2 (08:47→21:18)
[2022-09-07] MEDS: FAMOTIDINE 20 MG TABLET 40 MG PO ×2 (08:47→21:18)
[2022-09-07] MEDS: BICALUTAMIDE 50 MG TABLET PO (08:47)
[2022-09-07] MEDS: PANTOPRAZOLE DR 40 MG TABLET PO ×2 (08:48→21:18)
[2022-09-07] MEDS: ENOXAPARIN 30 MG/0.3 ML SYRINGE SUBCUT (08:49)
[2022-09-07 09:00] VITALS: PULSE 64
[2022-09-07] MEDS: NYSTATIN POWDER 15GM 1 APPLIC TOP ×2 (09:36→21:15)
[2022-09-07] MEDS: DICLOFENAC 1% GEL 100 GM 1 APPLIC TOP ×4 (09:38→21:17)
--- NOTE | 2022-09-07 10:53 | CM.DPNOTE ---
CM team has attempted to see patient 4 times this am. He has been on the phone continuously attempting to coordinate his 's . The Dk's home called CM to see if they could come up and speak with patient in person tomorrow, but informed by BS AMAIRANI Edmond that they are coming today. CM team will defer assessment until patient has had time to arrange the .
--- NOTE | 2022-09-07 13:10 | P.PN_ITS ---
Subjective Subjective Date Patient Seen: 09/07/22 Interval history: The pt is significantly more alert and conversant this morning. He reports feeling achy all over but otherwise denies concerns. He states that he has been in bed for the past week at home, and feels this is contributing to his aching. He does not currently feel it would be safe to return to his home, due to its condition and his ambulation unsteadiness. Exam Vital Signs (past 8 hours): - 09/07/22 08:44 09/07/22 08:00 09/07/22 09:00 Temperature 96.3 F L Pulse Rate 69 69 64 Respiratory Rate 17 Blood Pressure 122/86 122/86 Pulse Oximetry 100 Oxygen Flow Rate 0 Oxygen Delivery Method Room Air Oxygen Flow Rate 0 Narrative Exam Narrative: Gen: NAD, sitting comfortably in bed, appears well, animated CV: irregularly irregular rhythm, normal rate Resp: clear to auscultation bilaterally Abd: soft, nontender, nondistended Ext: no edema Objective Labs 09/06/22 14:50 09/06/22 14:50 Labs: Laboratory Results - last 24 hr 09/06/22 09/06/22 09/07/22 14:50 14:50 02:25 WBC 5.2 RBC 4.10 L Hgb 12.7 L Hct 37.9 L MCV 92.3 MCH 30.9 MCHC 33.5 RDW 14.9 H Plt Count 157 Neut % (Auto) 62.8 Lymph % (Auto) 16.0 L [place] % (Auto) 9.3 Eos % (Auto) 10.6 H Baso % (Auto) 1.3 Neut # (Auto) 3200 Lymph # (Auto) 800 L [place] # (Auto) 500 Eos # (Auto) 500 H Baso # (Auto) 100 Sodium 139 Potassium 4.0 Chloride 104 Carbon Dioxide 23 BUN 40 H Creatinine 1.90 H Estimated GFR 34 L BUN/Creatinine Ratio 21.1 Glucose 162 H Calcium 9.0 Total Bilirubin 0.5 AST 29 ALT 19 Alkaline Phosphatase 76 Total Protein 6.9 Albumin 4.0 Globulin 2.9 Albumin/Globulin Ratio 1.4 Urine Color Yellow Urine Appearance Clear Urine pH 6.0 Ur Specific [place] 1.015 Urine Protein Negative Urine Glucose (UA) Negative Urine Ketones Negative Urine Occult Blood Negative Urine Nitrate Negative Urine Bilirubin Negative Urine Urobilinogen 0.2 Ur Leukocyte Esterase Negative Urine RBC None seen Urine WBC None seen Ur Squamous Epith Cells None seen Urine Bacteria None seen Ur Culture Indicated? Cult not indicated Micro UA Comment Microscopic normal PFSH Medical History Atrial fibrillation BPH w urinary obs/LUTS DM type 2 (diabetes mellitus, type 2) Elevated PSA Family history of prostate cancer in father Prostate cancer Spermatocele of epididymis, multiple Urological system complication of procedure UTI (urinary tract infection) Surgical History History of bladder surgery Previous back surgery Social History marital status: household members: spouse occupational status: previously employed Smoking Status: Never smoker alcohol intake: never substance use type: does not use Assessment & Plan Assessment & Plan narrative: Pt is an 87yo man with atrial fibrillation on chronic anticoagulation, DM type 2, and GERD who presented due to inability to care for himself at home.? Pt is much more animated than yesterday, answering all questions appropriately although circumferentially, with likely only minimal dementia. 1)? Inability care for self at home/unsafe living environment:? Since the passing of his , who reportedly took care of his medications and food preparations.? Caregivers and EMS did not feel the pt could live in his current home due to its state, with his being a hoarder.? - Encourage PO intake - Care management to contact APS today to report home - Discussed dispo issues with the pt today. He does not feel it is safe to return home. Discussed that Medicare will not pay for placement as the pt does not have a qualifying diagnosis to keep him in the hospital. The pt is quite frustrated with this. Care management will discuss dispo with his son, Rolly, who is involved as well. Rolly is living in [facility], and cannot leave emergently due to his work demands. Financial constraints could be a large issue. - PT consulted 2)? Atrial fibrillation:? Stable. - Continue home Coumadin, Metoprolol 3)? DM Type 2:? BS good in the ED - Continue home Metformin - Hold sugar checks as the pt is not interested in excess intervention 4)? GERD:? Stable - Continue home Cimetidine, Sucralfate 5)? Depression: - Continue home Mirtazapine FEN:? Carb control diet DVT ppx:? Lovenox Code:? DNR. Pt does express desire for interventions such as antibiotics, IVF if indicated today.
--- NOTE | 2022-09-07 14:07 | CM.DANOTE ---
Addendum entered by Carrie Munoz R.N. 09/07/22 14:50: @[id number] CM team recieved call back from Rolly Rutledge [phone] who confirms he is step son to patient. He outlines challenges working on of his mother from [place], but [facility] 1. Clean up the house with one of their associate companies who clean homes after /hoarders. 2. To clean the house for safe entry into the home to attain legal documents such as identifying certificates for his mom ( on Thursday, not extracted from the home by the Fire Department due to hoarding until Thursday,according to Rolly [employer] Dept. cannot enter home to attain documents due to home being condemmed). Rolly relays that his step dad has lived only upstairs, and his mom lived downstairs, but provided meals for his dad and anthony them upstairs. After 3 days he became hungry and went downstairs finding Rolly's mom (patients ) and called 911. According to Rolly, the body could not be physically extracted due to hoarding. Rolly relays that his step dad has told him I think I have had a stroke because he could no longer think clearly. oRlly is open to MANAGER TECHNICAL SERVICES support and guidance. CM encouraged Rolly to seek out an Elder Care Attourney to help manage legal documents, end of life processes and assist with allocation of assets for life care planning with patient. He agrees that this may help, as he cannot rely upon patient or his brothers to help. Rolly offers that there is no one else to assist as patient, to his knowledge has no children of his own. Rolly offered CM MANAGER TECHNICAL SERVICES desk phone number to help facilitate a safe discharge plan. Original Note: Reviewed chart with existing information, and patient discussed in multidisciplinary rounds this morning. Met with patient and introduced to care coordination and discharge planning. They agree to assessment. Pt is a 87 Y/O who arrived back in ED after former failed DC from ED to home. Several attempts to see patient and perform CM assessment this am, but patient has been on the phone continuously with home attempting to coordinate ?s process. According to reports, at home recently and was found in the home after . According to reports was a hoarder, but provided all basic ADL care for patient prior to her . CM and Dr. Dominguez to bedside to assess patient at 1200. Patient relays challenges in coordinating processes for and long distance communications with son Rolly who owns an HVAC company outside of [place]. Patient agrees to have CM call son. Call to step son Rolly at [phone], no answer. VM left and requested return call to [phone] Dominguez, APS report is required. Filed on line with existing information reference number [id number]. State of the home is unknown, and APS has not yet returned call to desk phone [phone]. No MANAGER TECHNICAL SERVICES is available today. There will be MANAGER TECHNICAL SERVICES staff available tomorrow to continue navigating. Patient is alert, responsive approriately to all questions, but fine level mental health assessment, such as depression or dementia are unable to be assessed today. Given recent circumstances, patient may benefit from psychiatric evaluation. From prior evaluation done 09/05/22 [facility] were to begin services tomorrow at 1200. Call to [facility] [phone] and spoke to Yasmin who offers that they cannot provide services because the house is ?unfit?. According to Yasmin, step leatha is trying to find someone to go in and clean the house. CM team following for progression of care. Discharge Planning/Care Management Advanced directive, confirm from FAMILY Start: 09/06/22 17:03 Freq: Q24H Status: Active Protocol: Document 09/06/22 17:03 MS (Rec: 09/06/22 17:46 MS [id number]) Advance Directive, confirm on record Time 17:46 Person contacted Patient Copy received Yes CM Discharge Assessment Start: 09/07/22 13:31 Freq: Status: Active Protocol: Document 09/07/22 13:32 BQ (Rec: 09/07/22 13:40 BQ [id number]) Discharge Planning Assessment Assigned Riding Double Carrie Munoz RN DPOA/Assigned Designee Name Rolly Rutledge Contact Information [phone] Advance Directives? Yes Advance Directives on File No History Provided By Patient,Medical Record Has Patient been admitted in last 30 No days? Prior Living Arrangements House Household Members spouse Type of transporation used prior to Relies on Others admit Independent with ADL's No Is patient alert and oriented? Yes Needs Assistance With Bathing,Meal Prep,Managing Medications,Home Chores / Shopping Caregiver for Another No Clinicals Faxed No Comment Application packet to bedside Patient/Family Preference Longterm Facility Barriers to Discharge Yes Comment 1. Medical necessity for paid SNF benefits 2. Support for DC plan 3. APS for home safety evaluation Discharge Plan Longterm Facility Community Services Social Work Referrals Initiated Longterm,Medicaid Application,Other Additional Comment [facility] If patient plan is SNF: Has PASSR been Yes completed? Medicare Choice List Provided Yes Medicare choice list reviewed on patient electronic tablet with Whiteboard Updated in Patient Room with Yes name and ext. # of [facility] Review Status In Process Next Review Type Continued Stay Review
--- NOTE | 2022-09-07 14:24 | PT-IP ANOTE ---
I spent approx 20 min talking to Alan and attempting to get him up and moving. He had been up and ambulated to the bathroom with fww with nursing prior to was fatigued. He is grieving the loss of his and it is difficult for him to make decisions about his care at this time but he mentioned he would like a assisted living facility. PT to attempt to work with him tomorrow.
--- NOTE | 2022-09-07 15:34 | PT-IP ANOTE ---
pt agreed to PT at a later time in afternoon so initial evaluation was completed
--- NOTE | 2022-09-07 15:52 | PT.IIE ---
Surgical History (Last Reviewed 07/01/22 @ 16:53 by Aurelia Benitez MD) History of bladder surgery Previous back surgery Medical History (Last Reviewed 09/05/22 @ 01:52 by Tre Vazquez DO) Atrial fibrillation BPH w urinary obs/LUTS DM type 2 (diabetes mellitus, type 2) Elevated PSA Family history of prostate cancer in father Prostate cancer Spermatocele of epididymis, multiple Urological system complication of procedure UTI (urinary tract infection) Physical Therapy Inpatient Evaluation/Re-Eval M1 PT/OT-IP Prior Functional Status Start: 09/07/22 12:45 Freq: NEEDED Status: Active Protocol: Document 09/07/22 15:35 [facility] (Rec: 09/07/22 15:51 [facility] [id number]) Medical Review Prior Functional Status Medical History Reviewed Yes Diet/Fluid Consistency Regular Communication communication with nursing prior to PT eval Activities of Daily Living and IADL's pt's had taken care of meal prep and giving Alan his medications, pt uses a fww and has very limited mobility Social History Household Members spouse Living Arrangements House Home Equipment Front Wheel Walker Additional Social History Comment 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 PT-IP Current Condition Start: 09/07/22 12:45 Freq: NEEDED Status: Active Protocol: Document 09/07/22 15:35 [facility] (Rec: 09/07/22 15:51 [facility] [id number]) Physical Therapy Current Condition Current Condition Evaluation Date 09/07/22 Treatment Diagnosis social admit Onset Date 09/06/22 M3 PT-IP Subjective Start: 09/07/22 12:45 Freq: NEEDED Status: Active Protocol: Document 09/07/22 15:35 [facility] (Rec: 09/07/22 15:51 [facility] [id number]) Subjective Physical Therapy Visit Type Type Initial Evaluation Visit Start Time 15:00 Visit Stop Time 15:30 Total Visit Minutes 30 Notes I had attempted eval earlier in the day but Alan had reported he was too tired, he notified me he would like to work with PT at this time Physical Therapy Visit Comments Patient Comments pt is under a great deal of stress and trying to process his 's . He states she did everything for him and he is still in shock and not sure what he is going to do Therapy Pain Assessment Pain When Pain Assessed At Rest Pain Present Pain Present Pain Reported Location Neck Intensity 4 M4 PT-IP Mobility and Gait Start: 09/07/22 12:45 Freq: NEEDED Status: Active Protocol: Document 09/07/22 15:35 [facility] (Rec: 09/07/22 15:51 [facility] [id number]) PT-Bed Mobility Assessment Rolling Type of Rolling Roll to Left Level of Assist Independent Supine to Sit Supine to Sit Independent Sit to Supine Sit to Supine Contact Guard Assistance Scooting Scooting to Edge of Bed Contact Guard Assistance Scooting Up and Down in Bed Independent PT-Transfer Assessment Sit to and From Stand Sit to and from Stand Contact Guard Assistance Equipment Transfer Assistive Device Gait Belt,Front Wheeled Walker Orthotic/Prosthetic Devices or Brace: No Transfers Transfer Destination Bed Transfer Technique ambulation Transfer Ability Level of Assist Contact Guard Assistance Comments Mobility Comments pt was able to move independently in bed and transfer Ind to edge of bed. He was CGA for sit-stand with fww. Pt notes c/o both neck and LBP and states he is bent forward because it is too difficult to straighten up Gait Assessment Gait Gait Assistance Required: Contact Guard Assist Distance (Feet) 10 Able to Maintain Weight Bearing Status Yes During Gait Assistive Devices Assistive Device Gait Belt,Front Wheeled Walker Orthotic/Prosthetic Devices or Brace: No Gait Deviations General Gait Pattern Decreased Stride Length,Flexed Trunk,Step-to Gait Factors Limiting Gait Function Factors Limiting Gait Function Decreased Strength,Limited Range of Motion,Pain Comments Gait Comments pt ambulated with FWW with SBA , he is slow and is flexed foward with his trunk and is limited by both weakness and pain PT-Balance Assessment Sitting Balance and Reactions Static Sitting Balance Ability Good Dynamic Sitting Balance Ability Good Standing Balance and Reactions Static Standing Balance Ability Fair Dynamic Standing Balance Ability Fair M5 PT-IP Objective Assessments Start: 09/07/22 12:45 Freq: NEEDED Status: Active Protocol: Document 09/07/22 15:35 [facility] (Rec: 09/07/22 15:51 [facility] [id number]) Orientation Orientation/Cognition Level of Alertness Alert Comments pt is grieving and is talking about his grief, he may benefit from further testing on mental state. His was gone for approx 3 days before he went to check on her. He is confused about the details of her Gross Range of Motion Upper Extremity ROM Assessment Bilaterally Impaired Lower Extremity ROM Assessment Bilaterally Impaired Strength Upper Extremity Strength Assessment Bilaterally Impaired Lower Extremity Strength Assessment Bilaterally Impaired Comments Strength Comments forward flexed trunk, forward head position and decreased AROM and strength of the UE/LE Coordination Assessment Gross Coordination Gross Coordination WNL Sensation Assessment Sensation Gross Sensation WNL Muscle Tone Muscle Tone WNL Yes M7 PT-IP Assessment and Plan Start: 09/07/22 12:45 Freq: NEEDED Status: Active Protocol: Document 09/07/22 15:35 [facility] (Rec: 09/07/22 15:51 [facility] [id number]) PT Summary Assessment and Plan Potential Rehabilitation Potential Excellent Status of Condition at Evaluation Stable Summary Impairments Pain,Strength,Activity Tolerance Assessment Summary Alan is a 87 year old male who found his after she had been gone approx 3 days. She was his primary animal care taker and made all his meals and did the shopping for him. He did ambulate with a fww but it sounds like this was very minimal. He and his lived on different floors of the house. Per reports his was a hoarder and paramedics could not remove her body initially due to too many obstacles in the house. The house has been deemed condemmed. Alan at this point is grieving and is not able to function on his own and is not able to return home until a cleaning company has removed items from the house to make it livable. With eval today Alan was able to demonstrate Ind bed mobility and CGA transfers. He was CGA for gait and has gait deviations including a flexed trunk and forward neck due to pain and weakness. He is a fall risk and needs assistance . The question is PENITENTIARY vs SNF and pt would like to return home with assistance once his house is ready. Goals Transfer Goal Independent Gait Goal Standby Assistance Gait Distance 50 feet Frequency of Treatment Frequency Of Treatment Once a Day Treatment Plan Physical Therapy Treatment Plan Transfer Training,Gait Training Recommendations To Nursing Amount of Assist Needed 1 Person Assist Discharge Recommendations Other Discharge Recommendations [facility] verses SNF Transportation Needs at Discharge Wheelchair/Cabulance
[2022-09-07 16:00] VITALS: BP 125/57; PULSE 64; RESP 16; TEMP 35.9; O2SAT 99
[2022-09-07] MEDS: WARFARIN 1 MG TABLET 4 MG PO (17:41)
[2022-09-07 20:00] VITALS: BP 130/71; PULSE 70; RESP 18; TEMP 36.6; O2SAT 98
[2022-09-07] MEDS: MIRTAZAPINE 15 MG TABLET PO (21:18)
[2022-09-07] MEDS: SODIUM CHLORIDE 0.9% FLUSH 10 ML IV (21:18)
[2022-09-08 02:51] VITALS: BP 169/79; PULSE 64; RESP 18; TEMP 36.4; O2SAT 100
[2022-09-08 08:07] VITALS: BP 145/69; PULSE 54; RESP 15; TEMP 36.6; O2SAT 94
[2022-09-08 08:34] LABS: INR 1.6 (0.9-1.3); Prothrombin Time 18.5 SECONDS (10.1-12.7)
[2022-09-08 08:36] LABS: PTT Partial Thromboplastin Tim 36 SECONDS (26-36)
[2022-09-08 08:39] LABS: BUN Creatinine Ratio 28.9 (6-22); Blood Urea Nitrogen 46 mg/dL (9-20); Calcium 8.7 mg/dL (8.4-10.2); Carbon Dioxide 24 mmol/L (22-32); Chloride 106 mmol/L (98-107); Estimated Glomerular Filt Rate 42 mL/min (>60); Glucose 95 mg/dL (80-110); HEMOLYSIS 19 (0-50); Potassium 4.2 mmol/L (3.4-5.1); Sodium 136 mmol/L (137-145)
[2022-09-08 08:41] VITALS: BP 145/69; PULSE 54
[2022-09-08] MEDS: METOPROLOL ER 25 MG TABLET PO (08:41)
[2022-09-08] MEDS: PANTOPRAZOLE DR 40 MG TABLET PO ×2 (08:41→23:52)
[2022-09-08] MEDS: METFORMIN HCL 500 MG TABLET PO ×2 (08:41→23:53)
[2022-09-08] MEDS: FAMOTIDINE 20 MG TABLET 40 MG PO (08:41)
[2022-09-08] MEDS: BICALUTAMIDE 50 MG TABLET PO (08:41)
[2022-09-08] MEDS: SUCRALFATE 1 GM TABLET PO ×4 (08:41→23:52)
[2022-09-08] MEDS: ENOXAPARIN 30 MG/0.3 ML SYRINGE SUBCUT (08:41)
[2022-09-08] MEDS: DICLOFENAC 1% GEL 100 GM 1 APPLIC TOP ×4 (08:42→23:53)
[2022-09-08] MEDS: NYSTATIN POWDER 15GM 1 APPLIC TOP (08:42)
[2022-09-08] MEDS: SODIUM CHLORIDE 0.9% FLUSH 10 ML IV ×2 (08:43→23:53)
[2022-09-08 09:30] VITALS: PULSE 62
--- NOTE | 2022-09-08 11:17 | OT.IP.EVAL ---
Past Medical History (Last Reviewed 09/05/22 @ 01:52 by Tre Vazquez DO) Atrial fibrillation BPH w urinary obs/LUTS DM type 2 (diabetes mellitus, type 2) Elevated PSA Family history of prostate cancer in father Prostate cancer Spermatocele of epididymis, multiple Urological system complication of procedure UTI (urinary tract infection) Surgical History (Last Reviewed 07/01/22 @ 16:53 by Aurelia Benitez MD) History of bladder surgery Previous back surgery Occupational Therapy Inpatient Evaluation/Re-Eval M1 PT/OT-IP Prior Functional Status Start: 09/07/22 12:45 Freq: NEEDED Status: Active Protocol: Document 09/08/22 13:25 [facility] (Rec: 09/08/22 13:48 [facility] [id number]) Medical Review Prior Functional Status Medical History Reviewed Yes Diet/Fluid Consistency Regular Communication pt is an effective verbal communicator Mobility and Gait Pt states that he ambulates with a SPC at time.s Activities of Daily Living and IADL's pt's had taken care of meal prep and giving Alan his medications, pt uses a SPC and has very limited mobility Social History Household Members spouse Living Arrangements House Home Equipment Straight Cane Employment Status Retired Additional Social History Comment 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 OT-IP Current Condition Start: 09/08/22 13:24 Freq: Status: Active Protocol: Document 09/08/22 13:25 [facility] (Rec: 09/08/22 13:48 [facility] [id number]) Occupational Therapy Current Condition Current Condition Evaluation Date 09/08/22 Treatment Diagnosis Failure to thrive Diagnosis Onset Date 09/06/22 M3 OT- IP Subjective and Pain Start: 09/08/22 13:24 Freq: Status: Active Protocol: Document 09/08/22 13:25 [facility] (Rec: 09/08/22 13:48 [facility] [id number]) OT- Subjective Occupational Therapy Visit Type Type Initial Evaluation Visit Start Time 10:22 Visit Stop Time 11:17 Total Visit Minutes 55 Notes Pt is loquacious and needs verbal cues before someone can exit the room. OT Pain Assessment Pain When Pain Assessed At Rest Pain Present Pain Present Denied Pain M4 OT- IP ADL's Start: 09/08/22 13:24 Freq: Status: Active Protocol: Document 09/08/22 13:25 [facility] (Rec: 09/08/22 13:48 [facility] [id number]) OT HVB-Rxit-Chpcyxk General Evaluation Self-Feeding Ability Independent Comments OT Self-Feeding Comments pt was able to feed himself breakfast OT ADL-Grooming General Evaluation Grooming Ability Standby Assistance Areas Needing Assistance Face Washing Comments OT Grooming Comments standing at sink OT ADL-Oral Care General Eval Oral Care Ability Standby Assistance Areas of Assistance Brushing Teeth Comments Oral Care Comments standing at sink OT ADL-Dressing Comments OT Dressing Comments not performed OT ADL-Toileting General Evaluation Toileting Ability Standby Assistance Comments OT Toileting Comments pt sat on toilet to simulate toileting OT ADL-Bathing Comments OT Bathing Comments not performed M5 OT- IP IADL's Start: 09/08/22 13:24 Freq: Status: Active Protocol: Document 09/08/22 13:25 [facility] (Rec: 09/08/22 13:48 R [id number]) OT-Instrumental Activities of Daily Living Deficits IADL Deficits Identified Deficits Home Safety Awareness Awareness of Need for Assistance at Home Decreased Awareness Ability to Problem Solve Emergency Unable to Problem Solve Situations Medication Management Medication Management Comments Previously pt's administered Money Management Money Management Comments Previously pt's administered Meal Preparation Meal Preparation Comments Previously pt's administered Sweeper Operator Highways Sweeper Operator Highways Comments Previously pt's administered Driving Driving Comments Previously pt's performed M6 OT- IP Functional Cognition Start: 09/08/22 13:24 Freq: Status: Active Protocol: Document 09/08/22 13:25 [facility] (Rec: 09/08/22 13:48 [facility] [id number]) Cognitive Factors Limiting Selfcare Function Cognitive Ability Level of Alertness Alert Patient Orientation Name,Age,Birthday,Date,Day of Week,Place,Situation Attention Span Ability Capable of Focused Attention, Capable of Sustained Attention Ability to Follow Commands Able to Follow One Step Commands with Increased Time, Able to Follow One Step Commands with Repetition Cognitive Tests SLUMS Pt performed SLUMS, form put in pts file to be scanned into the medical record. Pt scored an 01/15. He was able to state the day of he week, the year and the state. He was able to remember 2 o fthe 5 items, do simple addition but not subtraction and named 12 animals in 1 minute. Pt was able to state a series of numbers backwards but scored no points for drawing and labeling the clock . Pt was unable to identify the largest object but was able to put an x in the triangle. Pt was unable to answer any of the listening comprehension questions. Cognitive Comments Cognitive Assessment Comments A SLUMS score of 11/30 puts the patient well into the scoring for dementia. OT- Vision and Hearing OT- Hearing Assessment OT- Hearing Assessment Hearing Impaired OT- Vision Assessment Visual Acuity WFL Visual Attentiveness WFL Occular Pursuits WFL Visual Convergence WFL M7 OT- IP Mobility and Balance Start: 09/08/22 13:24 Freq: Status: Active Protocol: Document 09/08/22 13:25 [facility] (Rec: 09/08/22 13:48 [facility] [id number]) OT- Bed Mobility Assessment Supine to Sit Supine to Sit Assist Standby Assistance Scooting Scooting to Edge of Bed Standby Assistance OT-Transfer Assessment Sit to and From Stand Sit to and from Stand Standby Assistance Transfers Transfer Ability Standby Assistance Technique Transfer Destination Bed,Chair,Toilet Transfer Technique Stand Step Pivot Devices Transfer Assistive Devices Gait Belt,Front Wheeled Walker Comments Mobility Comments SBA for mobility around the room without controlled descent onto chair or toilet. Pt had one LOB with ADLs at sink. OT- Balance Assessment Sitting Balance and Reactions Static Sitting Balance Ability Normal Dynamic Sitting Balance Ability Normal M8 OT- IP Objective Assessments Start: 09/08/22 13:24 Freq: Status: Active Protocol: Document 09/08/22 13:25 [facility] (Rec: 09/08/22 13:48 [facility] [id number]) OT Gross Range of Motion Upper Extremity Range of Motion Assessment Within Functional Limits OT Strength Upper Extremity Strength Assessment Within Functional Limits Comments Strength Comments 4-/5 throughout OT- Coordination Assessment Upper Extremity Finger to Nose Test Within Functional Limits Finger Tapping Test Within Functional Limits OT-Muscle Tone Assessment Muscle Tone WNL Yes OT Sensation Assessment Edema Edema Absent M9 OT- IP Assessment and Plan Start: 09/08/22 13:24 Freq: Status: Active Protocol: Document 09/08/22 13:25 [facility] (Rec: 09/08/22 13:48 [facility] [id number]) OT Summary Assessment and Plan Potential Rehabilitation Potential Good Analytic Complexity at Evaluation Moderate Summary OT Impairments Strength,Balance,Functional Cognition,Functional Mobility, Self-Feeding,Grooming,Dressing ,Toileting,Bathing,Toilet Transfers,Shower Transfers, Activity Tolerance Progress Towards Goals Progressing Toward Goals Assessment Summary Pt presents as a low complexity evaluation s/p admit for failure to thrive. Pt is unable to care for himself at home after his spouse has . Pt will benefit from continued OT services but given pt's cognition he is unlikely to be safe for living alone. Recommend d/c to SNF with transition to assisted living. Goals Grooming Goal Independent Dressing Goal Independent Toileting Goal Independent Bathing Goal Independent Toilet Transfer Goal Independent Shower Transfer Goal Independent Days to Meet Goals 20 Frequency of Treatment Frequency Of Treatment Once a Day Treatment Plan OT Treatment Plan ADL Training,Functional Cognition Training,Functional Mobility,Therapeutic Exercises ,Patient/Family Education, Discharge Planning Other Treatment Recommendations and Next shower and UE strengthening. Treatment Focus Discharge Recommendations OT Discharge Recommendations SNF Rehab,[facility] Transportation Needs at Discharge Private Vehicle
--- NOTE | 2022-09-08 13:27 | PM.PN.1 ---
Subjective Subjective Date Patient Seen: 09/08/22 Time Patient Seen: 08:20 Interval history: Patient seen in follow-up weakness and atrial fibrillation. Multiple issues. Patient overall still trying to recover from the of his . And has no other significant change. Today as no complaints except for his grief. Feeling overwhelmed. Exam Vital Signs (past 8 hours): - 09/08/22 08:07 09/08/22 08:41 09/08/22 07:00 Temperature 97.9 F Pulse Rate 54 L 54 L Respiratory Rate 15 Blood Pressure 145/69 H 145/69 H Pulse Oximetry 94 Oxygen Delivery Method Room Air Oxygen Flow Rate 0 09/08/22 09:30 Temperature Pulse Rate 62 Respiratory Rate Blood Pressure Pulse Oximetry Oxygen Delivery Method Oxygen Flow Rate Oxygen Delivery Method Room Air Oxygen Flow Rate 0 Narrative Exam Narrative: Alert male in no acute distress Lungs are clear heart is regular rate and rhythm Objective Labs 09/06/22 14:50 09/08/22 08:15 Labs: Laboratory Results - last 24 hr 09/08/22 09/08/22 08:15 08:15 PT 18.5 H INR 1.6 H APTT 36 Sodium 136 L Potassium 4.2 Chloride 106 Carbon Dioxide 24 BUN 46 H Creatinine 1.59 H Estimated GFR 42 L BUN/Creatinine Ratio 28.9 H Glucose 95 Calcium 8.7 PFSH Medical History Atrial fibrillation BPH w urinary obs/LUTS DM type 2 (diabetes mellitus, type 2) Elevated PSA Family history of prostate cancer in father Prostate cancer Spermatocele of epididymis, multiple Urological system complication of procedure UTI (urinary tract infection) Surgical History History of bladder surgery Previous back surgery Social History marital status: household members: spouse occupational status: previously employed Smoking Status: Never smoker alcohol intake: never substance use type: does not use Assessment & Plan Assessment & Plan narrative: Grief reaction. Understandable in his current situation. 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 I think he is slowly recovering from that. I do not think we have to change any medication and is going to take time. Weakness. Creating unsafe living environment. Patient has not been super active for some time. He has been reluctant due to his pain to mobilize and overall has been stable. He is not been making improvement been refusing physical therapy for some time. I do not think he has a primary issue other than fatigue and some pain in his right leg. And will have to see whether he can rehab or not. He is capable of at least ambulating some. Atrial fibrillation. Stable. Continue usual meds. Type 2 diabetes. Doing well. Continue current metformin. Reflux. Stable. Depression. Patient with current depression which will have to watch and see how it goes. Certainly his grief is not going to help him. I do think he is overall been stable. Mental status leach. He is not quite back to baseline that I know but he certainly is better than described initially. 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 I do not believe that he has full on dementia. But he certainly probably does have some mental issues. Will have Occupational therapy see today and test but I do not think psychologically there is any other long-term or deep-seated issues. Will continue to follow. Disposition. Patient had very difficult situation apparently is house is not in a situation which caretaking can be done there secondary to the hoarding. It could be cleaned up by guess and then done. Family I am not sure interaction with them. His not had a lot of interaction with his family since moved to here from [place]. I do not know the full extent of their relationship. It I think the kids were his 's and not his personally. I do not know what that relationship is. Might be better to move to [place] but I do not know what the finances are. Discussed extensively with social service and we will continue to follow. Hopefully we can figure out a place for him to go. 40 minutes spent with the patient nurse social service. Dictation and orders
--- NOTE | 2022-09-08 14:31 | PT-IP ANOTE ---
Pt making arrangements at this time. Will check back in with pt tomorrow.
--- NOTE | 2022-09-08 15:38 | CM.DPC ---
DCP Cont: Per MD, pt had been very compliant with his once a month PCP appointments and labs and spouse transported and managed his meds and the home hoarding situation had been unknown by providers. MD does not feel Psych COnsult needed at this time but agreeable with OT eval for cog assessment with SLUMS. Per OT, pt scored 11/30 on his SLUMS putting him in the dementia range. Per PT, FWW and indep with bed mobility, CGA to stand, but SBA with ambulation. SOURAV spoke to iMrza, Community Shadow[employer] Operator and he was sent pt's referral but has not had any hx of interaction with pt/spouse prior and EMS had not been called to the home prior to spouse's and attempts to get into the home. Mirza states he will continue to follow for needs and community follow up and may meet bedside with pt while he is admitted and might go by the home to see if it is secure and the state of the home. ALLAN Santiago [phone] called and states he is investigating from initial APS report filed by EMS and [facility] as well as KATHRYN Butler and received clinicals faxed from pt's admission and plans to try to be bedside with pt tomorrow 09/09 for ongoing investigation and attempting to get pt connected with resources. SW called [facility] and confirmed they transported the pt from the ED to home to begin starting caregiving services and found the home uninhabitable and brought pt back to the ED where he was admitted. [facility] confirms they can work with the pt if he discharges to a hotel/motel or Respite facility if needed but feel pt might benefit from 08/09 depending on his mentation. SW called [facility] and they confirm they have been coordinating with pt and pt's step son Rolly and referred Rolly to [employer] for cleaning of the hoarding situation and spouse expiring in the home and Rolly planned to call [employer] to pay for cleanup of the home. [facility] arrived bedside and SW assisted with pt answering questions regarding /cremation arrangements and signing pwk. Pt confirms they bank at [employer] and pt states he has a debit card at home in his wallet and spouse typically paid by check book and they are on a joint account. Pt confirms he feels he has enough funds to pay for spouse's cremation and has an YVAN and a safe deposit box at [employer] that might contain their Will and other important documents as pt and spouse were for 40 yrs. Pt confirms that he is aware he cannot safely d/c directly home at d/c until the house is cleaned from the hoarding and SW discussed possible options of d/c to a hotel/motel with [facility] and [facility] vs Respite stay at [facility]. Pt states he is leaning towards Respite Stay at [facility] pending the cost and the process and agreeable with SW reaching out and making referral to [facility]. SW spoke to Sima at [facility] who confirms they have openings for furnished/move in ready rooms for Respite and if pt considered Independent then would be a minimum of 7 days and $200 a day that includes meals. If pt needs med assist, would be considered Assisted Living and minimum would be 30 days and more difficult to move pt into their building. Discussed potential for Respite Independent side with [facility] and possibly [facility] for med management?? Sima agreeable to meeting bedside with pt tomorrow 09/09/22 around 1030 to determine options and discuss with pt and ideally step son Rolly. Pt able to answer questions appropriately and appeared A&O x3 with some slight forgetfulness and not exit seeking or any behaviors and very pleasant and talkative. Plan: SW to follow closely for ongoing d/c planning and likely bedside assessment with APS and [facility] tomorrow to determine if pt can d/c to [facility] Respite with [facility] and possible need of med management with [facility]. JOJO Garcia
[2022-09-08 16:00] VITALS: BP 122/48; PULSE 72; RESP 16; TEMP 36.2; O2SAT 97
[2022-09-08] MEDS: WARFARIN 1 MG TABLET 4 MG PO (17:19)
--- NOTE | 2022-09-08 22:07 | PC.NURSE ---
pt has been sleeping tonight, pt was impulsive during day shift, trying to get out of bed multiple times without any assistance. This nurse opted to let patient sleep and will give night medications when he wakes up. bed alarm in place.
[2022-09-08] MEDS: MIRTAZAPINE 15 MG TABLET PO (23:52)
[2022-09-09 00:04] VITALS: BP 136/59; PULSE 59; RESP 18; TEMP 36.4; O2SAT 98
[2022-09-09] MEDS: SUCRALFATE 1 GM TABLET PO ×3 (07:47→22:31)
[2022-09-09 08:00] VITALS: BP 127/65; PULSE 78; RESP 13; TEMP 36.1; O2SAT 98
[2022-09-09 10:07] VITALS: BP 127/65; PULSE 78
[2022-09-09] MEDS: METOPROLOL ER 25 MG TABLET PO (10:07)
[2022-09-09] MEDS: PANTOPRAZOLE DR 40 MG TABLET PO ×2 (10:07→22:05)
[2022-09-09] MEDS: METFORMIN HCL 500 MG TABLET PO ×2 (10:07→22:05)
[2022-09-09] MEDS: FAMOTIDINE 20 MG TABLET PO (10:07)
[2022-09-09] MEDS: DICLOFENAC 1% GEL 100 GM 1 APPLIC TOP ×4 (10:08→22:05)
[2022-09-09] MEDS: BICALUTAMIDE 50 MG TABLET PO (10:08)
[2022-09-09] MEDS: ENOXAPARIN 40 MG/0.4 ML SYRINGE SUBCUT (10:08)
[2022-09-09] MEDS: SODIUM CHLORIDE 0.9% FLUSH 10 ML IV (10:09)
[2022-09-09] MEDS: NYSTATIN POWDER 15GM 1 APPLIC TOP ×2 (10:09→22:05)
--- NOTE | 2022-09-09 10:51 | PT-IP ANOTE ---
Pt refusing to work with PT, states he wants to sleep. May attempt to see in afternoon if time is available.
--- NOTE | 2022-09-09 11:31 | OT.IPNOTE ---
Discussed case with nursing and CM. Pt is too sleepy to participate in OT services at this time. Will hold and continue to follow.
--- NOTE | 2022-09-09 13:23 | P.PN_ITS ---
Subjective Subjective Date Patient Seen: 09/09/22 Time Patient Seen: 13:24 Interval history: Patient seen in follow-up of social issues and diabetes. Overall doing well. No complaint of pain. Issues mostly resolve around his feeling that people are out to get him and trying to place him in a location where he discuss and dyes. Does not understand the process. No other change. Exam Vital Signs (past 8 hours): - 09/09/22 08:00 09/09/22 10:07 Temperature 96.9 F L Pulse Rate 78 78 Respiratory Rate 13 Blood Pressure 127/65 127/65 Pulse Oximetry 98 Oxygen Flow Rate 0 Oxygen Delivery Method Room Air Oxygen Flow Rate 0 Narrative Exam Narrative: Alert male in no acute distress lungs are clear heart is regular rate and rhythm abdomen is benign Objective Labs 09/06/22 14:50 09/08/22 08:15 PFSH Medical History Atrial fibrillation BPH w urinary obs/LUTS DM type 2 (diabetes mellitus, type 2) Elevated PSA Family history of prostate cancer in father Prostate cancer Spermatocele of epididymis, multiple Urological system complication of procedure UTI (urinary tract infection) Surgical History History of bladder surgery Previous back surgery Social History marital status: household members: spouse occupational status: previously employed Smoking Status: Never smoker alcohol intake: never substance use type: does not use Assessment & Plan Assessment & Plan narrative: Paranoia. I have not seen this in Alan previously. But probably extension of being in the hospital and his grief. We are going to have to see how it goes. Tried to reassure him I am not sure that helps. But will continue to follow. Whether or not he is becoming hospital delirious is unclear. Will follow. Grief reaction. Still present. I do not think he needs medication but we are going to have to see how things go. Certainly very difficult. And he has every right to be sad and having issues with processing. I think overall he is doing well. Memory changes or dementia. It is hard to know. He is answering questions appropriately a lot of the times. Maybe his slums of 11 is real or cyst difficult for him to express. There is no other changes. At this point will continue to follow. I do not think medication would help AFib fibrillation stable. Will follow. Depression. Patient currently is clearly depressed. But lot of this is grief. Today is much worse than he was yesterday were just going to have to follow-up assuming it is going to wax and wane. 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 There was no other change in will follow. Disposition. Patient was unable to make contact with bag checker chance or location. Findings there is still a little unclear. Will have to see how things go. Family is trying to do what they can. And we will continue to follow. Discussed extensively with social service today. 40 minutes spent with patient social service nursing orders dictation
--- NOTE | 2022-09-09 15:42 | CM.DPC ---
[facility] Respite Planning Cont: SOURAV attempted to meet bedside with pt this morning multiple times but pt too drowsy to remain awake and had not been medicated overnight and pt states he just did not sleep well last night but pt able to confirm he is agreeable to Community [employer] Specialist attempting to find his wallet/license/bank card in his home and pt thinks its upstairs in his room by the bedstand. SOURAV spoke to Mirza Community Machine Specialist and he kindly in agreement to go to pt's home to see if he can enter the residence and obtain pt's wallet. Mirza was able to obtain the wallet and brought back to the hospital along with pictures documenting the hoarding situation at home but structually the house appears in good shape and sound. Many, many stacked canned food items, garbage bags, and purchased items in boxes. SOURAV provided pt's wallet and belongings to hot box spotter and was documented and presented to pt to sign and place in hospital safe. Sima from [facility] attempted bedside assessment late morning and afternoon but pt too drowsy to participate and Sima was hopeful to admit for Respite with [facility] as backup assist but Sima will be out of town on vacation starting 09/11 this week and conccerned they might not be able to accept if she is not present in the building and Sima willing to reach out to Paulina at [facility] ([phone]) to discuss and see if they have any open Respite Beds and would be willing to consider and will call SOURAV back tomorrow 09/10. SOURAV spoke to step son Rolly who confirms he has spoken with the [employer] and is ready to hire them but pt has concerns about not being physically present when [employer] arrives as they might take items pt does not want them to take. Discussed possibility of [facility] transporting pt to the home when [employer] arrives. SOURAV also explained to Rolly the purpose of Respite Stay and the cost and Rolly confirms he just paid [facility] for the cremation of his mom/pt's spouse which should allow for pt's funds to be used towards assist. Rolly states he is in communication with [facility] towards getting the certificate in the next 1-2 days to present to pt's financial agent towards rolling spouse's YVAN into pt's bank account towards further assist with CG support. Rolly confirms he is attempting to leave [place] to come to [place] for support but due to his business it might take longer than anticipated. SOURAV called [employer] and confirmed that pt would need to either do online banking or arrive in person with his ID to get a cashiers check etc to pay for [facility] and/or Respite Stay. SW confirmed with [facility] that they could transport and assist pt if needed to go to the bank and to get home for cleaning company and for med assist. Plan: SW to follow closely in the AM with Sima at [facility] and Paulina at [facility] to attempt to finalize a Respite Stay option for the pt with likely need of assist from [facility] to transport at d/c to [employer] and then to his Respite placement and to assist with med management. SW to also discuss with [facility] prior referral towards likely need of additional assist from HH. JOJO Garcia
[2022-09-09 16:00] VITALS: BP 125/67; PULSE 80; RESP 14; TEMP 36.4; O2SAT 96
[2022-09-09] MEDS: WARFARIN 1 MG TABLET 4 MG PO (17:46)
[2022-09-09 20:00] VITALS: BP 132/83; PULSE 81; RESP 18; TEMP 36.2; O2SAT 97
[2022-09-09] MEDS: MIRTAZAPINE 15 MG TABLET PO (22:05)
[2022-09-09] MEDS: polyethylene glycoL 3350 17 GM POWD.PACK PO (22:32)
[2022-09-10] MEDS: SUCRALFATE 1 GM TABLET PO ×4 (06:55→21:33)
[2022-09-10 08:56] VITALS: BP 129/70; PULSE 75; RESP 17; TEMP 36.4; O2SAT 98
--- NOTE | 2022-09-10 09:02 | P.PN_ITS ---
Subjective Subjective Date Patient Seen: 09/10/22 Time Patient Seen: 09:02 Interval history: Patient with no new complaints or problems slightly more interactive today. Not as much paranoia about no other changes. Exam Vital Signs (past 8 hours): - 09/10/22 08:56 Temperature 97.5 F L Pulse Rate 75 Respiratory Rate 17 Blood Pressure 129/70 Pulse Oximetry 98 Oxygen Flow Rate 0 Oxygen Delivery Method Room Air Oxygen Flow Rate 0 Narrative Exam Narrative: Alert male in no acute distress or elderly slow to interact Lungs are clear heart is irregular rate controlled rhythm. Objective Labs 09/06/22 14:50 09/08/22 08:15 [facility] Medical History Atrial fibrillation BPH w urinary obs/LUTS DM type 2 (diabetes mellitus, type 2) Elevated PSA Family history of prostate cancer in father Prostate cancer Spermatocele of epididymis, multiple Urological system complication of procedure UTI (urinary tract infection) Surgical History History of bladder surgery Previous back surgery Social History marital status: household members: spouse occupational status: previously employed Smoking Status: Never smoker alcohol intake: never substance use type: does not use Assessment & Plan Assessment & Plan narrative: Grief reaction and depression. Overall stable. Driving most of his paranoia I believe. I do think he probably has some dementia impacting this but it is difficult to tell the amount. I do not think we have to make any major changes in his medication. I do not think we need psychiatric evaluation. He is not capable of caring for himself and not capable of doing medication management. And this isn't going to change. Will continue current therapy and follow. Memory changes. See above. Atrial fibrillation stable. Type 2 diabetes. Overall doing well. No change in meds. Disposition. This is the biggest issue. Discussed with social service. Working on options. Very difficult since we are struggling with his finance issues inability to get help. Family is in [place] and doing their best at this point will continue to continue to follow and work towards treatment. 30 minutes spent primarily with social service nursing patient
[2022-09-10] MEDS: DICLOFENAC 1% GEL 100 GM 1 APPLIC TOP ×3 (09:28→21:37)
[2022-09-10 09:29] VITALS: BP 129/70; PULSE 75
[2022-09-10] MEDS: BICALUTAMIDE 50 MG TABLET PO (09:29)
[2022-09-10] MEDS: FAMOTIDINE 20 MG TABLET PO (09:29)
[2022-09-10] MEDS: NYSTATIN POWDER 15GM 1 APPLIC TOP ×2 (09:29→21:36)
[2022-09-10] MEDS: METOPROLOL ER 25 MG TABLET PO (09:29)
[2022-09-10] MEDS: SENNOSIDES 8.6 MG TABLET PO (09:29)
[2022-09-10] MEDS: METFORMIN HCL 500 MG TABLET PO ×2 (09:29→21:33)
[2022-09-10] MEDS: PANTOPRAZOLE DR 40 MG TABLET PO ×2 (09:29→21:59)
--- NOTE | 2022-09-10 11:16 | OT.IP.TRT ---
Occupational Therapy Treatment Note M2 OT-IP Current Condition Start: 09/08/22 13:24 Freq: Status: Active Protocol: Document 09/08/22 13:25 CGR (Rec: 09/08/22 13:48 CGR [id number]) Occupational Therapy Current Condition Current Condition Evaluation Date 09/08/22 Treatment Diagnosis Failure to thrive Diagnosis Onset Date 09/06/22 M3 OT- IP Subjective and Pain Start: 09/08/22 13:24 Freq: Status: Active Protocol: Document 09/10/22 14:43 CGR (Rec: 09/10/22 14:48 CGR [id number]) OT- Subjective Occupational Therapy Visit Type Type Progress Note Visit Start Time 10:23 Visit Stop Time 11:16 Total Visit Minutes 53 OT Pain Assessment Pain When Pain Assessed At Rest Pain Present Pain Present Denied Pain M4 OT- IP ADL's Start: 09/08/22 13:24 Freq: Status: Active Protocol: Document 09/10/22 14:43 CGR (Rec: 09/10/22 14:48 CGR [id number]) OT [id number] Comments OT Self-Feeding Comments not meal time OT ADL-Grooming General Evaluation Grooming Ability Standby Assistance Areas Needing Assistance Retrieving/Set-up of Grooming Items,Face Washing Comments OT Grooming Comments sitting in shower OT ADL-Oral Care Comments Oral Care Comments not performed OT ADL-Dressing General Eval Upper Body Dressing Ability Standby Assistance Lower Body Dressing Ability Standby Assistance Areas Needing Assistance Underpants/Brief,Socks Comments OT Dressing Comments hospital gown, socks and brief with max extra time OT ADL-Toileting General Evaluation Toileting Ability Standby Assistance Comments OT Toileting Comments seated on toilet for urination after shower OT ADL-Bathing Bathing Type Bathing Type Shower General Evaluation Bathing Ability Minimal Assistance Areas Needing Assistance Retrieving/Setting Up Items Comments OT Bathing Comments Pt is able to reach all areas of his body but has poor safety awareness and needs vc for safety in the shower. M5 OT- IP IADL's Start: 09/08/22 13:24 Freq: Status: Active Protocol: Document 09/08/22 13:25 CGR (Rec: 09/08/22 13:48 CGR [id number]) OT-Instrumental Activities of Daily Living Deficits IADL Deficits Identified Deficits Home Safety Awareness Awareness of Need for Assistance at Home Decreased Awareness Ability to Problem Solve Emergency Unable to Problem Solve Situations Medication Management Medication Management Comments Previously pt's administered Money Management Money Management Comments Previously pt's administered Meal Preparation Meal Preparation Comments Previously pt's administered Drilling Engineering Manager Drilling Engineering Manager Comments Previously pt's administered Driving Driving Comments Previously pt's performed M6 OT- IP Functional Cognition Start: 09/08/22 13:24 Freq: Status: Active Protocol: Document 09/08/22 13:25 CGR (Rec: 09/08/22 13:48 CGR [id number]) Cognitive Factors Limiting Selfcare Function Cognitive Ability Level of Alertness Alert Patient Orientation Name,Age,Birthday,Date,Day of Week,Place,Situation Attention Span Ability Capable of Focused Attention, Capable of Sustained Attention Ability to Follow Commands Able to Follow One Step Commands with Increased Time, Able to Follow One Step Commands with Repetition Cognitive Tests SLUMS Pt performed SLUMS, form put in pts file to be scanned into the medical record. Pt scored an 11/30. He was able to state the day of he week, the year and the state. He was able to remember 2 o fthe 5 items, do simple addition but not subtraction and named 12 animals in 1 minute. Pt was able to state a series of numbers backwards but scored no points for drawing and labeling the clock . Pt was unable to identify the largest object but was able to put an x in the triangle. Pt was unable to answer any of the listening comprehension questions. Cognitive Comments Cognitive Assessment Comments A SLUMS score of 11/30 puts the patient well into the scoring for dementia. OT- Vision and Hearing OT- Hearing Assessment OT- Hearing Assessment Hearing Impaired OT- Vision Assessment Visual Acuity WFL Visual Attentiveness WFL Occular Pursuits WFL Visual Convergence WFL M7 OT- IP Mobility and Balance Start: 09/08/22 13:24 Freq: Status: Active Protocol: Document 09/10/22 14:43 CGR (Rec: 09/10/22 14:48 CGR [id number]) OT- Bed Mobility Assessment Supine to Sit Supine to Sit Assist Standby Assistance Scooting Scooting to Edge of Bed Standby Assistance OT-Transfer Assessment Sit to and From Stand Sit to and from Stand Standby Assistance Transfers Transfer Ability Standby Assistance Technique Transfer Destination Bed,Chair,Shower Stall,Toilet Transfer Technique Stand Step Pivot Devices Transfer Assistive Devices Gait Belt,Front Wheeled Walker Comments Mobility Comments mobility around the room. OT- Balance Assessment Sitting Balance and Reactions Static Sitting Balance Ability Good Dynamic Sitting Balance Ability Good M8 OT- IP Objective Assessments Start: 09/08/22 13:24 Freq: Status: Active Protocol: Document 09/08/22 13:25 CGR (Rec: 09/08/22 13:48 CGR [id number]) OT Gross Range of Motion Upper Extremity Range of Motion Assessment Within Functional Limits OT Strength Upper Extremity Strength Assessment Within Functional Limits Comments Strength Comments 4-/5 throughout OT- Coordination Assessment Upper Extremity Finger to Nose Test Within Functional Limits Finger Tapping Test Within Functional Limits OT-Muscle Tone Assessment Muscle Tone WNL Yes OT Sensation Assessment Edema Edema Absent M9 OT- IP Assessment and Plan Start: 09/08/22 13:24 Freq: Status: Active Protocol: Document 09/10/22 14:43 CGR (Rec: 09/10/22 14:48 CGR [id number]) OT Summary Assessment and Plan Potential Rehabilitation Potential Good Analytic Complexity at Evaluation Moderate Summary OT Impairments Strength,Balance,Functional Cognition,Functional Mobility, Self-Feeding,Grooming,Dressing ,Toileting,Bathing,Toilet Transfers,Shower Transfers, Activity Tolerance Progress Towards Goals Progressing Toward Goals Assessment Summary Pt presents as a low complexity evaluation s/p admit for failure to thrive. Pt showered on this date with max extra time and poor safety awareness but is able to perform all tasks with vC. Pt very talkative again on this date. Will continue to follow for OT needs. Goals Grooming Goal Independent Dressing Goal Independent Toileting Goal Independent Bathing Goal Independent Toilet Transfer Goal Independent Shower Transfer Goal Independent Days to Meet Goals 20 Frequency of Treatment Frequency Of Treatment Once a Day Treatment Plan OT Treatment Plan ADL Training,Functional Cognition Training,Functional Mobility,Therapeutic Exercises ,Patient/Family Education, Discharge Planning Other Treatment Recommendations and Next shower and UE strengthening. Treatment Focus Discharge Recommendations OT Discharge Recommendations SNF Rehab,[facility]AC Transportation Needs at Discharge Private Vehicle
--- NOTE | 2022-09-10 15:07 | PT-IP ANOTE ---
Pt refused to work with PT this afternoon. He states he is tired and just walked to the bathroom to have a shower. PT will continue to check on pt tomorrow.
[2022-09-10 15:36] VITALS: BP 141/76; PULSE 68; RESP 20; TEMP 36.7; O2SAT 100
--- NOTE | 2022-09-10 15:37 | CM.DPC ---
DCP Cont: Called over at [facility], was informed that they may have respite rooms. Have a business card with Aneta Shin's name on it. Called Aneta. She had already spoken to Sima at [facility], regarding patient. Aneta is somewhat aware of patient's situation. Aneta confirmed that she does have a deluxe studio available, and can do med assist as well. She asked that this DC Moving Van Driver send the information over. She indicated that she can have one of her nurses come over and see the patient, could be tomorrow. Faxed over patient's information to [facility], and included the latest care management's note from Sarita yesterday. MS KeyannaW, has also called over at [facility] and left Kaleigh a message as well. Encouraged iM to have her nurse not come too early in the morning for he sleeps in. In the meantime, step son, Rolly, is working on getting someone to clean out the home. P: DCP will follow up with [facility] tomorrow to see if nurse can come out. Do not yet have martinez of room as of yet. Jaelyn Gunderson, RN/[employer] Clerk
--- NOTE | 2022-09-10 16:46 | CM.DPC ---
DCP Continued: NUT FEEDER reviewed EMR. NUT FEEDER left multiple voicemails with Sima at [facility]. NUT FEEDER left multiple voicemails with Pao at [facility]. NUT FEEDER left voicemail with Silvino at [facility]. NUT FEEDER spoke with Waleska at [facility] who was just helping out, and said their association executive Shirley would contact NUT FEEDER re: respite bed availability and martinez. Sima from [facility] returned call. Sima reported they are unable to take him at this time. Sima reported she talked to step-son Rolly and he is coming up from [place] Thursday. Rolly told Lead the [employer] company can make the house livable in two days of work. Patient has home instead ready to provider caregiving when house is livable. Nataliia RN/CM called Aneta at [facility]. She reported there will be a nurse here tomorrow to assess and see if they can take him. Plan: continue to attempt to find respite care for patient while house is being cleaned. CM team will continue to follow closely. JOJO Nicole
[2022-09-10] MEDS: WARFARIN 1 MG TABLET 4 MG PO (17:01)
[2022-09-10 20:00] VITALS: BP 144/75; PULSE 64; RESP 18; TEMP 36.3; O2SAT 98
[2022-09-10] MEDS: MIRTAZAPINE 15 MG TABLET PO (21:33)
[2022-09-10] MEDS: HYDROCODONE/ACET 5/325 TABLET 1 TAB PO (21:59)
[2022-09-11 08:34] VITALS: BP 139/53; PULSE 60
[2022-09-11] MEDS: METOPROLOL ER 25 MG TABLET PO (08:34)
[2022-09-11] MEDS: METFORMIN HCL 500 MG TABLET PO ×2 (08:34→20:43)
[2022-09-11] MEDS: SENNOSIDES 8.6 MG TABLET PO (08:35)
[2022-09-11] MEDS: PANTOPRAZOLE DR 40 MG TABLET PO ×2 (08:35→20:45)
[2022-09-11] MEDS: BICALUTAMIDE 50 MG TABLET PO (08:35)
[2022-09-11] MEDS: FAMOTIDINE 20 MG TABLET PO (08:36)
[2022-09-11] MEDS: SUCRALFATE 1 GM TABLET PO ×4 (08:36→20:45)
[2022-09-11] MEDS: ENOXAPARIN 40 MG/0.4 ML SYRINGE SUBCUT (08:39)
[2022-09-11 08:47] VITALS: BP 139/53; PULSE 60; RESP 16; TEMP 36.1; O2SAT 99
[2022-09-11 09:57] LABS: INR 2.1 (0.9-1.3); Prothrombin Time 23.9 SECONDS (10.1-12.7)
--- NOTE | 2022-09-11 11:24 | PT.IPTN ---
Physical Therapy Treatment Note M2 PT-IP Current Condition Start: 09/07/22 12:45 Freq: NEEDED Status: Active Protocol: Document 09/07/22 15:35 AMH (Rec: 09/07/22 15:51 AMH [id number]) Physical Therapy Current Condition Current Condition Evaluation Date 09/07/22 Treatment Diagnosis social admit Onset Date 09/06/22 M3 PT-IP Subjective Start: 09/07/22 12:45 Freq: NEEDED Status: Active Protocol: Document 09/11/22 10:55 KS (Rec: 09/11/22 12:19 KS [id number]) Subjective Physical Therapy Visit Type Type Treatment Note Visit Start Time 10:55 Visit Stop Time 11:24 Total Visit Minutes 29 Number of GIS PROFESSOR Visits 1 Physical Therapy Visit Comments Patient Comments pt is under a great deal of stress and trying to process his 's . He states she did everything for him and he is still in shock and not sure what he is going to do M4 PT-IP Mobility and Gait Start: 09/07/22 12:45 Freq: NEEDED Status: Active Protocol: Document 09/11/22 10:55 KS (Rec: 09/11/22 12:19 KS [id number]) PT-Bed Mobility Assessment Supine to Sit Supine to Sit Independent Scooting Scooting to Edge of Bed Standby Assistance PT-Transfer Assessment Sit to and From Stand Sit to and from Stand Minimal Assistance,1 Person Assistance,Use of Upper Extremities Equipment Transfer Assistive Device Gait Belt,Front Wheeled Walker Orthotic/Prosthetic Devices or Brace: No Transfers Transfer Destination Chair Transfer Technique ambulation Transfer Ability Level of Assist Contact Guard Assistance Comments Mobility Comments Pt in bed upon arrival, agreeable to ambulate and go to chair following. SBA for bed mobility, Min A for sit<> stand w/ FWW. Pt ambulated ~35 ft in room using FWW and CGA before transferring to chair and reporting fatigue. Pt left in chair w/ all needs in reach. Gait Assessment Gait Gait Assistance Required: Contact Guard Assist,1 Person Assist Distance (Feet) 35 Able to Maintain Weight Bearing Status Yes During Gait Assistive Devices Assistive Device Gait Belt,Front Wheeled Walker Orthotic/Prosthetic Devices or Brace: No Gait Deviations General Gait Pattern Decreased Stride Length,Flexed Trunk,Step-to Gait Factors Limiting Gait Function Factors Limiting Gait Function Decreased Strength,Limited Range of Motion,Pain Comments Gait Comments pt ambulated with FWW with SBA , he is slow and is flexed foward with his trunk and is limited by both weakness and pain PT-Balance Assessment Sitting Balance and Reactions Static Sitting Balance Ability Good Dynamic Sitting Balance Ability Good Standing Balance and Reactions Static Standing Balance Ability Fair Dynamic Standing Balance Ability Fair Device Used FWW M5 PT-IP Objective Assessments Start: 09/07/22 12:45 Freq: NEEDED Status: Active Protocol: Document 09/07/22 15:35 AMH (Rec: 09/07/22 15:51 AMH [id number]) Orientation Orientation/Cognition Level of Alertness Alert Comments pt is grieving and is talking about his grief, he may benefit from further testing on mental state. His was gone for approx 3 days before he went to check on her. He is confused about the details of her Gross Range of Motion Upper Extremity ROM Assessment Bilaterally Impaired Lower Extremity ROM Assessment Bilaterally Impaired Strength Upper Extremity Strength Assessment Bilaterally Impaired Lower Extremity Strength Assessment Bilaterally Impaired Comments Strength Comments forward flexed trunk, forward head position and decreased AROM and strength of the UE/LE Coordination Assessment Gross Coordination Gross Coordination WNL Sensation Assessment Sensation Gross Sensation WNL Muscle Tone Muscle Tone WNL Yes M6 PT-IP Treatment Start: 09/07/22 12:45 Freq: NEEDED Status: Active Protocol: Document 09/11/22 12:19 KS (Rec: 09/11/22 12:19 KS [id number]) Physical Therapy Treatment Education Education Provided Safety M7 PT-IP Assessment and Plan Start: 09/07/22 12:45 Freq: NEEDED Status: Active Protocol: Document 09/11/22 10:55 KS (Rec: 09/11/22 12:19 KS [id number]) PT Summary Assessment and Plan Potential Rehabilitation Potential Excellent Summary Impairments Pain,Strength,Activity Tolerance Progress Towards Goals Progressing Toward Goals,Slow Progress due to Activity Tolerance Assessment Summary Pt limited by low tolerance for activity and weakness, but did increase ambulation distance to 35 ft w/ FWW today . SBA for bed mobility, Min A for sit<>stand and CGA for short distance ambulation using FWW. At this time, pts home environment increases risk for falls and is not afe for pt. He will need SNF or [facility]. Goals Transfer Goal Independent Gait Goal Standby Assistance Gait Distance 50 feet Frequency of Treatment Frequency Of Treatment Once a Day Treatment Plan Physical Therapy Treatment Plan Transfer Training,Gait Training Recommendations To Nursing Amount of Assist Needed 1 Person Assist Discharge Recommendations Other Discharge Recommendations RETIREMENT versus SNF Transportation Needs at Discharge Wheelchair/Cabulance
[2022-09-11] MEDS: HYDROCODONE/ACET 5/325 TABLET 1 TAB PO (11:51)
[2022-09-11] MEDS: polyethylene glycoL 3350 17 GM POWD.PACK PO (11:51)
[2022-09-11 13:12] VITALS: BP 138/63; PULSE 62; RESP 16; TEMP 35.9; O2SAT 96
--- NOTE | 2022-09-11 15:30 | CM.DPC ---
DCP Respite [facility] attempts Per Rn, [facility] RN and staff were bedside with pt for about 45 min today. SW called RN Marie at [facility] and she confirms they were bedside with pt today and discussed at length Respite Stay and that they can provide meals and assist with meds but pt would need to be able to use his call light and would likely want to see PT notes to review. Marie states they likely could accept him for Respite and can even provide transport for pt from the hospital and to [employer] if needed unless pt can pay with his debit card in the hospital safe and pt could benefit from some additional clothing as well. Marie states though that pt adamantly declared that he is not willing to make any decisions on Respite Placement until his step son Rolly is present and arrives in town from [place] on 09/15 evening. Marie states that they do not have ability to accept pt to their facility until Thu anyway and that she would need to meet with him bedside for completion of signing a care plan also if pt is agreeable to Respite Stay at their facility. JOJO Garcia
[2022-09-11] MEDS: DICLOFENAC 1% GEL 100 GM 1 APPLIC TOP ×2 (16:14→20:43)
--- NOTE | 2022-09-11 17:10 | OT.IPNOTE ---
Attempted to see pt for OT services late in afternoon. Pt just received his dinner tray. Will hold and continue to follow.
[2022-09-11] MEDS: WARFARIN 1 MG TABLET 4 MG PO (17:18)
--- NOTE | 2022-09-11 17:21 | CM.DPC ---
DCP Continued: CORPORATE RESPONSIBILITY OFFICER received call from Marie at [facility] to confirm scheduled assessment for today at 1300. CORPORATE RESPONSIBILITY OFFICER updated Marie on current mental state of patient. CORPORATE RESPONSIBILITY OFFICER entered room and introduced self and role. Patient was sitting up and communicative throughout interaction but it was unclear if he was oriented/decisional. Patient spent over an hour talking to this CORPORATE RESPONSIBILITY OFFICER about his current situation, often times repeating himself. Patient is worried about his house being unlocked at this time. Patient described in detail his current frustrations with his house and not being able to return to it. Patient reported history of his relationship with his who recently . CORPORATE RESPONSIBILITY OFFICER updated patient that someone from [facility] would be here to speak with him later. Patient was in verbal agreement. CORPORATE RESPONSIBILITY OFFICER called step son Rolly to update him on hopeful plan. Rolly reported being frustrated with his step father. Rolly reports he will be in area Thursday [facility] in order to assist in cleaning patient's house. Rolly appreciated the update. CORPORATE RESPONSIBILITY OFFICER called sports apparel intern[employer] Mirza to inquire if the house was locked when he left. Mirza reported it was not but he would go and get the keys if patient could tell him where they were. Per other CORPORATE RESPONSIBILITY OFFICER, [facility] were not 100% sure if they would be able to accept patient at this time. The earliest they could accept him is Thursday. See additional CORPORATE RESPONSIBILITY OFFICER note for more details. Per Dr. Dai, patient is not decisional at this time. DPOA is step son Rolly. Plan: CM team will continue to develop a safe d/c plan for patient. Hopefully, d/c to [facility] for respite care and then d/c back home with home instead when house is cleaned. CM team will continue to follow closely for the creation of a plan. JOJO Nicole
--- NOTE | 2022-09-11 17:26 | PM.PN.1 ---
Subjective Subjective Date Patient Seen: 09/11/22 Time Patient Seen: 08:55 Interval history: CC: recent of Doing ok - eating breakfast. Care management is assembling a discharge plan likely for next week to a nursing facility as he does not appear to be a safe self-managed discharge prospect. Exam Vital Signs (past 8 hours): - 09/11/22 09:45 09/11/22 13:12 Temperature 96.7 F L Pulse Rate 62 Respiratory Rate 16 Blood Pressure 138/63 Pulse Oximetry 96 Oxygen Delivery Method Room Air Oxygen Delivery Method Room Air Oxygen Flow Rate 0 Narrative Exam Narrative: Alert older male sitting in bed eating breakfast Resp Effort & Inspection: normal respiratory effort and able to speak in complete sentences Cardio Other: Regular pulse rate Objective Labs 09/06/22 14:50 09/08/22 08:15 Labs: Laboratory Results - last 24 hr 09/11/22 09:40 PT 23.9 H D INR 2.1 H PFSH Medical History Atrial fibrillation BPH w urinary obs/LUTS DM type 2 (diabetes mellitus, type 2) Elevated PSA Family history of prostate cancer in father Prostate cancer Spermatocele of epididymis, multiple Urological system complication of procedure UTI (urinary tract infection) Surgical History History of bladder surgery Previous back surgery Social History marital status: household members: spouse occupational status: previously employed Smoking Status: Never smoker alcohol intake: never substance use type: does not use Assessment & Plan Assessment & Plan narrative: #Grief reaction/depression.? Stable continue management. He is not capable of caring for himself and not capable of doing medication management, this seems unlikely to change.? Will continue current therapy and follow.? #Memory changes See above.? #Atrial fibrillation stable rate continue warfarin and BB #Type 2 diabetes? Stable, continue outpatient meds.? Disposition: Pending placement in facility. Appreciate CM heroic efforts towards this end. MDM: Son in [place]? PCP: Ignacio
[2022-09-11 20:00] VITALS: BP 143/54; PULSE 57; RESP 17; TEMP 36.3; O2SAT 99
[2022-09-11] MEDS: MIRTAZAPINE 15 MG TABLET PO (20:44)
[2022-09-11] MEDS: NYSTATIN POWDER 15GM 1 APPLIC TOP (20:44)
[2022-09-11] MEDS: SODIUM CHLORIDE 0.9% FLUSH 10 ML IV (20:45)
[2022-09-11] MEDS: methocarbamoL 500 MG TABLET 750 MG PO (20:46)
[2022-09-12 05:05] LABS: INR 2.2 (0.9-1.3); Prothrombin Time 25.8 SECONDS (10.1-12.7)
[2022-09-12 08:00] VITALS: BP 109/40; PULSE 61; RESP 15; TEMP 36.1; O2SAT 96
--- NOTE | 2022-09-12 08:19 | PM.PN.1 ---
Subjective Subjective Date Patient Seen: 09/12/22 Time Patient Seen: 08:20 Interval history: Patient seen in follow-up of atrial fibrillation social issues. Overall doing well. No complaints tired this morning. Did not sleep well last night. Exam Vital Signs (past 8 hours): Oxygen Delivery Method Room Air Oxygen Flow Rate 0 Narrative Exam Narrative: Alert male in no acute distress Lungs are clear heart is irregular rate and rhythm without murmurs clicks rubs or gallops Objective Labs 09/06/22 14:50 09/08/22 08:15 Labs: Laboratory Results - last 24 hr 09/11/22 09/12/22 09:40 04:32 PT 23.9 H D 25.8 H INR 2.1 H 2.2 H PFSH Medical History Atrial fibrillation BPH w urinary obs/LUTS DM type 2 (diabetes mellitus, type 2) Elevated PSA Family history of prostate cancer in father Prostate cancer Spermatocele of epididymis, multiple Urological system complication of procedure UTI (urinary tract infection) Surgical History History of bladder surgery Previous back surgery Social History marital status: household members: spouse occupational status: previously employed Smoking Status: Never smoker alcohol intake: never substance use type: does not use Assessment & Plan Assessment & Plan narrative: Grief reaction/depression. Patient overall is doing well. Intermittently less interactive but seems to be continuing to do well. No further issues with paranoia seems to be doing better. No change in treatment at this time. Will continue. Memory changes. Seems to be stable. Without change. Certainly does have some issues with his memory. This is probably the limiting factor with self-care. No other changes. Atrial fibrillation. Stable continue Coumadin INRs good. Type 2 diabetes stable Social issues discussed with caretakers. At this point question of respite care. Being set up. Social service doing an excellent job. Patient due to his strength and his memory unable to care for self. Has not been doing that for years. Certainly not going to do it now. Will have to have some type of ongoing care. Hopefully will get him into the house. Will see how things go. Continue to follow with social service
[2022-09-12] MEDS: SUCRALFATE 1 GM TABLET PO ×3 (08:29→21:10)
[2022-09-12] MEDS: SENNOSIDES 8.6 MG TABLET PO (08:29)
[2022-09-12] MEDS: METFORMIN HCL 500 MG TABLET PO ×2 (08:29→21:09)
[2022-09-12] MEDS: PANTOPRAZOLE DR 40 MG TABLET PO ×2 (08:29→21:10)
[2022-09-12] MEDS: FAMOTIDINE 20 MG TABLET PO (08:29)
[2022-09-12] MEDS: NYSTATIN POWDER 15GM 1 APPLIC TOP ×2 (08:31→21:09)
[2022-09-12] MEDS: DICLOFENAC 1% GEL 100 GM 1 APPLIC TOP ×3 (08:31→21:09)
[2022-09-12] MEDS: SODIUM CHLORIDE 0.9% FLUSH 10 ML IV (08:33)
[2022-09-12] MEDS: BICALUTAMIDE 50 MG TABLET PO (08:33)
[2022-09-12 08:38] VITALS: BP 109/40; PULSE 62
[2022-09-12] MEDS: METOPROLOL ER 25 MG TABLET PO (08:38)
--- NOTE | 2022-09-12 12:30 | OT.IPNOTE ---
Pt sleeping soundly when OT entered. Per nursing, pt is having a sleepy day. Pt tends to have a sleepy day, then a talkative day before again having a sleepy day. Will hold and continue to follow.
--- NOTE | 2022-09-12 14:46 | PT-IP ANOTE ---
Pt refused to work with PT this afternoon. Pt stated he is tired and he didn't get much sleep last night. Explained to pt the benefits of PT and the importance of mobilizing while here in the hospital. Will check back tomorrow.
--- NOTE | 2022-09-12 16:30 | CM.DPC ---
DCP Continued: HOUSEKEEPING WORKER reviewed EMR. Per OT in rounds, patient's SLUMS is currently 11. Bebo from [facility] contacted HOUSEKEEPING WORKER to report the urn for patient is ready to be picked up. HOUSEKEEPING WORKER encouraged Bebo to contact step son Rolly. HOUSEKEEPING WORKER spoke with Naeta at [facility]. Aneta reports they can accept him whenever this weekend. They do not have transportation on weekends and therefore that would have to be arranged. Aneta was concerned about the patient's bed alarm. HOUSEKEEPING WORKER reported that per the most recent PT note, patient is one person assist. Aneta said that would be fine, and asked to have the PT note faxed over. HOUSEKEEPING WORKER gave Aneta step son Rolly's number for her to reach out to him for further information for family. CM Farmworker Machine Gabriela faxed over PT note to [facility]. HOUSEKEEPING WORKER attempted to wake patient three times today to converse with him. Each time patient was unable to be roused for a coherent conversation. HOUSEKEEPING WORKER lvm with step son Rolly. Rolly returned HOUSEKEEPING WORKER call. Rolly reported he had not heard from patient last night or this morning. Rolly reported he had not heard from Aneta but wanted her number to inquire about pricing of respite care. HOUSEKEEPING WORKER gave Rolly Cornell's number. Rolly reported that it is common for patient to sleep for multiple days at a time without drinking or getting up. Rolly said that he would try and get ahold of patient to get him to approve going to [facility] for respite stay. Nursing staff kindly agreed to get patient up and moving and encourage him to call Rolly back when able to wake patient. Plan: d/c to [facility] once patient and family approve. CM team will likely have to arrange transportation. CM team will continue to follow closely. JOJO Nicole
[2022-09-12] MEDS: HYDROCODONE/ACET 5/325 TABLET 1 TAB PO ×2 (17:18→23:56)
[2022-09-12] MEDS: WARFARIN 1 MG TABLET 4 MG PO (17:22)
[2022-09-12 20:00] VITALS: BP 139/63; PULSE 60; RESP 17; TEMP 36.4; O2SAT 98
[2022-09-12] MEDS: MIRTAZAPINE 15 MG TABLET PO (21:09)
[2022-09-12] MEDS: methocarbamoL 500 MG TABLET 750 MG PO (21:11)
--- NOTE | 2022-09-12 22:41 | PC.NURSE ---
Skin Small open lesion noted on upper back along spine when applying 2100 Voltaren cream. Skin previously intact to this area. Pt. reports that this has happened previously and lesion was cultured by precision printing worker. Allevyn foam dressing applied.
[2022-09-13 04:52] LABS: Add Manual Diff / Slide Review NO; Basophils Absolute Auto 100 /uL (0-100); Basophils Percent Auto 1.4 % (0-2); Eosinophils Absolute Auto 600 /uL (0-450); Eosinophils Percent Auto 12.4 % (2-4); Hematocrit 33.9 % (41-53); Hemoglobin 11.5 g/dL (13.5-17.5); Lymphocytes Absolute Auto 1200 /uL (1100-4500); Lymphocytes Percent Auto 22.7 % (25-40); Mean Corpuscular Hemoglobin 31.1 PG (26-34); Mean Corpuscular Volume 91.5 fL (80-100); Monocytes Absolute Auto 500 /uL (0-900); Monocytes Percent Auto 10.2 % (3-14); Neutrophils Absolute Auto 2700 /uL (1500-7000); Neutrophils Percent Auto 53.3 % (50-75); Platelet Count 162 X10^3/uL (150-400); Red Blood Cell Count 3.71 X10^6/uL (4.5-5.9); Red Cell Distribution Width 14.9 % (11.6-14.8); White Blood Cell Count 5.1 X10^3/uL (4.5-11.0)
[2022-09-13 04:55] LABS: INR 2.5 (0.9-1.3); Prothrombin Time 29.4 SECONDS (10.1-12.7)
[2022-09-13] MEDS: PANTOPRAZOLE DR 40 MG TABLET PO ×2 (08:06→20:55)
[2022-09-13] MEDS: FAMOTIDINE 20 MG TABLET PO (08:07)
[2022-09-13] MEDS: NYSTATIN POWDER 15GM 1 APPLIC TOP ×2 (08:07→21:05)
[2022-09-13] MEDS: METFORMIN HCL 500 MG TABLET PO ×2 (08:07→20:55)
[2022-09-13] MEDS: METOPROLOL ER 25 MG TABLET PO (08:07)
[2022-09-13] MEDS: SUCRALFATE 1 GM TABLET PO ×4 (08:07→20:55)
[2022-09-13] MEDS: DICLOFENAC 1% GEL 100 GM 1 APPLIC TOP (08:07)
[2022-09-13] MEDS: SENNOSIDES 8.6 MG TABLET PO (08:07)
[2022-09-13] MEDS: SODIUM CHLORIDE 0.9% FLUSH 10 ML IV ×2 (08:09→20:57)
[2022-09-13] MEDS: BICALUTAMIDE 50 MG TABLET PO (08:09)
[2022-09-13 08:37] VITALS: BP 130/71; PULSE 85
[2022-09-13 10:57] VITALS: BP 131/70; PULSE 67; RESP 16; TEMP 35.9; O2SAT 97
--- NOTE | 2022-09-13 12:03 | PT.IPTN ---
Physical Therapy Treatment Note M2 PT-IP Current Condition Start: 09/07/22 12:45 Freq: NEEDED Status: Active Protocol: Document 09/07/22 15:35 AMH (Rec: 09/07/22 15:51 AMH [id number]) Physical Therapy Current Condition Current Condition Evaluation Date 09/07/22 Treatment Diagnosis social admit Onset Date 09/06/22 M3 PT-IP Subjective Start: 09/07/22 12:45 Freq: NEEDED Status: Active Protocol: Document 09/13/22 12:08 TS (Rec: 09/13/22 12:19 TS [id number]) Subjective Physical Therapy Visit Type Type Treatment Note Visit Start Time 11:25 Visit Stop Time 12:03 Total Visit Minutes 38 Number of SPORTS DIRECTOR Visits 2 Physical Therapy Visit Comments Patient Comments Pt requesting to use toilet, agreeable to PT. M4 PT-IP Mobility and Gait Start: 09/07/22 12:45 Freq: NEEDED Status: Active Protocol: Document 09/13/22 12:08 TS (Rec: 09/13/22 12:19 TS [id number]) PT-Bed Mobility Assessment Supine to Sit Supine to Sit Independent Sit to Supine Sit to Supine Independent Scooting Scooting to Edge of Bed Standby Assistance Scooting Up and Down in Bed Independent PT-Transfer Assessment Sit to and From Stand Sit to and from Stand Minimal Assistance,1 Person Assistance,Use of Upper Extremities Equipment Transfer Assistive Device Gait Belt,Front Wheeled Walker Orthotic/Prosthetic Devices or Brace: No Comments Mobility Comments Supine to Ind with use of bed rail. Sit to stand Kathy with FWW, pt with slight retroleaning, required cues to stay on task. He ambulated ~ 40' in room CGA with slow step thru gait. Sit to stand from toilet Kathy with FWW and cues provided for use of grab bar. Sit to supine Ind with use of momentum to swing LEs into bed . Pt was left in bed with bed alarm on, call light nearby, all needs met. Gait Assessment Gait Gait Assistance Required: Contact Guard Assist,1 Person Assist Distance (Feet) 40 Able to Maintain Weight Bearing Status Yes During Gait Assistive Devices Assistive Device Gait Belt,Front Wheeled Walker Orthotic/Prosthetic Devices or Brace: No Gait Deviations General Gait Pattern Decreased Stride Length,Flexed Trunk,Step-to Gait Factors Limiting Gait Function Factors Limiting Gait Function Decreased Strength,Limited Range of Motion,Pain Comments Gait Comments See mobility comments. PT-Balance Assessment Sitting Balance and Reactions Static Sitting Balance Ability Good Dynamic Sitting Balance Ability Good Standing Balance and Reactions Static Standing Balance Ability Fair Dynamic Standing Balance Ability Fair Device Used FWW M5 PT-IP Objective Assessments Start: 09/07/22 12:45 Freq: NEEDED Status: Active Protocol: Document 09/07/22 15:35 AMH (Rec: 09/07/22 15:51 AMH [id number]) Orientation Orientation/Cognition Level of Alertness Alert Comments pt is grieving and is talking about his grief, he may benefit from further testing on mental state. His was gone for approx 3 days before he went to check on her. He is confused about the details of her Gross Range of Motion Upper Extremity ROM Assessment Bilaterally Impaired Lower Extremity ROM Assessment Bilaterally Impaired Strength Upper Extremity Strength Assessment Bilaterally Impaired Lower Extremity Strength Assessment Bilaterally Impaired Comments Strength Comments forward flexed trunk, forward head position and decreased AROM and strength of the UE/LE Coordination Assessment Gross Coordination Gross Coordination WNL Sensation Assessment Sensation Gross Sensation WNL Muscle Tone Muscle Tone WNL Yes M6 PT-IP Treatment Start: 09/07/22 12:45 Freq: NEEDED Status: Active Protocol: Document 09/11/22 12:19 KS (Rec: 09/11/22 12:19 KS [id number]) Physical Therapy Treatment Education Education Provided Safety M7 PT-IP Assessment and Plan Start: 09/07/22 12:45 Freq: NEEDED Status: Active Protocol: Document 09/13/22 12:08 TS (Rec: 09/13/22 12:19 TS [id number]) PT Summary Assessment and Plan Potential Rehabilitation Potential Excellent Summary Impairments Pain,Strength,Activity Tolerance Progress Towards Goals Progressing Toward Goals,Slow Progress due to Activity Tolerance Assessment Summary Pt continues to be SBA/Ind for bed mobility. He requires Kathy for sit to stand from higher surfaces and lower surfaces. Pt ambulated ~40'CGA , he is unsteady with gait and remains a falls risk. PT continues to recommend [facility]RE[facility] vs SNF. Goals Transfer Goal Independent Gait Goal Standby Assistance Gait Distance 50 feet Frequency of Treatment Frequency Of Treatment Once a Day Treatment Plan Physical Therapy Treatment Plan Transfer Training,Gait Training Recommendations To Nursing Amount of Assist Needed 1 Person Assist Discharge Recommendations Other Discharge Recommendations [facility] versus SNF Transportation Needs at Discharge Wheelchair/Cabulance
--- NOTE | 2022-09-13 14:27 | P.PN_ITS ---
Subjective Subjective Date Patient Seen: 09/13/22 Time Patient Seen: 14:27 Interval history: Patient seen in follow-up social issues atrial fibrillation type 2 diabetes. Feeling well today. Slept a little better last night Exam Vital Signs (past 8 hours): - 09/13/22 08:37 09/13/22 10:57 Temperature 96.6 F L Pulse Rate 85 67 Respiratory Rate 16 Blood Pressure 130/71 131/70 Pulse Oximetry 97 Oxygen Delivery Method Room Air Oxygen Flow Rate 0 Narrative Exam Narrative: Alert male no acute distress Lungs are clear heart is irregular with controlled rate Objective Labs 09/13/22 04:33 09/08/22 08:15 Labs: Laboratory Results - last 24 hr 09/13/22 09/13/22 04:33 04:33 WBC 5.1 RBC 3.71 L Hgb 11.5 L Hct 33.9 L MCV 91.5 MCH 31.1 MCHC 34.0 RDW 14.9 H Plt Count 162 Neut % (Auto) 53.3 Lymph % (Auto) 22.7 L Converse % (Auto) 10.2 Eos % (Auto) 12.4 H Baso % (Auto) 1.4 Neut # (Auto) 2700 Lymph # (Auto) 1200 Converse # (Auto) 500 Eos # (Auto) 600 H Baso # (Auto) 100 PT 29.4 H INR 2.5 H PFSH Medical History Atrial fibrillation BPH w urinary obs/LUTS DM type 2 (diabetes mellitus, type 2) Elevated PSA Family history of prostate cancer in father Prostate cancer Spermatocele of epididymis, multiple Urological system complication of procedure UTI (urinary tract infection) Surgical History History of bladder surgery Previous back surgery Social History marital status: household members: spouse occupational status: previously employed Smoking Status: Never smoker alcohol intake: never substance use type: does not use Assessment & Plan Assessment & Plan narrative: Grief reaction/depression doing well. Seems to be engaging a little more. No evidence of further paranoia. Working on finances. Will follow no treatment at this time Memory changes. Stable. Patient has been doing a number of things while I do not think he is perfectly clear he certainly does have memory of things that are happening. We will continue to follow. I do not think it would be treatable but we will watch. Atrial fibrillation. Stable. Coumadin has been good. Type 2 diabetes stable. Biggest issue is where we are going to go. Discussed extensively with social service today. Still do not have a definitive answer. [place] return home is the possibility they would not be able to consider at until Thursday at the earliest. At this point will continue care 40 minutes spent with patient with social service nursing dictation orders
[2022-09-13] MEDS: WARFARIN 1 MG TABLET 4 MG PO (16:52)
--- NOTE | 2022-09-13 16:53 | CM.DPNOTE ---
DCP Note Lengthy conversation at bedside between this WATER OPERATOR, Dr Pierre and spouse today; inevitably spouse agrees taking patient home w/hospice service is the most appropriate outcome and would like a referral made today Patient/spouse live in [place]. Placed call to [facility], had to LM for cobol application developer RN. Faxed referral Later heard back via voicemail from cobol application developer RN Rolanda Brennan P [phone] F [phone] that hospital bed could not be delivered until (earliest) Thursday and start of care likely Thursday Placed call to [facility], Zoey explains they cannot open service for a few days Referral faxed to [facility] asking that spouse Alan be contacted to discuss hospice services According to conversation w/spouse this morning, hospital bed needs to be delivered before patient returns home as patient is a 2 person max assist. BLS transport needed as well Addtl coordination needed for this DCP Plan: Anticipate discharge home w/spouse, in home caregivers (resume), [facility] (as long as patient is eligible for services) once hospital bed delivered Back up plan may need to be continued search for SNF vs home w/HH, resumption (increase?) in caregivers at home via BLS JW
--- NOTE | 2022-09-13 17:03 | CM.DPNOTE ---
DCP Note Reviewed chart. Placed call to [facility], asked if patient could admit over the weekend (?) Arc Furnace Operator placed a call out to RN and returned this DIRECTOR OF TRAUMA's call saying that this patient cannot admit until (earliest) Thursday Plan: Anticipate discharge to [facility] for respite care beginning of next week Stay in close contact with patient and his step son Rolly (arriving here Thursday) with updates and to review DCP JW
[2022-09-13 20:00] VITALS: BP 125/69; PULSE 67; RESP 18; TEMP 36.1; O2SAT 96
[2022-09-13] MEDS: MIRTAZAPINE 15 MG TABLET PO (20:55)
[2022-09-13] MEDS: HYDROCODONE/ACET 5/325 TABLET 1 TAB PO (20:55)
[2022-09-14] MEDS: polyethylene glycoL 3350 17 GM POWD.PACK PO (00:38)
[2022-09-14 05:29] LABS: INR 2.6 (0.9-1.3); Prothrombin Time 29.8 SECONDS (10.1-12.7)
[2022-09-14 07:43] VITALS: BP 125/68; PULSE 74; RESP 18; TEMP 35.9; O2SAT 96
[2022-09-14] MEDS: SUCRALFATE 1 GM TABLET PO ×3 (08:44→17:43)
[2022-09-14] MEDS: BICALUTAMIDE 50 MG TABLET PO (08:44)
[2022-09-14] MEDS: METFORMIN HCL 500 MG TABLET PO (08:44)
[2022-09-14 08:45] VITALS: BP 125/68; PULSE 74
[2022-09-14] MEDS: SENNOSIDES 8.6 MG TABLET PO (08:45)
[2022-09-14] MEDS: METOPROLOL ER 25 MG TABLET PO (08:45)
[2022-09-14] MEDS: FAMOTIDINE 20 MG TABLET PO (08:45)
[2022-09-14] MEDS: PANTOPRAZOLE DR 40 MG TABLET PO ×2 (08:45→21:30)
[2022-09-14] MEDS: HYDROCODONE/ACET 5/325 TABLET 1 TAB PO (08:53)
[2022-09-14] MEDS: DICLOFENAC 1% GEL 100 GM 1 APPLIC TOP ×2 (08:59→21:30)
[2022-09-14] MEDS: NYSTATIN POWDER 15GM 1 APPLIC TOP (09:00)
--- NOTE | 2022-09-14 10:51 | PM.PN.1 ---
Subjective Subjective Date Patient Seen: 09/14/22 Time Patient Seen: 10:52 Interval history: Patient seen in follow-up of grief reaction depression weakness. Patient overall has been getting up and going to the bathroom. And at least has been able to do basic ADLs. Not much beyond that. Otherwise there is no significant changes or complaint. Has no chest pain no shortness of breath mostly feeling okay. Still struggling with the fact that his has gone. Exam Vital Signs (past 8 hours): - 09/14/22 07:43 09/14/22 08:45 Temperature 96.7 F L Pulse Rate 74 74 Respiratory Rate 18 Blood Pressure 125/68 125/68 Pulse Oximetry 96 Oxygen Flow Rate 0 Oxygen Delivery Method Room Air Oxygen Flow Rate 0 Narrative Exam Narrative: Alert elderly male in no acute distress Lungs are clear heart is irregular but controlled rate extremities are normal Objective Labs 09/13/22 04:33 09/08/22 08:15 Labs: Laboratory Results - last 24 hr 09/14/22 04:54 PT 29.8 H INR 2.6 H PFSH Medical History Atrial fibrillation BPH w urinary obs/LUTS DM type 2 (diabetes mellitus, type 2) Elevated PSA Family history of prostate cancer in father Prostate cancer Spermatocele of epididymis, multiple Urological system complication of procedure UTI (urinary tract infection) Surgical History History of bladder surgery Previous back surgery Social History marital status: household members: spouse occupational status: previously employed Smoking Status: Never smoker alcohol intake: never substance use type: does not use Assessment & Plan Assessment & Plan narrative: Weakness. Really the issue for us. This has been coming on longstanding and is a development of him not moving a lot and having right leg pain secondary to his nerve impingement. That has been treated the best we can at this point. He really is complaining of no pain but he still is very weak. He can functionally do his ADLs and probably all but bathing will need help at home in other caretaking responsibilities. Do not see this getting a lot better mostly because of his progressive weakness over the last several years his pain and his motivation. Will have to see what that means long-term for his placement Grief reaction depression seems to be stable. Will have to follow. Constipation. Will try suppositories Type 2 diabetes. Stable. No change in meds. Atrial fibrillation. Stable without significant change continue current medicine. Hypertension/overall doing well. He has had a history of hypotension and will just have to watch. Follow. Code status DNR. GI prophylaxis not needed DVT prophylaxis on anticoagulation. Disposition. Awaiting decision on transfer to either home or care facility short term. No other issues. Follow-up a.m.. 35 minutes spent with social service patient dictation orders
--- NOTE | 2022-09-14 12:00 | PT.IPTN ---
Physical Therapy Treatment Note M2 PT-IP Current Condition Start: 09/07/22 12:45 Freq: NEEDED Status: Active Protocol: Document 09/07/22 15:35 AMH (Rec: 09/07/22 15:51 AMH [id number]) Physical Therapy Current Condition Current Condition Evaluation Date 09/07/22 Treatment Diagnosis social admit Onset Date 09/06/22 M3 PT-IP Subjective Start: 09/07/22 12:45 Freq: NEEDED Status: Active Protocol: Document 09/14/22 12:13 KS (Rec: 09/14/22 12:19 KS [id number]) Subjective Physical Therapy Visit Type Type Treatment Note Visit Start Time 11:45 Visit Stop Time 12:00 Total Visit Minutes 15 Number of MITER OPERATOR Visits 3 M4 PT-IP Mobility and Gait Start: 09/07/22 12:45 Freq: NEEDED Status: Active Protocol: Document 09/14/22 12:13 KS (Rec: 09/14/22 12:19 KS [id number]) PT-Transfer Assessment Comments Mobility Comments Pt in bed, recently ambulated frequently to bathroom w/ nursing staff d/t suppository given. Does not want to ambulate again currently, but agrees to LE exercises in bed as was able to complete ankle pumps, quad sets, glute sets, and heel slides. Pt given exercises written on paper to complete throughout the day and is agreeable to perform. Left in bed w/ all needs in reach. M5 PT-IP Objective Assessments Start: 09/07/22 12:45 Freq: NEEDED Status: Active Protocol: Document 09/07/22 15:35 AMH (Rec: 09/07/22 15:51 AMH [id number]) Orientation Orientation/Cognition Level of Alertness Alert Comments pt is grieving and is talking about his grief, he may benefit from further testing on mental state. His was gone for approx 3 days before he went to check on her. He is confused about the details of her Gross Range of Motion Upper Extremity ROM Assessment Bilaterally Impaired Lower Extremity ROM Assessment Bilaterally Impaired Strength Upper Extremity Strength Assessment Bilaterally Impaired Lower Extremity Strength Assessment Bilaterally Impaired Comments Strength Comments forward flexed trunk, forward head position and decreased AROM and strength of the UE/LE Coordination Assessment Gross Coordination Gross Coordination WNL Sensation Assessment Sensation Gross Sensation WNL Muscle Tone Muscle Tone WNL Yes M6 PT-IP Treatment Start: 09/07/22 12:45 Freq: NEEDED Status: Active Protocol: Document 09/14/22 12:13 KS (Rec: 09/14/22 12:19 KS [id number]) Physical Therapy Treatment Exercises Exercises Ankle Pumps,Gluteal Sets,Quad Sets,Heel Slides Education Education Provided Safety M7 PT-IP Assessment and Plan Start: 09/07/22 12:45 Freq: NEEDED Status: Active Protocol: Document 09/14/22 12:13 KS (Rec: 09/14/22 12:19 KS [id number]) PT Summary Assessment and Plan Potential Rehabilitation Potential Excellent Summary Impairments Pain,Strength,Activity Tolerance Progress Towards Goals Progressing Toward Goals,Slow Progress due to Activity Tolerance Assessment Summary Pt has been CGA w/ nursing staff this morning, fatigued from recent ambulation but able to complete LE exercises to promote blood flow and strengthening. Pt will require NURSING HOME or SNF for safety as pt has been unsteady when ambulating and does not have assistance at home or safe home environment. Goals Transfer Goal Independent Gait Goal Standby Assistance Gait Distance 50 feet Frequency of Treatment Frequency Of Treatment Once a Day Treatment Plan Physical Therapy Treatment Plan Transfer Training,Gait Training Recommendations To Nursing Amount of Assist Needed 1 Person Assist Discharge Recommendations Other Discharge Recommendations NURSING HOME versus SNF Transportation Needs at Discharge Wheelchair/Cabulance
[2022-09-14] MEDS: WARFARIN 1 MG TABLET 4 MG PO (17:43)
[2022-09-14 20:00] VITALS: BP 116/47; PULSE 63; RESP 18; TEMP 36.1; O2SAT 98
[2022-09-14] MEDS: MIRTAZAPINE 15 MG TABLET PO (21:30)
--- NOTE | 2022-09-15 08:32 | PM.PN.1 ---
Subjective Subjective Date Patient Seen: 09/15/22 Time Patient Seen: 08:32 Interval history: Patient is sleeping this morning difficult to arouse but no complaints seen in follow-up of type 2 diabetes depression weakness Exam Vital Signs (past 8 hours): Oxygen Delivery Method Room Air Oxygen Flow Rate 0 Narrative Exam Narrative: Sleepy male in no acute distress Objective Labs 09/13/22 04:33 09/08/22 08:15 PFSH Medical History Atrial fibrillation BPH w urinary obs/LUTS DM type 2 (diabetes mellitus, type 2) Elevated PSA Family history of prostate cancer in father Prostate cancer Spermatocele of epididymis, multiple Urological system complication of procedure UTI (urinary tract infection) Surgical History History of bladder surgery Previous back surgery Social History marital status: household members: spouse occupational status: previously employed Smoking Status: Never smoker alcohol intake: never substance use type: does not use Assessment & Plan Assessment & Plan narrative: Weakness. No change. Will continue to follow. Grief reaction. Actually doing okay. Intermittent worsening. Normal response. Constipation. Continue meds suppository seem to be working. Type 2 diabetes. Stable. No change in treatment Atrial fibrillation. Rate seems to be well-controlled. No change at this time. Hypertension. Blood pressure seems to be stable. Will continue. Code status DNR GI prophylaxis not needed Disposition. Awaiting decision for placement home versus assisted living. Waiting for son. Will continue to follow.
--- NOTE | 2022-09-15 08:45 | PC.NURSE ---
Patient sleeping and did not wake up after blood sugar check. Breakfast at bedside, call light within reach, will continue to follow.
--- NOTE | 2022-09-15 10:55 | PT-IP ANOTE ---
Pt refused to mobilize with PT today. Pt reports being tired and that he gets up with nursing to bathroom. Will check in with pt tomorrow.
--- NOTE | 2022-09-15 11:23 | PC.NURSE ---
Attempted again to wake up patient (PT and OT have also tried). He is very sleepy today and kind of agrees to wake around lunch. Not safe to take his morning medications yet at this time because of his sleepiness and not willing to sit up. Will continue to follow
[2022-09-15 12:14] VITALS: BP 132/59; PULSE 60; RESP 16; TEMP 36.2; O2SAT 98
[2022-09-15] MEDS: SUCRALFATE 1 GM TABLET PO ×2 (12:18→20:15)
--- NOTE | 2022-09-15 13:18 | CM.DPC ---
DCP Cont: Per MD, pt remains medically stable and awaiting discharge plan. SOURAV called Marie RN at [facility] and confirmed that they can accept the pt today if pt willing to sign the plan of care forms. Marie confirms that pt would not need to pay a month in advance but could stay for Respite for a few days, a week, or a month depending on when he can d/c back home and is around $270 a day for meals and med assist and care in a furnished apt. SW and CM Director Jennifer discussed situation with Jimmie Pablo and he confirms it would be appropriate to provide pt with the HINN letter if pt refuses to discharge the hospital now that a safe d/c plan has been secured and if devonte Lofton has any questions or concerns he can call Jacques in Quality. SW and CM Director confirmed with Sugey in Patient accounts that pt's average daily cost for his hospital stay under Observation Status is $2,800.00 to add to the HINN letter. SOURAV completed the HINN letter with the average daily cost, the reason pt's hospital stay determined to likely not be covered by Medicare being You were admitted on 09/06/22 to the hospital for Failure to Thrive and inability to return to home environment. Per Medicare guidelines and 3rd democrat reviewer EHR, determined that you met OBSERVATION criteria not Inpatient Criteria under Medicare guidelines. Observation Status at the hospital allows for up to 48 hours of Medicare Part B coverage. SOURAV met bedside with pt and explained role again and pt eating lunch and he confirms his understanding is that his step son Rolly is flying in [facility] to assist with the hiring of the cleaning team for his home and that Rolly recommended pt remain in the hospital until the house is liveable in a few days later this week rather than go to Respite Stay due to the cost. SOURAV provided the HINN letter to pt and explained the purpose and reason for possible out of pocket expense and then updated that [facility] can accept him today for around $270 a day for a few days up to a month if needed. Pt declined signing the HINN but was agreeable with SW calling and updating Rolly on the HINN as well. Pt confirms he is not agreeable with d/c to [facility] today and wants to wait for Rolly to [facility]. SOURAV called devonte Lofton and left detailed msg and went straight to voicewvil so Rolly might currently be flying from [place] to [place]. Requested urgent call back to discuss further to have a discharge plan by tomorrow 09/16. SW updated MD on secured safe d/c plan and pt current refusal and requested d/c order if MD feels pt does not need hospital level of care and medically stable towards discharge plan and HINN form tomorrow 09/16. Plan: SW to follow closely in the AM with pt and step son Rolly (who should be bedside and local by julianne) for plan of discharge 09/16 to either [facility] or with Rolly to where Rolly is staying until house is liveable. JOJO Garcia
--- NOTE | 2022-09-15 13:19 | OT.IPNOTE ---
Attempted to see pt for OT services. Pt is sleeping soundly. Will hold and continue to follow.
[2022-09-15] MEDS: WARFARIN 1 MG TABLET 4 MG PO (18:39)
[2022-09-15] MEDS: ACETAMINOPHEN 325 MG TABLET 650 MG PO (18:39)
[2022-09-15 19:50] VITALS: BP 130/47; PULSE 59; RESP 18; TEMP 36.3; O2SAT 93
[2022-09-15] MEDS: MIRTAZAPINE 15 MG TABLET PO (20:14)
[2022-09-15] MEDS: methocarbamoL 500 MG TABLET 750 MG PO (20:14)
[2022-09-15] MEDS: HYDROCODONE/ACET 5/325 TABLET 1 TAB PO (20:14)
[2022-09-15] MEDS: SODIUM CHLORIDE 0.9% FLUSH 10 ML IV (20:15)
[2022-09-15] MEDS: METFORMIN HCL 500 MG TABLET PO (20:15)
[2022-09-15] MEDS: PANTOPRAZOLE DR 40 MG TABLET PO (20:15)
[2022-09-15] MEDS: DICLOFENAC 1% GEL 100 GM 1 APPLIC TOP (20:16)
[2022-09-15] MEDS: NYSTATIN POWDER 15GM 1 APPLIC TOP (20:17)
[2022-09-16 08:00] VITALS: BP 115/80; PULSE 96; RESP 16; TEMP 36.1; O2SAT 98
--- NOTE | 2022-09-16 08:29 | P.PN_ITS ---
Subjective Subjective Date Patient Seen: 09/16/22 Interval history: Patient seen in follow-up failure to thrive and weakness. Overall been stable. With no new changes. Still having back pain but mobilizing some. Exam Vital Signs (past 8 hours): Oxygen Delivery Method Room Air Oxygen Flow Rate 0 Narrative Exam Narrative: Alert male in no acute distress Lungs are clear heart is regular rate and rhythm Objective Labs 09/13/22 04:33 09/08/22 08:15 PFS Medical History Atrial fibrillation BPH w urinary obs/LUTS DM type 2 (diabetes mellitus, type 2) Elevated PSA Family history of prostate cancer in father Prostate cancer Spermatocele of epididymis, multiple Urological system complication of procedure UTI (urinary tract infection) Surgical History History of bladder surgery Previous back surgery Social History marital status: household members: spouse occupational status: previously employed Smoking Status: Never smoker alcohol intake: never substance use type: does not use Assessment & Plan Assessment & Plan narrative: Failure to thrive. Patient basically is capable patent care of immediate needs or basic ADLs but anything beyond that is going to be difficult for him. Patient has been intermittent with physical therapy sometimes refusing sometimes not. No other changes. I think this is a combination of his multiple medical p roblems his age motivation and his back pain. I do not see a lot of improvement secondary to his motivation. He understands at point no change in treatment Weakness. Patient with no definitive neurologic changes but has had longstanding back pain with nerve impingement on the right leg. He is had multiple treatments without total success. Patient has been mostly bed-bound with basic ADLs but toileting dressing but otherwise not really taking care of much us else because of this and at this point will need help at home. Will be difficult for him to have anything less than 24 hour care but will have to see how things go. Grief reaction. Still dealing with it. Certainly going to take time. No medication needed Constipation. Stable. Type 2 diabetes. Doing well. Atrial fibrillation. Without significant issue. Hypertension blood pressure stable. Code status DNR GI prophylaxis not needed. DVT prophylaxis on anticoagulation. Disposition. Patient son is in town and they are cleaning the house. Said to be done in 1-1/2 days. It really makes no sense if that estimated is true to transfer him to another institution just a transfer back home if that is the plan. Discussed with social service. Will see how things go. He was discharged today but I do not see him going home today will see how things go. Difficult because we are not actively managing anything other than his social issues. Patient understands. But does not want to make transfer. Questions answered. 35 minutes spent with the patient with social service with dictation orders
[2022-09-16 09:07] LABS: INR 3.5 (0.9-1.3); Prothrombin Time 40.5 SECONDS (10.1-12.7)
[2022-09-16] MEDS: FAMOTIDINE 20 MG TABLET PO (10:12)
[2022-09-16] MEDS: METFORMIN HCL 500 MG TABLET PO ×2 (10:13→17:23)
[2022-09-16] MEDS: METOPROLOL ER 25 MG TABLET PO (10:13)
[2022-09-16] MEDS: SENNOSIDES 8.6 MG TABLET PO (10:13)
[2022-09-16] MEDS: DICLOFENAC 1% GEL 100 GM 1 APPLIC TOP (10:13)
[2022-09-16] MEDS: PANTOPRAZOLE DR 40 MG TABLET PO ×2 (10:13→20:38)
[2022-09-16] MEDS: NYSTATIN POWDER 15GM 1 APPLIC TOP ×2 (10:14→20:39)
[2022-09-16] MEDS: BICALUTAMIDE 50 MG TABLET PO (10:18)
--- NOTE | 2022-09-16 13:15 | OT.IPNOTE ---
At this time, discharge pt for OT services as per rounds. Case management is mainly just looking for placement for the pt.
--- NOTE | 2022-09-16 13:17 | PT.IPTN ---
Physical Therapy Treatment Note M2 PT-IP Current Condition Start: 09/07/22 12:45 Freq: NEEDED Status: Active Protocol: Document 09/07/22 15:35 AMH (Rec: 09/07/22 15:51 AMH [id number]) Physical Therapy Current Condition Current Condition Evaluation Date 09/07/22 Treatment Diagnosis social admit Onset Date 09/06/22 M3 PT-IP Subjective Start: 09/07/22 12:45 Freq: NEEDED Status: Active Protocol: Document 09/16/22 13:14 AB (Rec: 09/16/22 13:17 AB [id number]) Subjective Physical Therapy Visit Type Type Administrative Note Notes per interdisciplinary rounds meeting to d/c pt. pt is a social admit with placement issues and now plans to either d/c to a long-term facility vs home with family until pt's ready to d/c home alone M7 PT-IP Assessment and Plan Start: 09/07/22 12:45 Freq: NEEDED Status: Active Protocol: Document 09/16/22 13:14 AB (Rec: 09/16/22 13:17 AB [id number]) PT Summary Assessment and Plan Frequency of Treatment Frequency Of Treatment Discharge
--- NOTE | 2022-09-16 15:21 | CM.DPC ---
DCP Discharge Per MD, pt remains medically stable to discharge and completed discharge order in the computer but states pt is refusing to discharge to Respite stay stating he does not want to have multiple transitions before discharging back home. SOURAV met bedside with pt and he is A&Ox3 today and confirms Rolly and his flew in from [place] last night and were bedside for a couple hours and are staying locally at a hotel and likely are already at pt's house this morning at 0900 for the [employer] to begin hoarding cleanup today. Pt confirms that he is not agreeable to discharge today and plans to await his home being cleaned so he can d/c directly home. SW reminded pt of the [facility] letter that was presented to him that he could be liable for his hospital stay. Pt requested SW to call Rolly. SOURAV called Rolly and he confirms he is currently at pt's home and cleanup has begun but that Rolly has requested the company send additional staff to speed up the process of cleaning to limit the amount of time it takes to get the home liveable. Rolly confirms that he is refusing for pt to d/c to [facility] due to the $2500 deposit and daily care cost but states he would be agreeable to SW contacting [facility] to gather information if they have Respite Stay available for a few days to a week. Rolly confirms that Hue from [facility] willing to meet with him at pt's home today to discuss CG services once pt gets home. SOURAV discussed [facility] letter again and likelihood that pt will be liable for hospital stay if he does not discharge today. SOURAV called Paulina at [facility] [phone] and she confirms they have a furnished apt for Respite but are working on getting a bedframe for their romeo mattress and that's all that is needed. They havent done Respite in a long time and she had to locate their pwk for Respite but confirms it would be $200 a day and since Rolly and spouse staying nearby they could likely help with med management while pt is there for Respite. Paulina agreeable with Rolly giving her a call to discuss further. SOURAV also received a call from Aneta at [facility] confirming she mis-spoke to Rolly regarding cost and pt would not require a $2500 deposit since he likely would not be there for a month or more and would be around $250 a day. SOURAV spoke to [facility] Hue bedside who came to check in on a couple patients and she confirms she met with Rolly but that she has some concerns as Rolly did not want to pay for 24/7 CG. SW discussed that pt is not a lot of care needs and is not very motivated for mobility but does have days that he is groggy and difficult to wake and unsure if pt would really need 24/7 as when awake he is not demented and seems A&Ox3. Hue states that Rolly also mentioned he might only want 2-4 weeks of CG when pt first arrives back home and then would stop CG services and Hue concerned about this. [facility] remains following to see what pt's discharge plan might be and if they are needed in a way that is safe and makes sense. SW called [facility] and had to leave detailed msg regarding [facility] and provided Paulina at [facility] cell phone and strongly encouraged him to call as a d/c plan will need to be finalized for tomorrow, even if going to Rolly and his spouse's hotel room, to avoid the pt getting billed the average $2,800 daily hospital cost. Plan: SW to follow closely in the AM with pt, [facility], [facility] towards pt discharge to avoid bill for daily hospital cost of $2,800. JOJO Garcia
[2022-09-16] MEDS: HYDROCODONE/ACET 5/325 TABLET 1 TAB PO ×2 (17:23→21:31)
[2022-09-16] MEDS: SUCRALFATE 1 GM TABLET PO ×2 (17:23→20:38)
[2022-09-16 20:00] VITALS: BP 127/90; PULSE 63; RESP 18; TEMP 36.6; O2SAT 97
[2022-09-16] MEDS: MIRTAZAPINE 15 MG TABLET PO (20:38)
[2022-09-17 05:42] LABS: Prothrombin Time 35.3 SECONDS (10.1-12.7)
[2022-09-17 08:00] VITALS: BP 99/71; PULSE 80; RESP 18; TEMP 35.9; O2SAT 98
[2022-09-17] MEDS: SUCRALFATE 1 GM TABLET PO ×2 (08:23→12:03)
[2022-09-17] MEDS: FAMOTIDINE 20 MG TABLET PO (08:23)
[2022-09-17] MEDS: BICALUTAMIDE 50 MG TABLET PO (08:23)
[2022-09-17] MEDS: METFORMIN HCL 500 MG TABLET PO (08:23)
[2022-09-17] MEDS: HYDROCODONE/ACET 5/325 TABLET 1 TAB PO (08:26)
[2022-09-17] MEDS: SENNOSIDES 8.6 MG TABLET PO (08:27)
[2022-09-17] MEDS: PANTOPRAZOLE DR 40 MG TABLET PO (08:27)
[2022-09-17] MEDS: DICLOFENAC 1% GEL 100 GM 1 APPLIC TOP (08:34)
[2022-09-17] MEDS: NYSTATIN POWDER 15GM 1 APPLIC TOP (08:34)
[2022-09-17 08:38] VITALS: BP 99/71; PULSE 80
--- NOTE | 2022-09-17 09:18 | PM.PN.1 ---
Subjective Subjective Date Patient Seen: 09/17/22 Time Patient Seen: 09:18 Interval history: Patient seen in follow-up of failure to thrive weakness. Has been struggling with what and where he wants to go. How he is going to be cared. Has family support but may not have it for the long run. Since they live in [place]. Difficult for them. No other changes. Exam Vital Signs (past 8 hours): - 09/17/22 08:00 09/17/22 08:38 Temperature 96.7 F L Pulse Rate 80 80 Respiratory Rate 18 Blood Pressure 99/71 99/71 Pulse Oximetry 98 Oxygen Flow Rate 0 Oxygen Delivery Method Room Air Oxygen Flow Rate 0 Narrative Exam Narrative: Alert male in no acute distress Objective Labs 09/13/22 04:33 09/08/22 08:15 Labs: Laboratory Results - last 24 hr 09/17/22 04:55 PT 35.3 H D INR 3.0 H PFSH Medical History Atrial fibrillation BPH w urinary obs/LUTS DM type 2 (diabetes mellitus, type 2) Elevated PSA Family history of prostate cancer in father Prostate cancer Spermatocele of epididymis, multiple Urological system complication of procedure UTI (urinary tract infection) Surgical History History of bladder surgery Previous back surgery Social History marital status: household members: spouse occupational status: previously employed Smoking Status: Never smoker alcohol intake: never substance use type: does not use Assessment & Plan Assessment & Plan narrative: 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 Patient overall is doing well now. And certainly with help he does well. No other changes today. Weakness. Patient has been following some physical therapy but refusing some. This is a longstanding issue. And is a combination of motivation and back issues. Probably at his stable right now. Grief reaction. Difficult situation for multiple levels. Patient is in a situation where he does want to go home but can not and does not know what he wants to do. Trying to figure this out. Constipation. Doing better. Type 2 diabetes. Stable. Atrial fibrillation. Rate has been well-controlled no symptoms Hypertension. Doing well. Code status DNR GI prophylaxis not needed DVT prophylaxis on anticoagulation. Disposition. Terrible place where and right now. Patient can not go home. Probably is going to have to sell his house question on an state sale with him not even be able to go and look at his things and pick out some things to keep which certainly I hope we can get this done. I also believe that he is going to need some type of housing which is assisted. I do not believe we can have her live at home alone and we have had this discussion multiple times. He is currently medically stable and we will have to see how it goes. Hopefully we can get him lacunar today and work out the rest of the long-term issues. Discussed with son. Appreciate his time and work he is done. But it is going to be very difficult for him to do anything more from [place].
--- NOTE | 2022-09-17 13:34 | PM.DS.1 ---
History of Present Illness History of Present Illness Date Patient Seen: 09/17/22 Time Patient Seen: 13:35 Date of Onset of Symptoms: 09/03/22 Chief complaint: social admit Narrative: Pt is an 87yo man with atrial fibrillation on chronic anticoagulation, DM type 2, and GERD who presented due to inability to care for himself at home.? History was limited from the patient, who interacted minimally during the encounter.? Majority of history obtained from the ER provider.? The pt reportedly lived independently at home with his .? They slept in different bedrooms, and interacted minimally.? They are hoarders, and their home is completely full of things.? He found that his had in his home on 09/02, after he hadn't heard from her in several days and went to check on her.? He was unable to care for himself at home since her passing.? She managed his medications and prepared his food for him.? He contacted EMS due to not feeling he could care for himself, and was brought to the ED.? The pt remained in the ED for more than 24hrs, trying to arrange for caregiver support at home.? He was ultimately discharged with a caregiver, who would be with him for 5-6 hours daily.? The caregivers brought him home, and determined immediately, with EMS corroboration, that his house was unlivable in its current state.? He was then brought back to the ED. The pt currently reports that he is feeling okay.? He reports mild low back discomfort and abdominal discomfort.? He denies any cassie pain, change in his bowel habits, dysuria, nausea, vomiting, chest pain, SOB, cough.? He states he has not urinated since last night.? He states that he is not interested in IVF, and really wants to be bothered as little as possible. Discharge Providers Provider Date of admission: 09/06/22 15:34 Discharge Date: 09/17/22 Primary care physician: Rufino Pierre MD Consults: 09/06/22 18:07 Consult to Physical Therapy Evaluate & Treat Comment: Physician Instructions: Evaluate and Treat 09/07/22 15:40 Consult to Pastoral Services Routine Comment: found at home Thursday, removed from home 09/08/22 09:03 Consult to Occupational Therapy Evaluate & Treat Comment: Please complete SLUMS for cog assess Physician Instructions: Evaluate and treat Discharge provider: Rufino Pierre MD Summary Hospital Course Discharge Diagnosis: Failure to thrive Weakness Grief reaction Constipation Type 2 diabetes Back pain Hypertension Atrial fibrillation Memory loss Hospital Course: Failure to thrive. Patient was admitted basically because he was unable to care for himself at home. And the house was not habitable. Patient has been longstanding cared by his who recently . And now we are having difficulty secondary to the fact that he can do basic ADLs and that is it. Unable to care for himself as far as feeding. Bathing and other than dressing and toileting unable to care for himself. Physical therapy evaluated he was 1 person assist and overall was mostly social issue where and how we are going to get him help. It was elected to transfer to assisted living [place] and we will proceed from there. Weakness. Patient has had longstanding weakness secondary to his back problems and his lack of motivation to move out of bed. And help himself. His has been doing most of this for him over time and he really had no reason to mobilize. Patient was able to get up and move around but did not do a lot and spent a lot of time in bed. There is no other changes. Patient has no other changes. Otherwise doing well. Will continue. No change. Physical therapy has not been effective in the past and has not been motivated to participate. Will continue to follow. Grief reaction. Patient with recent loss of . Primary tugboat captain and person who made it so that he can stay at home. This has been a very difficult process but I think at this point medications were needed and he was followed. Memory changes. Patient has had longstanding memory issues. 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 Not treatable at this time. No other changes. Going to make transition difficult but at this point plan will be to continue current therapy and will follow. Constipation. Resolved. Will follow as outpatient. He is not had a consistent issue with this. Type 2 diabetes. Stable throughout course. Will follow no change in meds Back pain. Longstanding. No change. Patient seems comfortable. No treatment outside of mobilization. Hypertension. Stable throughout the course of admission. Atrial fibrillation. Doing well. Rate well controlled. Continue usual meds. Exam Vital Signs (past 8 hours): - 09/17/22 08:00 09/17/22 08:38 Temperature 96.7 F L Pulse Rate 80 80 Respiratory Rate 18 Blood Pressure 99/71 99/71 Pulse Oximetry 98 Oxygen Flow Rate 0 Oxygen Delivery Method Room Air Oxygen Flow Rate 0 Narrative Exam Narrative: Alert male no acute distress Lungs are clear heart is irregular but controlled rate. Extremities no edema neurologic exam is stable Objective Labs 09/13/22 04:33 09/08/22 08:15 Labs: Laboratory Results - last 24 hr 09/17/22 04:55 PT 35.3 H D INR 3.0 H PFSH Medical History Atrial fibrillation BPH w urinary obs/LUTS DM type 2 (diabetes mellitus, type 2) Elevated PSA Family history of prostate cancer in father Prostate cancer Spermatocele of epididymis, multiple Urological system complication of procedure UTI (urinary tract infection) Surgical History History of bladder surgery Previous back surgery Social History marital status: household members: spouse occupational status: previously employed Smoking Status: Never smoker alcohol intake: never substance use type: does not use Discharge Assessment & Plan Assessment and Plan Assessment: Assisted living Plan of Treatment: Assisted living Discharge Plan Discharge Plan Patient Disposition: Assisted Living Other facility: [facility] Under care of provider: edy Transportation: [facility] Discharge orders & Medications Discharge Orders: Discharge (Order); Ordered 09/16/22 Ordered By: Rufino Pierre Prescriptions: Continued mirtazapine [Remeron] 15 MG tablet 15 mg PO HS Qty: 0 cimetidine 800 MG tablet 800 mg PO TIDAC Qty: 0 warfarin [Coumadin] 2 MG tablet PO QDAY Qty: 0 sucralfate 1 GM tablet 1 gm PO ACHS Qty: 0 methocarbamol 750 MG tablet 750 mg PO Q6HP PRNQty: 0 promethazine 25 MG tablet 25 mg PO PRN PRNQty: 0 triamcinolone acetonide 0.025 % cream 1 hayes Topical Qty: 0 nystatin [Nystop] 60 GM powder 100,000 unit Topical BID Qty: 0 [CINDY-SELTZER HEARTBU] PRN PRNQty: 0 ferrous gluconate 236 mg (27 mg iron) Tablet 225 mg PO QDAY Qty: 0 benzonatate [Tessalon Perles] 100 mg capsule 100 mg PO TID PRN (Reason: cough) Qty: 12 0RF guaifenesin 200 mg/5 mL liquid 200 mg PO Q4H PRN (Reason: congestion) Qty: 118 0RF diclofenac sodium [Voltaren Arthritis Pain] 1 % gel 2 g topical QID Qty: 100 0RF Rx Instructions: apply to single elbow, wrist or hand; for hand includes palm/fingers/back of hand metformin 500 mg tablet 500 mg PO BID omeprazole 40 mg capsule,delayed release(DR/EC) 40 mg PO BID diphenoxylate-atropine 2.5-0.025 mg tablet 1 tab PO Q6-8H PRN tolterodine 4 mg capsule,extended release 24hr 4 mg PO DAILY metoprolol succinate 25 mg tablet extended release 24 hr 25 mg PO DAILY bicalutamide [Casodex] 50 mg tablet 50 mg PO DAILY Qty: 30 0RF Discontinued dexamethasone [Decadron] 4 mg tablet 4 mg PO BID Follow up/Referrals: Rufino Pierre MD [Primary Care Provider] - 2 Weeks Discharge Health Status Multidrug resistant organism: No MDRO MDRO Verified by culture: Yes Precautions: Colbert Diet/Activity/Treatments Diet: Diet as Tolerated and Carb-consistent/Diabetic Liquid consistency: Normal/Thin Food texture: Regular Activity: as tolerated Visit Report/Discharge Packet Stand Alone Forms: Patient Portal/API, Stroke Signs & Symptoms Discharge Data Primary Care Provider: Rufino Pierre Attending Provider: Rufino Pierre Admit Date/Time: 09/06/22 15:34
--- NOTE | 2022-09-17 13:39 | CM.DPC ---
DCP Continued: SALES OPERATIONS SPECIALIST contacted [facility] for establishing a ride for patient from hospital to [facility]. Lauro from dispatch arranged for ride to mushroom picker patient at 1430. Cost quoted at $138.51. SALES OPERATIONS SPECIALIST provided Lauro with patient's contact information as well as patient's step-son, Rolly. SALES OPERATIONS SPECIALIST provided Lauro with most up to date PT information and recommendation for transport. Lauro requested person financially responsible call and give payment information over the phone. SALES OPERATIONS SPECIALIST updated JOJO Washburn and provider of 1430 mushroom picker time. SALES OPERATIONS SPECIALIST updated Maddison on need for patient to contact [facility] for payment. SALES OPERATIONS SPECIALIST printed off med list for provider. Provider signed and placed on SALES OPERATIONS SPECIALISTStefano Washburn desk. This SALES OPERATIONS SPECIALIST will continue to support CM team and patient with d/c plan moving forward in any way. JOJO Nicole
--- NOTE | 2022-09-17 14:07 | CM.DPNOTE ---
DC Note Reviewed chart. 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 Patient responds by asking multiple times when he can be in his home and Rolly and Dr Pierre warn against this plan, encouraging patient to consider a short respite stay at [facility] for addtl assistance Reviewed patient's hospitalization up until today's date and discussed the likelihood that patient now paying out of pocket since last night at 2400 (ILMATTI provided yesterday 8..). Strongly encouraged patient and son Rolly to make a decision re DCP and requested instruction on how/where to coordinate patient's discharge today Patient remains alert and oriented with the ability to make decisions for himself however short term memory loss noted throughout this visit. Ultimately, patient gives this TEA TREE FARM WORKER permission to plan with [facility] Salda[facility] for respite stay x 7 days= $1750. Rolly says he will bring the check books he uncovered in the home to patient, meanwhile patient has his credit card from [employer] Spoke w/Dominique at [facility] today. Patient can admit this afternoon/evening as long as [facility] has a signed med list and DC orders (DC Summary), patient is responsible for transport. Reviewed therapy notes w/AMAIRANI Salazar. Patient to pay for his respite stay upon arrival Then spoke w/Rolly to update that [facility] has a bed available x7 days and patient is agreeable. Requested that Rolly transport patient to [facility] and assist as patient arrives, pays and settles in. Rolly refuses this. Rolly asks that [facility] caregivers be contacted to transport because this agency owes patient money (?) Explained this TEA TREE FARM WORKER will not be doing that Rolly then states concern about the $30,000+ he has already spent which will effect myself, my business and my family, I will not do it (pay for anymore) Confirmed w/Rolly that the remainder of the discharge planning today will be conducted with patient only and Rolly says yes, Alan needs to make the decisions and that he will try to visit patient at [facility] tonight, likely tomorrow Cabulance transport felt to be the safest for patient; [facility] transport called and quote received for approx $130 for transport from to [facility]. Patient alerted that Rolly will not transport and that payment needed for [facility]. Patient states understanding and this TEA TREE FARM WORKER and patient call [facility] together Patient opens the bag from the ACU safe w/this TEA TREE FARM WORKER and SHARON Dennis present, form signed by patient and this TEA TREE FARM WORKER re receipt of wallet. Patient uses his credit card # to pay for [facility] RACHANA Lofton makes clear to this TEA TREE FARM WORKER and to patient this morning and again this afternoon that he will no longer pay for any services for patient, Rolly leaving next week and states he will no longer be responsible for patient Edward Salazar at [facility] that patient arriving via [facility] this afternoon, cabulance arranged for 1430 p/u from . Faxed signed med list and DC Summary to [facility]. Patient has his credit card on him and Rolly has his check books, per Rolly Plan: Discharge to [facility] for 7 day respite stay via cabulance, private payment JOJO Stark
--- NOTE | 2022-09-17 16:01 | PC.NURSE ---
Pt is A&OX4. VSS, on RA this a.m. He is able to ambulate with SBA using FWW to bathroom. BG is wnl and he eats a large breakfast this a.m. He is cleared for discharge and [facility]. He verbalizes understanding and agreement of discharge plan, medications, activity, diet recommendations. He is transported by [facility] via w/ch with all of his belongings including his billfold and marketing planner at approximately 1450 for discharge today.
== END 2022-09-17 14:55 ==
LOC: ED 15:23 → AC 15:35
PROVIDERS: Admitting Provider Family Medicine; Emergency Provider Emergency Medicine; Family Provider Family Medicine; PCP Family Medicine; Referring Provider Emergency Medicine; Visit Provider Family Medicine
DX: R62.7 Adult failure to thrive (principal); I48.91 Unspecified atrial fibrillation; Z79.01 Long term (current) use of anticoagulants; E11.9 Type 2 diabetes mellitus without complications; K21.9 Gastro-esophageal reflux disease without esophagitis; Z79.84 Long term (current) use of oral hypoglycemic drugs; F32.A Depression, unspecified; F43.20 Adjustment disorder, unspecified; M54.9 Dorsalgia, unspecified; K59.00 Constipation, unspecified; K31.9 Disease of stomach and duodenum, unspecified; R53.1 Weakness; I10 Essential (primary) hypertension; R41.3 Other amnesia
CPT/HCPCS: 36415; 80048; 80053; 81001; 82962; 85025; 85610; 85730; 96372; 97110; 97116; 97161; 97165; 97530; 97535; 99222; 99232; 99283; G0378; A9270; J1650

== ENCOUNTER 2022-10-28 15:40 | Emergency (ER) | payer MEDICARE, BC, SELFPAY ==
[2022-10-28] VITALS (24 sets, daily range): BP systolic 102–169; BP diastolic 56–104; PULSE 62–153; RESP 16–46; TEMP 36.6; O2SAT 94–100; BMI 23.8
--- NOTE | 2022-10-28 15:57 | DI.RAD.S_ITS ---
PROCEDURE: XR CHEST 1V INDICATIONS: chest pain TECHNIQUE: One view of the chest was acquired. COMPARISON: [facility], CR, XR CHEST 1V, 03/12/2022, 18:09. FINDINGS: Surgical changes and devices: None. Lungs and pleura: Lungs are clear. No pleural effusions or pneumothorax. Mediastinum: Mediastinal contours appear normal. Heart size is normal. Bones and chest wall: No suspicious bony lesions. Overlying soft tissues appear unremarkable. IMPRESSION: No acute cardiopulmonary disease process. Dictated by: Rula Dick MD, PhD on 10/28/2022 at 16:09 Approved by: Rula Dick MD, PhD on 10/28/2022 at 16:09
[2022-10-28 16:04] LABS: Add Manual Diff / Slide Review NO; Basophils Absolute Auto 0 /uL (0-100); Basophils Percent Auto 0.7 % (0-2); Eosinophils Absolute Auto 200 /uL (0-450); Eosinophils Percent Auto 3.6 % (2-4); Hematocrit 40.8 % (41-53); Hemoglobin 13.7 g/dL (13.5-17.5); Lymphocytes Absolute Auto 1300 /uL (1100-4500); Lymphocytes Percent Auto 21.2 % (25-40); Mean Corpuscular HGB Conc 33.6 % (30-36); Mean Corpuscular Hemoglobin 30.7 PG (26-34); Mean Corpuscular Volume 91.6 fL (80-100); Monocytes Absolute Auto 400 /uL (0-900); Monocytes Percent Auto 7.6 % (3-14); Neutrophils Absolute Auto 3900 /uL (1500-7000); Neutrophils Percent Auto 66.9 % (50-75); Platelet Count 209 X10^3/uL (150-400); Red Blood Cell Count 4.45 X10^6/uL (4.5-5.9); Red Cell Distribution Width 14.9 % (11.6-14.8); White Blood Cell Count 5.9 X10^3/uL (4.5-11.0)
[2022-10-28 16:14] LABS: INR 1.1 (0.9-1.3); Prothrombin Time 12.4 SECONDS (10.1-12.7)
[2022-10-28 16:17] LABS: PTT Partial Thromboplastin Tim 31 SECONDS (26-36)
[2022-10-28 16:23] LABS: Alanine Aminotransferase 20 IU/L (<50); Albumin 4.1 g/dL (3.5-5.0); Albumin Globulin Ratio 1.4 (1.0-2.8); Alkaline Phosphatase 62 U/L (38-126); Aspartate Aminotransferase 27 IU/L (17-59); BUN Creatinine Ratio 22.2 (6-22); Bilirubin Total 0.7 mg/dL (0.2-1.3); Blood Urea Nitrogen 42 mg/dL (9-20); Calcium 9.2 mg/dL (8.4-10.2); Carbon Dioxide 19 mmol/L (22-32); Chloride 107 mmol/L (98-107); Creatine Kinase 87 U/L (55-170); Estimated Glomerular Filt Rate 34 mL/min (>60); Glucose 213 mg/dL (80-110); HEMOLYSIS < 15 (0-50); Lipase 304 U/L (23-300); Magnesium 1.7 mg/dL (1.6-2.3); Potassium 4.4 mmol/L (3.4-5.1); Sodium 139 mmol/L (137-145); Total Protein 7.1 g/dL (6.3-8.2)
[2022-10-28 16:34] LABS: Troponin I 0.012 ng/mL (0.01-0.034)
--- NOTE | 2022-10-28 18:20 | ED_ITS ---
HPI - General Adult General Chief complaint: Weakness Stated complaint: diarrhea/back pain Time Seen by Provider: 10/28/22 15:54 Source: patient and EMS Mode of arrival: EMS History of Present Illness HPI narrative: 87-year-old male nonsmoker with history of atrial fibrillation, GERD, chronic back pain presents from the eye clinic for evaluation of dizziness, weakness and lightheadedness as well as chest, abdomen and back pain. He is a very poor historian and apparently confused at baseline. He is had multiple episodes of diarrhea today and feels fatigued with poor appetite. He denies recent antibiotics, travel or exposure to bad food. It is unclear if he has been taking his medications. It is unclear if there is any provocation or palliation of his pain. Related Data Home Medications Medication Instructions Recorded Confirmed mirtazapine 15 mg tablet (Remeron) 15 mg PO HS ##0 09/13/10 07/01/22 cimetidine 800 mg tablet 800 mg PO TIDAC ##0 03/15/16 07/01/22 [[facility]] PRN PRN ##0 05/28/17 07/01/22 ferrous gluconate 236 mg (27 mg 225 mg PO QDAY ##0 05/28/17 07/01/22 iron) tablet methocarbamol 750 mg tablet 750 mg PO Q6HP PRN ##0 05/28/17 07/01/22 nystatin 100,000 unit/gram topical 100,000 unit topical BID ##0 05/28/17 0 07/01/22 powder (Nystop) promethazine 25 mg tablet 25 mg PO PRN PRN ##0 05/28/17 07/01/22 sucralfate 1 gram tablet 1 gm PO ACHS ##0 05/28/17 07/01/22 triamcinolone acetonide 0.025 % 1 hayes topical ##0 05/28/17 07/01/22 topical cream warfarin 2 mg tablet (Coumadin) PO QDAY ##0 05/28/17 07/01/22 diphenoxylate-atropine 2.5 1 tab PO Q6-8H PRN 09/16/21 07/01/22 mg-0.025 mg tablet metformin 500 mg tablet 500 mg PO BID 09/16/21 07/01/22 omeprazole 40 mg capsule,delayed 40 mg PO BID 09/16/21 07/01/22 release tolterodine 4 mg capsule,extended 4 mg PO DAILY 09/16/21 07/01/22 release 24 hr metoprolol succinate 25 mg 25 mg PO DAILY 07/01/22 07/01/22 tablet,extended release 24 hr Previous Rx's Medication Instructions Recorded benzonatate 100 mg capsule 100 mg PO TID PRN cough #12 caps 01/26/19 (Tessalon Perles) guaifenesin 200 mg/5 mL oral liquid 200 mg (5 mL) PO Q4H PRN 01/26/19 congestion #118 mL diclofenac sodium 1 % topical gel 2 g topical QID #100 grams 01/12/20 (Voltaren Arthritis Pain) bicalutamide 50 mg tablet (Casodex) 50 mg PO DAILY #30 tabs 07/01/22 Allergies Allergy/AdvReac Type Severity Reaction Status Date / Time Penicillins [PENICILLINS] Allergy Severe ANAPHYLAXIS Verified 09/06/22 13:29 shellfish derived Allergy Severe TONGUE Verified 09/06/22 13:29 [SHELLFISH DERIVED] SWELLS, THROAT CLOSES. Review of Systems Review of Systems Narrative: GENERAL: See HPI HEENT: Denies sinus pain, ear pain, sore throat, difficulty swallowing, dizziness. RESPIRATORY: Denies dyspnea, cough, wheezing, hemoptysis, sputum. CARDIOVASCULAR: See HPI GASTROINTESTINAL: See HPI : Denies dysuria, frequency, incontinence, hematuria, urinary retention. MUSCULOSKELETAL: denies weakness, joint pain, or bony pain SKIN: Denies rash, skin lesions, or other NEUROLOGIC: Denies weakness, headache, numbness, change in speech, confusion, seizures, incoordination. PSYCHIATRIC: No concerning psychosocial issues. 12 point review of systems is negative except for those stated above Patient History Medical History Atrial fibrillation BPH w urinary obs/LUTS DM type 2 (diabetes mellitus, type 2) Elevated PSA Family history of prostate cancer in father Prostate cancer Spermatocele of epididymis, multiple Urological system complication of procedure UTI (urinary tract infection) Surgical History History of bladder surgery Previous back surgery Social History marital status: household members: spouse occupational status: previously employed Smoking Status: Never smoker alcohol intake: never substance use type: does not use Smoking Status: Never smoker alcohol intake frequency: 0-2 drinks per day Substance Use Type: does not use Exam Narrative Exam Narrative: GENERAL: [87] year old patient appears stated age. Pleasantly confused, GCS 14, appears uncomfortable HEAD: Atraumatic. Normocephalic. EYES: Pupils equal round and reactive. Extraocular motions intact. No scleral icterus. No injection or drainage. ENT: Dry mucous membranes, Nose without bleeding, purulent drainage. Throat without erythema, tonsillar hypertrophy or exudate. Airway patent. NECK: Trachea midline. Non tender CARDIOVASCULAR: Tachycardic but regular rhythm without murmurs, gallops, or rubs. RESPIRATORY: Clear to auscultation. Breath sounds equal bilaterally. No wheezes, rales, or rhonchi. GASTROINTESTINAL: Abdomen soft, generalized tenderness nondistended. EXTREMITIES: No edema or joint tenderness. BACK: Nontender without deformity or crepitance. No flank tenderness. NEURO: Cranial nerves 2-12 grossly intact SKIN: No rash or erythema of visible areas Initial Vital Signs Initial Vital Signs: Vital Signs Temperature 97.8 F 10/28/22 15:40 Pulse Rate 113 H 10/28/22 15:40 Respiratory Rate 16 10/28/22 15:40 Blood Pressure 143/104 H 10/28/22 15:40 Pulse Oximetry 95 10/28/22 15:40 Oxygen Delivery Method Room Air 10/28/22 15:40 Course Orders Ordered: ED Orders 10/28/22 19:19 CT angio chest abdomen pelvis Stat Discontinued Medications Sodium Chloride (Normal Saline 0.9%) 1,000 mls @ 1,000 mls/hr IV BOLUS ONE Stop: 10/28/22 19:25 Last Infusion: 10/28/22 20:43 Dose: 0 mls/hr Documented By: Admin: 10/28/22 18:53 Dose: 1,000 mls/hr Documented By: OLIVIA Metoprolol Succinate (Metoprolol Er 25 Mg Tablet) 25 mg PO NOW ONE Stop: 10/28/22 21:11 Last Admin: 10/28/22 21:26 Dose: 25 mg Documented By: OLIVIA Warfarin Sodium (Warfarin 5 Mg Tablet) 2.5 mg PO NOW ONE Stop: 10/28/22 21:23 Last Admin: 10/28/22 21:36 Dose: 2.5 mg Documented By: OLIVIA Vital Signs Vital signs: Vital Signs - 8 hr 10/28/22 21:26 10/28/22 20:30 10/28/22 21:00 Pulse Rate 147 H 140 H 143 H Respiratory Rate 24 46 H Blood Pressure Pulse Oximetry 10/28/22 21:30 10/28/22 22:14 10/28/22 21:44 Pulse Rate 153 H 67 Respiratory Rate 22 Blood Pressure 144/69 H Pulse Oximetry 10/28/22 21:44 10/28/22 22:00 10/28/22 23:38 Pulse Rate 69 68 Respiratory Rate 22 17 Blood Pressure Pulse Oximetry 95 100 96 10/28/22 23:40 10/28/22 23:40 Pulse Rate 62 Respiratory Rate 22 Blood Pressure 169/91 H Pulse Oximetry 97 Medical Decision Making Lab Data 10/28/22 15:51 10/28/22 15:51 Labs: Lab Results 10/28/22 10/28/22 10/28/22 Range/Units 15:51 15:51 15:51 WBC 5.9 (4.5-11.0) X10^3/uL RBC 4.45 L (4.5-5.9) X10^6/uL Hgb 13.7 (13.5-17.5) g/dL Hct 40.8 L (41-53) % MCV 91.6 (80-100) fL MCH 30.7 (26-34) PG MCHC 33.6 (30-36) % RDW 14.9 H (11.6-14.8) % Plt Count 209 (150-400) X10^3/uL Neut % (Auto) 66.9 (50-75) % Lymph % (Auto) 21.2 L (25-40) % [place] % (Auto) 7.6 (3-14) % Eos % (Auto) 3.6 (2-4) % Baso % (Auto) 0.7 (0-2) % Neut # (Auto) 3900 (0430-0930) /uL Lymph # (Auto) 1300 (0278-2457) /uL [place] # (Auto) 400 (0-900) /uL Eos # (Auto) 200 (0-450) /uL Baso # (Auto) 0 (0-100) /uL PT 12.4 (10.1-12.7) SECONDS INR 1.1 (0.9-1.3) APTT 31 (26-36) SECONDS Sodium 139 (137-145) mmol/L Potassium 4.4 (3.4-5.1) mmol/L Chloride 107 (98-107) mmol/L Carbon Dioxide 19 L (22-32) mmol/L BUN 42 H (9-20) mg/dL Creatinine 1.89 H (0.66-1.25) mg/dL Estimated GFR 34 L (>60) mL/min BUN/Creatinine Ratio 22.2 H (6-22) Glucose 213 H (80-110) mg/dL Calcium 9.2 (8.4-10.2) mg/dL Magnesium 1.7 (1.6-2.3) mg/dL Total Bilirubin 0.7 (0.2-1.3) mg/dL AST 27 (17-59) IU/L ALT 20 (<50) IU/L Alkaline Phosphatase 62 (38-126) U/L Total Creatine Kinase 87 (55-170) U/L Troponin I 0.012 (0.01-0.034) ng/mL Total Protein 7.1 (6.3-8.2) g/dL Albumin 4.1 (3.5-5.0) g/dL Globulin 3.0 (1.7-4.1) g/dL Albumin/Globulin Ratio 1.4 (1.0-2.8) Lipase 304 H (23-300) U/L Ur Bilirubin Confirm (Negative) Urine RBC (0-5/HPF) Urine WBC (0-5/HPF) Ur Squamous Epith Cells (0-5/HPF) Ur Transition Epith Cell (0-5/HPF) Amorphous Sediment Urine Bacteria (None) Urine Mucus (Negative) Ur Culture Indicated? 10/28/22 10/28/22 Range/Units 19:03 19:03 WBC (4.5-11.0) X10^3/uL RBC (4.5-5.9) X10^6/uL Hgb (13.5-17.5) g/dL Hct (41-53) % MCV (80-100) fL MCH (26-34) PG MCHC (30-36) % RDW (11.6-14.8) % Plt Count (150-400) X10^3/uL Neut % (Auto) (50-75) % Lymph % (Auto) (25-40) % [place] % (Auto) (3-14) % Eos % (Auto) (2-4) % Baso % (Auto) (0-2) % Neut # (Auto) (4273-1802) /uL Lymph # (Auto) (4763-6682) /uL [place] # (Auto) (0-900) /uL Eos # (Auto) (0-450) /uL Baso # (Auto) (0-100) /uL PT (10.1-12.7) SECONDS INR (0.9-1.3) APTT (26-36) SECONDS Sodium (137-145) mmol/L Potassium (3.4-5.1) mmol/L Chloride (98-107) mmol/L Carbon Dioxide (22-32) mmol/L BUN (9-20) mg/dL Creatinine (0.66-1.25) mg/dL Estimated GFR (>60) mL/min BUN/Creatinine Ratio (6-22) Glucose (80-110) mg/dL Calcium (8.4-10.2) mg/dL Magnesium (1.6-2.3) mg/dL Total Bilirubin (0.2-1.3) mg/dL AST (17-59) IU/L ALT (<50) IU/L Alkaline Phosphatase (38-126) U/L Total Creatine Kinase (55-170) U/L Troponin I (0.01-0.034) ng/mL Total Protein (6.3-8.2) g/dL Albumin (3.5-5.0) g/dL Globulin (1.7-4.1) g/dL Albumin/Globulin Ratio (1.0-2.8) Lipase (23-300) U/L Ur Bilirubin Confirm Negative (Negative) Urine RBC 0-1/hpf (0-5/HPF) Urine WBC 1-5/hpf (0-5/HPF) Ur Squamous Epith Cells 10-30 /hpf H D (0-5/HPF) Ur Transition Epith Cell 1-5/hpf (0-5/HPF) Amorphous Sediment 1+ Urine Bacteria Few (2-10) H (None) Urine Mucus 1+ H (Negative) Ur Culture Indicated? Cult not indicated Urine Dip Bedside Urine Glucose Negative Bedside Urine Bilirubin + 1 Bedside Urine Ketone - Negative Urine Specific [place] 1.025 Bedside Urine Occult Blood - Negative Bedside Urine pH 5.5 Bedside Urine Protein + 30 Bedside Urine Urobilinogen - Negative Bedside Urine Nitrite - Negative Bedside Urine Leukocytes - Negative Esterase Point of care testing: Urine Dip Bedside Urine Glucose Negative Bedside Urine Bilirubin + 1 Bedside Urine Ketone - Negative Urine Specific [place] 1.025 Bedside Urine Occult Blood - Negative Bedside Urine pH 5.5 Bedside Urine Protein + 30 Bedside Urine Urobilinogen - Negative Bedside Urine Nitrite - Negative Bedside Urine Leukocytes - Negative Esterase ECG Data Interpretation: [1554] EKG is to 1 atrial flutter with rate of 133, no other ectopy or ischemia, apparently occasional AFib No ST segmental elevation or depression. No T wave inversions MDM Narrative Medical decision making narrative: CC: 87-year-old male with chest, abdomen, back pain and diarrhea Complicating co-morbidities: Age, atrial fibrillation Data collected from: Patient Medical records reviewed: Prior notes reviewed in our EMR Differential considered, but not limited to: AFib versus a flutter versus infectious diarrhea versus dehydration versus dissection versus gallbladder versus pancreatitis versus other Exam documented above, pertinent findings include: Pleasantly confused, tachycardic but regular, abdomen tender, no pulsatile mass, dry mucous membranes Lab Test results independently reviewed as above. Pertinent findings: Independently reviewed EKG as above Imaging studies independently reviewed: No leukocytosis or left shift, no signs of anemia, primary electrolytes within normal limits, slightly acidotic with CO2 of 19, creatinine at baseline of 1.89 with GFR 34 Treatments: Saline, warfarin and metoprolol Re-evaluations: Patient resting comfortably, pain well controlled, vital signs normalized Discussion: Patient presents with a few episodes of diarrhea and various nondescript discomfort, multiple diagnoses considered as noted above, extensive workup revealed no significant abnormal findings. No evidence of bowel obstruction, dissection, pulmonary embolism, AAA or other significant diagnosis. Pain is well controlled, he is tolerating orals, at his neurologic baseline and appropriate for discharge Disposition: see below, along with detailed discharge instructions that have been reviewed with patient as well as indications for ED re-evaluation and add itional outpatient follow up Discharge Plan Departure Patient Disposition: Home Clinical Impression: Abdominal pain, Diarrhea Instructions: Diarrhea, DI for Abdominal Pain-Adult Activity Restrictions/Additional Instructions: *You have been diagnosed with [abdominal pain] also your Coumadin level is low, be sure to take your medications as directed * As we discussed your history and physical exam as well as labs and imaging are very reassuring. There is no evidence of any severe diagnoses that would require a specific or immediate intervention. *What to do: *Please follow up with your primary care provider in 2-3 days, call for an appointment. Let them know you were seen in the Emergency Department and that we ask that you be seen in follow up. We will electronically transmit a record of today's note if your PCP is in our system *Please consider a clear liquid diet for the next 24-48 hours and then slowly advance to regular as tolerated. Also, try to avoid alcohol, nicotine, caffeine, spicy, acidic or fatty foods as this may worsen your symptoms *If you do not have a primary care provider please contact the [facility] Resource line at [phone]. They will ask some questions about your medical history and help get you set up with a doctor in the community. *Return to Emergency Department if you should have any new, worsening or concerning symptoms, such as [fever greater than 101 F, shaking chills, worsening pain, persistent vomiting or other bothersome symptoms] Prescriptions: No Action mirtazapine [Remeron] 15 MG tablet 15 mg PO HS Qty: 0 cimetidine 800 MG tablet 800 mg PO TIDAC Qty: 0 warfarin [Coumadin] 2 MG tablet PO QDAY Qty: 0 sucralfate 1 GM tablet 1 gm PO ACHS Qty: 0 methocarbamol 750 MG tablet 750 mg PO Q6HP PRNQty: 0 promethazine 25 MG tablet 25 mg PO PRN PRNQty: 0 triamcinolone acetonide 0.025 % cream 1 hayes Topical Qty: 0 nystatin [Nystop] 60 GM powder 100,000 unit Topical BID Qty: 0 [CINDY-SELTZER HEARTBU] PRN PRNQty: 0 ferrous gluconate 236 mg (27 mg iron) Tablet 225 mg PO QDAY Qty: 0 benzonatate [Tessalon Perles] 100 mg capsule 100 mg PO TID PRN (Reason: cough) Qty: 12 0RF guaifenesin 200 mg/5 mL liquid 200 mg PO Q4H PRN (Reason: congestion) Qty: 118 0RF diclofenac sodium [Voltaren Arthritis Pain] 1 % gel 2 g topical QID Qty: 100 0RF Rx Instructions: apply to single elbow, wrist or hand; for hand includes palm/fingers/back of hand metformin 500 mg tablet 500 mg PO BID omeprazole 40 mg capsule,delayed release(DR/EC) 40 mg PO BID diphenoxylate-atropine 2.5-0.025 mg tablet 1 tab PO Q6-8H PRN tolterodine 4 mg capsule,extended release 24hr 4 mg PO DAILY metoprolol succinate 25 mg tablet extended release 24 hr 25 mg PO DAILY bicalutamide [Casodex] 50 mg tablet 50 mg PO DAILY Qty: 30 0RF Referrals: Rufino Pierre MD [Primary Care Provider] - Stand Alone Forms: Patient Portal/API
[2022-10-28] MEDS: SODIUM CHLORIDE 0.9% 1,000 ML 1000 ML IV (18:53)
--- NOTE | 2022-10-28 19:19 | DI.CT.S_ITS ---
PROCEDURE: CT ANGIO CHEST ABDOMEN PELVIS INDICATIONS: chest, abd, back pain, dizzy TECHNIQUE: Precontrast 5 mm thick sections acquired from the lung apices to the iliac crests. After the administration of intravenous contrast, 2.5 mm thick sections again acquired from the lung apices to the iliac crests. Maximum intensity projection (MIP) oblique sagittal and coronal reformats were then acquired. For radiation dose reduction, the following was used: automated exposure control. COMPARISON: [facility], CT, CT CHEST ABD PEL WO CON, 12/25/2021, 16:02. FINDINGS: Image quality: There is metallic streak artifact from patient's surgical hardware in the lower lumbar spine. AORTA: Noncontrast images demonstrate no evidence of intramural hematoma. There is mild aneurysmal dilatation of the ascending thoracic aorta which measures up to 4.1 cm. The aortic arch and the remainder of the aorta are normal in caliber. The aorta demonstrates no intimal flaps to suggest dissection. There is conventional branching of the aortic arch. The visualized great vessels are normal in caliber and appear patent. There is narrowing of less than 50% in the proximal left subclavian artery. The celiac, superior mesenteric, and inferior mesenteric arteries are patent. There are bilateral accessory renal arteries. The renal arteries appear patent bilaterally she with moderate narrowing at their origins. The common, external, and internal iliac arteries appear patent with multifocal [id number] narrowing. The common femoral and visualized proximal superficial femoral arteries appear patent. CHEST: Lower Neck: No lymphadenopathy by size criteria. Thyroid: Visualized thyroid demonstrates no discrete nodules. Axillae: No lymphadenopathy by size criteria. Chest Wall: Unremarkable. Lungs and Airways: No acute consolidation. There is dependent atelectasis and scarring bilaterally. The trachea and central airways are patent. Pleura: No pneumothorax or pleural effusions. Heart: Heart size is borderline enlarged. No pericardial effusion. Thoracic Vessels: The pulmonary arteries are mildly enlarged, with the main pulmonary artery measuring up to 3.2 cm suggestive of pulmonary arterial hypertension. Mediastinum and [place]: No lymphadenopathy by size criteria. Esophagus: No wall thickening. There is a small hiatal hernia. ABDOMEN: Liver: No mass lesion. Gallbladder: There is a small dependent calcified gallstone. No gallbladder wall thickening or pericholecystic fluid. Biliary ducts: No biliary ductal dilatation. Pancreas: Unremarkable. Spleen: Normal in size. Adrenal Glands: No adrenal nodules. Kidneys and Ureters: There is mild dilatation of the left renal collecting system without an obstructing stone visualized. The kidneys are atrophic in size, more pronounced on the right. Bilateral nonobstructing renal stones are demonstrated including a large stone in the right renal pelvis measuring up to 1.4 cm and demonstrating attenuation values of approximately 800-9 Hounsfield units. There also nonobstructing stones within the left kidney including a stone in the pelvis measuring up to 1.4 cm with attenuation values of approximately 400-500 Hounsfield units. Stomach and Bowel: Stomach, small bowel loops, and colon are normal in caliber and wall thickness. No pericecal inflammatory changes to suggest appendicitis. There is colonic diverticulosis throughout the colon without acute diverticulitis. Peritoneum: No abnormal intraperitoneal fluid. No free air. Ventral Wall: No hernia. Abdominal Nodes: No retroperitoneal or mesenteric adenopathy by size criteria. Vessels: Aorta and inferior vena cava are normal in size. PELVIS: Pelvic Organs: Unremarkable. Bladder: Unremarkable. Pelvic Nodes: No enlarged lymph nodes. Miscellaneous: No inguinal hernias are seen. Bones: Postsurgical changes are redemonstrated status post posterior fixation at L3 through S1. Lucency within the L3, L4, L5, and S1 vertebral bodies are redemonstrated. IMPRESSION: 1. No evidence of aortic dissection. 2. Mild aneurysmal dilatation of the ascending thoracic aorta appears unchanged. 3. No acute airspace consolidation. 4. Colonic diverticulosis without acute diverticulitis. 5. Bilateral nephrolithiasis without definite obstructive uropathy. Dictated by: Kirk Hernandez M.D. on 10/28/2022 at 20:21 Approved by: Kirk Hernandez M.D. on 10/28/2022 at 20:50
[2022-10-28 19:33] LABS: Ictotest Urine Negative (Negative)
[2022-10-28 19:35] LABS: Bacteria Urine Few (2-10); RBC Urine 0-1/HPF (0-5/HPF); Transitional Epi Cells Urine 1-5/HPF (0-5/HPF); WBC Urine 1-5/HPF (0-5/HPF)
[2022-10-28 19:36] LABS: Amorphous Sediment Urine 1+; Culture Indicated Urine Cult Not Indicated; Mucus Urine 1+ (Negative); Squamous Epithelial Cell Urine 10-30 /HPF (0-5/HPF)
[2022-10-28] MEDS: METOPROLOL ER 25 MG TABLET PO (21:26)
[2022-10-28] MEDS: WARFARIN 5 MG TABLET 2.5 MG PO (21:36)
== END 2022-10-28 23:52 | disposition home or self-care (01) ==
PROVIDERS: Emergency Medicine; Emergency Provider Emergency Medicine; Family Provider Family Medicine; PCP Family Medicine
DX: R10.9 Unspecified abdominal pain (principal); R42 Dizziness and giddiness; R07.9 Chest pain, unspecified; Z79.01 Long term (current) use of anticoagulants
CPT/HCPCS: 36415; 71045; 71275; 74174; 80053; 81003; 81015; 82550; 83690; 83735; 84484; 85025; 85610; 85730; 93005; 93010; 96360; 96361; 99284; Q9967

== ENCOUNTER → 2022-12-09 11:06 | Outpatient (ROUT) | payer MEDICARE, BC, SELFPAY ==
[2022-12-09 11:20] LABS: Prothrombin Time 11.9 SECONDS (10.1-12.7)
== END ==
PROVIDERS: Family Provider Family Medicine; PCP Family Medicine; Visit Provider Family Medicine
DX: I48.0 Paroxysmal atrial fibrillation (principal)
CPT/HCPCS: 85610

== ENCOUNTER → 2023-01-13 11:41 | Outpatient (ROUT) | payer MEDICARE, BC, SELFPAY ==
[2023-01-13 11:58] LABS: INR 1.2 (0.9-1.3); Prothrombin Time 14.1 SECONDS (9.4-12.5)
== END ==
PROVIDERS: Family Provider Family Medicine; PCP Family Medicine; Visit Provider Family Medicine
DX: I48.0 Paroxysmal atrial fibrillation (principal)
CPT/HCPCS: 85610

== ENCOUNTER → 2023-02-25 11:30 | Outpatient (ROUT) | payer MEDICARE, BC, SELFPAY ==
[2023-02-25 11:52] LABS: INR 1.9 (0.9-1.3); Prothrombin Time 21.8 SECONDS (9.4-12.5)
== END ==
PROVIDERS: Family Provider Family Medicine; PCP Family Medicine; Visit Provider Family Medicine
DX: I48.0 Paroxysmal atrial fibrillation (principal)
CPT/HCPCS: 85610

== ENCOUNTER → 2023-03-10 13:34 | Outpatient (ROUT) | payer MEDICARE, BC, SELFPAY ==
[2023-03-10 13:40] LABS: INR 1.5 (0.9-1.3); Prothrombin Time 17.4 SECONDS (9.4-12.5)
== END ==
PROVIDERS: Family Provider Family Medicine; PCP Family Medicine; Visit Provider Family Medicine
DX: I48.0 Paroxysmal atrial fibrillation (principal)
CPT/HCPCS: 85610

== ENCOUNTER → 2023-03-31 11:30 | Outpatient (ROUT) | payer MEDICARE, BC, SELFPAY ==
[2023-03-31 11:54] LABS: Prothrombin Time 149.5 SECONDS (9.4-12.5)
[2023-03-31 12:18] LABS: INR 12.7 (0.9-1.3)
== END ==
PROVIDERS: Family Provider Family Medicine; PCP Family Medicine; Visit Provider Family Medicine
DX: I48.0 Paroxysmal atrial fibrillation (principal)
CPT/HCPCS: 85610

== ENCOUNTER 2023-03-31 16:05 | Inpatient (IN) | payer MEDICARE, BC, SELFPAY ==
[2023-03-31] VITALS (14 sets, daily range): BP systolic 113–185; BP diastolic 57–112; PULSE 57–78; RESP 15–30; TEMP 36.3–36.5; O2SAT 92–100; BMI 22.6
--- NOTE | 2023-03-31 16:17 | DI.RAD.S_ITS ---
PROCEDURE: XR CHEST 1V INDICATIONS: altered mental status TECHNIQUE: One view of the chest was acquired. COMPARISON: [facility], CR, XR CHEST 1V, 10/28/2022, 15:52. FINDINGS: Surgical changes and devices: None. Lungs and pleura: Lungs are clear. No pleural effusions or pneumothorax. Mediastinum: Mediastinal contours appear normal. Heart size is normal. Bones and chest wall: No suspicious bony lesions. Overlying soft tissues appear unremarkable. IMPRESSION: No acute cardiopulmonary abnormality is seen. Approved by: Casey Chang M.D. on 03/31/2023 at 17:32
--- NOTE | 2023-03-31 16:18 | DI.RAD.S_ITS ---
PROCEDURE: XR HIP W PEL IF DONE RT 2V INDICATIONS: fall TECHNIQUE: 2 views of the hip were acquired. COMPARISON: [facility], CR, XR HIP W PEL IF DONE LT 2V, 11/14/2021, 17:43. FINDINGS: Bones: Generalized decreased osseous mineralization noted. Both proximal humerus intact. Pelvic ring intact. No evidence of fracture. Moderate bilateral hip joint space narrowing. The axis lower lumbar spine instrumented fusion noted. Soft tissues: No suspicious soft tissue calcifications or masses. IMPRESSION: Osteopenia and degenerative changes without fracture Approved by: Casey Chang M.D. on 03/31/2023 at 17:28
--- NOTE | 2023-03-31 16:58 | DI.CT.S_ITS ---
PROCEDURE: CT HEAD/BRAIN WO CON INDICATIONS: altered mental status fall anticoagulaated TECHNIQUE: Noncontrast 4.5 mm thick angled axial sections acquired from the foramen magnum to the vertex, with coronal and sagittal reformats. For radiation dose reduction, the following was used: automated exposure control, adjustment of mA and/or kV according to patient size. COMPARISON: [facility], CT, CT HEAD/BRAIN WO CON, 03/12/2022, 18:13. FINDINGS: Image quality: Diagnostic. CSF spaces: Basal cisterns are patent. No extra-axial fluid collections. The ventricles are symmetric in size and shape. Brain: No intracranial bleeds or masses. There is moderate cerebral volume loss for age, with resultant ventricular and sulcal prominence. Hypodensities in the basal ganglia bilaterally are compatible with old lacunar infarcts. There are severe periventricular and deep white matter chronic small vessel ischemic changes. There is intracranial internal carotid artery atherosclerosis. Skull and face: Calvarium and visualized facial bones appear intact, without suspicious lesions. Sinuses: Visualized sinuses and mastoids are clear. IMPRESSION: 1. No acute intracranial abnormalities. 2. Cerebral volume loss and chronic microvascular ischemic changes. 3. 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 Dictated by: Franny Santos M.D. on 03/31/2023 at 17:37 Approved by: Franny Santos M.D. on 03/31/2023 at 17:39
--- NOTE | 2023-03-31 16:59 | ED_ITS ---
HPI - Altered Mental Status General Chief Complaint: Altered Mental Status Stated Complaint: fall, high INR, confusion Time Seen by Provider: 03/31/23 16:38 Source: patient and EMS Mode of arrival: EMS History of Present Illness HPI narrative: This is an 87-year-old male who arrives by ambulance. He is referred by his primary care provider who noted a supratherapeutic INR. Additionally the patient has some recent onset of confusion, duration of this is unknown. Reportedly the patient had a fall recently may have had a head injury. This is per EMS. Patient lives at [facility] inn says it staff there give him his medication With the patient is encountered, he tells me that he is here because his doctor sent him and he had an abnormal laboratory value. The patient agrees that he fell but he thinks it was a couple of months ago. There is some dried blood on his lower lip he says that was from biting his lip while eating. He does not have headache nausea or vomiting. He has a poor historian and is unsure of his medications or how he has been taking them. He does not know what he is taking for anticoagulation. He has not had fevers chest pain abdominal pain or urinary symptoms. Related Data Home Medications Medication Instructions Recorded Confirmed mirtazapine 15 mg tablet (Remeron) 15 mg PO HS ##0 09/13/10 07/01/22 cimetidine 800 mg tablet 800 mg PO TIDAC ##0 03/15/16 07/01/22 [[facility]] PRN PRN ##0 05/28/17 07/01/22 ferrous gluconate 236 mg (27 mg 225 mg PO QDAY ##0 05/28/17 07/01/22 iron) tablet methocarbamol 750 mg tablet 750 mg PO Q6HP PRN ##0 05/28/17 07/01/22 nystatin 100,000 unit/gram topical 100,000 unit topical BID ##0 05/28/17 07/01/22 powder (Nystop) promethazine 25 mg tablet 25 mg PO PRN PRN ##0 05/28/17 07/01/22 sucralfate 1 gram tablet 1 gm PO ACHS ##0 05/28/17 07/01/22 triamcinolone acetonide 0.025 % 1 hayes topical ##0 05/28/17 07/01/22 topical cream warfarin 2 mg tablet (Coumadin) PO QDAY ##0 05/28/17 07/01/22 diphenoxylate-atropine 2.5 1 tab PO Q6-8H PRN 09/16/21 07/01/22 mg-0.025 mg tablet metformin 500 mg tablet 500 mg PO BID 09/16/21 07/01/22 omeprazole 40 mg capsule,delayed 40 mg PO BID 09/16/21 07/01/22 release tolterodine 4 mg capsule,extended 4 mg PO DAILY 09/16/21 07/01/22 release 24 hr metoprolol succinate 25 mg 25 mg PO DAILY 07/01/22 07/01/22 tablet,extended release 24 hr Previous Rx's Medication Instructions Recorded benzonatate 100 mg capsule 100 mg PO TID PRN cough #12 caps 01/26/19 (Tessalon Perles) guaifenesin 200 mg/5 mL oral liquid 200 mg (5 mL) PO Q4H PRN 01/26/19 congestion #118 mL diclofenac sodium 1 % topical gel 2 g topical QID #100 grams 01/12/20 (Voltaren Arthritis Pain) bicalutamide 50 mg tablet (Casodex) 50 mg PO DAILY #30 tabs 07/01/22 Allergies Allergy/AdvReac Type Severity Reaction Status Date / Time Penicillins [PENICILLINS] Allergy Severe ANAPHYLAXIS Verified 09/06/22 13:29 shellfish derived Allergy Severe TONGUE Verified 09/06/22 13:29 [SHELLFISH DERIVED] SWELLS, THROAT CLOSES. Patient History Medical History Atrial fibrillation BPH w urinary obs/LUTS DM type 2 (diabetes mellitus, type 2) Elevated PSA Family history of prostate cancer in father Prostate cancer Spermatocele of epididymis, multiple Urological system complication of procedure UTI (urinary tract infection) Surgical History History of bladder surgery Previous back surgery Social History marital status: household members: spouse occupational status: previously employed Smoking Status: Never smoker alcohol intake: never substance use type: does not use Smoking Status: Never smoker alcohol intake frequency: 0-2 drinks per day Substance Use Type: does not use Exam Initial Vital Signs Initial Vital Signs: Vital Signs Pulse Rate 67 03/31/23 16:08 Respiratory Rate 30 H 03/31/23 16:08 Blood Pressure 113/57 L 03/31/23 16:08 Const Other: Alert appears to be in no distress. Only evidence of trauma is some dried blood on his lower lip HENMT Head: normocephalic and other (No scalp hematoma. Pupils are equal and reactive extraocular movements are) Neck Other: Supple without midline tenderness or adenopathy Resp Other: Breath sounds are equal bilaterally no respiratory distress normal respiratory effort Cardio Other: Regular rhythm and rate no murmur rub or gallop GI Other: Normal bowel sounds soft and nontender Skin Other: Warm and dry Neuro Other: Alert, cooperative, rambling historian, no facial droop or asymmetry no gross motor deficits Course Orders Ordered: ED Orders 03/31/23 16:17 XR chest 1V Stat Urine Drug Screen, Rapid Stat EKG-12 Lead Stat 03/31/23 16:18 XR hip w pel if done RT 2V Stat 03/31/23 16:50 PTT Partial Thromboplastin Eddie Stat Prothrombin Time INR Stat 03/31/23 16:52 Ammonia (NH3) Stat Complete Blood Count AUTO DIFF Stat Comprehensive Metabolic Panel Stat 03/31/23 16:58 CT head/brain wo con Stat Sodium Chloride (Normal Saline 0.9%) 1,000 mls @ 1,000 mls/hr IV BOLUS ONE Stop: 03/31/23 19:01 Consultations Consultation #1: D/W Dr Garcia, accepts admission to obs status Vital Signs Vital signs: Vital Signs - 8 hr 03/31/23 16:08 03/31/23 16:08 03/31/23 16:11 Temperature 97.7 F Pulse Rate 67 57 L Respiratory Rate 30 H 20 Blood Pressure 113/57 L 113/57 L Pulse Oximetry 99 Oxygen Delivery Method Room Air 03/31/23 16:30 03/31/23 16:31 03/31/23 16:31 Temperature Pulse Rate 66 65 Respiratory Rate 23 19 Blood Pressure 118/58 L Pulse Oximetry 98 99 Oxygen Delivery Method Room Air Room Air 03/31/23 17:00 03/31/23 17:00 03/31/23 17:30 Temperature Pulse Rate 63 71 Respiratory Rate 26 H 23 Blood Pressure 127/58 L Pulse Oximetry 97 92 Oxygen Delivery Method Room Air MDM - Altered Mental Status Lab Data Lab results narrative: No leukocytosis, creatinine is trending up, markedly coagulopathic. Urinalysis still pending 03/31/23 16:52 03/31/23 16:52 Labs: Lab Results 03/31/23 03/31/23 Range/Units 16:50 16:52 WBC 8.7 (4.5-11.0) X10^3/uL RBC 3.67 L (4.5-5.9) X10^6/uL Hgb 11.1 L (13.5-17.5) g/dL Hct 32.8 L (41-53) % MCV 89.6 (80-100) fL MCH 30.4 (26-34) PG MCHC 33.9 (30-36) % RDW 14.2 (11.6-14.8) % Plt Count 310 (150-400) X10^3/uL Neut % (Auto) 82.1 H (50-75) % Lymph % (Auto) 7.2 L (25-40) % [place] % (Auto) 9.2 (3-14) % Eos % (Auto) 0.6 L (2-4) % Baso % (Auto) 0.9 (0-2) % Neut # (Auto) 7200 H (8651-2048) /uL Lymph # (Auto) 600 L (2907-9732) /uL [place] # (Auto) 800 (0-900) /uL Eos # (Auto) 100 (0-450) /uL Baso # (Auto) 100 (0-100) /uL PT 156.7 H D (9.4-12.5) SECONDS INR 13.3 H* (0.9-1.3) APTT 77 H* (25.1-36.5) SECONDS Sodium 134 L (137-145) mmol/L Potassium 5.0 (3.4-5.1) mmol/L Chloride 101 (98-107) mmol/L Carbon Dioxide 21 L (22-32) mmol/L BUN 45 H (9-20) mg/dL Creatinine 2.81 H (0.66-1.25) mg/dL Estimated GFR 21 L (>60) mL/min BUN/Creatinine Ratio 16.0 (6-22) Glucose 116 H (80-110) mg/dL Calcium 9.3 (8.4-10.2) mg/dL Total Bilirubin 0.7 (0.2-1.3) mg/dL AST 25 (17-59) IU/L ALT 17 (<50) IU/L Alkaline Phosphatase 79 (38-126) U/L Ammonia < 9 L (9-30) umol/L Total Protein 7.4 (6.3-8.2) g/dL Albumin 3.8 (3.5-5.0) g/dL Globulin 3.6 (1.7-4.1) g/dL Albumin/Globulin Ratio 1.1 (1.0-2.8) Imaging Data CT scan - head: My Impression: No acute finding Radiologist's Impression: No acute findings per Radiology Chest x-ray: My Impression: No acute finding AP pelvis and right hip: My Impression: No fracture or dislocation MDM Narrative Medical decision making narrative: 87-year-old male presenting with markedly prolonged INR. Patient is on warfarin, it is unclear what could have precipitated sudden change in his coagulation status. He has a poor historian, reportedly his medications are administered by staff at the facility where he live although I can not confirm this independently. Overall exam is nontraumatic. There is no evidence of acute infection. Patient does seem a bit confused, his baseline is unclear to me. Given his markedly prolonged INR I think it is safest to be admitted on observation status until this is improved and he is at less risk for injury if he falls. Discharge Plan Departure Patient Disposition: Admitted as Observation Clinical Impression: Adult failure to thrive, Coagulopathy
--- NOTE | 2023-03-31 17:00 | PC.NURSE ---
Pt reports having a cut on his right buttock after his fall, and right back/hip pain from the fall. He is unsure how long ago he fell. Pt is oriented to himself and the year. Pt is able to tell me his birthday is next month.
[2023-03-31 17:03] LABS: Add Manual Diff / Slide Review NO; Basophils Absolute Auto 100 /uL (0-100); Basophils Percent Auto 0.9 % (0-2); Eosinophils Absolute Auto 100 /uL (0-450); Eosinophils Percent Auto 0.6 % (2-4); Hematocrit 32.8 % (41-53); Hemoglobin 11.1 g/dL (13.5-17.5); Lymphocytes Absolute Auto 600 /uL (1100-4500); Lymphocytes Percent Auto 7.2 % (25-40); Mean Corpuscular HGB Conc 33.9 % (30-36); Mean Corpuscular Hemoglobin 30.4 PG (26-34); Mean Corpuscular Volume 89.6 fL (80-100); Monocytes Absolute Auto 800 /uL (0-900); Monocytes Percent Auto 9.2 % (3-14); Neutrophils Absolute Auto 7200 /uL (1500-7000); Neutrophils Percent Auto 82.1 % (50-75); Platelet Count 310 X10^3/uL (150-400); Red Blood Cell Count 3.67 X10^6/uL (4.5-5.9); Red Cell Distribution Width 14.2 % (11.6-14.8); White Blood Cell Count 8.7 X10^3/uL (4.5-11.0)
[2023-03-31 17:15] LABS: Alanine Aminotransferase 17 IU/L (<50); Albumin 3.8 g/dL (3.5-5.0); Albumin Globulin Ratio 1.1 (1.0-2.8); Alkaline Phosphatase 79 U/L (38-126); Aspartate Aminotransferase 25 IU/L (17-59); Bilirubin Total 0.7 mg/dL (0.2-1.3); Blood Urea Nitrogen 45 mg/dL (9-20); Calcium 9.3 mg/dL (8.4-10.2); Carbon Dioxide 21 mmol/L (22-32); Chloride 101 mmol/L (98-107); Estimated Glomerular Filt Rate 21 mL/min (>60); Globulin 3.6 g/dL (1.7-4.1); Glucose 116 mg/dL (80-110); HEMOLYSIS < 15 (0-50); Sodium 134 mmol/L (137-145); Total Protein 7.4 g/dL (6.3-8.2)
[2023-03-31 17:16] LABS: Ammonia (NH3) < 9 umol/L (9-30)
[2023-03-31 18:01] LABS: Prothrombin Time 156.7 SECONDS (9.4-12.5)
[2023-03-31 18:10] LABS: INR 13.3 (0.9-1.3); PTT Partial Thromboplastin Tim 77 SECONDS (25.1-36.5)
[2023-03-31] MEDS: SODIUM CHLORIDE 0.9% 1,000 ML 1000 ML IV (18:50)
--- NOTE | 2023-03-31 19:04 | PC.NURSE ---
Pt able to turn himself onto his left side. He complains of a cut on his right buttocks, sustained after a fall around sharp metals. Pt has a small skin tear to right buttock, blanchable with skin flap.
[2023-03-31 20:26] LABS: Appearance Urine UA CLEAR; Bilirubin Urine UA NEGATIVE (NEGATIVE); Color Urine UA YELLOW; Glucose Urine UA NEGATIVE (Negative); Ketones Urine UA TRACE (NEGATIVE); Leukocyte Esterase Urine UA TRACE (NEGATIVE); Nitrite Urine UA NEGATIVE (Negative); Occult Blood Urine UA TRACE-INTACT (Negative); Protein Urine UA 1+ (Negative); Specific Gravity Urine UA 1.025 (1.000-1.035); Urobilinogen Urine UA 0.2 E.U./dL (0.2)
[2023-03-31 20:39] LABS: Bacteria Urine Few (2-10); Culture Indicated Urine Specimen Cultured; Mucus Urine 1+ (Negative); RBC Urine 0-1/HPF (0-5/HPF); Squamous Epithelial Cell Urine 1-5 /HPF (0-5/HPF); Urine Volume 10mL (spun); WBC Urine 1-5/HPF (0-5/HPF)
[2023-03-31] MEDS: PHYTONADIONE (VIT K1) 10 MG in SODIUM CHLORIDE 0.9% 100 ML 202 MG IV (21:15)
[2023-03-31] MEDS: PHYTONADIONE (VIT K1) 5 MG TABLET PO (21:16)
[2023-03-31] MEDS: MIRTAZAPINE 15 MG TABLET PO (21:16)
[2023-03-31] MEDS: LACTATED RINGERS 1,000 ML 125 ML IV (21:16)
[2023-03-31] MEDS: ACETAMINOPHEN 325 MG TABLET 650 MG PO (21:16)
[2023-03-31] MEDS: PANTOPRAZOLE DR 40 MG TABLET PO (21:17)
--- NOTE | 2023-04-01 01:28 | PC.NURSE ---
Prior to medication administration, this RN sat patient up and gave the patient a small sip of water per pt request to wet his dry throat before medications. Patient immediately had difficulty swallowing and began to cough. Adjusted patient position to 90 degree angle and contacted pt's nurse.
[2023-04-01 04:11] VITALS: BP 126/72; PULSE 110; RESP 18; TEMP 36.7; O2SAT 96
[2023-04-01 06:12] LABS: INR 1.6 (0.9-1.3); Prothrombin Time 18.8 SECONDS (9.4-12.5)
[2023-04-01 06:23] LABS: Add Manual Diff / Slide Review NO; Basophils Absolute Auto 0 /uL (0-100); Basophils Percent Auto 0.4 % (0-2); Eosinophils Absolute Auto 100 /uL (0-450); Eosinophils Percent Auto 1.3 % (2-4); Hematocrit 28.3 % (41-53); Hemoglobin 9.3 g/dL (13.5-17.5); Lymphocytes Absolute Auto 800 /uL (1100-4500); Mean Corpuscular Hemoglobin 29.7 PG (26-34); Mean Corpuscular Volume 90.1 fL (80-100); Monocytes Absolute Auto 1000 /uL (0-900); Monocytes Percent Auto 10.7 % (3-14); Neutrophils Absolute Auto 7500 /uL (1500-7000); Neutrophils Percent Auto 79.6 % (50-75); Platelet Count 282 X10^3/uL (150-400); Red Blood Cell Count 3.14 X10^6/uL (4.5-5.9); Red Cell Distribution Width 14.2 % (11.6-14.8); White Blood Cell Count 9.5 X10^3/uL (4.5-11.0)
[2023-04-01 06:29] LABS: Alanine Aminotransferase 15 IU/L (<50); Albumin 3.2 g/dL (3.5-5.0); Albumin Globulin Ratio 1.1 (1.0-2.8); Alkaline Phosphatase 70 U/L (38-126); Aspartate Aminotransferase 30 IU/L (17-59); BUN Creatinine Ratio 16.2 (6-22); Bilirubin Total 0.8 mg/dL (0.2-1.3); Blood Urea Nitrogen 40 mg/dL (9-20); Calcium 8.3 mg/dL (8.4-10.2); Carbon Dioxide 19 mmol/L (22-32); Chloride 106 mmol/L (98-107); Estimated Glomerular Filt Rate 25 mL/min (>60); Globulin 2.9 g/dL (1.7-4.1); Glucose 94 mg/dL (80-110); HEMOLYSIS 18 (0-50); Potassium 4.4 mmol/L (3.4-5.1); Sodium 136 mmol/L (137-145); Total Protein 6.1 g/dL (6.3-8.2)
[2023-04-01] MEDS: LACTATED RINGERS 1,000 ML 125 ML IV ×2 (06:53→16:28)
[2023-04-01 08:00] VITALS: BP 129/64; PULSE 99; RESP 18; TEMP 36.7; O2SAT 96
--- NOTE | 2023-04-01 08:49 | DI.US.S_ITS ---
PROCEDURE: US RENAL COMPLETE INDICATIONS: RENAL FAILURE TECHNIQUE: Real-time scanning was performed of the kidneys and bladder, with image documentation. COMPARISON: [facility], , US RENAL COMPLETE, 09/18/2021, 17:05. FINDINGS: Kidneys: Kidneys are normal in size. Right kidney measures 10.1 cm long; left kidney measures 10.4 cm long. Right renal cortical thickness is normal; left renal cortical thickness is normal. Renal cortical echotexture is normal. 9 millimeter nonobstructing stone is seen in lower pole left kidney. Complex appearing cystic structure is noted involving upper pole of right kidney measures 3.2 x 2.7 x 1.7 cm in size. Evaluation is slightly limited due to patient position. Simple appearing cysts are noted in left kidney measures up to 1.8 x 1.2 x 1.5 cm in size in midpole of left kidney. No gross hydronephrosis or solid appearing renal lesion. Bladder: Pre-void bladder volume is 99 mL. Patient was unable to void. Pre-void images demonstrate no intraluminal masses or stones. On pre-void images, no ureteral jets are noted with color Doppler interrogation. (Of note, ureteral jets may not be detectable in up to 25% of cases due to insufficient differences in specific gravity between ureteral and bladder urine). Miscellaneous: No free pelvic fluid. IMPRESSION: 1. Limited study due to poor patient cooperation . 2. Complex appearing cyst in upper pole right kidney is seen measures 3.2 x 2.7 x 1.7 cm in size. Simple appearing cysts are noted in left kidney. Nonobstructing 9 millimeter stone is seen in lower pole left kidney. No definite solid appearing renal lesion. No hydronephrosis. Sonographic follow-up is recommended for evaluation of the upper pole right renal lesion. 3. No gross abnormality is seen in partially distended urinary bladder. Dictated by: Jm Victoria M.D. on 04/01/2023 at 10:04 Approved by: Jm Victoria M.D. on 04/01/2023 at 10:08
--- NOTE | 2023-04-01 09:06 | PC.NURSE ---
Pt to Radiology via bed for CT scan.
--- NOTE | 2023-04-01 09:07 | DI.CT.S_ITS ---
PROCEDURE: CT SOFT TISSUE NECK WO CON INDICATIONS: swelling of tongue and neck TECHNIQUE: Non-contrast 3.0 mm axial sections acquired from the sella to the aortic arch. Additional oblique axial 3.0 mm sections acquired through the pharynx. 3 mm thick coronal and sagittal reformats were generated. For radiation dose reduction, the following was used: automated exposure control. COMPARISON: [facility], CT, CT HEAD/BRAIN WO CON, 03/31/2023, 17:11. FINDINGS: Image quality: Motion is present limiting areas of fine detail evaluation. Lymph nodes: No enlarged lymph nodes seen throughout the neck. Vessels: Non-opacified vessels appear normal in caliber. Neck spaces: The oropharynx, nasopharynx, and pharynx demonstrate no mucosal lesions. The vocal cords, false vocal cords, pyriform sinuses, epiglottis, vallecula, and tongue base all appear normal. Extramucosal spaces appear unremarkable. Glands: The parotid and submandibular glands appear normal, without stones. Thyroid gland is unremarkable . Miscellaneous: Visualized brain and orbits appear normal. Lung apices appear clear. Superficial soft tissues appear normal. IMPRESSION: No gross abnormality identified. If concern persists, more detail evaluation may be obtained with contrast exam or direct visualization by ENT. Dictated by: Adeola Silva M.D. on 04/01/2023 at 10:18 Approved by: Adeola Silva M.D. on 04/01/2023 at 10:20
[2023-04-01 09:19] LABS: C-Reactive Protein Quant 7.5 mg/dL (<1.0)
[2023-04-01] MEDS: CLINDAMYCIN 900 MG/50 ML PIGGYBACK 50 MG IV ×2 (10:32→17:48)
[2023-04-01 10:53] LABS: Erythrocyte Sedimentation Rate 76 MM/HR (0-15)
--- NOTE | 2023-04-01 13:43 | PM.HP.1 ---
History of Present Illness History of Present Illness Date Patient Seen: 04/01/23 Time Patient Seen: 08:35 Chief complaint: fall, high INR, confusion Narrative: Patient is a 87-year-old male well known to me who presents with elevated INR and mental status changes. Patient apparently had a fall couple weeks ago or maybe longer than that even and has been feeling off a little bit since that time. Thinks maybe he bit his tongue. Source he is concerned he has had some trouble swallowing. And is just not felt well. But does not have any definitive complaints. Patient is currently a poor historian and is confused. Not at his baseline. Patient is having difficulty talking with what appears to be tongue swelling. No other significant new changes. Patient currently denies any pain anywhere except as right hip which had x-rays yesterday that were negative. He has had no chest pain. No shortness of breath. No change in bowel movements. No urinary changes. As far as he can remember. Otherwise just feeling tired. [facility] Medical History Atrial fibrillation BPH w urinary obs/LUTS DM type 2 (diabetes mellitus, type 2) Elevated PSA Family history of prostate cancer in father Prostate cancer Spermatocele of epididymis, multiple Urological system complication of procedure UTI (urinary tract infection) Surgical History History of bladder surgery Previous back surgery Social History marital status: household members: none occupational status: previously employed Smoking Status: Never smoker alcohol intake: former substance use type: does not use Meds Home Medications and Allergies Home Medications Medication Instructions Recorded Confirmed Type mirtazapine 15 mg tablet (Remeron) 15 mg PO HS ##0 09/13/10 04/01/23 History promethazine 25 mg tablet 25 mg PO PRN PRN Motion Sickness 05/28/17 04/01/23 History ##0 sucralfate 1 gram tablet 1 gm PO ACHS ##0 05/28/17 04/01/23 History warfarin 2 mg tablet (Coumadin) 4 mg PO USEASDIRECTD ##0 05/28/17 04/01/23 History benzonatate 100 mg capsule 100 mg PO TID PRN cough #12 caps 12/11/19 02/14/24 Rx (Maureen Briones) diphenoxylate-atropine 2.5 1 tab PO Q6-8H PRN Diarrhea 09/16/21 04/01/23 History mg-0.025 mg tablet metformin 500 mg tablet 500 mg PO BID 09/16/21 04/01/23 History omeprazole 40 mg capsule,delayed 40 mg PO BID 09/16/21 04/01/23 History release tolterodine 4 mg capsule,extended 4 mg PO DAILY 09/16/21 04/01/23 History release 24 hr bicalutamide 50 mg tablet (Casodex) 50 mg PO DAILY #30 tabs 07/01/22 04/01/23 Rx metoprolol succinate 25 mg 25 mg PO BID 07/01/22 04/01/23 History tablet,extended release 24 hr betamethasone dipropionate 0.05 % 1 applic topical BID 04/01/23 04/01/23 History topical ointment guaifenesin 200 mg/5 mL oral liquid 200 mg PO Q4H PRN congestion 04/01/23 04/01/23 History Allergies Allergy/AdvReac Type Severity Reaction Status Date / Time Penicillins [PENICILLINS] Allergy Severe ANAPHYLAXIS Verified 03/31/23 19:48 shellfish derived Allergy Severe TONGUE Verified 03/31/23 19:48 [SHELLFISH DERIVED] SWELLS, THROAT CLOSES. Review of Systems Review of Systems Narrative: Negative except as above Exam Vital Signs (past 8 hours): - 04/01/23 08:00 04/01/23 08:00 Temperature 98.0 F Pulse Rate 99 H Respiratory Rate 18 Blood Pressure 129/64 Pulse Oximetry 96 96 Oxygen Delivery Method Room Air Oxygen Flow Rate 0 Oxygen Delivery Method Room Air Oxygen Flow Rate 0 Narrative Exam Narrative: Alert male confused in no acute distress Tympanic membranes are normal conjunctiva clear patient's tongue appear swollen I do not see any definitive mass or swelling. No wounds. He has no wounds in the floor of his mouth. Bilateral adenopathy elevated in size superior cervical no pain with movement of the neck. No other masses no other adenopathy. Lungs are clear heart is irregular but controlled rate. Abdomen is soft positive bowel sounds nontender extremities show some tenderness in the right hip but otherwise no abnormality. Neurologic exam is nonfocal but he is confused does not know he is in the hospital could not tell me who I was and we have been together as patient and doctor for years did not know where he was but knew he was in the hospital yesterday having difficulty talking. Objective Labs 04/01/23 05:24 04/01/23 05:24 Labs: Laboratory Results - last 24 hr 03/31/23 03/31/23 03/31/23 16:50 16:52 20:15 WBC 8.7 RBC 3.67 L Hgb 11.1 L Hct 32.8 L MCV 89.6 MCH 30.4 MCHC 33.9 RDW 14.2 Plt Count 310 Neut % (Auto) 82.1 H Lymph % (Auto) 7.2 L [place] % (Auto) 9.2 Eos % (Auto) 0.6 L Baso % (Auto) 0.9 Neut # (Auto) 7200 H Lymph # (Auto) 600 L [place] # (Auto) 800 Eos # (Auto) 100 Baso # (Auto) 100 ESR PT 156.7 H D INR 13.3 H* APTT 77 H* Sodium 134 L Potassium 5.0 Chloride 101 Carbon Dioxide 21 L BUN 45 H Creatinine 2.81 H Estimated GFR 21 L BUN/Creatinine Ratio 16.0 Glucose 116 H Calcium 9.3 Total Bilirubin 0.7 AST 25 ALT 17 Alkaline Phosphatase 79 Ammonia < 9 L C-Reactive Protein Total Protein 7.4 Albumin 3.8 Globulin 3.6 Albumin/Globulin Ratio 1.1 Urine Color Yellow Urine Appearance Clear Urine pH 5.0 Ur Specific [place] 1.025 Urine Protein 1+ H Urine Glucose (UA) Negative Urine Ketones Trace H Urine Occult Blood Trace-intact Urine Nitrate Negative Urine Bilirubin Negative Urine Urobilinogen 0.2 Ur Leukocyte Esterase Trace H Urine RBC 0-1/hpf Urine WBC 1-5/hpf Ur Squamous Epith Cells 1-5 /hpf D Urine Bacteria Few (2-10) H Urine Mucus 1+ H Ur Culture Indicated? Specimen cultured Vol Urine Centrifuged 10ml (spun) 04/01/23 04/01/23 05:24 10:10 WBC 9.5 RBC 3.14 L Hgb 9.3 L Hct 28.3 L MCV 90.1 MCH 29.7 MCHC 33.0 RDW 14.2 Plt Count 282 Neut % (Auto) 79.6 H Lymph % (Auto) 8.0 L [place] % (Auto) 10.7 Eos % (Auto) 1.3 L Baso % (Auto) 0.4 Neut # (Auto) 7500 H Lymph # (Auto) 800 L [place] # (Auto) 1000 H Eos # (Auto) 100 Baso # (Auto) 0 ESR 76 H PT 18.8 H D INR 1.6 H APTT Sodium 136 L Potassium 4.4 Chloride 106 Carbon Dioxide 19 L BUN 40 H Creatinine 2.47 H Estimated GFR 25 L BUN/Creatinine Ratio 16.2 Glucose 94 Calcium 8.3 L Total Bilirubin 0.8 AST 30 ALT 15 Alkaline Phosphatase 70 Ammonia C-Reactive Protein 7.5 H Total Protein 6.1 L Albumin 3.2 L Globulin 2.9 Albumin/Globulin Ratio 1.1 Urine Color Urine Appearance Urine pH Ur Specific [place] Urine Protein Urine Glucose (UA) Urine Ketones Urine Occult Blood Urine Nitrate Urine Bilirubin Urine Urobilinogen Ur Leukocyte Esterase Urine RBC Urine WBC Ur Squamous Epith Cells Urine Bacteria Urine Mucus Ur Culture Indicated? Vol Urine Centrifuged Assessment & Plan Assessment & Plan narrative: Elevated INR. Better today. Was given vitamin K. I am going to hold on restarting Coumadin for this time just because of worried that there is going to be control issues. Will start probably tomorrow also is unclear if he is going to be weak enough and continue to fall he will not be on his medicine. Will see how things go. Hold treatment today. Difficulty swallowing difficulty speaking. He appears to be swollen throughout the neck and his tongue but CT scan did not show any abscess. His white count is normal at only slightly elevated but does have a left shift. Could this be infection certainly no abscess on CT scan but will start clindamycin and re-evaluate tomorrow will see how his swelling goes we may need ENT to take a quick look and make sure they do not see anything definitive although he got quite angry when I was trying to look at the back side of his tongue. Will just have to see how things go. Anemia. Possible blood loss. Unclear at this time. Will check guaiac no other evidence of blood loss. Certainly concerning with his elevated INR. We will rechecked tomorrow and see where we are going. Certainly about a 4 point drop in his hematocrit. Re-evaluate at that time. Metabolic encephalopathy. Possibly from infection of his tongue and upper neck. No other evidence of significant issue stroke was negative as far as bleed goes. On CT scan yesterday. No evidence of pneumonia urine appeared normal. I still think this is infection possibly driven and will see how he responds to the clindamycin. May need MRI if not clearing. But at this point I do not think he would stay still. Otherwise no change. We will continue to follow he understands. History of atrial fibrillation. Still present. Rate control seems good. But at this point I am going to have to hold his medicines because he has not swallowing may need to go to IV metoprolol. Will see how his rate control does and follow other issues I am hoping we can get him to swallow better in the near future but I think it is has some to do with the swelling of his tongue. We will hold medicines add tele and follow from there. Type 2 diabetes will add sliding scale coverage and follow from there. Hypertension. Stable. Congestive heart failure systolic left heart. Not an issue at this time will continue to follow. Code status no code. DVT prophylaxis mechanical at this time. Will be adding anticoagulation possibly in the near future but with decrease in hematocrit I do not want to add anticoagulation right now. GI prophylaxis not needed Disposition patient is clearly going to be here for few days. We have to be able to feed him before we could make any further decisions and I am hoping swelling will go down. If not improving will have ENT evaluate and will follow from there. 75 minutes spent discussing with cross coverage chart review exam and history dictation and orders Quality VTE Deep Vein Thrombosis/Pulmonary Embolism Present on Admission: No
[2023-04-01 16:00] VITALS: BP 125/59; PULSE 98; RESP 16; TEMP 36.6; O2SAT 97
[2023-04-01] MEDS: DEXTROSE 5%-LACTATED RINGERS 1,000 ML 125 ML IV (18:31)
[2023-04-01 21:15] VITALS: O2SAT 93
[2023-04-01 21:40] VITALS: BP 122/62; PULSE 112; RESP 18; TEMP 36.4; O2SAT 93
[2023-04-02] VITALS (8 sets, daily range): BP systolic 104–132; BP diastolic 59–68; PULSE 68–120; RESP 16–19; TEMP 36.3–36.4; O2SAT 93–97
[2023-04-02] MEDS: CLINDAMYCIN 900 MG/50 ML PIGGYBACK 50 MG IV ×3 (00:54→17:33)
[2023-04-02] MEDS: DEXTROSE 5%-LACTATED RINGERS 1,000 ML 125 ML IV ×2 (04:19→15:12)
[2023-04-02 05:59] LABS: Add Manual Diff / Slide Review NO; Basophils Absolute Auto 0 /uL (0-100); Basophils Percent Auto 0.6 % (0-2); Eosinophils Absolute Auto 200 /uL (0-450); Eosinophils Percent Auto 2.6 % (2-4); Hematocrit 29.2 % (41-53); Hemoglobin 9.9 g/dL (13.5-17.5); Lymphocytes Absolute Auto 400 /uL (1100-4500); Lymphocytes Percent Auto 6.2 % (25-40); Mean Corpuscular Hemoglobin 30.2 PG (26-34); Monocytes Absolute Auto 600 /uL (0-900); Neutrophils Absolute Auto 5200 /uL (1500-7000); Neutrophils Percent Auto 80.6 % (50-75); Platelet Count 227 X10^3/uL (150-400); Red Blood Cell Count 3.29 X10^6/uL (4.5-5.9); Red Cell Distribution Width 13.9 % (11.6-14.8); White Blood Cell Count 6.5 X10^3/uL (4.5-11.0)
[2023-04-02 06:16] LABS: Alanine Aminotransferase 23 IU/L (<50); Albumin 2.6 g/dL (3.5-5.0); Albumin Globulin Ratio 0.9 (1.0-2.8); Alkaline Phosphatase 70 U/L (38-126); Aspartate Aminotransferase 50 IU/L (17-59); BUN Creatinine Ratio 15.3 (6-22); Bilirubin Total 0.6 mg/dL (0.2-1.3); Blood Urea Nitrogen 30 mg/dL (9-20); Calcium 8.2 mg/dL (8.4-10.2); Carbon Dioxide 23 mmol/L (22-32); Chloride 109 mmol/L (98-107); Estimated Glomerular Filt Rate 32 mL/min (>60); Globulin 2.9 g/dL (1.7-4.1); Glucose 140 mg/dL (80-110); HEMOLYSIS 18 (0-50); Potassium 3.9 mmol/L (3.4-5.1); Sodium 136 mmol/L (137-145); Total Protein 5.5 g/dL (6.3-8.2)
--- NOTE | 2023-04-02 08:33 | P.PN_ITS ---
Subjective Subjective Date Patient Seen: 04/02/23 Interval history: Patient much more alert today. Still angry but speaking better. And complaining of no definitive pain. Not complaining of hip pain today. Having some issues with urination this morning Exam Vital Signs (past 8 hours): - 04/02/23 01:04 Temperature 97.4 F L Pulse Rate 107 H Respiratory Rate 18 Blood Pressure 120/60 Pulse Oximetry 95 Oxygen Flow Rate 0 Oxygen Delivery Method Room Air Oxygen Flow Rate 0 Narrative Exam Narrative: Alert male much more interactive today with no other change HEENT exam tongue seems slightly improved. His speech certainly is better and not as dysfunctional with what was clearly an enlarged tongue. Neck with maybe slightly decreased nodes superior. Lungs are clear heart is irregular rate elevated abdomen mildly diffusely tender. Without change. Extremities well without issue no tenderness today Objective Labs 04/02/23 05:20 04/02/23 05:20 Labs: Laboratory Results - last 24 hr 04/01/23 04/01/23 04/02/23 05:24 10:10 05:20 WBC 6.5 RBC 3.29 L Hgb 9.9 L Hct 29.2 L MCV 89.0 MCH 30.2 MCHC 34.0 RDW 13.9 Plt Count 227 Neut % (Auto) 80.6 H Lymph % (Auto) 6.2 L [place] % (Auto) 10.0 Eos % (Auto) 2.6 Baso % (Auto) 0.6 Neut # (Auto) 5200 Lymph # (Auto) 400 L [place] # (Auto) 600 Eos # (Auto) 200 Baso # (Auto) 0 ESR 76 H Sodium 136 L Potassium 3.9 Chloride 109 H Carbon Dioxide 23 BUN 30 H Creatinine 1.96 H Estimated GFR 32 L BUN/Creatinine Ratio 15.3 Glucose 140 H Calcium 8.2 L Total Bilirubin 0.6 AST 50 ALT 23 Alkaline Phosphatase 70 C-Reactive Protein 7.5 H Total Protein 5.5 L Albumin 2.6 L Globulin 2.9 Albumin/Globulin Ratio 0.9 L PFSH Medical History Atrial fibrillation BPH w urinary obs/LUTS DM type 2 (diabetes mellitus, type 2) Elevated PSA Family history of prostate cancer in father Prostate cancer Spermatocele of epididymis, multiple Urological system complication of procedure UTI (urinary tract infection) Surgical History History of bladder surgery Previous back surgery Social History marital status: household members: none occupational status: previously employed Smoking Status: Never smoker alcohol intake: former substance use type: does not use Assessment & Plan Assessment & Plan narrative: Difficulty swallowing difficulty speaking secondary to what appears to be tongue enlargement. CT scan did not show a definitive abnormality but certainly he is better today is white count is down and I really believe that he has not infection which is causing most of our issue. Was considering ENT consult today but it is slightly better will see how things go. If continues to improve will just continue IV antibiotics and follow. Certainly all issues or trending positive. Speech therapy today. Acute renal failure on chronic. Almost back to baseline. Suspect it was prerenal. Suspect he was not eating secondary to his infection and we will see how things go. Elevated INR. Certainly not elevated as of yesterday. Will rechecked tomorrow and follow. Anemia. Stable. No evidence of bleeding. Will continue to follow. Question is whether or not we restart his Coumadin and will have to see how things go but at this point will rechecked tomorrow. Metabolic encephalopathy. Actually mildly improved today. He is much more alert seems much more oriented and I suspect this was all secondary to a combination of significant dehydration and infection which I presume is in his mouth there is no other evidence of infection and will follow. Dehydration. Initially significant now be trending normal. Will continue IV hydration until he is starting to take p.o.. Hoping that will be today. We will see how speech therapy evaluates. Atrial fibrillation. Increase in rate. Not on his metoprolol. Hoping speech therapy will allow us to get pills if not will need to do IV. Will start Coumadin once he is taking p.o. more consistently. Type 2 diabetes. Sliding scale he was persistently low in sugar yesterday and we added sugar into his IV. Hopefully will be taking diet and we can discontinue all of that. We will see what happens over the next 24 hours. Hypertension. Stable. Congestive heart failure not an issue at this time but we are aggressively giving him fluids to rehydrate. Will have to watch closely. Certainly lungs are normal today. Code status no code. DVT prophylaxis. I think we are okay with external devices given his risk and has anemia. May consider starting it but we will be going back on Coumadin. GI prophylaxis not needed Disposition. Patient is trending better. I am sure he is going to be here several more days. And we will follow. 55 minutes spent with the patient nursing dictation and orders Quality VTE Deep Vein Thrombosis/Pulmonary Embolism Present on Admission: No
[2023-04-02] MEDS: INSULIN LISPRO 100 UNIT/ML 3ML VIAL SUBCUT ×2 (08:44→12:47)
[2023-04-02] MEDS: ACETAMINOPHEN 325 MG TABLET 650 MG PO ×2 (09:54→20:52)
[2023-04-02] MEDS: METOPROLOL ER 25 MG TABLET PO (09:54)
--- NOTE | 2023-04-02 12:03 | ST.IPCSEOM ---
Visit Care Team Role Provider Type Norm Dhillon MD Emergency Provider Physician Specialty: Emergency Medicine Address: [facility] [address], [place], [address] Email: [email or web address] Pierre MD Attending Provider Physician Family Provider Primary Care Provider Specialty: Family Practice Address: [address] [place] [address], [address], [place], [address] Email: [email or web address] Bertrand Garcia MD Admit Provider Physician Other Providers Specialty: Family Practice Address: [address] [place] [address], [address], [place], [address] Email: [email or web address] Past Medical History (Last Reviewed 10/28/22 @ 18:34 by Venkat Prieto DO) Atrial fibrillation (Medical) BPH w urinary obs/LUTS (Medical) DM type 2 (diabetes mellitus, type 2) (Medical) Elevated PSA (Medical) Family history of prostate cancer in father (Medical) Prostate cancer (Medical) Spermatocele of epididymis, multiple (Medical) Urological system complication of procedure (Medical) UTI (urinary tract infection) (Medical) Speech-Language Pathology Swallow Evaluation CHRONIC CARE NURSE Clinical Swallow Evaluation Start: 04/02/23 09:35 Freq: Status: Active Protocol: Document 04/02/23 11:41 MA (Rec: 04/02/23 12:03 MD [id number]) Clinical Swallow Evaluation Session Time Visit Start Time 09:05 Visit Stop Time 09:35 Total Visit Minutes 30 Visit Information Visit Number [address] Pierre Reason for Referral Difficulties speaking/ swallowing Setting Assessment Location Acute Care Visit Type Note Type Initial evaluation Next Note Type Next Note Type Treatment Note Patient Information Identification Type Name,Wristband History Per H&P: Patient is a 87-year- old male well known to me who presents with elevated INR and mental status changes. Patient apparently had a fall couple weeks ago or maybe longer than that even and has been feeling off a little bit since that time. Thinks maybe he bit his tongue. Source he is concerned he has had some trouble swallowing. And is just not felt well. But does not have any definitive complaints. Patient is currently a poor historian and is confused. Not at his baseline. Patient is having difficulty talking with what appears to be tongue swelling. No other significant new changes. Patient currently denies any pain anywhere except as right hip which had x-rays yesterday that were negative. He has had no chest pain. No shortness of breath . No change in bowel movements. No urinary changes . As far as he can remember. Otherwise just feeling tired. PMHx significant for: Atrial fibrillation BPH w urinary obs/LUTS DM type 2 (diabetes mellitus, type 2) Elevated PSA Family history of prostate cancer in father Prostate cancer Spermatocele of epididymis, multiple Urological system complication of procedure UTI (urinary tract infection) Pt referred for ST evaluation d/t Pt with speaking/ swallowing difficulties d/t swollen tongue that is suspected to have occurred when he fell at home. Subjective Observations Pt laying slouched in bed. Pt agreeable to getting boosted in bed in order to sit upright for PO trials. Pt awake, alert, Ox3. Nursing reports he was observed choking on water upon admission. Report of swollen tongue s/p fall. He reports and exhibits improvements in speech, reduced slur and 100% intelligibility. He reports baseline diet is regular solids and thin liquids. Reported by Patient/Caregiver Comment He reported pain in his right hip as a 6/10. Current Diet NPO Baseline Feeding Method Independent in self-feeding The IDDSI Framework Protocol: IDDSI.1 Objective Assessment Mental Status Alert,Responsive Oral Integrity WFL Dentition Within normal limits Comment Reduced lingual strength and ROM d/t swollen tongue, however improving. Food and Liquid Trials Position During Assessment Upright (90 degrees) Liquids Trialed Thin (IDDSI 0) Solid Trials Purred (IDDSI 4),Soft & Bite- sized (IDDSI 6) Administration Type Cup single sip,Cup consecutive sips,Straw,Self-feeding Oral Impairment Moderately impaired Oral Phase Comments Pt consumed 4 oz of thin water via straw and about 2 oz of thin juice via straw, 1 bite of a chewy bar and about 4 oz of pudding. For thin liquids via straw, Pt demonstrated adequate suction, good oral acceptance and containment, suspected loss of bolus resulting in premature spillage. For chewy bar Pt demonstrated small bite, prolonged mastication, poor bolus formation resulting in Pt reporting he has trouble chewing and had to spit it out , which may be d/t enlarged tongue. For pudding he exhibited adequate bolus formation and control, timely ap transport. Pharyngeal Impairment Mildly impaired Pharyngeal Phase Comments For thin liquids via straw Pt demonstrated clear vocal quality, suspected delay in swallow, delayed cough x1. For pudding he demonstrated suspected delay in swallow, no overt s/s of aspiration. Fatigue/Endurance Endurance WNL The IDDSI Framework Protocol: IDDSI.1 Findings Swallowing Function Oropharyngeal phase dysphagia Severity of Swallow Impairment Mildly-moderately impaired Prognosis Good Comment Pt presents with moderate oral phase dysphagiia secondary to swollen tongue resulting in difficulites with masticaiton and bolus formation. He also presents with mild pharyngeal phase dysphagia. Recommendations Instrumental Assessment No Swallowing Treatment Yes Frequency Daily while inpatient Recommended Solids Pureed (IDDSI 4) Recommended Liquids Thin (IDDSI 0) Other Recommendations ST recommends IDDSI 4/IDDSI 0. ST educated Pt and nursing on diet recommendations and safe swallowing strategies. Safety Precautions/Swallowing Remain upright (90 degrees) Recommendations during all oral intake,Upright position at least 30 minutes after meals,Small bites and sips when eating,Slow rate; swallow between bites, Alternate liquids and solids, Strict oral care after intake Medication Recommendations Crushed in Carrier Education Patient/Caregiver Education Described results of evaluation,Patient expressed understanding of evaluation, Patient requires further education/training Goals Short-term Goals STG 1: Patient will utilize safe swallowing strategies 90% of the time with minimal verbal cues in order to consume safest and most efficient least restrictive diet. STG 2: Patient will tolerate IDDSI 4/5/6/7 with no clinical s/s of dysphagia 100% of the time in order to consume least restrictive diet. STG 3: Patient will tolerate thin liquids with no clinical s/s of aspiration 100% of the time in order to consume least restrictive diet. Long-term Goals LTG: Patient will tolerate safest and most efficient diet with no clinical s/s of aspiration or dysphagia 100% of the time in order to consume least restrictive diet .
--- NOTE | 2023-04-02 14:23 | CM.DANOTE ---
Initial DCP Assessment Visit Note Reviewed EMR and team rounds for pt's medical status. Met with pt yesterday to introduce self and role, was only able to do a brief assessment do to pt's drowsiness, was found today to be sleeping and unable to participate in [employer] visit today. Payor: Medicare PCP: Dr. Pierre Pt is a 87 year-old M who presented to the ED on 03/31 via EMS sent by PCP who noticed a supratherapeutic INR during their visit. Pt is also reported to have recent increased confusion/altered mental status, recent fall a few weeks ago, and a swollen tongue/throat, but pt is not a good historian and the reason for the swelling in not known. INR is improved today, but resistant to care at times/angry. Due to the swelling, he's not been able to eat. Plan is for him to remain inpt a few more days in order to get him eating before d/c, may need an ENT referral prior to d/c if he is not improving. Plan is for him to return to [facility], will need to confirm w/them what they need for his return, as well as transportation type. DCP will continue to follow and assist with any evolving d/c planning needs. 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 Yes Advance Directives on File No History Provided By Patient,Medical Record Has Patient been admitted in last 30 No days? Prior Living Arrangements Intermediate Facility Household Members none Type of transporation used prior to Relies on Others admit Facility Name Admitted From: [facility] Willing to Return to Facility? Yes Independent with ADL's No: Modified independent Is patient alert and oriented? Yes Needs Assistance With Meal Prep,Managing Medications ,Home Chores / Shopping Caregiver for Another No Comment Return to [facility] Barriers to Discharge No Discharge Plan Assisted Living Facility Referrals Initiated None needed If patient plan is SNF: Has PASSR been Yes completed? Whiteboard Updated in Patient Room with Yes name and ext. # of V[employer] Glue Jointer Feedback Review Status In Process Please Provide Date Initial DC 04/02/23 Assessment Was Performed
[2023-04-02] MEDS: MIRTAZAPINE 15 MG TABLET PO (20:51)
[2023-04-02] MEDS: PANTOPRAZOLE DR 40 MG TABLET PO (21:04)
[2023-04-03] VITALS (8 sets, daily range): BP systolic 100–135; BP diastolic 42–75; PULSE 85–102; RESP 16–18; TEMP 36.1–36.3; O2SAT 96–98
[2023-04-03] MEDS: CLINDAMYCIN 900 MG/50 ML PIGGYBACK 50 MG IV ×3 (00:06→17:59)
[2023-04-03] MEDS: ACETAMINOPHEN 325 MG TABLET 650 MG PO ×4 (01:26→21:20)
[2023-04-03] MEDS: DEXTROSE 5%-LACTATED RINGERS 1,000 ML 125 ML IV (01:26)
[2023-04-03 07:32] LABS: Add Manual Diff / Slide Review NO; Basophils Absolute Auto 0 /uL (0-100); Basophils Percent Auto 0.8 % (0-2); Eosinophils Absolute Auto 300 /uL (0-450); Eosinophils Percent Auto 4.8 % (2-4); Hematocrit 33.2 % (41-53); Hemoglobin 11.2 g/dL (13.5-17.5); Lymphocytes Absolute Auto 500 /uL (1100-4500); Lymphocytes Percent Auto 9.3 % (25-40); Mean Corpuscular HGB Conc 33.9 % (30-36); Mean Corpuscular Hemoglobin 30.5 PG (26-34); Mean Corpuscular Volume 89.9 fL (80-100); Monocytes Absolute Auto 500 /uL (0-900); Monocytes Percent Auto 9.5 % (3-14); Neutrophils Absolute Auto 4000 /uL (1500-7000); Neutrophils Percent Auto 75.6 % (50-75); Platelet Count 270 X10^3/uL (150-400); Red Blood Cell Count 3.69 X10^6/uL (4.5-5.9); Red Cell Distribution Width 14.3 % (11.6-14.8); White Blood Cell Count 5.3 X10^3/uL (4.5-11.0)
[2023-04-03 07:48] LABS: Alanine Aminotransferase 39 IU/L (<50); Albumin 2.9 g/dL (3.5-5.0); Albumin Globulin Ratio 0.9 (1.0-2.8); Alkaline Phosphatase 83 U/L (38-126); Aspartate Aminotransferase 73 IU/L (17-59); BUN Creatinine Ratio 12.6 (6-22); Bilirubin Total 0.6 mg/dL (0.2-1.3); Blood Urea Nitrogen 25 mg/dL (9-20); Calcium 8.4 mg/dL (8.4-10.2); Carbon Dioxide 23 mmol/L (22-32); Chloride 105 mmol/L (98-107); Estimated Glomerular Filt Rate 32 mL/min (>60); Globulin 3.1 g/dL (1.7-4.1); Glucose 149 mg/dL (80-110); HEMOLYSIS < 15 (0-50); Potassium 3.9 mmol/L (3.4-5.1); Sodium 138 mmol/L (137-145)
[2023-04-03] MEDS: INSULIN LISPRO 100 UNIT/ML 3ML VIAL SUBCUT ×2 (09:00→18:00)
[2023-04-03] MEDS: METOPROLOL ER 25 MG TABLET PO (09:02)
--- NOTE | 2023-04-03 09:25 | PM.PN.1 ---
Subjective Subjective Date Patient Seen: 04/03/23 Time Patient Seen: 09:25 Interval history: Patient seen in follow-up of multiple issues but metabolic encephalopathy and difficulty swallowing tongue swelling infection of the neck and tongue. Patient feeling much better today. Much more alert. Oriented. Still complaining of pain in his right side. But no other changes. Exam Vital Signs (past 8 hours): - 04/03/23 04:10 04/03/23 09:02 Temperature 97 F L Pulse Rate 85 101 H Respiratory Rate 18 Blood Pressure 103/51 L 135/75 Pulse Oximetry 97 Oxygen Flow Rate 0 Oxygen Delivery Method Room Air Oxygen Flow Rate 0 Narrative Exam Narrative: Alert male speaking normally in no acute distress Lungs are clear heart is regular rate and rhythm HEENT exam shows tongue is much improved less swelling more movement neck is decreased swelling in the superior anterior no change. Extremities no edema. He is alert and oriented moving all extremities abdomen is nontender he is got tenderness in his right lateral ribs there is no crepitus or step-off no bruising some tenderness on the iliac crest really nothing much between. Objective Labs 04/03/23 07:13 04/03/23 07:13 Labs: Laboratory Results - last 24 hr 04/03/23 07:13 WBC 5.3 RBC 3.69 L Hgb 11.2 L Hct 33.2 L MCV 89.9 MCH 30.5 MCHC 33.9 RDW 14.3 Plt Count 270 Neut % (Auto) 75.6 H Lymph % (Auto) 9.3 L [place] % (Auto) 9.5 Eos % (Auto) 4.8 H Baso % (Auto) 0.8 Neut # (Auto) 4000 Lymph # (Auto) 500 L [place] # (Auto) 500 Eos # (Auto) 300 Baso # (Auto) 0 Sodium 138 Potassium 3.9 Chloride 105 Carbon Dioxide 23 BUN 25 H Creatinine 1.99 H Estimated GFR 32 L BUN/Creatinine Ratio 12.6 Glucose 149 H Calcium 8.4 Total Bilirubin 0.6 AST 73 H ALT 39 Alkaline Phosphatase 83 Total Protein 6.0 L Albumin 2.9 L Globulin 3.1 Albumin/Globulin Ratio 0.9 L PFSH Medical History Atrial fibrillation BPH w urinary obs/LUTS DM type 2 (diabetes mellitus, type 2) Elevated PSA Family history of prostate cancer in father Prostate cancer Spermatocele of epididymis, multiple Urological system complication of procedure UTI (urinary tract infection) Surgical History History of bladder surgery Previous back surgery Social History marital status: household members: none occupational status: previously employed Smoking Status: Never smoker alcohol intake: former substance use type: does not use Assessment & Plan Assessment & Plan narrative: Infection tongue pharynx. CT scan did not show anything but patient definitely had a swollen tongue and upper neck swelling which is much improved today his speech is better and he seems to be feeling better. White count is improved cultures were negative he is otherwise I do not think needs an ENT consult. We will do 1 more day of IV clindamycin and then hopefully switch to p.o.. Looks like things are going much better. And we will see how things go. Acute on chronic renal failure. Back to baseline. Will decrease IV hydration although not discontinue secondary to still not taking a lot of p.o. intake. Hopefully can discontinue tomorrow as he improves. Dehydration. Markedly improved. Probably euvolemic at this point but due to decreased p.o. intake will continue fluids. Type 2 DM. Patient usually on metformin. He is borderline and his creatinine and due to the fact that he is intermittently getting worse I am going to discontinue it. He has been on D5 LR which will discontinue. At this point it has not recommended to start Jardiance I am wondering with his hemoglobin A1c which has been actually really good in the past whether or not even needs treatment probably not eating as much as he had been in the past. We will discontinue metformin continue sliding scale discontinue IV glucose and we will follow. I will do it as an outpatient and see where we need to go with his hemoglobin A1c. Elevated INR. Has been normal I am going to recheck tomorrow but will start low-dose Coumadin today. Does not need to be adequate INR by the time he is discharged. Will do it as an outpatient. Atrial fibrillation. Back on his metoprolol rate control isn't perfect but we will continue to follow. Certainly better than yesterday now that he is back on his metoprolol. Will restart Coumadin today. Metabolic encephalopathy markedly improved today. Almost back to baseline still fatigued. Will see how things go. I suspect it was secondary to infection which is markedly improved also. Anemia. Slowly improving. May have been related to his elevated PT but no evidence of bleeding that we could find. Will follow as outpatient suspect will resolve. Also given large amounts of fluid during his 1st 2 days here. Probable partly dilutional. Weakness. Alan certainly is not back to baseline. Will begin OT and PT today. I think this is secondary to his infection and should recover. He has not want to really push himself so will have to see how it goes. DVT prophylaxis will be given Coumadin today. On SCDs. GI prophylaxis not needed Code status DNR. Disposition. Will see how he responds to physical therapy and how much stronger he gets. He is otherwise doing well. Hopefully maybe Thursday or Thursday he will be able to discharge back to family home. 47 minutes spent with the patient nursing staff orders dictation Quality VTE Deep Vein Thrombosis/Pulmonary Embolism Present on Admission: No
[2023-04-03] MEDS: LACTATED RINGERS 1,000 ML 75 ML IV (10:31)
--- NOTE | 2023-04-03 11:22 | DIET.CONS ---
Addendum entered by Crystal Díaz 04/03/23 15:58: Called [facility] about providing ONS. Was told that Alan's provider would have to send an rx recommending ONS (i.e., ensure or boost) BID to their pharmacy. Even then, stated the pt may have to pay out of pocket. Discussed with case management. Potential plan for Alan to move to [place], closer to family. Pt may benefit from rx for ONS BID given malnutrition status if staying at [facility]. Addendum entered by Crystal Díaz 04/03/23 11:32: Nutrition Diagnosis: Moderate acute on chronic protein calorie malnutrition r/t trouble swallowing and reduced po aeb pt report, gradual weight loss, moderately low BMI for age, and moderate to severe signs of wasting. -The patient is at much higher risk for medical and surgical complications because of their malnutrition.? This increases the difficulty and complexity of medical and surgical interventions and increases the chances of poor outcomes such as morbidity and mortality. Original Note: Dietary Consultation Note Admission Date: 04/02/2023 10:16 Assessment: 87M admitted after a fall. Seems to have a swollen tongue, impacting his ability to swallow. States this is better today. RD consulted for reported weight loss and reduced appetite. Today Alan tells me he thinks the food at his residence of [facility] is too greasy. States he has been losing weight slowly over time due to not wanting the food they provide. C/o that the food is often cold leftover by the time he gets it. Weight loss not significant for malnutrition, however BMI is moderately low for age <23. Nutrition focused physical exam indicates moderate temporal, orbital, and interosseous muscle wasting. Acromion process visible and moderate to severe boxed shoulders indicating wasting. Current diet purred and thin liquids. Open to ONS. States he does not have ONS access at residence. RD will look into this. Ht: 182.88 cm Wt: 75.5 kg BMI: 22.6 UBW: Last BM: 04/02/23 (04/02/23 12:00) MNA: 7 Pedro Score: 16 Diet: 04/02/23 Lunch Dysphagia Diet Diet Modifications: Food Texture: Level 4 - Pureed Liquid Consistency: Level 0 - Thin Nutrition Percent Meal Consumed 50% 04/03/23 08:00 Labs: RBC 3.69 X10^6/uL (4.5-5.9) L 04/03/23 07:13 Hgb 11.2 g/dL (13.5-17.5) L 04/03/23 07:13 Hct 33.2 % (41-53) L 04/03/23 07:13 Creatinine 1.99 mg/dL (0.66-1.25) H 04/03/23 07:13 Nutrition Diagnosis: Moderate acute on chronic protein calorie malnutrition r/t trouble swallowing and reduced po aeb pt report, gradual weight loss, moderately low BMI for age, and moderate to severe signs of wasting. Interventions: Discussed potential protein sources for him when he returns home. RD will look into access to ONS after discharge. Kitchen will send ONS BID. EER: 85-100g PRO (1.1-1.3g/kg per PCM) 2100-2200kcal (28-30kcal/kg per BMI) Monitoring/Evaluations: f/u today with ONS plan and then 3-5 days after Electronically Signed by: Crsytal Díaz 04/03/23 11:22 Clinical Dietitian [address] [address]
[2023-04-03] MEDS: SUCRALFATE 1 GM TABLET PO ×3 (13:48→21:29)
--- NOTE | 2023-04-03 14:20 | OT.IP.EVAL ---
Current Diagnoses Dehydration (04/02/23) Past Medical History (Last Reviewed 10/28/22 @ 18:34 by Venkat Prieto DO) Atrial fibrillation BPH w urinary obs/LUTS DM type 2 (diabetes mellitus, type 2) Elevated PSA Family history of prostate cancer in father Prostate cancer Spermatocele of epididymis, multiple Urological system complication of procedure UTI (urinary tract infection) Surgical History (Last Reviewed 10/28/22 @ 18:34 by Venkat Prieto DO) History of bladder surgery Previous back surgery Occupational Therapy Inpatient Evaluation/Re-Eval M1 PT/OT-IP Prior Functional Status Start: 04/03/23 14:26 Freq: NEEDED Status: Active Protocol: Document 04/03/23 14:27 [facility] (Rec: 04/03/23 14:52 [facility] [id number]) Medical Review Prior Functional Status Communication Independent Mobility and Gait Pt states hold to surfaces in the apartment and use of FWW otherwise if feeling off balanced. Activities of Daily Living and IADL's Pt states does all his basic ADL's on his own and has staff from [facility] there for showering needs, medications, and light IADL's . Prior Functional Level (Other details) Pt states goes to the exercise room to work with staff weekly. Social History Household Members none Living Arrangements Alf Facility Home Environment Standard Height Toilet,Walk in Shower,Built-In Shower Seat Home Equipment Front Wheel Walker,Four Wheel Walker,Straight Cane,Hand Held Shower,Grab Bars Near Toilet, Grab Bars In Shower M2 OT-IP Current Condition Start: 04/03/23 14:26 Freq: Status: Active Protocol: Document 04/03/23 14:27 [facility] (Rec: 04/03/23 14:52 [facility] [id number]) Occupational Therapy Current Condition Current Condition Evaluation Date 04/03/23 Treatment Diagnosis Metabolic encephalopthy, decreased mobility Diagnosis Onset Date 04/02/23 M3 OT- IP Subjective and Pain Start: 04/03/23 14:26 Freq: Status: Active Protocol: Document 04/03/23 14:27 [facility] (Rec: 04/03/23 14:52 [facility] [id number]) OT- Subjective Occupational Therapy Visit Type Type Initial Evaluation Visit Start Time 13:35 Visit Stop Time 14:20 Occupational Therapy Visit Comments Patient Comments Pt agreed to try to get up. Patient/Caregiver Goals TO go home. OT Pain Assessment Pain When Pain Assessed At Rest Pain Present Pain Present Pain Reported Location Right Hip Intensity 6 Scale Used Numeric (0 - 10) M4 OT- IP ADL's Start: 04/03/23 14:26 Freq: Status: Active Protocol: Document 04/03/23 14:27 [facility] (Rec: 04/03/23 14:52 [facility] [id number]) OT [id number] General Evaluation Self-Feeding Ability Independent OT ADL-Grooming Comments OT Grooming Comments Not performed. OT ADL-Oral Care Comments Oral Care Comments Not performed. OT ADL-Dressing General Eval Lower Body Dressing Ability Maximum Assistance Areas Needing Assistance Underpants/Brief,Socks Comments OT Dressing Comments At this time pt needing assist for all LB dressing needs due to decreased balance and pain . OT ADL-Toileting General Evaluation Toileting Ability Total Assistance Comments OT Toileting Comments Pt's brief wet and needing assist to change. Pt states prior wears protective pull up and does his care on his own. OT ADL-Bathing Comments OT Bathing Comments Sponge bath more appropriate at this time or use of rolling shower chair due to decreased balance and pain. M5 OT- IP IADL's Start: 04/03/23 14:26 Freq: Status: Active Protocol: Document 04/03/23 14:27 [facility] (Rec: 04/03/23 14:52 [facility] [id number]) OT-Instrumental Activities of Daily Living Home Safety Awareness Awareness of Need for Assistance at Home Decreased Awareness Home Safety Comments Pt is aware at home to push theh call light for assist. Medication Management Medication Management Caregiver Administers Money Management Money Management Caregiver Provides Assistance Meal Preparation Meal Preparation Caregiver Provides Assist Glost Tile Shader Glost Tile Shader Caregiver Provides Assist Driving Driving Concerns Identified Regarding Safety M6 OT- IP Functional Cognition Start: 04/03/23 14:26 Freq: Status: Active Protocol: Document 04/03/23 14:27 [facility] (Rec: 04/03/23 14:52 [facility] [id number]) Cognitive Factors Limiting Selfcare Function Cognitive Ability Level of Alertness Confusional State Patient Orientation Name,Year,Situation Attention Span Ability Capable of Focused Attention, Capable of Sustained Attention Ability to Follow Commands Able to Follow One Step Commands with Increased Time, Able to Follow One Step Commands with Repetition Memory Description Short Term Impaired Safety Awareness Underestimates Need for Assistance Cognitive Comments Cognitive Assessment Comments Pt Ox2 and did not recall that his family is aware that he is in the hospital. Pt's nurse states he was able to talk to his son yesterday on the phone. Pt insistent on wanting to go back to [facility] and feels that he can care for himself soon, but at least realizes not today. OT- Vision and Hearing OT- Hearing Assessment OT- Hearing Assessment WFL OT- Vision Assessment Visual Acuity Glasses For Reading Visual Attentiveness WFL Occular Pursuits WFL M7 OT- IP Mobility and Balance Start: 04/03/23 14:26 Freq: Status: Active Protocol: Document 04/03/23 14:27 [facility] (Rec: 04/03/23 14:52 [facility] [id number]) OT- Bed Mobility Assessment Rolling Level of Assistance Minimal Assistance,Bedrails Supine to Sit Supine to Sit Assist Moderate Assistance OT-Transfer Assessment Sit to and From Stand Sit to and from Stand Minimal Assistance/MODA Transfers Transfer Ability Moderate Assistance Technique Transfer Destination Bed Transfer Technique Stand Step Pivot Devices Transfer Assistive Devices Gait Belt,Front Wheeled Walker Comments Mobility Comments AMARI to help get upright with increased time and heavy use of momentum to try to swing his legs back into bed, pt needing MODA to help get his legs back into bed. Pt AMARI to stand but heavily uses his legs on the back of the bed to stand and would need more assist coming up from a lower surface. MODA x 1 to take a few step but pt heavily leans to the right and needing assist for his balance and to guide the FWW. At this time best to have pt have 2 person assist for transfers. VC to stay close to the FWW for safety. OT- Balance Assessment Sitting Balance and Reactions Static Sitting Balance Ability Good Dynamic Sitting Balance Ability Fair Standing Balance and Reactions Static Standing Balance Ability Poor Dynamic Standing Balance Ability Poor M8 OT- IP Objective Assessments Start: 04/03/23 14:26 Freq: Status: Active Protocol: Document 04/03/23 14:27 [facility] (Rec: 04/03/23 14:52 [facility] [id number]) OT Gross Range of Motion Upper Extremity Range of Motion ROM Impairments Grossly WFL OT Strength Comments Strength Comments From proximal to distal 4/5 to 4+/5 OT- Coordination Assessment Upper Extremity Finger to Nose Test Bilateral UE Impaired M9 OT- IP Assessment and Plan Start: 04/03/23 14:26 Freq: Status: Active Protocol: Document 04/03/23 14:27 [facility] (Rec: 04/03/23 14:52 [facility] [id number]) OT Summary Assessment and Plan Potential Rehabilitation Potential Good Analytic Complexity at Evaluation Moderate Summary OT Impairments Pain,Strength,Balance, Functional Cognition, Functional Mobility,Grooming, Dressing,Toileting,Bathing, Toilet Transfers,Shower Transfers,Activity Tolerance Progress Towards Goals Slow Progress due to Pain,Slow Progress due to Medical Issues,Slow Progress due to Cognition Assessment Summary Pt MOD complexity and main barriers are pain, decreased short term memory and now needing extensive assist for ADl and mobility needs. Prior to this hospitalization, pt lives at [facility] and just having assist for IADL and showering needs. Pt will greatly benefit from skilled rehab. However pt not wanting to go to skilled rehab but seems confused when explaining the difference of skilled rehab versus going back home. Goals Self-Feeding Goal Independent Grooming Goal Independent Dressing Goal Independent Toileting Goal Independent Bathing Goal Standby Assistance Toilet Transfer Goal Independent Shower Transfer Goal Standby Assistance Days to Meet Goals 15 Frequency of Treatment Frequency Of Treatment Once a Day Treatment Plan OT Treatment Plan ADL Training,Functional Cognition Training,Functional Mobility,Patient/Family Education,Discharge Planning Discharge Recommendations OT Discharge Recommendations SNF Rehab Other Discharge Recommendations If pt able to progress greatly , possibly home with 08/09 available assist and home health Transportation Needs at Discharge Wheelchair/Cabulance
--- NOTE | 2023-04-03 15:30 | PT.IIE ---
Current Diagnoses Dehydration (04/02/23) Surgical History (Last Reviewed 10/28/22 @ 18:34 by Venkat Prieto DO) History of bladder surgery Previous back surgery Medical History (Last Reviewed 10/28/22 @ 18:34 by Venkat Prieto DO) Atrial fibrillation BPH w urinary obs/LUTS DM type 2 (diabetes mellitus, type 2) Elevated PSA Family history of prostate cancer in father Prostate cancer Spermatocele of epididymis, multiple Urological system complication of procedure UTI (urinary tract infection) Physical Therapy Inpatient Evaluation/Re-Eval M1 PT/OT-IP Prior Functional Status Start: 04/03/23 18:11 Freq: NEEDED Status: Active Protocol: Document 04/03/23 15:30 [facility] (Rec: 04/03/23 18:22 AB [id number]) Medical Review Prior Functional Status Medical History Reviewed Yes Communication able to make needs known Mobility and Gait pt stated that he was modified independent with all mobilities and ambulation using a FWW Social History Household Members none Living Arrangements Shelter Facility Number of Floors (Floors) One Floor Number of Stairs To Enter/Railing? pt lives at [facility] Home Environment Standard Height Toilet,Walk in Shower,Built-In Shower Seat Home Equipment Front Wheel Walker,Four Wheel Walker,Straight Cane,Hand Held Shower,Grab Bars In Shower Additional Social History Comment pt has assist with house chores, medications and meals M2 PT-IP Current Condition Start: 04/03/23 18:11 Freq: NEEDED Status: Active Protocol: Document 04/03/23 15:30 [facility] (Rec: 04/03/23 18:22 AB [id number]) Physical Therapy Current Condition Current Condition Evaluation Date 04/03/23 Treatment Diagnosis adult failure to thrive; coagulopathy; difficulty in walkiing Onset Date 04/02/23 M3 PT-IP Subjective Start: 04/03/23 18:11 Freq: NEEDED Status: Active Protocol: Document 04/03/23 15:30 [facility] (Rec: 04/03/23 18:22 AB [id number]) Subjective Physical Therapy Visit Type Type Initial Evaluation Visit Start Time 15:30 Visit Stop Time 16:05 Number of PLATE SHOP HELPER Visits 0 Physical Therapy Visit Comments Patient Comments agreeable to do PT; stated that he is cold M4 PT-IP Mobility and Gait Start: 02/16/24 18:11 Freq: NEEDED Status: Active Protocol: Document 04/03/23 15:30 [facility] (Rec: 04/03/23 18:22 AB [id number]) PT-Bed Mobility Assessment Supine to Sit Supine to Sit Standby Assistance PT-Transfer Assessment Sit to and From Stand Sit to and from Stand Contact Guard Assistance,1 Person Assistance,Use of Upper Extremities Equipment Transfer Assistive Device Gait Belt,Front Wheeled Walker Orthotic/Prosthetic Devices or Brace: No Transfers Transfer Destination Chair Transfer Technique ambulated Transfer Ability Level of Assist Contact Guard Assistance,1 Person Assistance,Use of Upper Extremities Comments Mobility Comments pt supine in bed. agreed to do PT. obtained PLOF and home set up from pt. pt completed supine to sit SBA but required increase time to complete task. able to sit on EOB SBA. (+) SOB but O2 sat : 98% at RA. completed sit to stand CGA and ambulated using FWW ~ 15 ft CGA. pt presents with antalgic gait with increase forward trunk posture . pt sat on the chair and refused further ambulation. stated that he feels cold. agreed to stay up on the chair . call light and table placed within reach. Gait Assessment Gait Gait Assistance Required: Contact Guard Assist Distance (Feet) 15 Able to Maintain Weight Bearing Status Yes During Gait Assistive Devices Assistive Device Gait Belt,Front Wheeled Walker Orthotic/Prosthetic Devices or Brace: No Gait Deviations General Gait Pattern Antalgic,Decreased Stride Length,Decreased Feet Clearance,Flexed Trunk,Step-to Gait Factors Limiting Gait Function Factors Limiting Gait Function Decreased Activity Tolerance, Decreased Strength,Difficulty Following Directions,Limited Range of Motion,Pain,Poor Balance,Poor Safety Awareness, Respiratory Distress PT-Balance Assessment Sitting Balance and Reactions Static Sitting Balance Ability Normal Dynamic Sitting Balance Ability Good Standing Balance and Reactions Static Standing Balance Ability Fair Dynamic Standing Balance Ability Fair Device Used FWW M5 PT-IP Objective Assessments Start: 04/03/23 18:11 Freq: NEEDED Status: Active Protocol: Document 04/03/23 15:30 [facility] (Rec: 04/03/23 18:22 AB [id number]) Orientation Orientation/Cognition Level of Alertness Alert Orientation Name,Place,Situation Language Function Ability Hard of Hearing Safety Awareness Decreased Safety Awareness Memory Description Short Term Impaired Gross Range of Motion Lower Extremity ROM Assessment Within Functional Limits Strength Lower Extremity Strength Assessment Within Functional Limits Muscle Tone Muscle Tone WNL Yes M6 PT-IP Treatment Start: 04/03/23 18:11 Freq: NEEDED Status: Active Protocol: Document 04/03/23 15:30 [facility] (Rec: 04/03/23 18:22 AB [id number]) Physical Therapy Treatment Education Education Provided Safety M7 PT-IP Assessment and Plan Start: 04/03/23 18:11 Freq: NEEDED Status: Active Protocol: Document 04/03/23 15:30 [facility] (Rec: 04/03/23 18:22 AB [id number]) PT Summary Assessment and Plan Potential Rehabilitation Potential Fair Status of Condition at Evaluation Evolving Summary Impairments Pain,ROM,Strength,Balance, Coordination,Cognition,Bed Mobility,Transfers,Gait, Activity Tolerance Assessment Summary pt is an 87 y/o M who was admitted for adult failure to thrive and supratherapeutic INR. pt requiring CGA with transfers and ambulation using FWW and cues for safety. pt lives at [facility]. d/c plan depending on progress but pt may require a higher level of care for safety. will continue to assess. Goals Bed Mobility Goal Independent Transfer Goal Independent,Front Wheeled Walker Gait Goal Independent,Front Wheel Walker Gait Distance 250 Days to Meet Goals 10 Frequency of Treatment Frequency Of Treatment Once a Day Treatment Plan Physical Therapy Treatment Plan Bed Mobility Training,Transfer Training,Gait Training, Therapeutic Exercise,Balance Retraining,Discharge Planning, Hot or Cold Pack,Neuromuscular Re-ed,Coordination Retraining Precautions Other Precautions falls Recommendations To Nursing Amount of Assist Needed 1 Person Assist Discharge Recommendations PT Discharge Recommendations Home with 08/09 Assist Available,Home Health,SNF Rehab Transportation Needs at Discharge Private Vehicle,Wheelchair/ Cabulance
--- NOTE | 2023-04-03 15:48 | CM.DPNOTE ---
DCP Note DIRECTOR OF AUDIOLOGY reviewed EMR. Per provider note, pt feeling better and is more alert today. Per PN, dc either Thursday or Thursday. Per PN, Ignacio reports pt is not back to his baseline but is hopeful that it is secondary to his infection and he will be able to return to his [facility] Thursday/Thursday depending on his ambulation. DIRECTOR OF AUDIOLOGY spoke with Yasmine at [facility]. Report needing a nursing bedside assessment prior to returning. Tentatively scheduled for Thursday at 11am. Requested updated clinicals (f [phone]). HUMBERTO Ochoa kindly agreed to fax updated clinicals. PT/OT note not available at this time to send- will need to send when available. Gabriela reported that when she spoke with Pt's emergency contact/step-son Rolly about pt's IMM, Rolly reported that they are working on a plan to move pt to [place] to be closer to family support. Staffing Administrator Patito reported due to pt's nutrition, she's recommending ensure for him. She reports that with a PCP to prescribe the Ensure, the [facility] should be able to provide it for him at home. OT reports pt could likely benefit from SNF due to short term memory concerns. OT reports being unsure if pt would be agreeable to it. DIRECTOR OF AUDIOLOGY entered room and introduced self and role. Pt resting in bed. Pt reports understanding that soonest available assessment to [facility] is Thursday. DIRECTOR OF AUDIOLOGY was unable to complete full assessment due to PT coming in to work with him. PT rec pending. Plan: CM team will follow closely for PT/OT recs. Home to [facility] vs SNF placement. RN at I scheduled to assess him Thursday 11am- change if needed. CM team will send PT/OT/updated clinicals to [facility] as available. CM will follow up for prescribed ensure need. JOJO Nicole
[2023-04-03] MEDS: HYDROCODONE/ACET 5/325 TABLET 1 TAB PO (17:59)
[2023-04-03] MEDS: WARFARIN 2.5 MG TABLET PO (18:03)
[2023-04-03] MEDS: PANTOPRAZOLE DR 40 MG TABLET PO (21:20)
[2023-04-03] MEDS: MIRTAZAPINE 15 MG TABLET PO (21:20)
[2023-04-04] VITALS (7 sets, daily range): BP systolic 105–110; BP diastolic 53–64; PULSE 95–125; RESP 14–22; TEMP 36.1–37.4; O2SAT 93–98
[2023-04-04] MEDS: HYDROCODONE/ACET 5/325 TABLET 1 TAB PO ×5 (01:08→20:36)
[2023-04-04] MEDS: LACTATED RINGERS 1,000 ML 75 ML IV ×2 (01:08→16:44)
[2023-04-04] MEDS: CLINDAMYCIN 900 MG/50 ML PIGGYBACK 50 MG IV ×3 (01:08→16:43)
[2023-04-04 08:25] LABS: Add Manual Diff / Slide Review NO; Basophils Absolute Auto 0 /uL (0-100); Basophils Percent Auto 0.6 % (0-2); Eosinophils Absolute Auto 200 /uL (0-450); Eosinophils Percent Auto 4.1 % (2-4); Hematocrit 31.9 % (41-53); Hemoglobin 10.7 g/dL (13.5-17.5); Lymphocytes Absolute Auto 500 /uL (1100-4500); Lymphocytes Percent Auto 8.7 % (25-40); Mean Corpuscular HGB Conc 33.6 % (30-36); Mean Corpuscular Volume 89.3 fL (80-100); Monocytes Absolute Auto 600 /uL (0-900); Monocytes Percent Auto 10.4 % (3-14); Neutrophils Absolute Auto 4700 /uL (1500-7000); Neutrophils Percent Auto 76.2 % (50-75); Platelet Count 277 X10^3/uL (150-400); Red Blood Cell Count 3.58 X10^6/uL (4.5-5.9); White Blood Cell Count 6.1 X10^3/uL (4.5-11.0)
[2023-04-04 08:30] LABS: Alanine Aminotransferase 34 IU/L (<50); Albumin Globulin Ratio 0.9 (1.0-2.8); Alkaline Phosphatase 85 U/L (38-126); Aspartate Aminotransferase 45 IU/L (17-59); BUN Creatinine Ratio 12.8 (6-22); Bilirubin Total 0.6 mg/dL (0.2-1.3); Blood Urea Nitrogen 25 mg/dL (9-20); Calcium 8.4 mg/dL (8.4-10.2); Carbon Dioxide 24 mmol/L (22-32); Chloride 102 mmol/L (98-107); Estimated Glomerular Filt Rate 33 mL/min (>60); Globulin 3.3 g/dL (1.7-4.1); Glucose 97 mg/dL (80-110); HEMOLYSIS < 15 (0-50); Potassium 4.5 mmol/L (3.4-5.1); Sodium 136 mmol/L (137-145); Total Protein 6.3 g/dL (6.3-8.2)
[2023-04-04] MEDS: BICALUTAMIDE 50 MG TABLET PO (09:03)
[2023-04-04] MEDS: SUCRALFATE 1 GM TABLET PO ×4 (09:04→21:15)
[2023-04-04] MEDS: METOPROLOL ER 25 MG TABLET PO (09:04)
[2023-04-04] MEDS: ACETAMINOPHEN 325 MG TABLET 650 MG PO (09:05)
--- NOTE | 2023-04-04 10:25 | PM.PN.1 ---
Subjective Subjective Date Patient Seen: 04/04/23 Time Patient Seen: 10:45 Interval history: Mr. Mccracken is resting comfortably in bed this morning. He is new to me as of today and at first seems confused about who I am, but quickly recognizes Dr. Pierre's name and is able to coherently recount most of the events leading up to his admission. He still does not seem quite clear as to the current health issues that led to his being brought to the hospital, namely elevated INR and mental status changes. He is otherwise oriented and coherent in his conversation. Still complains of right-sided hip pain, no other acute concerns. Exam Vital Signs (past 8 hours): - 04/04/23 04:25 04/04/23 09:00 04/04/23 09:04 Temperature 97 F L Pulse Rate 96 H 125 H Respiratory Rate 19 Blood Pressure 110/61 105/57 L Pulse Oximetry 98 98 Oxygen Delivery Method Room Air Oxygen Flow Rate 0 0 Oxygen Delivery Method Room Air Oxygen Flow Rate 0 Narrative Exam Narrative: General: Pleasant, NAD HEENT: NC/AT, EOMI, fair dentition, moist mucous membranes, tongue slightly enlarged without e/o trauma or active bleeding CV: Normal rate, irregularly irregular rhythm, normal S1-S2, no murmur auscultated Resp: CTAB, comfortable work of breathing Abdomen: Soft, NTND, BS+ Neuro: Alert, moves all extremities Objective Labs 04/04/23 06:45 04/04/23 06:45 Labs: Laboratory Results - last 24 hr 04/04/23 06:45 WBC 6.1 RBC 3.58 L Hgb 10.7 L Hct 31.9 L MCV 89.3 MCH 30.0 MCHC 33.6 RDW 14.0 Plt Count 277 Neut % (Auto) 76.2 H Lymph % (Auto) 8.7 L [place] % (Auto) 10.4 Eos % (Auto) 4.1 H Baso % (Auto) 0.6 Neut # (Auto) 4700 Lymph # (Auto) 500 L [place] # (Auto) 600 Eos # (Auto) 200 Baso # (Auto) 0 Sodium 136 L Potassium 4.5 Chloride 102 Carbon Dioxide 24 BUN 25 H Creatinine 1.95 H Estimated GFR 33 L BUN/Creatinine Ratio 12.8 Glucose 97 Calcium 8.4 Total Bilirubin 0.6 AST 45 ALT 34 Alkaline Phosphatase 85 Total Protein 6.3 Albumin 3.0 L Globulin 3.3 Albumin/Globulin Ratio 0.9 L [facility] Medical History (Updated 04/04/23 @ 16:04 by Bertrand Gray MD) DM type 2 (diabetes mellitus, type 2) Prostate cancer Family history of prostate cancer in father 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, multiple Elevated PSA UTI (urinary tract infection) Atrial fibrillation Urological system complication of procedure Surgical History History of bladder surgery Previous back surgery Social History marital status: household members: none occupational status: previously employed Smoking Status: Never smoker alcohol intake: former substance use type: does not use Assessment & Plan Assessment and plan (1) Oral infection due to bacteria: Status: Acute (2) Coagulopathy: Status: Acute (3) Metabolic encephalopathy: Status: Acute (4) Chronic anemia: Status: Acute (5) Acute on chronic renal insufficiency: Status: Acute (6) Paroxysmal atrial fibrillation: Status: Acute (7) DM type 2 (diabetes mellitus, type 2): Qualifiers: Diabetes mellitus complication status: without complication Diabetes mellitus manager intermediate insulin use: without mcfp use Qualified Code(s): E11.9 - Type 2 diabetes mellitus without complications Status: Acute (8) Weakness: Status: Acute (9) Adult failure to thrive: Status: Acute Assessment & Plan narrative: 87-year-old male admitted for elevated INR and generalized weakness/mental status changes due to suspected oral infection. #Infection of tongue/pharynx No e/o abscess on CT but patient had a swollen tongue and upper neck swelling on admission which is much improved. His speech is better and he seems to be feeling better. Mild leukocytosis has resolved and blood cultures with no growth after 72 hours. -start clindamycin p.o. 300 mg q.8h (s/p IV clinda 04/01-04/04) -04/01 Bcx NGTD #Elevated INR -s/p vitamin K -warfarin restarted yesterday, INR 2.6 today #Metabolic encephalopathy Improved, near baseline per primary physician's note yesterday. Possibly related to oral infection. #Anemia Slowly improving. Likely due in some part to CKD, possibly a dilutional component given significant IV fluid resuscitation earlier this admission. No evidence of active bleeding despite elevated INR. -trend CBC #AoCKD #Dehydration Back to baseline. -mIVF: LR 75 cc/hr, will dc tomorrow if taking sufficient p.o. #AFib -warfarin as above -metoprolol daily #T2DM -ISS -hold home metformin #Weakness Not yet back to baseline per primary physician's note yesterday, possibly related to oral infection. -PT/OT daily Diet: Dysphagia GI ppx: PPI, sucralfate DVT ppx: Warfarin, SCDs Code status: DNR Dispo: Home to living facility pending improvement of weakness, PT recs Time Spent With Patient Time with patient: 30 to 49 minutes with 50% spent counseling/coordinating care Quality VTE Deep Vein Thrombosis/Pulmonary Embolism Present on Admission: No
--- NOTE | 2023-04-04 11:26 | CM.DPNOTE ---
DCP Cont Ins: MCR/BC out of [place] [employer] OBS to INPT 04/02 Review of chart shows that patient's typical at [facility] is assist with chores, meds and meals. Patient ambulates w/walker. Current recommendation from therapies is 08/09 assist vs SNF. Yasmine from [facility] P [phone] f [phone] scheduled to complete bedside assessment Thursday at 1100. Met w/patient to review DCP; patient will not consider SNF stay at this time. If [facility] feels they cannot accommodate patient's needs at this time after bedside assessment Thursday, may need to review DCP again with patient and include his son Rolly CM team following closely for coordination of DCP JW
--- NOTE | 2023-04-04 11:57 | PT-IP ANOTE ---
Pt would like to stay in bed and refused to work with PT today. PT will check back in with pt tomorrow.
[2023-04-04 13:41] LABS: INR 2.6 (0.9-1.3); Prothrombin Time 30.7 SECONDS (9.4-12.5)
[2023-04-04] MEDS: WARFARIN 1 MG TABLET 2 MG PO (17:02)
[2023-04-04] MEDS: MIRTAZAPINE 15 MG TABLET PO (21:16)
[2023-04-04] MEDS: PANTOPRAZOLE DR 40 MG TABLET PO (21:16)
[2023-04-05 04:00] VITALS: BP 151/70; PULSE 108; RESP 20; TEMP 37.7; O2SAT 93
[2023-04-05] MEDS: HYDROCODONE/ACET 5/325 TABLET 1 TAB PO ×3 (04:17→20:40)
[2023-04-05] MEDS: CLINDAMYCIN 150 MG CAPSULE 300 MG PO ×3 (05:50→22:08)
[2023-04-05] MEDS: LACTATED RINGERS 1,000 ML 75 ML IV (06:00)
[2023-04-05 08:00] VITALS: BP 117/70; PULSE 109; RESP 18; TEMP 36.1
[2023-04-05 08:23] VITALS: BP 117/70; PULSE 109
[2023-04-05] MEDS: METOPROLOL ER 25 MG TABLET PO (08:23)
[2023-04-05] MEDS: SUCRALFATE 1 GM TABLET PO ×2 (08:24→20:40)
[2023-04-05] MEDS: BICALUTAMIDE 50 MG TABLET PO (08:24)
[2023-04-05 09:58] VITALS: PULSE 87; O2SAT 95
--- NOTE | 2023-04-05 10:03 | P.PN_ITS ---
Subjective Subjective Date Patient Seen: 04/05/23 Time Patient Seen: 12:35 Interval history: Mr. Mccracken is resting in bed eating lunch. Denies any significant changes from yesterday. Seems less interested/responsive compared to prior. Does complain of feeling cold in his room. He required moderate analgesia for hip pain last night but it is not currently bothering him. Exam Vital Signs (past 8 hours): - 04/05/23 04:00 04/05/23 08:00 04/05/23 08:23 Temperature 100 F H 97.0 F L Pulse Rate 108 H 109 H 109 H Respiratory Rate 20 18 Blood Pressure 151/70 H 117/70 117/70 Pulse Oximetry 93 Oxygen Delivery Method Oxygen Flow Rate 95 04/05/23 09:58 04/05/23 09:58 Temperature Pulse Rate 87 Respiratory Rate Blood Pressure Pulse Oximetry 95 Oxygen Delivery Method Room Air Oxygen Flow Rate Oxygen Delivery Method Room Air Oxygen Flow Rate 95 Narrative Exam Narrative: General: Pleasant, NAD HEENT: NC/AT, EOMI, moist mucous membranes CV: RRR, normal S1-S2, no m/g/r Resp: CTAB, comfortable work of breathing Abdomen: Soft, NTND, BS+ Neuro: Alert, moves all extremities Objective Labs 04/05/23 09:47 04/04/23 06:45 Labs: Laboratory Results - last 24 hr 04/04/23 13:03 PT 30.7 H D INR 2.6 H PFSH Medical History (Updated 04/04/23 @ 16:04 by Bertrand Gray MD) DM type 2 (diabetes mellitus, type 2) Prostate cancer Family history of prostate cancer in father 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, multiple Elevated PSA UTI (urinary tract infection) Atrial fibrillation Urological system complication of procedure Surgical History History of bladder surgery Previous back surgery Social History marital status: household members: none occupational status: previously employed Smoking Status: Never smoker alcohol intake: former substance use type: does not use Assessment & Plan Assessment and plan (1) Oral infection due to bacteria: Status: Acute (2) Coagulopathy: Status: Acute (3) Metabolic encephalopathy: Status: Acute (4) Chronic anemia: Status: Acute (5) Acute on chronic renal insufficiency: Status: Acute (6) Paroxysmal atrial fibrillation: Status: Acute (7) DM type 2 (diabetes mellitus, type 2): Qualifiers: Diabetes mellitus complication status: without complication Diabetes mellitus long term care administrator insulin use: without long term care administrator use Qualified Code(s): E11.9 - Type 2 diabetes mellitus without complications Status: Acute (8) Weakness: Status: Acute (9) Adult failure to thrive: Status: Acute Assessment & Plan narrative: 87-year-old male admitted for elevated INR and generalized weakness/mental status changes due to suspected oral infection. #Infection of tongue/pharynx No e/o abscess on CT but patient had a swollen tongue and upper neck swelling on admission which is much improved. His speech is better and he seems to be feeling better. Mild leukocytosis has resolved. -clindamycin p.o. 300 mg q.8h (04/05- ), s/p IV clinda (04/01-04/04) -04/01 Bcx NGTD #Elevated INR -s/p vitamin K -warfarin restarted 04/04, INR 2.6 >2.8 today #Metabolic encephalopathy Improved, near baseline per primary physician's most recent no, stable compared to yesterday's exam. Possibly related to oral infection. #Anemia Slowly improving. Likely due in some part to CKD, possibly a dilutional component given significant IV fluid resuscitation earlier this admission. No evidence of active bleeding despite elevated INR. -trend CBC #AoCKD #Dehydration Back to baseline. -mIVF dc'd, monitor for sufficient p.o. intake #AFib -warfarin as above -metoprolol daily #T2DM -ISS -hold home metformin #Weakness Not yet back to baseline per primary physician's most recent note and not much change compared to yesterday's exam. Possibly related to oral infection. -PT/OT daily Diet: Dysphagia GI ppx: PPI, sucralfate DVT ppx: Warfarin, SCDs Code status: DNR Dispo: Home to living facility pending improvement of weakness, PT recs Time Spent With Patient Time with patient: less than 30 minutes Quality VTE Deep Vein Thrombosis/Pulmonary Embolism Present on Admission: No
[2023-04-05 10:08] LABS: Add Manual Diff / Slide Review NO; Basophils Absolute Auto 0 /uL (0-100); Basophils Percent Auto 0.9 % (0-2); Eosinophils Absolute Auto 300 /uL (0-450); Eosinophils Percent Auto 5.1 % (2-4); Hematocrit 29.4 % (41-53); Hemoglobin 9.9 g/dL (13.5-17.5); Lymphocytes Absolute Auto 500 /uL (1100-4500); Lymphocytes Percent Auto 10.4 % (25-40); Mean Corpuscular HGB Conc 33.7 % (30-36); Mean Corpuscular Hemoglobin 30.4 PG (26-34); Mean Corpuscular Volume 90.1 fL (80-100); Monocytes Absolute Auto 600 /uL (0-900); Monocytes Percent Auto 11.1 % (3-14); Neutrophils Absolute Auto 3800 /uL (1500-7000); Neutrophils Percent Auto 72.5 % (50-75); Platelet Count 253 X10^3/uL (150-400); Red Blood Cell Count 3.26 X10^6/uL (4.5-5.9); Red Cell Distribution Width 14.2 % (11.6-14.8); White Blood Cell Count 5.2 X10^3/uL (4.5-11.0)
[2023-04-05 10:25] LABS: INR 2.8 (0.9-1.3); Prothrombin Time 32.7 SECONDS (9.4-12.5)
--- NOTE | 2023-04-05 10:42 | CM.DPC ---
DCP Cont. Reviewed EMR and team rounds for status updates. No changes to report today. Plan is for the [facility] nursing administrator to evaluate pt at bedside on Thursday (04/06) at 11:00am for return to [facility]. Son is available by phone should patient be resistent to returning to [facility]. Will continue to follow closely.
--- NOTE | 2023-04-05 11:41 | PT-IP ANOTE ---
Pt with PT and INR both still high and increasing per today's lab work. His Hgb is decreasing per today's lab work. Will hold PT d/t unstable labs.
[2023-04-05 16:00] VITALS: BP 116/62; PULSE 69; RESP 19; TEMP 36.3; O2SAT 95
[2023-04-05] MEDS: WARFARIN 1 MG TABLET 2 MG PO (18:11)
--- NOTE | 2023-04-05 18:36 | PC.NURSE ---
Day shift: Pt repeatedly refused to be turned or cleaned up today. Notified MD Gray of patient's refusal to continue wearing telemetry this evening as well. MD Gray ok'ed no tele. Pt stated I just want to sleep. Pt slept majority of this shift. Will continue to monitor.
[2023-04-05 20:00] VITALS: BP 168/75; PULSE 74; RESP 19; TEMP 37.1; O2SAT 95
[2023-04-05] MEDS: PANTOPRAZOLE DR 40 MG TABLET PO (20:40)
[2023-04-05] MEDS: MIRTAZAPINE 15 MG TABLET PO (20:41)
[2023-04-06] VITALS (7 sets, daily range): BP systolic 105–132; BP diastolic 46–60; PULSE 59–76; RESP 17–19; TEMP 36.2–37; O2SAT 92–97
[2023-04-06] MEDS: ACETAMINOPHEN 325 MG TABLET 650 MG PO ×2 (02:31→08:03)
[2023-04-06] MEDS: HYDROCODONE/ACET 5/325 TABLET 1 TAB PO (04:19)
--- NOTE | 2023-04-06 04:26 | PC.NURSE ---
Patient confused, mood very labile, periods of agitation, yells out at times, belligerent at times, combative at times.
[2023-04-06 05:20] LABS: Add Manual Diff / Slide Review NO; Basophils Absolute Auto 100 /uL (0-100); Eosinophils Absolute Auto 200 /uL (0-450); Eosinophils Percent Auto 3.9 % (2-4); Hematocrit 26.3 % (41-53); Lymphocytes Absolute Auto 500 /uL (1100-4500); Lymphocytes Percent Auto 8.2 % (25-40); Mean Corpuscular HGB Conc 34.3 % (30-36); Mean Corpuscular Hemoglobin 30.3 PG (26-34); Mean Corpuscular Volume 88.4 fL (80-100); Monocytes Absolute Auto 600 /uL (0-900); Monocytes Percent Auto 9.9 % (3-14); Neutrophils Absolute Auto 4400 /uL (1500-7000); Platelet Count 237 X10^3/uL (150-400); Red Blood Cell Count 2.97 X10^6/uL (4.5-5.9); Red Cell Distribution Width 14.2 % (11.6-14.8); White Blood Cell Count 5.7 X10^3/uL (4.5-11.0)
[2023-04-06 05:26] LABS: Prothrombin Time 34.6 SECONDS (9.4-12.5)
[2023-04-06 05:35] LABS: BUN Creatinine Ratio 11.2 (6-22); Blood Urea Nitrogen 20 mg/dL (9-20); Carbon Dioxide 22 mmol/L (22-32); Chloride 104 mmol/L (98-107); Estimated Glomerular Filt Rate 36 mL/min (>60); Glucose 108 mg/dL (80-110); HEMOLYSIS < 15 (0-50); Potassium 4.3 mmol/L (3.4-5.1); Sodium 132 mmol/L (137-145)
[2023-04-06] MEDS: CLINDAMYCIN 150 MG CAPSULE 300 MG PO ×3 (06:43→21:27)
[2023-04-06] MEDS: SUCRALFATE 1 GM TABLET PO ×4 (08:03→20:10)
[2023-04-06] MEDS: BICALUTAMIDE 50 MG TABLET PO (08:03)
--- NOTE | 2023-04-06 08:19 | PT-IP ANOTE ---
PT will hold another day as labs between yesterday and today con't to worsen with PT and INR increasing and HGB decreasing, though it is 9 today. Con't to monitor pt's medical appropriateness for PT.
--- NOTE | 2023-04-06 08:41 | DI.MRI.S_ITS ---
PROCEDURE: MR STROKE Pre- and post-contrast brain MRI, non-contrast brain MR angiogram, pre- and postcontrast neck MR angiogram INDICATIONS: mental status changes ? stroke TECHNIQUE: Brain: Noncontrast axial T1 spin echo, axial T2 fast spin echo, sagittal and axial FLAIR, coronal T2 fast spin echo, axial gradient echo, axial diffusion and ADC through the brain. After the administration of contrast, axial 3D VIBE of the cranial vasculature and brain. Brain MRA: Non-contrast 3-D time of flight MR angiogram, with multiple blolsdj-cajdfyjvj-bdkgcznqjt (MIP) reformats performed. Neck MRA: Axial and sagittal TruFISP through the neck. Coronal dynamic MR angiogram during administration of contrast in the arterial and venous phases, with 3-dimenstional jiuemjv-uftsqasiw-bafygtjhcd (MIP) reformats constructed from subtraction images. COMPARISON: [facility], CT, CT HEAD/BRAIN WO CON, 03/31/2023, 17:11. [facility], MR, MR STROKE, 08/30/2020, 16:23. FINDINGS: Image quality: There are motion artifacts, particularly on postcontrast images. BRAIN: CSF spaces: Ventricles are normal in size and shape. Basal cisterns are patent. No extra-axial fluid collections. Brain: No intracranial bleeds or mass effects. Moya-white matter interface is normal. Diffusion weighted images show no acute infarct. There is lubeahse-zr-gdudyg cerebral volume loss. Moderate to severe periventricular white matter chronic small vessel ischemic changes are present. Brainstem appears normal. Normal intravascular flow voids are present. No abnormal intracranial enhancement. Skull and face: Calvarial marrow signal is normal. Orbits appear normal. Sinuses: Sinuses and mastoids are clear. BRAIN MR ANGIOGRAM: Anterior circulation: Intracranial internal carotid arteries are normal in size and enhancement. The flow within the paired anterior cerebral arteries is normal and symmetric. The flow within the middle cerebral arteries is normal and symmetric. The anterior communicating artery is seen. No stenoses, occlusions, or aneurysms. Posterior circulation: The visualized portions of the vertebral arteries demonstrate normal caliber, and join to form a normal appearing basilar artery. The flow within the posterior cerebral arteries is normal and symmetric. No stenoses, occlusions, or aneurysms. NECK MR ANGIOGRAM: Carotids: Great vessels demonstrate a conventional anatomy as they arise from the aortic arch. The origins of the common carotid arteries appear patent. The calibers and courses of both common carotid arteries are normal. The bifurcation regions appear normal bilaterally. The internal carotid arteries demonstrate normal course and caliber. Posterior circulation: The origins of the vertebral arteries appear patent. More superior portions of both vertebral arteries demonstrate normal course and caliber, and join to form a normal appearing basilar artery. Miscellaneous: Subclavian arteries appear patent. Pre-contrast images through the neck show no soft tissue abnormalities. IMPRESSION: BRAIN MRI: 1. No acute intracranial abnormalities. 2. Cerebral volume loss and chronic microvascular ischemic changes. BRAIN MR ANGIOGRAM: No high-grade stenosis or occlusion in anterior or posterior circulations. NECK MR ANGIOGRAM: No high-grade stenosis or occlusion cervical carotid arteries or vertebral arteries. Dictated by: Franny Santos M.D. on 04/06/2023 at 15:36 Approved by: Franny Santos M.D. on 04/06/2023 at 15:47
[2023-04-06] MEDS: HYDROCODONE/ACET 5/325 TABLET 2 TAB PO ×3 (09:24→22:34)
--- NOTE | 2023-04-06 10:48 | OT.IPNOTE ---
Pt on hold for OT due to labs, specifically PT and INR continuing to worsen. MRI has been ordered due to pts confusion. OT will continue to monitor and resume pt when medically appropriate.
--- NOTE | 2023-04-06 12:23 | ST.IPDYTX ---
Visit Care Team Role Provider Type Norm Dhillon MD Emergency Provider Physician Specialty: Emergency Medicine Address: [address], [place], [address] Email: [email or web address] Rufino Pierre MD Attending Provider Physician Family Provider Primary Care Provider Specialty: Family Practice Address: [address] [place] [address], [address], [place], [address] Email: [email or web address] Bertrand Garcia MD Admit Provider Physician Other Providers Specialty: [facility] Address: [address] [place] [address], [address], [place], [address] Email: [email or web address] WETLANDS TECHNICIAN Dysphagia Treatment WETLANDS TECHNICIAN Dysphagia Treatment Start: 04/06/23 11:40 Freq: Status: Active Protocol: Document 04/06/23 11:40 CG (Rec: 04/06/23 11:43 CG [id number]) Dysphagia Treatment Session Time Visit Start Time 11:35 Visit Stop Time 12:15 Visit Information Visit Number 2 Setting Assessment Location Acute Care Patient Information Subjective Observations Pt laying flat in bed upon ST entry to room, responsive to verbal stimulation via opening eyes but very lethargic. Nursing reports that he became combative when staff tried to move him for MRI this morning . WETLANDS TECHNICIAN repositioned pt upright in bed with bed controls, which increased pt alertness. Pt immediately requested to use the restroom; WETLANDS TECHNICIAN informed nursing. Continued with PO trials after pt had completed toileting. Treatment Liquids Trialed Thin (IDDSI 0) Solids Trialed Purred (IDDSI 4),Minced & Moist (IDDSI 5),Soft & Bite- sized (IDDSI 6) Administration Type Tea Spoon,Dependent Feeding Oral Strategies Upright at 90 degrees Treatment Activities Brief re-assessment of oral motor mechanism. PO trials of pudding, mashed potatoes, pudding with chantel crackers, and bites of peanut butter/ jelly sandwich. Consulted with nursing re pt status and need for oral care. The IDDSI Framework Protocol: IDDSI.1 Assessment Patient Response to Treatment Good Rehab Potential Fair Assessment of Improvement Trials pudding were characterized by good oral acceptance and containment, but severely prolongued A-P transport and disorganized lingual movements. No overt s /sx aspiration observed on trials pudding. Trials of pudding with crushed chantel cracker was characterized by good acceptance/containment, weakened but functional mastication, and again severely prolongued lingual transport. Pt reported some pain in his oral cavity with chantel cracker 2/ lingual/neck injury from fall. Initial trial of peanut butter an jelly sandwich (approx quarter sized bite) resulted in prolongued mastication and pt needing to spit out part of bolus as the bite was too big for effective A-P lingual transport. Attempted again with smaller bite (dime/nickel size) which resulted in prolongued mastication and A-P transport, but pt was able to transport entire bolus for phaaryngeal swallow. No overt s/sx aspiration were observed across solid trials. Pt followed solid trials with liquid wash (water via straw). Pt demonstrated some disorganization with oral acceptance of straw, but demonstrated independent small sip and good containment. Lingual movements/bolus transport was again slowed with thin liquids, but no anterior spillage was observed and no overt s/sx premature posterior spillage of the bolus. Pt presented with one mild delayed throat clear after one swallow of liquid; do not suspect aspiration based on overt symptoms but unable to rule out silent aspiration without an instrumental assessment. Brief OME revealed slowed lingual movement, but pt's tongue swelling appears to have significantly decreased. Oral residue was present in oral cavity; pt stated he has not been able to brush his teeth since being admitted to the hospital as he needs help to do so. WETLANDS TECHNICIAN informed RN that pt is requesting assistance with oral care. Based on pt performance with trials, recommend upgrade to minced and moist solids (IDDSI 5) and continue thin liquids. Recommendations Recommendations Upgrade Diet Order Liquids Order Thin (IDDSI 0) Diet Order Minced & Moist (IDDSI 5) Medication Recommendations As Tolerated,Whole in Carrier, Crushed in Carrier Additional Dietary Needs 1:1 Assistance Aspiration Precautions Recommended Precautions Upright at 90 Degrees,Small Bites/Sips,Check for Pocketing Treatment Plan Placement Recommendation after Discharge Senior Care Facility Appropriate for Continued Therapy Yes
--- NOTE | 2023-04-06 13:18 | PM.PN.1 ---
Subjective Subjective Date Patient Seen: 04/06/23 Time Patient Seen: 08:15 Interval history: Patient seen in follow-up of multiple issues including infection metabolic encephalopathy dehydration atrial fibrillation. Patient is alert today and oriented although not answering questions as great as he was last Thursday when I saw him. Denies any pain right now. Has no other significant new changes or complaints. Energy level has been good. No other changes Exam Vital Signs (past 8 hours): - 04/06/23 07:00 04/06/23 07:45 04/06/23 08:04 Temperature 97.2 F L Pulse Rate 63 59 L Respiratory Rate 18 Blood Pressure 105/57 L 105/57 L Pulse Oximetry 95 95 Oxygen Flow Rate 0 Oxygen Delivery Method Room Air Oxygen Flow Rate 0 Narrative Exam Narrative: Alert elderly male in no acute distress Tongue is normalized. Neck shows no significant swelling lungs are clear heart is irregular rhythm but normal rate. Abdomen is benign extremities are normal neurologic exam is nonfocal he is alert and oriented although now answering all questions appropriately Objective Labs 04/06/23 04:54 04/06/23 04:54 Labs: Laboratory Results - last 24 hr 04/06/23 04:54 WBC 5.7 RBC 2.97 L Hgb 9.0 L Hct 26.3 L MCV 88.4 MCH 30.3 MCHC 34.3 RDW 14.2 Plt Count 237 Neut % (Auto) 77.0 H Lymph % (Auto) 8.2 L [place] % (Auto) 9.9 Eos % (Auto) 3.9 Baso % (Auto) 1.0 Neut # (Auto) 4400 Lymph # (Auto) 500 L [place] # (Auto) 600 Eos # (Auto) 200 Baso # (Auto) 100 PT 34.6 H INR 3.0 H Sodium 132 L Potassium 4.3 Chloride 104 Carbon Dioxide 22 BUN 20 Creatinine 1.79 H Estimated GFR 36 L BUN/Creatinine Ratio 11.2 Glucose 108 Calcium 8.0 L [facility] Medical History (Updated 04/04/23 @ 16:04 by Bertrand Gray MD) DM type 2 (diabetes mellitus, type 2) Prostate cancer Family history of prostate cancer in father 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 Actually much improved. On oral medication and seeming to do well. Will follow white count and fever but overall seems to be doing well with complete 10 days of medication. Metabolic encephalopathy I am not sure what this represents completely. But he was not improving and now he seems to be a little bit back sliding. Do not think he has had a stroke but will check MRI today. Patient just is not recovering as fast as I would hope and will have to see how things go. Wonder how much depression potentially has to do he has had huge change in his life in the last 6 months and it is certainly possible will see what MRI shows and then decide. Elevate INR. Patient has been very sensitive to his Coumadin. With this weakness and history of falls I am going to hold it for now. I think the risk of his Coumadin is higher than his risk of stroke if he increases his strength improves we can consider going back to it. Anemia. Seems to be stable. Probably a combination of bone marrow and kidney failure. But will continue to follow trend and follow. CKD. Stable. Dehydration. Resolved with IV hydration. Atrial fibrillation. Rate controlled on metoprolol. I am going to discontinue warfarin because of risk with his weakness and possible falls. Can restart as he gained strength. Will follow. Type 2 diabetes doing well off of medicines will follow. Weakness. Actually not doing too bad but he has not back to baseline. Will continue to follow. Whether or not he is going to be able to return to [facility] is unclear at this point. May need a short stay at a senior care patient is reluctant to do that but we are just going to see how PT and OT to goes. Recheck a.m.. Disposition. Unclear at this time. Will re-evaluate over the course of the next 24-48 hours. Will need to consider placement depending on his MRI. He understands questions answered follow-up a.m. 55 minutes spent with patient social service nursing dictation orders Quality VTE Deep Vein Thrombosis/Pulmonary Embolism Present on Admission: No
[2023-04-06] MEDS: diazePAM 5 MG TABLET PO (13:28)
--- NOTE | 2023-04-06 15:32 | PT-IP ANOTE ---
PT checks back on pt this date to assess appropriateness for PT. He has just returned from testing, brain MRI. He has some lethargy and ongoing confusion. Will initiate PT efforts next date.
--- NOTE | 2023-04-06 16:02 | CM.DPC ---
DCP Cont: Per MD, pt continues with confusion and agitation more than his baseline and refusing some care and will attempt MRI today with some sedation as pt was unable to participate in MRI this morning to r/o CVA or any other medical condition and not yet stable for d/c. Per PT/OT, held today again due to INR and H&H. SW called [facility] and spoke to Jacqueline and updated and cancelled her bedside assessment today as pt not yet stable for d/c and faxed updated clinicals for her to review and will keep her updated tomorrow. Per MD and RN, anticipate pt will need SNF at d/c unless he makes significant progress prior to d/c. Due to pt's confusion, SW made SNF referrals to [facility], [facility], [facility], [facility] as backup in case pt cannot d/c directly back to [facility]. [facility] can accept if pt's behaviors improve. [facility] can accept if SNF needed and requesting additional clinicals to review (RN notes and MAR) and Gabriela kindly sending. [facility] reviewing and [facility] reviewing. [facility] completed but needs Dr. Pierre's signature and to be faxed to [facility] coordinator due to his depression/medication. Plan: SW to follow closely in AM to confirm accepting SNF and if pt has improved for return to [facility]. JOJO Garcia
[2023-04-06] MEDS: WARFARIN 1 MG TABLET 2 MG PO (17:01)
[2023-04-06] MEDS: MIRTAZAPINE 15 MG TABLET PO (20:10)
[2023-04-06] MEDS: PANTOPRAZOLE DR 40 MG TABLET PO (20:10)
[2023-04-07 04:21] LABS: Add Manual Diff / Slide Review NO; Basophils Absolute Auto 100 /uL (0-100); Eosinophils Absolute Auto 300 /uL (0-450); Eosinophils Percent Auto 4.5 % (2-4); Hematocrit 28.2 % (41-53); Hemoglobin 9.5 g/dL (13.5-17.5); Lymphocytes Absolute Auto 500 /uL (1100-4500); Lymphocytes Percent Auto 9.1 % (25-40); Mean Corpuscular HGB Conc 33.6 % (30-36); Mean Corpuscular Hemoglobin 30.4 PG (26-34); Mean Corpuscular Volume 90.3 fL (80-100); Monocytes Absolute Auto 600 /uL (0-900); Monocytes Percent Auto 11.4 % (3-14); Neutrophils Absolute Auto 4100 /uL (1500-7000); Platelet Count 247 X10^3/uL (150-400); Red Blood Cell Count 3.12 X10^6/uL (4.5-5.9); Red Cell Distribution Width 14.3 % (11.6-14.8); White Blood Cell Count 5.6 X10^3/uL (4.5-11.0)
[2023-04-07 04:26] LABS: INR 3.9 (0.9-1.3); Prothrombin Time 44.9 SECONDS (9.4-12.5)
[2023-04-07 05:00] LABS: Alanine Aminotransferase 17 IU/L (<50); Albumin 2.9 g/dL (3.5-5.0); Alkaline Phosphatase 78 U/L (38-126); Aspartate Aminotransferase 23 IU/L (17-59); BUN Creatinine Ratio 10.9 (6-22); Bilirubin Total 0.5 mg/dL (0.2-1.3); Blood Urea Nitrogen 20 mg/dL (9-20); Calcium 8.2 mg/dL (8.4-10.2); Carbon Dioxide 23 mmol/L (22-32); Chloride 103 mmol/L (98-107); Estimated Glomerular Filt Rate 35 mL/min (>60); Glucose 90 mg/dL (80-110); HEMOLYSIS < 15 (0-50); Potassium 4.4 mmol/L (3.4-5.1); Sodium 135 mmol/L (137-145); Total Protein 5.9 g/dL (6.3-8.2)
[2023-04-07] MEDS: CLINDAMYCIN 150 MG CAPSULE 300 MG PO ×3 (05:21→21:37)
[2023-04-07] MEDS: HYDROCODONE/ACET 5/325 TABLET 2 TAB PO ×2 (05:21→11:01)
[2023-04-07] MEDS: HYDROCODONE/ACET 5/325 TABLET 1 TAB PO (05:21)
[2023-04-07 06:22] VITALS: BP 168/84; PULSE 78; RESP 17; TEMP 35.9; O2SAT 94
[2023-04-07 07:00] VITALS: O2SAT 94
[2023-04-07 08:00] VITALS: BP 138/69; PULSE 106; RESP 18; TEMP 37.2; O2SAT 92
--- NOTE | 2023-04-07 08:58 | SLP.IPNOTE ---
[employer] attempted to see patient at approx. 8:30am. Pt reported he was hungry, however refused to eat breakfast or drink anything. He was holding a cup near his bladder and refused to let it go. Nursing notified. Will re-attempt at a later date today.
[2023-04-07] MEDS: SUCRALFATE 1 GM TABLET PO ×4 (09:40→21:39)
[2023-04-07 09:41] VITALS: BP 138/69; PULSE 106
[2023-04-07] MEDS: METOPROLOL ER 25 MG TABLET PO (09:41)
[2023-04-07] MEDS: ACETAMINOPHEN 325 MG TABLET 650 MG PO ×2 (09:47→21:36)
[2023-04-07] MEDS: BICALUTAMIDE 50 MG TABLET PO (09:47)
--- NOTE | 2023-04-07 10:20 | PT.IPTN ---
Current Diagnoses Other specified bacterial agents as the cause of diseases classified elsewhere (04/02/23) Anemia, unspecified (04/02/23) Coagulation defect, unspecified (04/02/23) Type 2 diabetes mellitus without complications (04/02/23) Dehydration (04/02/23) Metabolic encephalopathy (04/02/23) Paroxysmal atrial fibrillation (04/02/23) Other forms of stomatitis (04/02/23) Chronic kidney disease, unspecified (04/02/23) Disorder of kidney and ureter, unspecified (04/02/23) Weakness (04/02/23) Adult failure to thrive (04/02/23) Physical Therapy Treatment Note M2 PT-IP Current Condition Start: 04/03/23 18:11 Freq: NEEDED Status: Active Protocol: Document 04/03/23 15:30 AB (Rec: 04/03/23 18:22 AB [id number]) Physical Therapy Current Condition Current Condition Evaluation Date 04/03/23 Treatment Diagnosis adult failure to thrive; coagulopathy; difficulty in walkiing Onset Date 04/02/23 M3 PT-IP Subjective Start: 04/03/23 18:11 Freq: NEEDED Status: Active Protocol: Document 04/07/23 10:44 TS (Rec: 04/07/23 10:57 TS [id number]) Subjective Physical Therapy Visit Type Type Treatment Note Visit Start Time 10:20 Visit Stop Time 10:44 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 Therapy Pain Assessment Pain When Pain Assessed At Rest Pain Present Pain Present Pain Reported M4 PT-IP Mobility and Gait Start: 04/03/23 18:11 Freq: NEEDED Status: Active Protocol: Document 04/07/23 10:44 TS (Rec: 04/07/23 10:57 TS [id number]) PT-Bed Mobility Assessment Supine to Sit Supine to Sit Moderate Assistance,1 Person Assistance Scooting Scooting to Edge of Bed Moderate Assistance PT-Transfer Assessment Sit to and From Stand Sit to and from Stand Moderate Assistance,2 Person Assistance,Use of Upper Extremities Equipment Transfer Assistive Device Gait Belt,Front Wheeled Walker Orthotic/Prosthetic Devices or Brace: No Transfers Transfer Destination Chair Transfer Technique Stand Step Pivot Transfer Ability Level of Assist Minimal Assistance,2 Person Assistance,Use of Upper Extremities Comments Mobility Comments Supine to sit ModA for uprighting with handheld assist and LE assistance to EOB. STS from bed with FWW ModA x2, pt requires max cues for handplacement on FWW. Stand step pivot transfer to chair ModA x2 with max cues for sequencing, pt has heavy retrolean in standing, required cues for upright posture. Pt stood ~2mins for application of cream to buttocks and for use of urinal . Stand to sit ModA for eccentric control into chair. Pt was left in chair, all needs met. Gait Assessment Gait Gait Assistance Required: Moderate Assistance,2 Person Assist Distance (Feet) 1 Able to Maintain Weight Bearing Status Yes During Gait Assistive Devices Assistive Device Gait Belt,Front Wheeled Walker Orthotic/Prosthetic Devices or Brace: No Gait Deviations General Gait Pattern Antalgic,Decreased Stride Length,Decreased Feet Clearance,Flexed Trunk,Step-to Gait Factors Limiting Gait Function Factors Limiting Gait Function Decreased Activity Tolerance, Decreased Strength,Difficulty Following Directions,Limited Range of Motion,Pain,Poor Balance,Poor Safety Awareness, Respiratory Distress Comments Gait Comments Stand step pivot to chair PT-Balance Assessment Sitting Balance and Reactions Static Sitting Balance Ability Good Dynamic Sitting Balance Ability Fair Standing Balance and Reactions Static Standing Balance Ability Fair Dynamic Standing Balance Ability Poor Device Used FWW M5 PT-IP Objective Assessments Start: 04/03/23 18:11 Freq: NEEDED Status: Active Protocol: Document 04/03/23 15:30 AB (Rec: 04/03/23 18:22 AB [id number]) Orientation Orientation/Cognition Level of Alertness Alert Orientation Name,Place,Situation Language Function Ability Hard of Hearing Safety Awareness Decreased Safety Awareness Memory Description Short Term Impaired Gross Range of Motion Lower Extremity ROM Assessment Within Functional Limits Strength Lower Extremity Strength Assessment Within Functional Limits Muscle Tone Muscle Tone WNL Yes M6 PT-IP Treatment Start: 04/03/23 18:11 Freq: NEEDED Status: Active Protocol: Document 04/07/23 10:44 TS (Rec: 04/07/23 10:57 TS [id number]) Physical Therapy Treatment Education Education Provided Safety M7 PT-IP Assessment and Plan Start: 04/03/23 18:11 Freq: NEEDED Status: Active Protocol: Document 04/07/23 10:44 TS (Rec: 04/07/23 10:57 TS [id number]) PT Summary Assessment and Plan Potential Rehabilitation Potential Fair Summary Impairments Pain,ROM,Strength,Balance, Coordination,Cognition,Bed Mobility,Transfers,Gait, Activity Tolerance Progress Towards Goals Slow Progress due to Pain,Slow Progress due to Medical Issues,Slow Progress due to Activity Tolerance Assessment Summary Alan is making slow progress with his mobility this session . He is ModA for bed mobility and requires max cues. He performed STS x2 ModA x2 with use of FWW. He performed stand step pivot to chair ModA x2 with max cues for sequencing. He has poor balance with a heavy retrolean. He demonstrates poor safety awareness with his mobility and requires max cues for most mobility. PT is recommending SNF at this time to progress strength, functional mobility and activity tolerance. Goals Bed Mobility Goal Independent Transfer Goal Independent,Front Wheeled Walker Gait Goal Independent,Front Wheel Walker Gait Distance 250 Days to Meet Goals 10 Frequency of Treatment Frequency Of Treatment Once a Day Treatment Plan Physical Therapy Treatment Plan Bed Mobility Training,Transfer Training,Gait Training, Therapeutic Exercise,Balance Retraining,Discharge Planning, Hot or Cold Pack,Neuromuscular Re-ed,Coordination Retraining Precautions Other Precautions falls Recommendations To Nursing Amount of Assist Needed 2 Person Assist Discharge Recommendations PT Discharge Recommendations SNF Rehab Transportation Needs at Discharge Wheelchair/Cabulance
--- NOTE | 2023-04-07 10:22 | ST.IPDYTX ---
Visit Care Team Role Provider Type Norm Dhillon MD Emergency Provider Physician Specialty: Emergency Medicine Address: [address], [place], [address] Email: [email or web address] Rufino Pierre MD Attending Provider Physician Family Provider Primary Care Provider Specialty: Family Practice Address: [address] [place] [address], [address], [place], [address] Email: [email or web address] Bertrand Garcia MD Admit Provider Physician Other Providers Specialty: Family Practice Address: [address] [place] [address], [address], [place], [address] Email: [email or web address] TAX CONSULTANT Dysphagia Treatment TAX CONSULTANT Dysphagia Treatment Start: 04/06/23 11:40 Freq: Status: Active Protocol: Document 04/07/23 10:10 CG (Rec: 04/07/23 10:22 CG [id number]) Dysphagia Treatment Session Time Visit Start Time 09:50 Visit Stop Time 10:05 Total Visit Minutes 15 Visit Information Visit Number 3 Setting Assessment Location Acute Care Patient Information Subjective Observations Pt laying partially reclined in bed with nursing at bedside feeding pt upon ST entry to room. Pt had just taken meds in applesauce, and nursing reported no difficulties with taking meds. RN was feeding pt yogurt via teaspoon. TAX CONSULTANT and RN repositioned pt up further in the bed, then attempted to position head of bed upright. Pt refused for HOB to elevate beyond about 45 degrees. Treatment Liquids Trialed Thin (IDDSI 0) Solids Trialed Purred (IDDSI 4) Administration Type Tea Spoon,Dependent Feeding Oral Strategies Controlled Bite/Sip Size Treatment Activities PO trials of yogurt and thin liquids (ice water). Attempted pt interview to discuss current symptoms, though limited alertness decreased responsiveness. The IDDSI Framework Protocol: IDDSI.1 Assessment Patient Response to Treatment Good Rehab Potential Fair Assessment of Improvement Trials yogurt were characterized by good oral acceptance and containment, but severely prolongued A-P transport and disorganized lingual movements. No overt s /sx aspiration observed on trials yogurt. Pt continues to endorse pain in his oral cavity but, due to lethargy and confusion, is unable to specify where the pain is located or what exacerbates it . Pt followed solid trials with liquid wash (water via straw). Pt demonstrated some disorganization with oral acceptance of straw, but demonstrated good containment. Lingual movements/bolus transport was again slowed with thin liquids, but no anterior spillage was observed and no overt s/sx premature posterior spillage of the bolus. About 2 minutes after completing swallows of yogurt and water, pt burped/ demonstrated signs of possible reflux, which was followed by a cough. Suspect possible airwar infiltration of reflux material 2/ slowed esophageal clearing. Based on this, it is recommended that the pt remain upright at least 45 degrees in bed at all times, ideally 90 degrees during and for 30 minutes after PO intake . Recommend continue current diet. TAX CONSULTANT consulted with OT re possibly assisting pt with oral care to increase independence and decrease risk factors for aspiration pneumonia. Recommendations Recommendations Continue Current Diet Liquids Order Thin (IDDSI 0) Diet Order Minced & Moist (IDDSI 5) Medication Recommendations As Tolerated,Whole in Carrier, Crushed in Carrier Additional Dietary Needs 1:1 Assistance Aspiration Precautions Recommended Precautions Upright at 90 Degrees,Small Bites/Sips,Check for Pocketing Additional Precautions Stay upright at least 45 degrees at all times. Treatment Plan Placement Recommendation after Discharge [facility] Facility Appropriate for Continued Therapy Yes
--- NOTE | 2023-04-07 10:23 | PC.NURSE ---
Patient is OX1-2 [facility] and [facility] He is slightly lethargic, as per night nurse hadn't slept well last night. MD at bedside this a.m. ordering new sleep medication. He is hesitant to eat when offered but when told to take his medication and given in food, he agrees to take a small amount of food with medications. He is initially to work with therapy at first but with encouragement to change his brief and check his skin he is agreeable to getting out of bed to sit in the chair. He is calm and not yelling out this morning, c/o a sore back and medicated with tylenol po prn 650 mg. Continuous monitoring.
[2023-04-07] MEDS: FLUoxetine 20 MG CAPSULE PO (11:00)
--- NOTE | 2023-04-07 13:03 | CM.DPC ---
Addendum entered by JOJO Garcia 04/07/23 15:54: ADD: [facility] set cabulance with [facility] for tomorrow 04/08 at 1100 as long as pt stable overnight. BF Addendum entered by JOJO Garcia 04/07/23 14:23: ADD: RN updated step leatha Lofton and provided email for this SW and Rolly emailed DPOA pwk showing Rolly as one of pt's DPOAs now that his spouse is . SW printed and to be scanned into EMR and sent to [facility] to review. Rolly agreeable with SNF at d/c. BF Original Note: DCP SNF Planning: Per MD, increasing pt's Remeron and added Prozac to see if this improves pt's lethargy and confusion but could be medically stable to d/c to SNF if SNF secured. SW updated [facility], [facility] and [facility]. [facility] confirms they likely can accept tomorrow as long as pt does not have any significant behaviors overnight and will check in with SW in the AM. [facility] continues to review and emailed updated clinicals to review. SW left msg for [facility] to see if they can accept as backup. SW met bedside with pt and explained role and pt was able to answer appropriately with quiet voice and brief with his answers and SW discussed recommendation of SNF since he is a 1-2PA and SNF and likely acceptance at [facility]. Pt made some eye contact and did not disagree or state concerns. RN calling step leatha Lofton and updating as well. SW updated MD on likely SNF tomorrow 04/08. [facility] completed and signed and SOURAV faxed to [facility] coordinator for exempted hospital discharge and called Melanie to update on likely d/c tomorrow and requested nadia review. Plan: SW to follow closely for plan of discharge to [facility] tomorrow 04/08 if pt remains behaviorally stable overnight and return call from [facility] coordinator for exempted hospital discharge. JOJO Garcia
--- NOTE | 2023-04-07 15:11 | OT.IP.TRT ---
Current Diagnoses Other specified bacterial agents as the cause of diseases classified elsewhere (04/02/23) Anemia, unspecified (04/02/23) Coagulation defect, unspecified (04/02/23) Type 2 diabetes mellitus without complications (04/02/23) Dehydration (04/02/23) Metabolic encephalopathy (04/02/23) Paroxysmal atrial fibrillation (04/02/23) Other forms of stomatitis (04/02/23) Chronic kidney disease, unspecified (04/02/23) Disorder of kidney and ureter, unspecified (04/02/23) Weakness (04/02/23) Adult failure to thrive (04/02/23) Occupational Therapy Treatment Note M2 OT-IP Current Condition Start: 04/03/23 14:26 Freq: Status: Active Protocol: Document 04/03/23 14:27 [facility] (Rec: 04/03/23 14:52 [facility] [id number]) Occupational Therapy Current Condition Current Condition Evaluation Date 04/03/23 Treatment Diagnosis Metabolic encephalopthy, decreased mobility Diagnosis Onset Date 04/02/23 M3 OT- IP Subjective and Pain Start: 04/03/23 14:26 Freq: Status: Active Protocol: Document 04/07/23 14:20 [facility] (Rec: 04/07/23 15:11 [facility] [id number]) OT- Subjective Occupational Therapy Visit Type Type Treatment Note Visit Start Time 14:20 Visit Stop Time 14:47 Occupational Therapy Visit Comments Patient Comments Pt agreed to get back to bed and agreed to use the urinal prior to getting back to bed. Patient/Caregiver Goals TO go home. OT Pain Assessment Pain When Pain Assessed At Rest Pain Present Pain Present Pain Reported M4 OT- IP ADL's Start: 04/03/23 14:26 Freq: Status: Active Protocol: Document 04/07/23 14:20 [facility] (Rec: 04/07/23 15:11 [facility] [id number]) OT [id number] Comments OT Self-Feeding Comments Pt able to fee himself pudding with increased time. OT ADL-Grooming General Evaluation Grooming Ability Standby Assistance Areas Needing Assistance Retrieving/Set-up of Grooming Items Comments OT Grooming Comments VC to wash his face, pt needing increased time to process and follow commands at this time. OT ADL-Oral Care General Eval Oral Care Ability Standby Assistance Comments Oral Care Comments VC for completeness and sequence to use swab to brush his mouth out and rinse his mouth out. OT ADL-Dressing General Eval Lower Body Dressing Ability Maximum Assistance Areas Needing Assistance Underpants/Brief,Socks OT ADL-Toileting Comments OT Toileting Comments Pt able to hold urinal in place with assist from OT and nursing to stand pt with FWW. OT ADL-Bathing Comments OT Bathing Comments Not performed. M6 OT- IP Functional Cognition Start: 04/03/23 14:26 Freq: Status: Active Protocol: Document 04/07/23 14:20 [facility] (Rec: 04/07/23 15:11 [facility] [id number]) Cognitive Factors Limiting Selfcare Function Cognitive Comments Cognitive Assessment Comments Pt needing cues to complete step for oral care needs and grooming. Pt slow to respond and follow directions at this time. Pt not aware that he is in the hospital. M7 OT- IP Mobility and Balance Start: 04/03/23 14:26 Freq: Status: Active Protocol: Document 04/07/23 14:20 [facility] (Rec: 04/07/23 15:11 [facility] [id number]) OT- Bed Mobility Assessment Supine to Sit Supine to Sit Assist Maximum Assistance,1 Person Assistance OT-Transfer Assessment Sit to and From Stand Sit to and from Stand Minimal Assistance,Moderate Assistance,1 Person Assistance ,2 Person Assistance Transfers Transfer Ability Moderate Assistance,1 Person Assistance,2 Person Assistance Technique Transfer Destination Bed,Chair Transfer Technique Stand Step Pivot Devices Transfer Assistive Devices Gait Belt,Front Wheeled Walker Comments Mobility Comments Pt varies from AMARI to MODA X 2 to stand to FWW. MODA 1-2 to transfer with the FWW. VC to straighten his legs as pt tends to buckle at his knees. Assist to guide the FWW as well. MAX Ax1 to help get pt back to bed. OT- Balance Assessment Sitting Balance and Reactions Static Sitting Balance Ability Good Dynamic Sitting Balance Ability Fair Standing Balance and Reactions Static Standing Balance Ability Poor Dynamic Standing Balance Ability Poor M8 OT- IP Objective Assessments Start: 04/03/23 14:26 Freq: Status: Active Protocol: Document 04/03/23 14:27 [facility] (Rec: 04/03/23 14:52 [facility] [id number]) OT Gross Range of Motion Upper Extremity Range of Motion ROM Impairments Grossly WFL OT Strength Comments Strength Comments From proximal to distal 4/5 to 4+/5 OT- Coordination Assessment Upper Extremity Finger to Nose Test Bilateral UE Impaired M9 OT- IP Assessment and Plan Start: 04/03/23 14:26 Freq: Status: Active Protocol: Document 04/07/23 14:20 [facility] (Rec: 04/07/23 15:11 [facility] [id number]) OT Summary Assessment and Plan Potential Rehabilitation Potential Good Analytic Complexity at Evaluation Moderate Summary OT Impairments Pain,Strength,Balance, Functional Cognition, Functional Mobility,Grooming, Dressing,Toileting,Bathing, Toilet Transfers,Shower Transfers,Activity Tolerance Progress Towards Goals Slow Progress due to Pain,Slow Progress due to Medical Issues,Slow Progress due to Activity Tolerance,Slow Progress due to Cognition Assessment Summary Pt needing more safety cues to follow today and still needing extensive assist for all ADl and mobility needs. Pt will benefit from skilled rehab to help maximize pt independence for all ADL and mobility needs, otherwise pt will need increased assist at [facility] and home health Goals Self-Feeding Goal Independent Grooming Goal Independent Dressing Goal Independent Toileting Goal Independent Bathing Goal Standby Assistance Toilet Transfer Goal Independent Shower Transfer Goal Standby Assistance Days to Meet Goals 15 Frequency of Treatment Frequency Of Treatment Once a Day Treatment Plan OT Treatment Plan ADL Training,Functional Cognition Training,Functional Mobility,Patient/Family Education,Discharge Planning Discharge Recommendations OT Discharge Recommendations SNF Rehab Other Discharge Recommendations If pt able to progress greatly , possibly home with 08/09 available assist and home health Transportation Needs at Discharge Wheelchair/Cabulance
[2023-04-07 16:00] VITALS: BP 88/46; PULSE 104; RESP 18; TEMP 36.1; O2SAT 94
--- NOTE | 2023-04-07 18:06 | PM.PN.1 ---
Subjective Subjective Date Patient Seen: 04/07/23 Time Patient Seen: 09:30 Interval history: Patient seen in follow-up metabolic encephalopathy, infection of tongue. Overall no new changes. Patient has been somewhat agitated and angry but no other complaints. No complaints of pain or other changes. Patient has had no chest pain shortness for breath bowel movements have been normal normal urination. Exam Vital Signs (past 8 hours): - 04/07/23 16:00 Temperature 97.0 F L Pulse Rate 104 H Respiratory Rate 18 Blood Pressure 88/46 L Pulse Oximetry 94 Oxygen Delivery Method Room Air Oxygen Flow Rate 0 Narrative Exam Narrative: Alert elderly male interactive and appropriate oriented to who I am and where he is. HEENT exam tongue is back to normal. No masses that I can see. Neck is supple with decreased swelling anteriorly mild superior cervical adenopathy. Lungs are clear. Heart is irregular r rate and rhythm without murmurs clicks rubs and gallops. Abdomen is soft positive bowel sounds nontender his hip does not elicit any pain today. He is moving his extremities. Neurologic exam is nonfocal with movement of all extremities sensation intact Objective Labs 04/07/23 03:50 04/07/23 03:50 Labs: Laboratory Results - last 24 hr 04/07/23 03:50 WBC 5.6 RBC 3.12 L Hgb 9.5 L Hct 28.2 L MCV 90.3 MCH 30.4 MCHC 33.6 RDW 14.3 Plt Count 247 Neut % (Auto) 74.0 Lymph % (Auto) 9.1 L [place]berry % (Auto) 11.4 Eos % (Auto) 4.5 H Baso % (Auto) 1.0 Neut # (Auto) 4100 Lymph # (Auto) 500 L Newberry # (Auto) 600 Eos # (Auto) 300 Baso # (Auto) 100 PT 44.9 H D INR 3.9 H Sodium 135 L Potassium 4.4 Chloride 103 Carbon Dioxide 23 BUN 20 Creatinine 1.84 H Estimated GFR 35 L BUN/Creatinine Ratio 10.9 Glucose 90 Calcium 8.2 L Total Bilirubin 0.5 AST 23 ALT 17 Alkaline Phosphatase 78 Total Protein 5.9 L Albumin 2.9 L Globulin 3.0 Albumin/Globulin Ratio 1.0 [facility] Medical History (Updated 04/04/23 @ 16:04 by Bertrand Gray MD) DM type 2 (diabetes mellitus, type 2) Prostate cancer Family history of prostate cancer in father 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 Patient is not completely back to be baseline at this time. MRI was negative metabolically he seems to be normal nonfocal exam. I do not see a definitive cause for this. I wonder how much about this is secondary to depression or her least all the social issues that he has been dealing with. He had his tie he was moved out of his house into a place he did not really appreciate much has not simulated into mostly isolates in his room and now is in the hospital. Patient is certainly angry today and at this point we are going to bump his Remeron to 30 mg and start his Prozac because I think some part of this is emotional I do not know if all of it is but I can not find any other definitive causes and we will follow up in 2 weeks and see how he is doing. Infection of his tongue pharynx seems to be resolved. On oral clindamycin. My recommendation would be when he leaves he is off antibiotics completely and will see how things go. Patient has not had a fever or white count has been stable and I think at this point we can discontinue on the day discharge. Atrial fibrillation. Patient is a big fall risk at this point. We have had fluctuating INRs his rate is well controlled and I think anticoagulating him is a risk until his strength comes back. My recommendation is continue rate control will see how things go I will restart Coumadin as an outpatient as he gets his strength. Elevated INR. Pretty significantly elevated again. He has been rapidly and easily getting too high and I think due to his fall risk that the best thing would be to stay off his Coumadin right now and we will re-evaluate as time goes. Due to his weakness he has a big fall risk and I think his risk of falls and bleeding is higher than his other risks. Of stroke. Severe nutritional deficit. Patient has been evaluated by dietitian there were leave worked out a process. And we overall will see how things go. Continue to work on his food depending as outpatient. Acute on chronic renal failure. Back to baseline. Will follow. Type 2 diabetes. Stable off of metformin. I do not think this is going to be an issue and he has been doing extremely well as an outpatient with hemoglobin A1cs in the high 5s. I think he will do well off his medicines and I think the metformin causes a risk with his increased renal failure. We will follow this as an outpatient. Weakness. I think this is a combination of poor nutritional status his infection dehydration and clearly multifactorial. There is no evidence of central nervous system impact and we will just have to follow. Dehydration. Off hydration. Not taking a lot of fluids but will have to see how he does on his own. Certainly back to euvolemic and we will follow Code status DNR. 55 minutes spent with the patient social Service nursing dictation orders. Quality VTE Deep Vein Thrombosis/Pulmonary Embolism Present on Admission: No
[2023-04-07 20:15] VITALS: BP 132/68; PULSE 100; RESP 17; TEMP 36.2; O2SAT 96
[2023-04-07] MEDS: MIRTAZAPINE 15 MG TABLET 30 MG PO (21:36)
[2023-04-07] MEDS: PANTOPRAZOLE DR 40 MG TABLET PO (21:37)
--- NOTE | 2023-04-08 02:29 | PC.NURSE ---
Patient responds to name and is able to state he is in the hospital in [place] but then fell back to sleep so complete assessment not done. Breath sounds diminished at bases but CTA with RA sat of 96%. HR irregular with know afib and rate of 100 bpm. Abdomen is soft and has good BT but has not had a BM since 04/03 although has had poor appetite most days while here; no bowel meds ordered at this time. He was initially resistive to cares from staff. When previous RN attempted to put SCD's on patient he instructed her to leave him alone and get out of the room. When this RN attempted to give him his bedtime meds he took my swallow and then started spitting; with reassurance from staff he did agree to take bite after bite until all his meds were taken without additional spitting out. Prior to bedtime he was frequently hollering out for rebecca, rebecca but has been asleep since approximately 2200. He did wake briefly when assessment done but fell back to sleep almost immediately. He was continent of urine with staff assist to hold the urinal. He is being repostioned q2h by using the Berenice bed tilt function. FLACC score earlier was 2/10 and is currently 0/0. Refused SCD's. Fall risk score is high and bed alarm is activated.
[2023-04-08 04:00] VITALS: BP 124/77; PULSE 110; RESP 18; TEMP 36; O2SAT 96
[2023-04-08 05:02] LABS: INR 4.2 (0.9-1.3); Prothrombin Time 48.9 SECONDS (9.4-12.5)
[2023-04-08] MEDS: CLINDAMYCIN 150 MG CAPSULE 300 MG PO (05:41)
[2023-04-08 08:17] VITALS: BP 127/69; PULSE 111; RESP 18; TEMP 36.6; O2SAT 93
--- NOTE | 2023-04-08 09:11 | PM.DS.1 ---
History of Present Illness History of Present Illness Date Patient Seen: 04/08/23 Time Patient Seen: 09:12 Chief complaint: fall, high INR, confusion Narrative: Patient seen today in [facility] for PCP, Dr. Pierre. This is my 1st time seeing this patient this hospitalization and overall. Reportedly he is more alert more able to converse and doing significantly better. He is somnolent but voices frustration with all the people who are coming in this morning. He did not sleep well last night. He denies any pain currently. He denies any shortness a breath or chest pain or palpitations or lightheadedness or dizziness Twelve point review of systems is otherwise negative Discharge Providers Provider Date of admission: 04/02/23 10:16 Discharge Date: 04/08/23 Primary care physician: Rufino Pierre MD Consults: 03/31/23 20:11 Consult to Discharge Planning Routine Comment: 03/31/23 20:56 Consult to Dietitian, Adult Routine Comment: Reason For Exam: pt states weight loss >6#s & decreased appetite 04/02/23 08:19 Consult to Speech Therapy Evaluate & Treat Comment: swallow eval Physician Instructions: Evaluate and treat 04/03/23 09:20 Consult to Occupational Therapy Evaluate & Treat Comment: Physician Instructions: Evaluate and treat Consult to Physical Therapy Evaluate & Treat Comment: Physician Instructions: Evaluate and Treat Discharge provider: Kirsten Ledezma MD Summary Hospital Course Discharge Diagnosis: supratherapeutic inr afib on chronic anticoagulation depression metabolic encephalopathy, improved diabetes well controlled with metformin acute on chronic kidney disease bph GERD Hospital Course: Patient had a fall and then was evaluated had supratherapeutic INR and was sent to the emergency room. He was noted to have confusion and metabolic encephalopathy and was admitted to the hospital for further workup and treatment. He was found to have acute kidney injury on top of chronic kidney disease. He has had well-controlled diabetes as an outpatient and due to the chronic kidney disease and acute exacerbation the metformin was discontinued. It was felt he was significantly dehydrated he was given fluids. He has received physical therapy in the hospital. Due to supratherapeutic INR he was given vitamin K and number warfarin was held and then re-initiated but now still supratherapeutic and Coumadin was discontinued yesterday and it is felt by his PCP that the risk of anticoagulation with Coumadin outweighs the benefit of decreasing stroke due to his AFib. Patient was also found to have a tongue infection with swelling. Unclear etiology unsure if this was related to biting his tongue when he fell. In any event he is afebrile and there is no leukocytosis and he has not having any more visible abnormalities of the tongue and no complaints of pain or difficulty eating. He completed a course of oral clindamycin and will be discharged off of the clindamycin. It was thought that part of his symptomatology is secondary to reactive depression due to recent loss of his and loss of his home and placement in skilled care facility. His Remeron was increased to 30 mg 2 days ago and fluoxetine was started at 20 mg daily. He will be discharged to [facility] in improved condition. He requires inpatient rehab for ongoing physical therapy. Also requires nursing assistance. Status at Discharge Cognitive/behavioral status at discharge: confused Functional status at discharge: wheelchair bound Exam Vital Signs (past 8 hours): - 04/08/23 02:20 04/08/23 04:00 04/08/23 08:17 Temperature 96.8 F L 97.8 F Pulse Rate 110 H 111 H Respiratory Rate 18 18 Blood Pressure 124/77 127/69 Pulse Oximetry 96 93 Oxygen Delivery Method Room Air Oxygen Flow Rate 0 0 Oxygen Delivery Method Room Air Oxygen Flow Rate 0 Narrative Exam Narrative: Afebrile, vital signs are stable other than heart rate in the low 100s Patient awakens when we discuss discharge and answers questions appropriately. Voices frustration with all the people interrupting him today HEENT shows no abnormalities of the tongue Neck: Supple without adenopathy or masses Chest: Clear to auscultation without wheezes rhonchi or crackles Cor irregularly irregular rhythm at a rate in the low 100s with distant S1-S2 Abdomen: Positive bowel sounds, soft, nontender, nondistended Extremities no edema, pulses intact Objective Labs 04/07/23 03:50 04/07/23 03:50 Labs: Laboratory Results - last 24 hr 04/08/23 04:22 PT 48.9 H INR 4.2 H [facility] Medical History (Updated 04/04/23 @ 16:04 by Bertrand Gray MD) DM type 2 (diabetes mellitus, type 2) Prostate cancer Family history of prostate cancer in father 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, multiple Elevated PSA UTI (urinary tract infection) Atrial fibrillation Urological system complication of procedure Surgical History History of bladder surgery Previous back surgery Social History marital status: household members: none occupational status: previously employed Smoking Status: Never smoker alcohol intake: former substance use type: does not use Discharge Assessment & Plan Assessment and Plan Assessment: supratherapeutic inr afib on chronic anticoagulation depression metabolic encephalopathy, improved diabetes well controlled with metformin acute on chronic kidney disease bph GERD Plan of Treatment: Patient will be transferred to [facility] Patient will be continued on his outpatient medications including metoprolol extended-release 25 mg twice daily, omeprazole 40 mg twice daily, Carafate 1 g 4 times daily, mirtazapine 30 mg daily, fluoxetine 20 mg daily. Clindamycin is finished. He will no longer be on warfarin. Discharge Plan Discharge Plan Patient Disposition: SNF Transfer to: [facility] Discharge orders & Medications Prescriptions: New fluoxetine 20 mg Capsule 20 mg PO DAILY Qty: 30 0RF mirtazapine 15 mg Tablet 30 mg PO BEDTIME Qty: 30 0RF Continued sucralfate 1 GM tablet 1 gm PO ACHS Qty: 0 benzonatate [Tessalon Perles] 100 mg capsule 100 mg PO TID PRN (Reason: cough) Qty: 12 0RF betamethasone dipropionate 0.05 % Ointment 1 applic TOPICAL BID guaifenesin 200 mg/5 mL liquid 200 mg PO Q4H PRN (Reason: congestion) omeprazole 40 mg capsule,delayed release(DR/EC) 40 mg PO BID diphenoxylate-atropine 2.5-0.025 mg tablet 1 tab PO Q6-8H PRN (Reason: Diarrhea) metoprolol succinate 25 mg tablet extended release 24 hr 25 mg PO BID bicalutamide [Casodex] 50 mg tablet 50 mg PO DAILY Qty: 30 0RF Discontinued mirtazapine [Remeron] 15 MG tablet 15 mg PO HS Qty: 0 warfarin [Coumadin] 2 MG tablet 4 mg PO USEASDIRECTD Qty: 0 Rx Instructions: Take for three days, on fourth day take 2mg promethazine 25 MG tablet 25 mg PO PRN PRN (Reason: Motion Sickness) Qty: 0 metformin 500 mg tablet 500 mg PO BID tolterodine 4 mg capsule,extended release 24hr 4 mg PO DAILY Follow up/Referrals: Rufino Pierre MD [Primary Care Provider] - Discharge Health Status Precautions: [place] Diet/Activity/Treatments Diet: Diet as Tolerated and Carb-consistent/Diabetic Liquid consistency: Normal/Thin Food texture: Regular [facility] Rehab type: Physical therapy, Occupational therapy and Speech therapy Visit Report/Discharge Packet Stand Alone Forms: Patient Portal/API Discharge Data Primary Care Provider: Rufino Pierre Quality VTE Deep Vein Thrombosis/Pulmonary Embolism Present on Admission: No
--- NOTE | 2023-04-08 09:24 | SLP.IPNOTE ---
BANANA LOADER attempted tx at 0915am. Pt refused repositioning upright for PO intake, refused intake of food or water even while reclined. Stated he did not want to eat or drink. Will re-attempt at lunchtime if possible.
[2023-04-08 09:29] VITALS: O2SAT 93
[2023-04-08 09:39] VITALS: BP 127/69; PULSE 111
[2023-04-08] MEDS: SUCRALFATE 1 GM TABLET PO (09:39)
[2023-04-08] MEDS: FLUoxetine 20 MG CAPSULE PO (09:39)
[2023-04-08] MEDS: HYDROCODONE/ACET 5/325 TABLET 2 TAB PO (09:39)
[2023-04-08] MEDS: METOPROLOL ER 25 MG TABLET PO (09:39)
[2023-04-08] MEDS: INSULIN LISPRO 100 UNIT/ML 3ML VIAL SUBCUT (09:40)
--- NOTE | 2023-04-08 10:46 | CM.DPNOTE ---
DC Note Patient discharged by Dr Ledezma to [facility]. Reviewed DCP with patient and son Rolly who remain agreeable to plan. Coordination with Samantha at [facility], david arranged for filler picker [id number]. PAYTON Ochoa assisting with this coordination- Completed and signed hospital exempt PASRR, signd med list , DC summary and Rx for Remeron and Prozac sent to Samantha. Plan: Discharge to [facility] via david JW
== END 2023-04-08 12:09 | DRG 682 ==
LOC: ED 18:02 → AC 19:43
PROVIDERS: Family Medicine; Admitting Provider Family Medicine; Emergency Provider Emergency Medicine; Family Provider Family Medicine; PCP Family Medicine; Visit Provider Family Medicine
DX: N17.9 Acute kidney failure, unspecified (principal); G93.41 Metabolic encephalopathy; I50.22 Chronic systolic (congestive) heart failure; I13.0 Hypertensive heart and chronic kidney disease with heart failure and stage 1 through stage 4 chronic kidney disease, or unspecified chronic kidney disease; E86.0 Dehydration; I48.0 Paroxysmal atrial fibrillation; K14.0 Glossitis; J02.9 Acute pharyngitis, unspecified; E11.22 Type 2 diabetes mellitus with diabetic chronic kidney disease; N18.9 Chronic kidney disease, unspecified; D63.1 Anemia in chronic kidney disease; R79.1 Abnormal coagulation profile; F32.A Depression, unspecified; N40.0 Benign prostatic hyperplasia without lower urinary tract symptoms; K21.9 Gastro-esophageal reflux disease without esophagitis; Z79.84 Long term (current) use of oral hypoglycemic drugs; Z66 Do not resuscitate; Z79.01 Long term (current) use of anticoagulants
CPT/HCPCS: 36415; 70450; 70490; 70548; 70553; 71045; 73502; 76770; 80048; 80053; 81001; 82140; 82962; 85025; 85610; 85651; 85730; 86140; 87040; 87086; 92526; 92610; 96360; 96361; 97162; 97166; 97530; 97535; 99232; 99284; 99285; G0378; A9579; J1815; J3430; J7121